=== PATIENT | male | born 1945 | race Caucasian/White ===

== ENCOUNTER → 2016-08-09 | Day surgery (SDC) | payer OTHER ==
[2016-07-30 08:44] VITALS: BMI 35.0
[~2016-08-09] VITALS: Ht 180.3 cm; Wt 113.6 kg
[~2016-08-09] MED LIST: ASPI81TA28 PO; BND25 PO; CALC-20 PO; CHOL20007 PO; CLOP1TAB15 PO; CYCL5TAB PO; FAMO40TA6 PO; FLUT0.15 NAE; GLUC10007 PO; HYDR-5688 PO; LIDOCAINE HCL 2% 2 ML VIAL (20MG/ML) ONE; LISI-794 PO; LPT/40 PO; METF500T PO; METO-217 PO; MIDAZOLAM HCL 1 MG/ML 2ML VIAL ONE; MULTTAB58 PO; NTRGSL/4 UT; ONDANSETRON INJ 2 MG/ML 2 ML VIAL ONE; PLV75 PO; PRLSR20 PO; PROPOFOL IV EMULSION 10 MG/ML 20 ML VIAL IV ONE; RANO500T PO; SODIUM CHLORIDE 0.9% 500ML 500 ML IV ONE; TADA5TAB11 PO; TRAM-10 PO; VALA1TAB2 PO; VALA500T60 PO
[2016-08-09 11:30] VITALS: Ht 180.3 cm; Wt 113.6 kg
[2016-08-09 11:40] VITALS: TEMP 36.8
--- NOTE | 2016-08-09 12:05 | Endo History and Physical ---
History & Physical Date of Service: Aug 09, 2016. Chief Complaint: CHANGE IN BOWEL HABITS Referring Physician: DR. LUCI REYNOLDS History of Present Illness 70 yo CM who presents for Colonoscopy secondary to change in bowel habits. Past Medical History Diabetes, Angioplasty/Stent, Arthritis, Reflux, High Cholesterol, Heart Disease , Hypertension, [place] Past Surgical History Hx Cardiac Surgery: Yes (MULTIPLE HEART CATHS AND STENTS X8-9) Hx Internal Defibrillator: No Hx Pacemaker: No Hx Abdominal Surgery: Yes (LACY, HERNIA REPAIR) Hx of Implantable Prosthesis: No Hx Post-Op Nausea and Vomiting: Yes (PATCH HAS WORKED IN THE PAST) Hx Cancer Surgery: No Hx Thoracic Surgery: No Hx Orthopedic: Yes (LT KNEE SCOPE) Hx Urinary Tract Surgery: Yes (TURP X2, VASECTOMY) Family History None Social History Smoking Status: Former Smoker Hx Substance Use: No Hx Alcohol Use: Yes (OCCASIONAL) Allergies Coded Allergies: Morphine (Verified Adverse Reaction, Severe, GI SYMPTOMS-violent throwing up, can take hydrocodone, 07/30/16) Current Medications Reported Home Medications Medications Dose Route/Sig Max Daily Dose Days Date Category Dose Instructions [place] 5MG/325MG (Acetaminophen/Hydrocodone Bitart) Tab 1 Tablet PO Q12 PRN 07/30/16 Reported PRN PAIN Glucosamine (Glucosamine Sulfate) 1,000 Mg Tab 1,000 Mg PO QAM 07/30/16 Reported Pepcid (Famotidine) 40 Mg Tab 40 Mg PO HS 07/30/16 Reported Ultram (Tramadol HCl) 50 Mg Tab 1-2 Tab PO PRN PRN 07/30/16 Reported Valtrex (Valacyclovir Hcl) 1 Gm Tab 0.5 Tab PO TID PRN 07/30/16 Reported Benadryl (Diphenhydramine Hcl) 25 Mg Cap 50 Mg PO HS 07/30/16 Reported Zestril (Lisinopril) 40 Mg Tab 40 Mg PO QAM 07/30/16 Reported Aspirin Ec (Aspirin) 81 Mg Tab 81 Mg PO QAM 10/05/15 Reported Vitamin D3 (Cholecalciferol) 2,000 Unit Tab 1 Tab PO QPM 08/24/15 Reported Prilosec (Omeprazole) 20 Mg Capcr 20 Mg PO QAM 05/15/15 Reported Nitrostat (Nitroglycerin) 0.4 Mg Tab 0.4 Mg UT PRN 04/21/15 Reported Flexeril (Cyclobenzaprine Hcl) 5 Mg Tab 5 Mg PO HS PRN 03/01/15 Reported Calcium 600 + D (Calcium Carbonate-Vitamin D) 1 Tab Tab 1 Tab PO QPM 03/01/15 Reported Flonase Allergy Relief (Fluticasone Propionate (Nasal)) 50 Mcg/Act Spr 2 Sprays ISABEL DAILY PRN 03/01/15 Reported Cialis (Tadalafil) 5 Mg Tab 5 Mg PO QPM 03/01/15 Reported Toprol Xl (Metoprolol Succinate) 50 Mg Tabcr 50 Mg PO QAM 05/04/12 Reported Glucophage (Metformin Hcl) 500 Mg Tab 500 Mg PO QAM 05/04/12 Reported Multivitamin (Multiple Vitamin) 1 Tab Tab 1 Tab PO QAM 05/04/12 Reported Lipitor (Atorvastatin) 40 Mg Tab 40 Mg PO HS 05/04/12 Reported Vital Signs Weight (Kilograms): 113.64 Height (Feet): 5 Height (Inches): 11 Date Time Temp Pulse Resp B/P Pulse Ox O2 Delivery O2 Flow Rate FiO2 08/09/16 11:40 36.8 63 16 144/82 96 Room Air Physical Exam General Appearance: WD/WN, no apparent distress Respiratory/Chest: Auscultation: breath sounds normal Cardiovascular: Heart Auscultation: RRR Abdomen: Bowel Sounds: normal Inspection & Palpation: soft, non-distended, no tenderness, guarding & rebound Assessment and Plan Assessment: 70 yo CM who presents for Colonoscopy secondary to change in bowel habits. Plan: Proceed with colonoscopy.
--- NOTE | 2016-08-09 12:26 | GI REPORT ---
Procedure Date: 08/09/2016 11:50 AM Procedure: Colonoscopy Indications: Change in bowel habits Medicines: Monitored Anesthesia Care Complications: No immediate complications. Estimated Blood Loss: Estimated blood loss: none. Procedure: Pre-Anesthesia Assessment: - Prior to the procedure, a History and Physical was performed, and patient medications and allergies were reviewed. The patient's tolerance of previous anesthesia was also reviewed. The risks and benefits of the procedure and the sedation options and risks were discussed with the patient. All questions were answered, and informed consent was obtained. Prior Anticoagulants: The patient has taken aspirin, last dose was 1 day prior to procedure. ASA Grade Assessment: III - A patient with severe systemic disease. After reviewing the risks and benefits, the patient was deemed in satisfactory condition to undergo the procedure. After I obtained informed consent, the scope was passed under direct vision. Throughout the procedure, the patient's blood pressure, pulse, and oxygen saturations were monitored continuously. The scope was introduced through the anus and advanced to the terminal ileum. The colonoscopy was performed without difficulty. The patient tolerated the procedure well. The quality of the bowel preparation was good. The terminal ileum, ileocecal valve, appendiceal orifice, and rectum were photographed. Findings: Two sessile polyps were found in the sigmoid colon. The polyps were 3 to 4 mm in size. These polyps were removed with a cold biopsy forceps. Resection and retrieval were complete. Multiple small-mouthed diverticula were found in the sigmoid colon. Non-bleeding internal hemorrhoids were found during retroflexion. The hemorrhoids were small. Impression: - Two 3 to 4 mm polyps in the sigmoid colon, removed with a cold biopsy forceps. Resected and retrieved. - Diverticulosis in the sigmoid colon. - Non-bleeding internal hemorrhoids. Recommendation: - Resume previous diet. - Continue present medications. - Repeat colonoscopy for surveillance based on pathology results. - Return to primary care physician as previously scheduled. Van Glass, DO 08/09/2016 12:25:34 PM This report has been signed electronically. Note Initiated On: 08/09/2016 11:50 AM I attest to the content of the Intraoperative Record and orders documented therein, exceptions below
--- NOTE | 2016-08-09 12:28 | Discharge Instructions ---
Endoscopy Patient Instructions Date / Procedure(s) Performed Aug 09, 2016. Colonoscopy Allergy Information Coded Allergies: Morphine (Verified Adverse Reaction, Severe, GI SYMPTOMS-violent throwing up, can take hydrocodone, 07/30/16) Discharge Date / Findings Aug 09, 2016. Colon polyps Diverticulosis Internal hemorrhoids Medication Instructions Stopped Medication(s): STOP ALL MEDICATIONS EXCEPT LISINOPRIL, METOPROLOL, PEPCID. OK to resume all medications today as prescribed. Reported Home Medications Medications Dose Route/Sig Max Daily Dose Days Date Category Dose Instructions [place] 5MG/325MG (Acetaminophen/Hydrocodone Bitart) Tab 1 Tablet PO Q12 PRN 07/30/16 Reported PRN PAIN Glucosamine (Glucosamine Sulfate) 1,000 Mg Tab 1,000 Mg PO QAM 07/30/16 Reported Pepcid (Famotidine) 40 Mg Tab 40 Mg PO HS 07/30/16 Reported Ultram (Tramadol HCl) 50 Mg Tab 1-2 Tab PO PRN PRN 07/30/16 Reported Valtrex (Valacyclovir Hcl) 1 Gm Tab 0.5 Tab PO TID PRN 07/30/16 Reported Benadryl (Diphenhydramine Hcl) 25 Mg Cap 50 Mg PO HS 07/30/16 Reported Zestril (Lisinopril) 40 Mg Tab 40 Mg PO QAM 07/30/16 Reported Aspirin Ec (Aspirin) 81 Mg Tab 81 Mg PO QAM 10/05/15 Reported Vitamin D3 (Cholecalciferol) 2,000 Unit Tab 1 Tab PO QPM 08/24/15 Reported Prilosec (Omeprazole) 20 Mg Capcr 20 Mg PO QAM 05/15/15 Reported Nitrostat (Nitroglycerin) 0.4 Mg Tab 0.4 Mg UT PRN 04/21/15 Reported Flexeril (Cyclobenzaprine Hcl) 5 Mg Tab 5 Mg PO HS PRN 03/01/15 Reported Calcium 600 + D (Calcium Carbonate-Vitamin D) 1 Tab Tab 1 Tab PO QPM 03/01/15 Reported Flonase Allergy Relief (Fluticasone Propionate (Nasal)) 50 Mcg/Act Spr 2 Sprays ISABEL DAILY PRN 03/01/15 Reported Cialis (Tadalafil) 5 Mg Tab 5 Mg PO QPM 03/01/15 Reported Toprol Xl (Metoprolol Succinate) 50 Mg Tabcr 50 Mg PO QAM 05/04/12 Reported Glucophage (Metformin Hcl) 500 Mg Tab 500 Mg PO QAM 05/04/12 Reported Multivitamin (Multiple Vitamin) 1 Tab Tab 1 Tab PO QAM 05/04/12 Reported Lipitor (Atorvastatin) 40 Mg Tab 40 Mg PO HS 05/04/12 Reported Provider Instructions Activity Restrictions - No exercising or heavy lifting for 24 hours. - Do not drink alcohol the day of the procedure. - Do not drive a car or operate machinery until the day after the procedure. - Do not make any important decisions or sign important papers in 24 hours after the procedure. Following Day: - Return to full activity which may include returning to work/school. Diet Start your diet with liquids and light foods (jello, soup, juice, toast). Then eat your usual diet if not nauseated. Treatment For Common After Affects For mild abdominal pain, bloating, or excessive gas: - Rest - Eat lightly - Lie on right side Follow-Up Information Follow-up with DR. LUCI REYNOLDS as scheduled Anesthesia Information What You Should Know You have had a procedure that required some medicine to reduce anxiety and discomfort. This treatment is called moderate sedation. After receiving the treatment, you may be sleepy, but you will be able to breathe on your own. The effects of the treatment may last for several hours. Follow these instructions along with Activity/Diet recommendations noted above: * Do NOT do anything where dizziness or clumsiness would be dangerous. * Rest quietly at home today, then you can be up and about tomorrow. * Have a responsible person stay with you the rest of today. * You may have had an I.V. today. If so, you may take the dressing off later today. Recommendations Call your doctor if: * Trouble breathing * Continuous vomiting for more than 24 hours * Temperature above 101 degrees * Severe abdominal pain or bloating * Pain not relieved by pain medicine ordered * There is increased drainage or redness from any incision * A large amount of rectal bleeding greater than 2-3 tablespoons. (If you had a polyp/s removed or have hemorrhoids, a small amount of blood - from the rectum is to be expected.) * You have any unanswered questions or concerns. IN THE EVENT OF A SERIOUS EMERGENCY, GO TO THE NEAREST EMERGENCY ROOM Your discharge instructions were prepared by provider Van G. Case. Patient Instructions Signature Page Fran Dyertz Patient (or Guardian) Signature/Date: I have read and understand the instructions given to me by my caregivers. Caregiver/RN/Doctor Signature/Date: The above-named patient and/or guardian has received patient instructions on this date. + Original Patient Signature Page (only) stays with chart. Please make copy for patient.
--- NOTE | 2016-08-09 12:55 | Anesthesiology Progress Note ---
Anesthesia Post Op Note Date & Time Aug 09, 2016 at 12:55 Vital Signs Pain Intensity: 0 Vital Signs Past 12 Hours Date Time Temp Pulse Resp B/P Pulse Ox O2 Delivery O2 Flow Rate FiO2 08/09/16 12:43 58 16 103/60 95 Room Air 08/09/16 12:27 64 16 100/59 94 Room Air 08/09/16 11:40 36.8 63 16 144/82 96 Room Air Notes Mental Status: alert / awake / arousable, participated in evaluation Pt Amnestic to Procedure: Yes Nausea / Vomiting: adequately controlled Pain: adequately controlled Airway Patency, RR, SpO2: stable & adequate BP & HR: stable & adequate Hydration State: stable & adequate Anesthetic Complications: no major complications apparent
[2016-08-09 12:58] VITALS: BP 109/66; PULSE 58; O2SAT 94
== END | disposition home or self-care (01) ==
LOC: C.GI 11:11
PROVIDERS: ATTEND Internal Medicine
DX: R19.4 Change in bowel habit (principal); D12.5 Benign neoplasm of sigmoid colon; K57.30 Diverticulosis of large intestine without perforation or abscess without bleeding; K64.8 Other hemorrhoids; E11.9 Type 2 diabetes mellitus without complications; K21.9 Gastro-esophageal reflux disease without esophagitis; I10 Essential (primary) hypertension; E78.00 Pure hypercholesterolemia, unspecified; I25.2 Old myocardial infarction; Z98.61 Coronary angioplasty status; Z87.891 Personal history of nicotine dependence; Z90.49 Acquired absence of other specified parts of digestive tract; Z79.82 Long term (current) use of aspirin

== ENCOUNTER → 2016-08-16 | Outpatient (CLI) | payer OTHER ==
[~2016-08-16] MED LIST changes: -LIDOCAINE HCL 2% 2 ML VIAL (20MG/ML) ONE; -MIDAZOLAM HCL 1 MG/ML 2ML VIAL ONE; -ONDANSETRON INJ 2 MG/ML 2 ML VIAL ONE; -PROPOFOL IV EMULSION 10 MG/ML 20 ML VIAL IV ONE; -SODIUM CHLORIDE 0.9% 500ML 500 ML IV ONE
--- NOTE | 2016-08-16 15:19 | DIAGNOSTIC IMAGING REPORT ---
RIGHT ELBOW 3 VIEWS CLINICAL HISTORY: Right elbow pain. No reported history of trauma. FINDINGS: 3 views of the right elbow are obtained. No prior studies are available for comparison at the time of dictation. The skeletal structures appear well mineralized. No fracture is seen. The joint spaces are preserved. Enthesophytes arise from the humeral epicondyles, and there is also a large enthesophyte at the triceps insertion. Minimal spurring is noted along the medial joint space. No joint effusion is identified. Dorsal soft tissue swelling is observed. IMPRESSION: 1. Dorsal soft tissue swelling with no radiographic evidence of acute fracture. 2. Mild degenerative change/spurring as above. Electronically signed by: Alexander Bell M.D. 08/16/2016 3:18 PM Dictated Date/Time: 08/16/2016 3:16 PM
== END | disposition home or self-care (01) ==
LOC: C.RDSM 08:00
PROVIDERS: ATTEND Physical Medicine & Rehabilitation Sports Medicine
DX: M25.521 Pain in right elbow (principal); M79.89 Other specified soft tissue disorders

== ENCOUNTER → 2016-09-17 | Outpatient (CLI) | payer OTHER | END | disposition home or self-care (01) | LOC: C.LABMFLN 08:45 | PROVIDERS: ATTEND Urology | DX: Z00.00 Encounter for general adult medical examination without abnormal findings (principal); F52.8 Other sexual dysfunction not due to a substance or known physiological condition; N40.1 Benign prostatic hyperplasia with lower urinary tract symptoms ==

== ENCOUNTER → 2016-10-24 | Outpatient (CLI) | payer OTHER ==
[~2016-10-24] MED LIST changes: -BND25 PO; +DIPH25CA5 PO
[2016-10-24 13:54] LABS: ESTIMATED AVERAGE GLUCOSE 160 mg/dl; HA1C FLAG Normal (Normal)
[2016-10-24 15:07] LABS: CHOLESTEROL/HDL RATIO 2.8
[2016-10-24 16:54] LABS: RATIO 17.9 mcg/mg (0-30.0)
== END | disposition home or self-care (01) ==
LOC: C.LABMFLN 08:29
PROVIDERS: ATTEND Internal Medicine
DX: I25.10 Atherosclerotic heart disease of native coronary artery without angina pectoris (principal); E11.9 Type 2 diabetes mellitus without complications

== ENCOUNTER → 2017-02-13 | Outpatient (CLI) | payer OTHER ==
[~2017-02-13] MED LIST changes: +BND25 PO; -DIPH25CA5 PO; +REGADENOSON 0.4 MG/5 ML SYR ONE
[2017-02-13 09:40] LABS: BASO % 0.4 %; BASO ABS # 0.03 K/uL (0-0.2); COMPLETE YES; HEMATOCRIT 44.5 % (42-52); IG% 0.1 %; LYMPH ABS # 2.87 K/uL (1.2-3.4); MEAN CELL VOLUME 85.4 fL (80-100); MEAN CORPUSCULAR HEMOGLOBIN 28.8 pg (25-34); MEAN CORPUSCULAR HGB CONC 33.7 g/dl (32-36); MEAN PLATELET VOLUME 9.7 fL (7.4-10.4); MONO % 11.2 %; NEUT % 46.3 %; PLATELET COUNT 233 K/uL (130-400); RED BLOOD COUNT 5.21 M/uL (4.7-6.1); WHITE BLOOD COUNT 7.35 K/uL (4.8-10.8)
[2017-02-13 10:12] LABS: BLOOD UREA NITROGEN 27 mg/dl (7-18); BUN/CREATININE RATIO 22.3 (10-20); CALCIUM 9.5 mg/dl (8.5-10.1); CARBON DIOXIDE 28 mmol/L (21-32); CHLORIDE 102 mmol/L (98-107); CHOLESTEROL 111 mg/dl (0-200); GLUCOSE 128 mg/dl (70-99); POTASSIUM 4.9 mmol/L (3.5-5.1); SODIUM 134 mmol/L (136-145)
[2017-02-13 10:16] LABS: ESTIMATED AVERAGE GLUCOSE 148 mg/dl; HA1C FLAG Normal (Normal)
[2017-02-13 10:21] LABS: HDL CHOLESTEROL 55 mg/dl; LDL CHOLESTEROL CALCULATED 40 mg/dl; TRIGLYCERIDES 80 mg/dl (0-150); VERY LOW DENSITY LIPOPROT CALC 16 mg/dl
--- NOTE | 2017-02-13 19:43 | Myocardial Perfusion Study ---
Myocardial Perfusion Study Rpt Myocardial Perfusion Study Rpt Date of Service 02/13/17 Myocardial Perfusion Study Rpt Procedure: 1. Myocardial perfusion study performed in multiple views/images 2. Lexiscan pharmacologic stress ECG Indications: 1. Dyspnea on exertion 2. CAD Consent: Informed written consent was obtained prior to the procedure. Ordering physician: Dr. Brown Procedural details: For the stress portion of the study, Lexiscan 0.4 mg was intravenously administered followed by a saline flush. This was followed by 33.2 mCi of technetium 99m Cardiolite, injected at 11:10 a.m. on 02/13/2017. 30 minutes following the injection, imaging of the heart was performed in multiple projections. For the rest portion of the study, 10.8 mCi technetium 99m Cardiolite was injected intravenously at 9:35 a.m. on 02/13/2017. 1 hour following the injection, imaging of the heart was performed in the same projections. Lexiscan stress ECG: Resting ECG demonstrated: Sinus bradycardia with first-degree AV block. 54 bpm. Maximum heart rate: 74 bpm Resting blood pressure: 107/64 mmHg Maximum blood pressure: 117/70 mmHg Maximal, age-predicted heart rate: 49 % Significant ST changes: None Arrhythmia: None Symptoms: Shortness of breath Findings: Rotating raw imaging demonstrated no significant lung uptake. There is no significant motion artifact. Heart size appeared mildly enlarged. Myocardial perfusion demonstrated moderate to large sized area with severely reduced uptake involving the base to apical inferior wall, base to apical inferolateral wall, and base to mid lateral wall. There is a fixed component involving the base to mid inferior, base to mid inferolateral, and base to mid lateral wall, with mild reversibility. The mid to distal inferior and mid to distal inferolateral wall segments appear reversible. Ejection fraction: 38% Wall motion: Akinesis of the basal inferior, basal inferolateral, and basal lateral wall segments. Hypokinesis of the mid to apical inferior, mid to apical inferolateral, and mid lateral wall segments. Other wall segments appear to have normal wall motion. No significant transient ischemic dilation. Impression: 1. Abnormal myocardial perfusion study suggesting ischemia involving inferior , inferolateral, and lateral wall segments. 2. Infarct involving the base to mid inferior, base to mid inferolateral, and base to mid lateral wall segments. 3. Lexiscan induced dyspnea. 4. Moderately reduced LV systolic function with calculated EF 38%. 5. Akinesis of the basal inferior, basal inferolateral, and basal lateral wall segments. Hypokinesis of the mid to apical inferior, mid to apical inferolateral, and mid lateral wall segments. Other wall segments appear to have normal wall motion. 6. Nondiagnostic Lexiscan ECG.
== END | disposition home or self-care (01) ==
LOC: C.NUCL 09:04
PROVIDERS: ATTEND Internal Medicine Cardiovascular Disease
DX: I25.10 Atherosclerotic heart disease of native coronary artery without angina pectoris (principal); I25.5 Ischemic cardiomyopathy; R06.09 Other forms of dyspnea; E11.9 Type 2 diabetes mellitus without complications; E78.5 Hyperlipidemia, unspecified

== ENCOUNTER 2017-02-20 06:07 | Observation (INO) | payer OTHER ==
[~2017-02-20] VITALS: Ht 180.3 cm; Wt 112.6 kg
[~2017-02-20 06:07] MED LIST changes: -CLOP1TAB15 PO; -PLV75 PO; -RANO500T PO; -REGADENOSON 0.4 MG/5 ML SYR ONE; -VALA500T60 PO
[2017-02-20 06:22] VITALS: BMI 34.0
[2017-02-20 06:23] VITALS: BP 148/74; PULSE 55; TEMP 36.7; O2SAT 96
[2017-02-20] MEDS ORDERED: FENTANYL CITRATE INJ 50 MCG/1 ML 2 ML VIAL ONE (06:37)
[2017-02-20] MEDS ORDERED: MIDAZOLAM HCL 1 MG/ML 2ML VIAL ONE ×3 (06:37→08:24)
[2017-02-20] MEDS ORDERED: HEPARIN SOD (PORCINE) 1000 UNIT/ML 10 ML VIAL ONE (06:37)
[2017-02-20] MEDS ORDERED: NiCARDipine HCL INJ 2.5 MG/ML 10 ML AMP ONE (06:37)
[2017-02-20] MEDS ORDERED: NITROGLYCERIN/D5W 100MCG/ML 20ML SYR ONE (06:38)
[2017-02-20] MEDS ORDERED: RANO500T PO (06:39)
--- NOTE | 2017-02-20 06:44 | History & Physical Bridge Note ---
H&P Re-Evaluation Bridge Note: I have examined the patient, reviewed the History & Physical and in the interval since the performance of the History & Physical I have noted the following changes of clinical significance: He reports no significant improvement on ranexa 500 mg po bid. Otherwise, no changes noted.
--- NOTE | 2017-02-20 06:44 | Procedure Note ---
Pre-Mod Sedation Assessment General Date of Moderate Sedation: Feb 20, 2017. Vital Signs: Vital Signs Past 12 Hours Date Time Temp Pulse Resp B/P (MAP) Pulse Ox O2 Delivery O2 Flow Rate FiO2 02/20/17 06:23 36.7 55 16 148/74 96 Room Air Review Cardiovascular: regular rate, rhythm Abdomen: soft Lungs: lungs clear Pre-Sedation Airway Assessment Oral Cavity: WNL Short Thick Neck: No Hx of Sleep Apnea: No Smoking Status: Never Smoker Procedure Planning Contraindications-for Mod Sed: None Yes Notes The planned sedation has been discussed with the patient and consent obtained. I have identified the patient, determined the appropriateness of sedation and have assessed the patient immediately prior to the procedure. All medicine(s) and interventions are by my order.
--- NOTE | 2017-02-20 07:47 | Cardiac Catheterization ---
Procedure Note Procedure Date Feb 20, 2017. Pre-Procedure Diagnosis Positive Stress Test AUC Score 9 Post-Procedure Diagnosis Severe CAD Procedure(s) Performed Coronary Angiography, Left Heart Cath Machine Fitter Dr. Brown Rubber Factory Worker(s) Todd Estimated Blood Loss < 20 ml Medication(s) Fentanyl, Heparin, Nicardipine, Versed, Lidocaine 1% Summary of Findings Coronary angiography: 1. Left main coronary artery: The LMCA is short without significant CAD noted angiographically. 2. Left anterior descending: The LAD is a large caliber vessel that extends to the apex. Mid LAD 80%, just distal to medium to large caliber diagonal 1 and septal graduate student instructor. First septal graduate student instructor ostial 98%. Remainder of LAD, D1 and small D2 without significant CAD. 3. Circumflex: The circumflex is a large caliber vessel. Proximal circumflex 98%, just proximal to proximal circumflex stent. Proximal circumflex stent with 30% in stent restenoses. Medium caliber OM1 and OM2, without significant CAD. 4. Right coronary artery: The RCA is dominant. Medium caliber RCA with luminal irregularities distally. Very small PL branch. No significant CAD within the very small PL or PDA. Left heart catheterization: 1. No significant aortic stenosis. 2. Mildly elevated LVEDP; 16mmHg. 3. Ventriculography was not performed. Impression: 1. Severe CAD involving proximal circumflex, mid LAD, and first septal graduate student instructor. 2. Mild in stent restenosis of proximal circumflex stent. 3. Mildly elevated LVEDP. 4. No aortic stenosis. Plan: 1. Interventional Cardiology, Dr. Vieira, was asked to review images. He plans for PCI of proximal circumflex. Circumflex territory was the abnormal territory noted on nuclear perfusion study. Hemodynamics Rest Ao: 140/51 Final Ao: 112/55 LV: 140/6/16 Recommendations PCI without planned CABG (remains on seed analysis laboratory assistant table for attempted PCI) Specimens None Radiation Exposure (mGy) 1612 mGy. Fluoro time 5.5 min Contrast (mls) 50 ml Procedural Complication(s) None Disposition Supervisor Pipe Finishing Holding/Recovery ACC Data Cardiac Status Clinical evaluation leading to the procedure CAD Presntation: Positive Stress Test Anginal Classification: No symptoms Heart Failure: Yes, NYHA Class: CCS III Cardiogenic Shock w/in 24Hrs: No Cardiac Arrest w/in 24Hrs: No Imaging studies past 6 months: No Stress studies past 6 months: Yes Standard Exercise Stress Test: No Stress Echocardiogram: No Stress Testing w/SPECT MPI: Yes - Positive, Risk/Extent of Ischemia (High) Cardiac CTA: No Coronary Anatomy Dominant: Right Left Main (% Stenosis): Normal LAD (% Stenosis): Mid (80%) D1 (% Stenosis): Normal D2 (% Stenosis): Normal D3 (% Stenosis): Normal Circumflex (% Stenosis): Proximal (98%) OM1 (% Stenosis): Normal OM2 (% Stenosis): Normal RCA (% Stenosis): Distal (10%) R PDA (% Stenosis): Normal R PL1 (% Stenosis): Normal Left Ventricular Angiography EF (%): n/a Diagnostic Physician's Name: Mic Brown MD Status: Elective Closure Device Percutaneous Entry Location: Radial Closure Device: Radial Band Recommendations: PCI without planned CABG
--- NOTE | 2017-02-20 08:14 | Procedure Note ---
Post-Mod Sedation Assessment General Date of Moderate Sedation Feb 20, 2017. Vital Signs: Vital Signs Past 12 Hours Date Time Temp Pulse Resp B/P (MAP) Pulse Ox O2 Delivery O2 Flow Rate FiO2 02/20/17 06:23 36.7 55 16 148/74 96 Room Air Review - Discharge Criteria Vital Signs Stable: Yes Alert/Oriented/Conversant: Yes Returned to Baseline Mental St: N/A (still sedated for PCI) Nausea Absent/Minimal: Yes Pain/Discomfort/Absent/Minimal: Yes Normal/Baseline Respirations: Yes Active Bleeding?: No
[2017-02-20] MEDS ORDERED: TICAGRELOR 90 MG TAB PO ONE (08:57)
[2017-02-20] MEDS ORDERED: NITROGLYCERIN 0.4 MG SL PER TAB CHARGE SL PRN (09:15)
[2017-02-20] MEDS ORDERED: SODIUM CHLORIDE 0.9% 1000ML 1,000 ML IV SCH (09:15)
[2017-02-20] MEDS ORDERED: ACETAMINOPHEN 325 MG TAB PO PRN (09:15)
[2017-02-20] MEDS ORDERED: ONDANSETRON INJ 2 MG/ML 2 ML VIAL IV PRN (09:15)
[2017-02-20] MEDS ORDERED: FLUTICASONE PROPIONATE NA SPR 16 GM BTL NAE PRN (09:15)
[2017-02-20 09:18] VITALS: BP 130/69; PULSE 50; TEMP 36.3; O2SAT 98; Ht 180.3 cm; Wt 112.6 kg
[2017-02-20 09:23] VITALS: BP 136/74; PULSE 50; PULSE 52
[2017-02-20] MEDS ORDERED: DEXTROSE 50% 50 ML SYR IV PRN (09:30)
[2017-02-20] MEDS ORDERED: GLUCOSE 40% GEL 15 GM TUBE PO PRN (09:30)
[2017-02-20] MEDS ORDERED: GLUCOSE 10 TABS/TUBE PO PRN (09:30)
[2017-02-20] MEDS ORDERED: GLUCAGON FOR INJ 1 MG VIAL SQ PRN (09:30)
--- NOTE | 2017-02-20 09:39 | Cardiac Catheterization ---
Procedure Note Procedure Date Feb 20, 2017. Pre-Procedure Diagnosis Angina, Positive Stress Test AUC Score 7 Post-Procedure Diagnosis Severe CAD, Successful PCI Procedure(s) Performed Drug Eluting Stent Spindle Sander Dariel Binding Printer(s) Love Estimated Blood Loss 20 Medication(s) Fentanyl, Heparin, Nitroglycerin, Versed Summary of Findings Indication: Positive stress test/Angina Access: 6Fr Slender Right Radial Catheters: JL3.5 guide Findings: For full details of patients coronary angiography please see Cath Report dictated by Dr. Brown. Briefly patient found to have 95% ostial circumflex, 80% mid LAD. Decision made to proceed with PCI to circumflex. -- PCI -- Antithrombotic therapy: Heparin, Ticagrelor Procedure: LM cannulated with JL3.5 guide BMW wire passed across lesion into distal vessel Ostial circumflex lesion predilated with 2.5 compliant balloon Dilated lesion stented with 3.0 x 15 Franki SHAY. Stent placed at circumflex ostium and overlapped distally with prior stents Difficulty passing NC balloon through stent. Eventually able to pass with wiggle wire. Stent post-dilated with 3.25 noncompliant balloon IC vasodilators administered for spasm Post procedure PEPE 3 flow, stent well expanded with minimal residual stenosis and no apparent cardiac complications. Arterial Closure: TR Band Summary: 1. Successful PCI of ostial circumflex with one drug-eluting stent (3.0 x 15 Franki, post-dilated to 3.25) Recommendations: To PCU for continued monitoring Loaded with Ticagrelor 180mg in laborer yard Continue dual-antiplatelet therapy for 1 year Continue statin, antihypertensives and ASCVD risk factor modification Plan for staged PCI of mid LAD as an outpatient. Hemodynamics Rest Ao: 140/51/86 Final Ao: 129/62/88 LV: -- Recommendations PCI without planned CABG Specimens None Radiation Exposure (mGy) 5993 Contrast (mls) 260 Drains None Anesthesia Moderate Procedural Complication(s) None Disposition PCU ACC Data Cardiac Status Clinical evaluation leading to the procedure CAD Presntation: Stable angina, Positive Stress Test Anginal Classification: CCS III Heart Failure: No, NYHA Class: CCS I Cardiogenic Shock w/in 24Hrs: No Cardiac Arrest w/in 24Hrs: No Imaging studies past 6 months: Yes Stress studies past 6 months: Yes Stress Echocardiogram: Yes - Positive, Risk/Extent of Ischemia (High) Diagnostic Physician's Name: Mic Brown MD Status: Elective Closure Device Percutaneous Entry Location: Radial Closure Device: Radial Band Recommendations: PCI without planned CABG PCI Indication: + Stress Test Lesion Segment Name: Ostial circumflex Culprit Artery: Yes Stenosis Prior to Rx (%): 95 Chronic Total Occlusion: No IVUS: No FFR: No Pre-Procedure PEPE Flow: 3 Previously Treated Lesion: No Lesion Complexity: High/C Lesion Length (mm): 12 Thrombus Present: No Bifurcation Lesion: Yes Guidewire Across Lesion: Yes Guidewire: Stenosis Post-Procedure (%): 5 Post-Procedure PEPE Flow: 3 Device(s) Deployed: Yes Intraprocedure Events Significant Dissection: No Perforation: No
[2017-02-20] MEDS ORDERED: IV FLUIDS COMPLETED PRN (09:45)
[2017-02-20] MEDS: INSULIN ASPART 100 UNITS/ML 3 ML PEN SC SCH ×3 (11:00→21:43)
[2017-02-20] MEDS ORDERED: NURSING DECISION MEDICATION ORDER SCH (11:15)
[2017-02-20 15:32] VITALS: BP 128/78; PULSE 52; TEMP 36.6; O2SAT 95
[2017-02-20 19:31] VITALS: BP 143/77; PULSE 58; TEMP 36.8; O2SAT 95
[2017-02-20] MEDS ORDERED: ATORVASTATIN 40 MG TAB PO SCH (21:00)
[2017-02-20] MEDS ORDERED: FAMOTIDINE 20 MG TAB PO SCH (21:00)
[2017-02-20] MEDS ORDERED: CHOLECALCIFEROL 1000 INTER.UNIT TAB PO SCH (21:00)
[2017-02-20] MEDS ORDERED: CALCIUM 600MG + VIT D 400 IU TAB PO SCH (21:00)
[2017-02-20] MEDS: RANOLAZINE 500 MG ER TAB PO SCH (21:45)
[2017-02-20] MEDS: TICAGRELOR 90 MG TAB PO SCH (21:46)
[2017-02-20 23:17] VITALS: BP 134/83; PULSE 64; TEMP 36.8; O2SAT 97
[2017-02-21 03:18] VITALS: BP 136/84; PULSE 57; TEMP 36.6; O2SAT 96
[2017-02-21 05:22] LABS: BASO % 0.6 %; BASO ABS # 0.05 K/uL (0-0.2); COMPLETE YES; EOS % 3.2 %; HEMATOCRIT 42.8 % (42-52); IG% 0.1 %; LYMPH % 29.4 %; LYMPH ABS # 2.49 K/uL (1.2-3.4); MEAN CELL VOLUME 85.6 fL (80-100); MEAN CORPUSCULAR HEMOGLOBIN 29.2 pg (25-34); MEAN CORPUSCULAR HGB CONC 34.1 g/dl (32-36); MEAN PLATELET VOLUME 9.7 fL (7.4-10.4); MONO % 10.6 %; NEUT % 56.1 %; PLATELET COUNT 213 K/uL (130-400); WHITE BLOOD COUNT 8.48 K/uL (4.8-10.8)
[2017-02-21 05:53] LABS: BUN/CREATININE RATIO 13.4 (10-20); CREATININE 1.2 mg/dl (0.60-1.40); POTASSIUM 4.5 mmol/L (3.5-5.1)
[2017-02-21] MEDS: INSULIN ASPART 100 UNITS/ML 3 ML PEN SC SCH ×2 (07:00→11:00)
[2017-02-21 07:26] VITALS: BP 132/86; PULSE 61; TEMP 36.6; O2SAT 97
[2017-02-21] MEDS: LISINOPRIL 40 MG TAB PO SCH ×2 (08:19→09:03)
[2017-02-21] MEDS: ASPIRIN 81 MG ECTAB PO SCH ×2 (08:20→09:02)
[2017-02-21] MEDS: PANTOprazole SOD 40 MG TAB PO SCH ×2 (08:20→09:03)
[2017-02-21] MEDS: MULTIVITAMIN TAB PO SCH ×2 (08:20→09:03)
[2017-02-21] MEDS: ATORVASTATIN 40 MG TAB PO SCH ×2 (08:21→09:03)
[2017-02-21] MEDS: RANOLAZINE 500 MG ER TAB PO SCH ×2 (08:21→09:03)
[2017-02-21] MEDS: METOPROLOL SUCC 50MG EXT REL TAB PO SCH ×2 (08:21→09:03)
[2017-02-21] MEDS: TICAGRELOR 90 MG TAB PO SCH ×2 (08:21→09:04)
[2017-02-21] MEDS ORDERED: GLUCOSAMINE SULFATE 500 MG CAP PO SCH (09:00)
[2017-02-21 11:53] VITALS: BP 132/79; PULSE 56; TEMP 36.6; O2SAT 97
[2017-02-21] MEDS ORDERED: PLV75 PO (13:23)
--- NOTE | 2017-02-21 13:30 | Discharge Instructions ---
Discharge Instructions Procedure Procedure Date: Feb 21, 2017. Reason for Visit: CAD. Discharge Discharge Date: Feb 21, 2017. Discharge Diagnosis: Coronary artery disease Last Recorded Wt (Kilograms): 112.600 Anesthesia Post Anesthesia Instructions: If you have had General Anesthesia or IV Sedation: * Do not drive today. * Resume driving when surgeon permits. * Do not make important decisions or sign legal documents today. * Call surgeon for: 1. Temperature elevations greater than 101 degrees F. 2. Uncontrollable pain. 3. Excessive bleeding. 4. Persistent nausea and vomiting. 5. Medication intolerance (nausea, vomiting or rash). * For nausea and vomiting use only clear liquids such as: tea, soda, bouillon until nausea subsides, then gradually increase diet as tolerated. * If you have any concerns or questions, call your surgeon's office. If physician is unavailable and it is an emergency, call 911 or go to the nearest emergency room. Instructions Activity Recommendations: limitations as noted below Recommended Home Diet: resume previous diet Allergies: Coded Allergies: Shellfish-derived Products (Verified Allergy, Intermediate, Hives, 02/21/17 ) Morphine (Verified Adverse Reaction, Severe, GI SYMPTOMS-violent throwing up, can take hydrocodone, 07/30/16) Follow Up Additional Instructions: ACTIVITY RECOMMENDATIONS: It is common to feel weak and fatigue for a few days. * Do not drive or operate any motorized equipment for the next 2 days. * Limit stair usage (2 or 3 trips a day only) for the next 2 days. * Do not lift anything heavier than 10 pounds for the next three days. * Do not engage in vigorous exercise or any sports for the next five days. * You may shower the day after your procedure, but do not immerse the area for three days. Cleanse the site gently with soap and water. AVOID STRENUOUS EXERCISE UNTIL PLANNED SECOND PROCEDURE SPECIAL CARE INSTRUCTIONS: * You may replace the pressure dressing or band-aid the morning after the procedure. * After your procedure, it is normal to have a small bruise or small lump at the site. Examine your site daily for any change in the bruise or lump, redness, swelling, drainage or numbness. Notify your doctor if any change. BLEEDING: * If there is a small amount of bleeding at the site, lie down and apply firm pressure with a clean cloth for ten minutes. When the bleeding stops, lie quietly keeping the procedure limb straight for six hours. Notify your doctor as soon as possible. * If the bleeding does not stop after ten minutes or if there is a large amount of bleeding or spurting, call 911 immediately. Continue to lie down and hold firm pressure until help arrives. SKIN IRRITATION: * You may experience some redness and/or swelling in the area where radiation was administered. If any skin irritation occurs, please contact your family physician. FOLLOW UP VISIT: Keep any scheduled doctor appointments. Follow-up with: Follow-up with primary care in next 1-2 weeks. Plan for repeat cardiac catheterization with intervention in 1-2 weeks. Tentatively plan for 03/06/2017 Tisha Rodriguez Recommendations: Call your doctor if: * Temperature above 101 degrees * Pain not relieved by pain medicine ordered * There is increased drainage or redness from any incision * You have any unanswered questions or concerns. Your Doctors Instructions noted above were prepared by provider Maged Vieira. Patient Signature Section: Patient Instructions Signature Page Fran Valdez Patient (or Guardian) Signature/Date: I have read and understand the instructions given to me by my caregivers. Caregiver/RN/Doctor Signature/Date: The above-named patient and/or guardian has received patient instructions on this date. + Original Patient Signature Page (only) stays with chart. Please make copy for patient.
[2017-02-21 13:37] VITALS: BP 132/79; PULSE 56; TEMP 36.6; O2SAT 97
[2017-02-21] MEDS ORDERED: CLOPIDOGREL BISULFATE 300 MG TAB PO STA (13:40)
--- NOTE | 2017-02-21 15:08 | DISCHARGE SUMMARY ---
PRINCIPAL DIAGNOSES: 1. Multivessel coronary artery disease. 2. Ischemic cardiomyopathy. 3. Hypertension. 4. Hyperlipidemia. PROCEDURES: 1. Diagnostic coronary angiography. 2. PCI of ostial circumflex. HISTORY OF PRESENT ILLNESS: Mr. Valdez is a very pleasant 71-year-old man with a history of multivessel coronary artery disease, hypertension, dyslipidemia, ischemic cardiomyopathy and type 2 diabetes who is followed by Dr. Quick as an outpatient for his cardiovascular care. He was seen recently by him and noted increasing exertional dyspnea. As a result, underwent an outpatient myocardial perfusion study on which he was noted to have inferior, inferolateral and lateral wall ischemia. As a result, coronary angiography was recommended. HOSPITAL COURSE: The patient underwent cardiac catheterization via right radial artery. Study showed a mid LAD 80% stenosis just after a medium caliber first diagonal, circumflex was a large vessel and there was a 95% plus stenosis just proximal to his prior stent in its circumflex. RCA was dominant with luminal irregularities. Decision was made to proceed with PCI and the patient had a 3.0 x 15 mm Bogard drug-eluting stent placed to his ostium circumflex. This was post dilated with a 3.25 noncompliant balloon. The procedure was uncomplicated and he was admitted to telemetry for observation. He had no significant event on telemetry. His post-procedure labs the following day were within normal limits. He had no recurrent chest pain or dyspnea with walking around the floor. He was thought safe for discharge and was discharged to home. He will continue on Plavix for at least the next year, likely lifelong in the setting of overlapping stents. We will plan to bring the patient back in the next 1-2 weeks for a staged PCI of his mid LAD. DISCHARGE MEDICATIONS: 1. Clopidogrel 75 mg daily. 2. Aspirin 81 daily. 3. Atorvastatin 40 mg daily. 4. Calcium carbonate and vitamin D. 5. Cholecalciferol 2000 units q.p.m. 6. Benadryl 25 at bedtime. 7. Famotidine 40 mg at bedtime. 8. Fluticasone nasal spray 50 mcg p.r.n. 9. Glucosamine 1000 mg q.a.m. 10. Lisinopril 40 mg daily. 11. Metformin 500 mg b.i.d. (to be resumed 48 hours post cardiac catheterization). 12. Metoprolol succinate 50 mg q.a.m. 13. Multivitamin 1 tab daily. 14. Omeprazole 20 mg q.a.m. 15. Ranolazine 500 mg b.i.d. 16. Tadalafil 5 mg q.p.m. The patient to hold medication until next procedure. FOLLOWUP: The patient will follow up with Dr. French in the next 1-2 weeks and will follow up for PCI after that (tentatively scheduled for 03/06/2017).
== END 2017-02-21 15:34 | disposition home or self-care (01) ==
LOC: C.CATH 06:07 → ENRESERV 08:08 → C.2T 09:27
PROVIDERS: ADMIT Internal Medicine Interventional Cardiology; ATTEND Internal Medicine Interventional Cardiology
DX: I25.10 Atherosclerotic heart disease of native coronary artery without angina pectoris (principal); R06.09 Other forms of dyspnea; I25.5 Ischemic cardiomyopathy; E78.5 Hyperlipidemia, unspecified; I10 Essential (primary) hypertension; K21.9 Gastro-esophageal reflux disease without esophagitis; M19.90 Unspecified osteoarthritis, unspecified site; N40.1 Benign prostatic hyperplasia with lower urinary tract symptoms; N13.8 Other obstructive and reflux uropathy; E11.9 Type 2 diabetes mellitus without complications

== ENCOUNTER 2017-03-06 07:45 | Observation (INO) | payer OTHER ==
[2017-03-06] VITALS (13 sets, daily range): BP systolic 116–167; BP diastolic 70–88; PULSE 49–63; TEMP 36.4–36.6; O2SAT 95–100; Ht 180.3 cm; Wt 111.9 kg
[~2017-03-06] VITALS: Ht 180.3 cm; Wt 111.9 kg
[~2017-03-06 07:45] MED LIST changes: -CYCL5TAB PO; -HYDR-5688 PO; -NTRGSL/4 UT; +PLV75 PO; +RANO500T PO; -TRAM-10 PO; -VALA1TAB2 PO
[2017-03-06] MEDS ORDERED: NTRGSL/4 UT (08:02)
[2017-03-06] MEDS ORDERED: CLOP1TAB15 PO (08:02)
[2017-03-06] MEDS ORDERED: CYCL5TAB PO (08:02)
[2017-03-06] MEDS ORDERED: VALA500T60 PO (08:02)
[2017-03-06] MEDS ORDERED: HEPARIN SOD (PORCINE) 1000 UNIT/ML 10 ML VIAL ONE ×2 (08:08→09:43)
[2017-03-06] MEDS ORDERED: NITROGLYCERIN/D5W 100MCG/ML 20ML SYR ONE (08:08)
[2017-03-06] MEDS ORDERED: MIDAZOLAM HCL 1 MG/ML 2ML VIAL ONE ×3 (08:08→09:49)
[2017-03-06] MEDS ORDERED: NiCARDipine HCL INJ 2.5 MG/ML 10 ML AMP ONE (08:08)
[2017-03-06] MEDS ORDERED: FENTANYL CITRATE INJ 50 MCG/1 ML 2 ML VIAL ONE ×2 (08:08→09:07)
--- NOTE | 2017-03-06 08:47 | History & Physical Bridge Note ---
H&P Re-Evaluation Bridge Note: I have examined the patient, reviewed the History & Physical and in the interval since the performance of the History & Physical I have noted the following changes of clinical significance: No changes noted
--- NOTE | 2017-03-06 08:48 | Procedure Note ---
Pre-Mod Sedation Assessment General Date of Moderate Sedation: Mar 06, 2017. Vital Signs: Vital Signs Past 12 Hours Date Time Temp Pulse Resp B/P (MAP) Pulse Ox O2 Delivery O2 Flow Rate FiO2 03/06/17 08:01 36.5 63 18 167/70 95 Room Air Review Cardiovascular: regular rate, rhythm, no edema Abdomen: normal bowel sounds, non tender Lungs: chest non-tender, lungs clear Airway Class: II Pre-Sedation Airway Assessment Oral Cavity: WNL Able to Visualize Vocal Cords: No Short Thick Neck: No Hx of Sleep Apnea: No Smoking Status: Never Smoker Mallampati Classification: Class III ASA Classification: Class III Procedure Planning Contraindications-for Mod Sed: None Yes Notes The planned sedation has been discussed with the patient and consent obtained. I have identified the patient, determined the appropriateness of sedation and have assessed the patient immediately prior to the procedure. All medicine(s) and interventions are by my order.
[2017-03-06] MEDS ORDERED: CLOPIDOGREL BISULFATE 300 MG TAB PO ONE (09:59)
--- NOTE | 2017-03-06 10:17 | Procedure Note ---
Post-Mod Sedation Assessment General Date of Moderate Sedation Mar 06, 2017. Vital Signs: Vital Signs Past 12 Hours Date Time Temp Pulse Resp B/P (MAP) Pulse Ox O2 Delivery O2 Flow Rate FiO2 03/06/17 08:01 36.5 63 18 167/70 95 Room Air Review - Discharge Criteria Vital Signs Stable: Yes Alert/Oriented/Conversant: Yes Returned to Baseline Mental St: Yes Nausea Absent/Minimal: Yes Pain/Discomfort/Absent/Minimal: Yes Normal/Baseline Respirations: Yes Active Bleeding?: No Pt Received D/C Instructions: N/A Prescriptions Given: None Specific Proced. D/C Criteria Distal Pulses Present (Cardiac: Yes Groin site assessed-Card Cath: N/A Voided Prior To Discharge: N/A Discharged Patients Adult Escort/Transportation: Yes
--- NOTE | 2017-03-06 10:43 | Cardiac Catheterization ---
Procedure Note Procedure Date Mar 06, 2017. 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 LAD - 80% stenosis just after take-off of 2nd diagonal LVEDP - 7 -- PCI -- Antithrombotic therapy: Heparin, Clopidogrel Procedure: LM cannulated with EBU 3.5 guide BMW wire passed across lesion into distal LAD Prowater wire passed into 1st diagonal Mid LAD lesion predilated with 2.5 compliant balloon Dilated lesion stented with 2.75 x 22 [place] Resolute SHAY Post stent placement significant stenosis at ostium of 1st diagonal 1st diagonal re-wired with Cobol Engineer 50 wire Ostium of 1st diagonal dilated with 2.0 balloon Stent post-dilated with 3.0 noncompliant balloon Ostium of 1st diagonal dilated with 2.0 balloon IC vasodilators administered for spasm Post procedure PEPE 3 flow, stent well expanded with minimal residual stenosis and no apparent cardiac complications. Arterial Closure: TR Band Summary: 1. Successful PCI of mid LAD with 2.75 x 22 Franki Resolute SHAY (post-dilated with 3.0 NC balloon). Recommendations: To PCU for continued monitoring Reloaded with Clopidogrel 300mg in the laboratory geneticist Continue dual-antiplatelet therapy with ASA/Clopidogrel 1 year Continue statin, ASCVD risk factor modification Follow-up with Dr. Brown. Hemodynamics Rest Ao: 95/53/70 Final Ao: 83/55 LV: 101/7 Recommendations PCI without planned CABG Specimens None Radiation Exposure (mGy) 4913 Contrast (mls) 120 Fluids (cc crystalloids) 138 Drains None Anesthesia Moderate Procedural Complication(s) None Disposition PCU ACC Data Cardiac Status Clinical evaluation leading to the procedure CAD Presntation: Positive Stress Test Closure Device Percutaneous Entry Location: Radial Closure Device: Radial Band Recommendations: PCI without planned CABG Lesion Segment Name: mid LAD Culprit Artery: Yes Stenosis Prior to Rx (%): 80 Chronic Total Occlusion: No IVUS: No FFR: No Pre-Procedure PEPE Flow: 3 Previously Treated Lesion: No Lesion Complexity: Non-High/Non-C Lesion Length (mm): 15 Thrombus Present: No Bifurcation Lesion: Yes Guidewire Across Lesion: Yes Guidewire: Stenosis Post-Procedure (%): 0 Post-Procedure PEPE Flow: 3 Device(s) Deployed: Yes Intraprocedure Events Significant Dissection: No Perforation: No
[2017-03-06] MEDS ORDERED: FLUTICASONE PROPIONATE NA SPR 16 GM BTL NAE PRN (10:45)
[2017-03-06] MEDS ORDERED: CYCLOBENZAPRINE HCL 10 MG TAB PO PRN (10:45)
[2017-03-06] MEDS ORDERED: ONDANSETRON INJ 2 MG/ML 2 ML VIAL IV PRN (10:45)
[2017-03-06] MEDS ORDERED: NITROGLYCERIN 0.4 MG SL PER TAB CHARGE SL PRN (10:45)
[2017-03-06] MEDS ORDERED: ACETAMINOPHEN 325 MG TAB PO PRN (10:45)
[2017-03-06] MEDS: SODIUM CHLORIDE 0.9% 1000ML 1,000 ML IV SCH ×2 (13:02→20:51)
[2017-03-06] MEDS ORDERED: IV FLUIDS COMPLETED PRN (13:45)
[2017-03-06] MEDS ORDERED: FAMOTIDINE 20 MG TAB PO SCH (21:00)
[2017-03-06] MEDS ORDERED: ATORVASTATIN 40 MG TAB PO SCH (21:00)
[2017-03-07] VITALS: BP 114/57; PULSE 60; TEMP 36.5; O2SAT 96
[2017-03-07 04:00] VITALS: BP 111/68; PULSE 54; TEMP 36.3; O2SAT 95
[2017-03-07] MEDS: SODIUM CHLORIDE 0.9% 1000ML 1,000 ML IV SCH (04:17)
[2017-03-07 06:56] LABS: BASO % 0.5 %; BASO ABS # 0.04 K/uL (0-0.2); COMPLETE YES; EOS % 3.7 %; HEMATOCRIT 41.6 % (42-52); IG% 0.3 %; LYMPH % 30.2 %; LYMPH ABS # 2.21 K/uL (1.2-3.4); MEAN CELL VOLUME 85.2 fL (80-100); MEAN CORPUSCULAR HEMOGLOBIN 29.3 pg (25-34); MEAN CORPUSCULAR HGB CONC 34.4 g/dl (32-36); MEAN PLATELET VOLUME 9.6 fL (7.4-10.4); MONO % 12.1 %; NEUT % 53.2 %; PLATELET COUNT 204 K/uL (130-400); RED BLOOD COUNT 4.88 M/uL (4.7-6.1); WHITE BLOOD COUNT 7.33 K/uL (4.8-10.8)
[2017-03-07 07:22] LABS: BUN/CREATININE RATIO 14.3 (10-20); CALCIUM 8.8 mg/dl (8.5-10.1); CREATININE 1.1 mg/dl (0.60-1.40); POTASSIUM 4.6 mmol/L (3.5-5.1)
[2017-03-07 08:00] VITALS: BP 139/79; PULSE 57; TEMP 36.6; O2SAT 97
[2017-03-07] MEDS ORDERED: LISINOPRIL 40 MG TAB PO SCH (09:00)
[2017-03-07] MEDS ORDERED: PANTOprazole SOD 40 MG TAB PO SCH (09:00)
[2017-03-07] MEDS ORDERED: METOPROLOL SUCC 50MG EXT REL TAB PO SCH (09:00)
[2017-03-07] MEDS ORDERED: MULTIVITAMIN TAB PO SCH (09:00)
[2017-03-07] MEDS ORDERED: ASPIRIN 81 MG ECTAB PO SCH (09:00)
[2017-03-07] MEDS ORDERED: CLOPIDOGREL BISULFATE 75 MG TAB PO SCH (09:00)
--- NOTE | 2017-03-07 10:00 | Discharge Instructions ---
Discharge Instructions Procedure Procedure Date: Mar 07, 2017. Reason for Visit: Cad *Dr Vieira Doing*. Discharge Discharge Date: Mar 07, 2017. Discharge Diagnosis: Coronary artery disease post stenting Last Recorded Wt (Kilograms): 111.900 Anesthesia Post Anesthesia Instructions: If you have had General Anesthesia or IV Sedation: * Do not drive today. * Resume driving when surgeon permits. * Do not make important decisions or sign legal documents today. * Call surgeon for: 1. Temperature elevations greater than 101 degrees F. 2. Uncontrollable pain. 3. Excessive bleeding. 4. Persistent nausea and vomiting. 5. Medication intolerance (nausea, vomiting or rash). * For nausea and vomiting use only clear liquids such as: tea, soda, bouillon until nausea subsides, then gradually increase diet as tolerated. * If you have any concerns or questions, call your surgeon's office. If physician is unavailable and it is an emergency, call 911 or go to the nearest emergency room. Instructions Activity Recommendations: limitations as noted below Recommended Home Diet: resume previous diet Allergies: Coded Allergies: Shellfish-derived Products (Verified Allergy, Intermediate, Hives, 02/21/17 ) Morphine (Verified Adverse Reaction, Severe, GI SYMPTOMS-violent throwing up, can take hydrocodone, 07/30/16) Follow Up Additional Instructions: ACTIVITY RECOMMENDATIONS: It is common to feel weak and fatigue for a few days. * Do not drive or operate any motorized equipment for the next three days. * Limit stair usage (2 or 3 trips a day only) for the next three days. * Do not lift anything heavier than 10 pounds for the next three days. * Do not engage in vigorous exercise or any sports for the next five days. * You may shower the day after your procedure, but do not immerse the area for three days. Cleanse the site gently with soap and water. SPECIAL CARE INSTRUCTIONS: * You may replace the pressure dressing or band-aid the morning after the procedure. * After your procedure, it is normal to have a small bruise or small lump at the site. Examine your site daily for any change in the bruise or lump, redness, swelling, drainage or numbness. Notify your doctor if any change. BLEEDING: * If there is a small amount of bleeding at the site, lie down and apply firm pressure with a clean cloth for ten minutes. When the bleeding stops, lie quietly keeping the procedure limb straight for six hours. Notify your doctor as soon as possible. * If the bleeding does not stop after ten minutes or if there is a large amount of bleeding or spurting, call 911 immediately. Continue to lie down and hold firm pressure until help arrives. SKIN IRRITATION: * You may experience some redness and/or swelling in the area where radiation was administered. If any skin irritation occurs, please contact your family physician. FOLLOW UP VISIT: Keep any scheduled doctor appointments. Follow-up with: Dr. Brown in 2-3 weeks [facility] Recommendations: Call your doctor if: * Temperature above 101 degrees * Pain not relieved by pain medicine ordered * There is increased drainage or redness from any incision * You have any unanswered questions or concerns. Your Doctors Instructions noted above were prepared by provider Maged Vieira. Patient Signature Section: Patient Instructions Signature Page Fran Valdez Patient (or Guardian) Signature/Date: I have read and understand the instructions given to me by my caregivers. Caregiver/RN/Doctor Signature/Date: The above-named patient and/or guardian has received patient instructions on this date. + Original Patient Signature Page (only) stays with chart. Please make copy for patient.
[2017-03-07 10:33] VITALS: BP 139/79; PULSE 57; TEMP 36.6; O2SAT 97
--- NOTE | 2017-03-09 21:34 | DISCHARGE SUMMARY ---
PROCEDURES: 1. Successful PCI of mid LAD with a 2.75 x 22 mm Franki Resolute drug-eluting stent. HISTORY OF PRESENT ILLNESS: Mr. Valdez is a 71-year-old male with a known history of coronary artery disease, hypertension, dyslipidemia, and ischemic cardiomyopathy as well as type 2 diabetes. He is followed by Dr. Quick as an outpatient for his cardiovascular care. Recently, he endorsed increase anginal symptoms, and underwent a stress test which was grossly positive for ischemia. He underwent diagnostic angiography on 02/20/2017. At that time, he was found to have severe coronary disease involving his proximal circumflex as well as his mid LAD. He underwent drug-eluting stent placement to his circumflex with placement of a 3.0 x 15 Franki post-dilated to 3.25 at the ostium of the circumflex. Plan was for a staged PCI of LAD which was scheduled for the day of admission. HOSPITAL COURSE: The patient had no recurrent chest pain in between most recent procedure and the day of presentation. He underwent PCI via his right radial artery with placement of a 2.75 x 22 Franki Resolute drug-eluting stent to his LAD which was post-dilated to 3.0. His first diagonal was pinched in the process of the procedure and underwent an angioplasty to the ostium. Post-procedure he had an acceptable angiographic result and was chest pain free. He was admitted to telemetry for observation overnight. He had no events on telemetry. He had no recurrent chest pain overnight. On the day of discharge, he was feeling well and thought safe for discharge. He will continue on aspirin and clopidogrel for 1 year. He will follow with Dr. Quick in the next 2-3 weeks. DISCHARGE MEDICATIONS: Include: 1. Aspirin 81. 2. Atorvastatin 40 mg. 3. Calcium Vitamin D 1 tab. 4. Cholecalciferol 2000 units q.p.m. 5. Plavix 75 mg. 6. Flexeril 5 mg at bedtime p.r.n. 7. Benadryl 25 mg at bedtime. 8. Famotidine 40 mg at bedtime. 9. Fluticasone 2 sprays p.r.n. 10. Glucosamine 1000 q.a.m. 11. Lisinopril 40 tab p.o. daily. 12. Metoprolol XL 50 mg q.a.m. 13. Multivitamin 1 tab p.o. daily. 14. Nitroglycerin 0.4, sublingual nitroglycerin p.r.n. 15. Omeprazole 20 mg q.a.m. 16. Tadalafil 5 mg q.p.m. 17. Valtrex 500 mg t.i.d. MTDD
== END 2017-03-07 11:24 | disposition home or self-care (01) ==
LOC: C.CATH 07:45 → ENRESERV 10:58 → C.2T 11:15
PROVIDERS: ADMIT Internal Medicine Interventional Cardiology; ATTEND Internal Medicine Interventional Cardiology
DX: I25.10 Atherosclerotic heart disease of native coronary artery without angina pectoris (principal); I25.2 Old myocardial infarction; R06.09 Other forms of dyspnea; I25.5 Ischemic cardiomyopathy; E78.5 Hyperlipidemia, unspecified; I10 Essential (primary) hypertension; Z79.82 Long term (current) use of aspirin; K21.9 Gastro-esophageal reflux disease without esophagitis; M19.90 Unspecified osteoarthritis, unspecified site; E11.9 Type 2 diabetes mellitus without complications; Z90.49 Acquired absence of other specified parts of digestive tract; Z80.0 Family history of malignant neoplasm of digestive organs; Z80.7 Family history of other malignant neoplasms of lymphoid, hematopoietic and related tissues; Z83.3 Family history of diabetes mellitus; Z82.61 Family history of arthritis; Z84.1 Family history of disorders of kidney and ureter; Z83.6 Family history of other diseases of the respiratory system; N40.0 Benign prostatic hyperplasia without lower urinary tract symptoms; Z79.84 Long term (current) use of oral hypoglycemic drugs
CPT/HCPCS: 92920; 93458; C9600

== ENCOUNTER → 2017-07-03 | Outpatient (CLI) | payer OTHER ==
[~2017-07-03] MED LIST changes: -BND25 PO; +CLOP1TAB15 PO; +CYCL5TAB PO; +DIPH25CA5 PO; -METF500T PO; +NTRGSL/4 UT; -RANO500T PO; +VALA500T60 PO
[2017-07-03 13:33] LABS: HEMOGLOBIN A1C 6.8 % (4.5-5.6)
[2017-07-03 13:49] LABS: ALT/SGPT 60 U/L (12-78); AST/SGOT 34 U/L (15-37); BLOOD UREA NITROGEN 18 mg/dl (7-18); CALCIUM 9.3 mg/dl (8.5-10.1); CARBON DIOXIDE 29 mmol/L (21-32); CREATININE 1.13 mg/dl (0.60-1.40); GLUCOSE 164 mg/dl (70-99); POTASSIUM 4.7 mmol/L (3.5-5.1); SODIUM 136 mmol/L (136-145)
[2017-07-03 13:52] LABS: CHOLESTEROL 122 mg/dl (0-200); LDL CHOLESTEROL CALCULATED 57 mg/dl
== END | disposition home or self-care (01) ==
LOC: C.LABMFLN 08:27
PROVIDERS: ATTEND Internal Medicine
DX: E11.9 Type 2 diabetes mellitus without complications (principal); I25.10 Atherosclerotic heart disease of native coronary artery without angina pectoris

== ENCOUNTER → 2017-08-15 | Outpatient (CLI) | payer OTHER ==
--- NOTE | 2017-08-15 10:05 | DIAGNOSTIC IMAGING REPORT ---
CHEST 2 VIEWS ROUTINE HISTORY: 71 years-old Male J92.0 Pleural plaque with presence of [id number] COMPARISON: Chest radiographs 10/05/2015 TECHNIQUE: PA and lateral views of the chest FINDINGS: Cardiac silhouette is again upper limits of normal in size. Atherosclerosis of the aorta. No pneumothorax, pleural effusion or focal airspace consolidation. Bilateral calcified pleural plaques redemonstrated. Bones appear grossly intact. Mild dextroscoliosis of the midthoracic spine. Surgical clips are seen within the upper abdomen. IMPRESSION: 1. No acute process. 2. Bilateral calcified pleural plaques redemonstrated. The above report was generated using voice recognition software. It may contain grammatical, syntax or spelling errors. Electronically signed by: Dipak Sin M.D. 08/15/2017 10:04 AM Dictated Date/Time: 08/15/2017 10:03 AM
== END | disposition home or self-care (01) ==
LOC: C.RAD1850 09:49
PROVIDERS: ATTEND Internal Medicine Pulmonary Disease
DX: J92.0 Pleural plaque with presence of asbestos (principal)

== ENCOUNTER → 2017-09-30 | Outpatient (CLI) | payer OTHER ==
[2017-09-30 16:43] LABS: BASO % 0.8 %; BASO ABS # 0.07 K/uL (0-0.2); EOS % 3.4 %; EOS ABS # 0.31 K/uL (0-0.5); HEMATOCRIT 43.9 % (42-52); HEMOGLOBIN 15.5 g/dL (14.0-18.0); IG# 0.03 K/uL (0.00-0.02); LYMPH % 33.9 %; LYMPH ABS # 3.08 K/uL (1.2-3.4); MEAN CELL VOLUME 82.1 fL (80-100); MEAN CORPUSCULAR HGB CONC 35.3 g/dl (32-36); MEAN PLATELET VOLUME 9.6 fL (7.4-10.4); MONO ABS # 1.09 K/uL (0.11-0.59); NEUT % 49.6 %; PLATELET COUNT 233 K/uL (130-400); RED CELL DISTRIBUTION WIDTH CV 15.1 % (11.5-14.5); RED CELL DISTRIBUTION WIDTH SD 45.3 fL (36.4-46.3); WHITE BLOOD COUNT 9.08 K/uL (4.8-10.8)
[2017-09-30 17:03] LABS: ALBUMIN 4.3 gm/dl (3.4-5.0); ALT/SGPT 126 U/L (12-78); AST/SGOT 83 U/L (15-37); BLOOD UREA NITROGEN 18 mg/dl (7-18); CALCIUM 9.6 mg/dl (8.5-10.1); CARBON DIOXIDE 23 mmol/L (21-32); CREATININE 1.09 mg/dl (0.60-1.40); GLUCOSE 143 mg/dl (70-99); POTASSIUM 4.3 mmol/L (3.5-5.1); SODIUM 130 mmol/L (136-145)
[2017-09-30 17:06] LABS: ALKALINE PHOSPHATASE 92 U/L (45-117); TOTAL PROTEIN 8.2 gm/dl (6.4-8.2)
== END | disposition home or self-care (01) ==
LOC: C.LAB1850 16:09
PROVIDERS: ATTEND Internal Medicine
DX: J01.90 Acute sinusitis, unspecified (principal)

== ENCOUNTER → 2017-11-05 | Outpatient (CLI) | payer OTHER ==
[2017-11-05 13:14] LABS: HEMOGLOBIN A1C 7.8 % (4.5-5.6)
[2017-11-05 13:16] LABS: ALT/SGPT 88 U/L (12-78); AST/SGOT 60 U/L (15-37); BLOOD UREA NITROGEN 16 mg/dl (7-18); CALCIUM 8.8 mg/dl (8.5-10.1); CARBON DIOXIDE 25 mmol/L (21-32); CHOLESTEROL 108 mg/dl (0-200); CREATININE 1.12 mg/dl (0.60-1.40); GLUCOSE 160 mg/dl (70-99); POTASSIUM 4.5 mmol/L (3.5-5.1); SODIUM 134 mmol/L (136-145)
[2017-11-05 13:19] LABS: LDL CHOLESTEROL CALCULATED 39 mg/dl
== END | disposition home or self-care (01) ==
LOC: C.LABMFLN 07:50
PROVIDERS: ATTEND Internal Medicine
DX: E78.5 Hyperlipidemia, unspecified (principal); E11.9 Type 2 diabetes mellitus without complications

== ENCOUNTER → 2017-11-17 | Outpatient (CLI) | payer OTHER ==
--- NOTE | 2017-11-17 09:17 | DIAGNOSTIC IMAGING REPORT ---
ABDOMINAL ULTRASOUND COMPLETE HISTORY: R74.8 Elevated liver enzymes. COMPARISON: Abdominal ultrasound 10/05/2015. FINDINGS: Pancreas: The pancreatic head and tail are obscured by overlying bowel gas. The remaining portions of the pancreas are within normal limits. Liver: The liver is echogenic consistent with fatty change. The liver is normal in size measuring 18 cm in length Gallbladder: The gallbladder is surgically absent. CBD: 5 mm. Kidneys: No hydronephrosis. Spleen: Normal in size. Aorta: Normal in caliber. IVC: Patent. IMPRESSION: 1. Hepatic steatosis. 2. Cholecystectomy. Electronically signed by: Blair Rajan M.D. 11/17/2017 9:16 AM Dictated Date/Time: 11/17/2017 9:15 AM
== END | disposition home or self-care (01) ==
LOC: C.ULTR 08:30
PROVIDERS: ATTEND Internal Medicine
DX: K76.0 Fatty (change of) liver, not elsewhere classified (principal); Z90.49 Acquired absence of other specified parts of digestive tract

== ENCOUNTER 2018-11-30 12:57 | Inpatient (IN) ==
[2018-11-30 13:25] LABS: Basophils # (auto) 0.05 K/uL (0-0.2); Basophils % (auto) 0.5 %; Eosinophils % (auto) 0.9 %; Hemoglobin 16.2 g/dL (14.0-18.0); Immature Granulocytes # (auto) 0.02 K/uL (0.00-0.02); Immature Granulocytes % (auto) 0.2 %; Lymphocytes # (auto) 2.28 K/uL (1.2-3.4); Lymphocytes % (auto) 21.2 %; Mean Corpuscular Volume 82.4 fL (80-100); Mean Platelet Volume 9.5 fL (7.4-10.4); Monocytes # (auto) 0.85 K/uL (0.11-0.59); Monocytes % (auto) 7.9 %; Neutrophils # (auto) 7.44 K/uL (1.4-6.5); Neutrophils % (auto) 69.3 %; Platelet Count 243 K/uL (130-400); RDW Coefficient of Variation 14.5 % (11.5-14.5); RDW Standard Deviation 43.5 fL (36.4-46.3); Red Blood Count 5.46 M/uL (4.7-6.1); White Blood Count 10.74 K/uL (4.8-10.8)
--- NOTE | 2018-11-30 13:36 | XRay Report ---
XR chest 1V portable CLINICAL HISTORY: Chest pain. COMPARISON STUDY: Chest radiograph September 14, 2018. FINDINGS: Multiple calcified pleural plaques are noted. There is no pneumothorax or pleural effusion. There is no consolidation or evidence for pulmonary edema. Cardiac size is normal. Mediastinal conto urs are normal. Appearance of the chest is unchanged. IMPRESSION: No acute cardiopulmonary findings. No change in appearance of the chest. Electronically signed by: Ronan Haile M.D. 11/30/2018 1:35 PM
[2018-11-30 13:43] LABS: Alanine Aminotransferase 105 U/L (12-78); Albumin Level 4.4 gm/dl (3.4-5.0); Aspartate Aminotransferase 68 U/L (15-37); BUN Creatinine Ratio 16.4 (10-20); Blood Urea Nitrogen 22 mg/dl (7-18); Calcium 10.2 mg/dl (8.5-10.1); Carbon Dioxide 20 mmol/L (21-32); Chloride 103 mmol/L (98-107); Creatinine Clr Calc Pharmacy 65.2 ml/min; Est GFR (African American) 62.5; Est GFR (Non-African American) 53.9; Glucose 157 mg/dl (70-99); Potassium 4.4 mmol/L (3.5-5.1); Sodium 136 mmol/L (136-145)
[2018-11-30] MEDS ORDERED: ONDANSETRON INJ 2 MG/ML 2 ML VIAL IV STA (13:44)
[2018-11-30 13:51] LABS: Albumin Globulin Ratio 1.1 (0.9-2); Alkaline Phosphatase 77 U/L (45-117); Total Protein 8.4 gm/dl (6.4-8.2); Troponin I < 0.015 ng/ml (0-0.045)
--- NOTE | 2018-11-30 15:01 | Emergency Department Note ---
Entered by Mone Solano acting as a scribe for Yosvany Harper DO History of Present Illness General Chief complaint: Cardiac Assessment Stated complaint: NAUSEA, PAIN IN RT ARM, SHORTNESS OF BREATH Time Seen by Provider: 11/30/18 13:16 Source: patient History of Present Illness Provider complaint: shortness of breath Onset (ago): hour(s) (this morning) Location: chest Pain Consistency: + intermittent Maximum Pain Intensity: 2 Quality: + other (shortness of breath ) Associated symptoms: + nausea/vomiting (nausea), + weakness and + other (pain in left arm) The patient is a 72 year old male who presents to the Emergency Department with complaints of shortness of breath this morning. He also reports having nausea and pain in his left arm. He reports a history of 3 heart attacks and 11 stents placed. The patient states that he last had stents placed 2 years ago. He states that he has had these symptoms in the past. The patient reports that he went on the elliptical this morning and states that after 2 and a half minutes he felt short of breath and nauseous. The patient states that after 5 minutes his symptoms worsened. He states that later on in the morning he pulled out weeds and mowed the lawn on a tractor. He states that he also felt weak later on today. He also reports that he occasionally gets "twinges" around his heart. The patient states that he called Dr. Brown's office and was referred here. Home Medications Home Medications Medication Instructions Recorded Confirmed Type atorvastatin 40 mg tablet 40 mg PO HS #90 tab 11/12/18 11/30/18 History cholecalciferol (vitamin D3) 2,000 2,000 unit PO DAILY tab 11/12/18 11/30/18 History unit tablet clopidogrel 75 mg tablet 75 mg PO DAILY #90 tab 11/12/18 11/30/18 History diphenhydramine 50 mg capsule 50 mg PO HS PRN cap 11/12/18 11/30/18 History famotidine 40 mg tablet 40 mg PO HS #90 tab 11/12/18 11/30/18 History lisinopril 40 mg tablet 40 mg PO DAILY #90 tab 11/12/18 11/30/18 History metformin 500 mg tablet 500 mg PO BID #180 tab 11/12/18 11/30/18 History aspirin [Aspirin Low Dose] 81 mg PO DAILY 11/30/18 11/30/18 History calcium carbonate-vitamin D3 1 tab PO DAILY 11/30/18 11/30/18 History [Calcium 600 + D(3)] fluticasone propionate 2 spray INTRANASAL DAILY PRN 11/30/18 11/30/18 History glucosamine sulfate [Glucosamine] 500 mg PO BID 11/30/18 11/30/18 History metoprolol succinate [Toprol XL] 50 mg PO DAILY 11/30/18 11/30/18 History multivitamin 1 tab PO DAILY 11/30/18 11/30/18 History nitroglycerin [Nitrostat] 0.4 mg SUBLINGUAL UD PRN 11/30/18 11/30/18 History omeprazole 20 mg PO DAILY 11/30/18 11/30/18 History tadalafil [Cialis] 20 mg PO UD PRN 11/30/18 11/30/18 History valacyclovir [Valtrex] 1,000 mg PO TID 11/30/18 11/30/18 History Allergies Allergy/AdvReac Type Severity Reaction Status Date / Time shellfish derived Allergy Intermediate Hives Verified 11/30/18 13:48 morphine AdvReac Severe GI Verified 11/30/18 13:48 SYMPTOMS-violent throwing up, can take hydrocodone Past Med/Surg History Medical History Ventral hernia (Acute) Prostatitis (Acute) 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) Pancreatic divisum (Acute) Osteopenia (Acute) Multiple adenomatous polyps (Acute) Low back pain (Acute) Ischemic cardiomyopathy (Acute) Internal hemorrhoids (Acute) Inhibited sexual excitement (Acute) Inguinal hernia (Acute) Hypertension (Acute) Hyperplastic colon polyp (Acute) Hyperlipidemia (Acute) Erectile dysfunction (Acute) Elevated liver enzymes (Acute) Diverticulosis (Acute) Diabetes mellitus (Acute 02/26/13) Bladder neck contracture (Acute) Back pain (Acute) Arthritis (Acute) Actinic keratosis (Acute) Acid reflux (Acute) Myocardial infarct (Resolved) Acute cholecystitis Acute pancreatitis (Acute) Acute prostatitis (Resolved 02/26/13) BPH (benign prostatic hypertrophy) with urinary obstruction CAD (coronary artery disease) Epigastric pain Facial contusion (Resolved) Facial laceration (Resolved) Orbital floor fracture (Resolved) Orbital floor fracture (Resolved) Pancreatitis (Acute) Social History Preferred Language: Malay Feels Safe at Home: Yes Smoking Status: Former smoker Review of Systems See HPI for pertinent positives & negatives. and A total of 10 systems reviewed and were otherwise negative Physical Exam Vital Signs Vital Signs - 24 hr 11/30/18 13:12 11/30/18 13:39 11/30/18 13:41 Temperature 36.6 C Temperature Source Oral Sepsis Recent Fever Within 48 Hours No Sepsis New/Unexplained Change in Mental Status No Sepsis Action Taken by Nursing No Action Required Pulse Rate 73 Pulse Rate [Left Finger] Respiratory Rate 16 Respiratory Effort / Characteristics Non-Labored Respiratory Depth Normal Blood Pressure 131/87 Blood Pressure [Left Arm] Blood Pressure Mean 101 Blood Pressure Mean [Left Arm] Pulse Oximetry 95 95 95 Oxygen Delivery Method Room Air Room Air Room Air 11/30/18 14:05 Temperature Temperature Source Sepsis Recent Fever Within 48 Hours Sepsis New/Unexplained Change in Mental Status Sepsis Action Taken by Nursing Pulse Rate Pulse Rate [Left Finger] 66 Respiratory Rate 18 Respiratory Effort / Characteristics Respiratory Depth Blood Pressure Blood Pressure [Left Arm] 120/77 Blood Pressure Mean Blood Pressure Mean [Left Arm] 91 Pulse Oximetry 95 Oxygen Delivery Method Room Air CONSTITUTIONAL/VITAL SIGNS: Reviewed / noted above. GENERAL: Non-toxic in appearance. INTEGUMENTARY: Warm, dry, and [place]. HEAD: Normocephalic. EYES: without scleral icterus or trauma. ENT/OROPHARYNX: clear and moist. LYMPHADENOPATHY/NECK: Is supple without lymphadenopathy or meningismus. RESPIRATORY: Lungs clear and equal. CARDIOVASCULAR: Regular rate and rhythm. GI/ABDOMEN: Soft and nontender. No organomegaly or pulsatile mass. No rebound or guarding. Normal bowel sounds. EXTREMITIES: Warm and well perfused. BACK: No CVA tenderness. NEUROLOGICAL: Intact without focal deficits. PSYCHIATRIC: normal affect. MUSCULOSKELETAL: Normally developed with good muscle tone. Course 1321: The patient was evaluated in room A12B. A history and physical were performed. 1501: I discussed the patient's case with Dr. Loco Rodriguez who will evaluate the patient for further management. 1504: I updated the patient who verbalized agreement and understanding of the treatment plan. Consultations Consultation #1: Dr. Loco Rodriguez Time: 15:01 Administered Medications Discontinued Medications Ondansetron HCl (Zofran) 4 mg IV NOW STA Stop: 11/30/18 13:45 Last Admin: 11/30/18 14:03 Dose: 4 mg Documented by: [id number] Medical Decision Making Differential Diagnosis the differential was considered includes acute myocardial infarction, acute coronary syndrome, myocarditis, pericarditis, pericardial effusions /tamponad, esophageal perforation, thoracic aortic dissection, pulmonary embolism, pneumonia, pneumothorax, pancreatitis, shingles, acute cholecystitis, perforated abdominal viscus. Medical Records Attestation: I reviewed the patient's medical records. Home Medications Current Medication List: was personally reviewed by me Laboratory Data Attestation: I reviewed the patient's lab results. Result diagrams: 11/30/18 13:16 11/30/18 13:16 Lab Results 11/30/18 11/30/18 Range/Units 13:16 13:16 WBC 10.74 (4.8-10.8) K/uL RBC 5.46 (4.7-6.1) M/uL Hgb 16.2 (14.0-18.0) g/dL Hct 45.0 (42-52) % MCV 82.4 (80-100) fL MCH 29.7 (25-34) pg MCHC 36.0 (32-36) g/dL RDW Std Deviation 43.5 (36.4-46.3) fL RDW Coeff of Gino 14.5 (11.5-14.5) % Plt Count 243 (130-400) K/uL MPV 9.5 (7.4-10.4) fL Immature Gran % (Auto) 0.2 % Neut % (Auto) 69.3 % Lymph % (Auto) 21.2 % [place] % (Auto) 7.9 % Eos % (Auto) 0.9 % Baso % (Auto) 0.5 % Immature Gran # (Auto) 0.02 (0.00-0.02) K/uL Neut # (Auto) 7.44 H (1.4-6.5) K/uL Lymph # (Auto) 2.28 (1.2-3.4) K/uL [place] # (Auto) 0.85 H (0.11-0.59) K/uL Eos # (Auto) 0.10 (0-0.5) K/uL Baso # (Auto) 0.05 (0-0.2) K/uL Sodium 136 (136-145) mmol/L Potassium 4.4 (3.5-5.1) mmol/L Chloride 103 (98-107) mmol/L Carbon Dioxide 20 L (21-32) mmol/L Anion Gap 13.0 H (3-11) BUN 22 H (7-18) mg/dl Creatinine 1.32 (0.6-1.4) mg/dl Est Cr Clr Drug Dosing 65.2 ml/min Est GFR ( Amer) 62.5 Est GFR (Non-Af Amer) 53.9 BUN/Creatinine Ratio 16.4 (10-20) Glucose 157 H (70-99) mg/dl Calcium 10.2 H (8.5-10.1) mg/dl Total Bilirubin 2.0 H (0.2-1) mg/dl AST 68 H (15-37) U/L ALT 105 H (12-78) U/L Alkaline Phosphatase 77 (45-117) U/L Troponin I < 0.015 (0-0.045) ng/ml Total Protein 8.4 H (6.4-8.2) gm/dl Albumin 4.4 (3.4-5.0) gm/dl Globulin 4.0 (2.5-4.0) gm/dl Albumin/Globulin Ratio 1.1 (0.9-2) Lipase 145 (73-393) U/L Imaging Data Radiologist's Impression: Radiology results as stated below per my review and the radiologist's interpretation: XR chest 1V portable CLINICAL HISTORY: Chest pain. COMPARISON STUDY: Chest radiograph September 14, 2018. FINDINGS: Multiple calcified pleural plaques are noted. There is no pneumothorax or pleural effusion. There is no consolidation or evidence for pulmonary edema. Cardiac size is normal. Mediastinal contours are normal. Appearance of the chest is unchanged. IMPRESSION: No acute cardiopulmonary findings. No change in appearance of the chest. Electronically signed by: Ronan Haile M.D. 11/30/2018 1:35 PM ECG Data Attestation: I personally reviewed and interpreted this ECG as follows: Indication: SOB/dyspnea Rate (beats per minute): 79 Rhythm: normal sinus Findings: no PAC, no PVC, no ST elevation and no ectopy Blood Pressure Blood Pressure Findings: Normal blood pressure MDM Narrative This is a 72-year-old male who presents to the ED with a chief complaint of chest pain and left arm pain with exertion. The patient reports that he was doing activities today on an elliptical bicycle for a couple of minutes and developed dyspnea and nausea. He also developed some left-sided arm pain. He also states that when he rested his symptoms improved. Again when he gets some activity in the yard with mowing the grass and pulling weeds his symptoms return. The patient states that his symptoms improve with rest. He came to the ED for evaluation as he states that the symptoms are reminiscent of the symptoms he had prior to having stents placed. The patient's twelve-lead EKG here shows a normal sinus rhythm at a rate of [address] depressions in the leads I and aVL. Troponin was negative, complete metabolic panel was unremarkable. CBC is unremarkable. Lipase was negative and a chest x-ray was negative for acute disease. The patient was told the results. I spoke with the hospitalist about the patient. The patient be seen for observation for possible unstable angina Impression & Plan Unstable angina Discharge Plan Visit Data Chief Complaint: Cardiac Assessment Stated Complaint: NAUSEA, PAIN IN RT ARM, SHORTNESS OF BREATH ED Provider: Yosvany Harper Discharge Problem: Unstable angina Patient Disposition: Being Evaluated by Hospitalist Forms Stand Alone Forms: My [facility] [place] Prescriptions Prescriptions: No Action cholecalciferol (vitamin D3) 2,000 unit tablet 2,000 unit PO DAILY RF: 0 clopidogrel 75 mg tablet 75 mg PO DAILY Qty: 90 RF: 0 diphenhydramine HCl 50 mg capsule 50 mg PO HS PRN (Reason: Insomnia) RF: 0 metformin 500 mg tablet 500 mg PO BID Qty: 180 RF: 0 atorvastatin 40 mg tablet 40 mg PO HS Qty: 90 RF: 0 famotidine 40 mg tablet 40 mg PO HS Qty: 90 RF: 0 lisinopril 40 mg tablet 40 mg PO DAILY Qty: 90 RF: 0 fluticasone propionate 50 mcg/actuation spray,suspension 2 spray intranasal DAILY PRN (Reason: allergic rhinitis) RF: 0 metoprolol succinate [Toprol XL] 50 mg tablet extended release 24 hr 50 mg PO DAILY RF: 0 tadalafil [Cialis] 20 mg tablet 20 mg PO UD PRN (Reason: Sexual Activity) RF: 0 multivitamin Tablet 1 tab PO DAILY RF: 0 valacyclovir [Valtrex] 1 gram Tablet 1,000 mg PO TID RF: 0 aspirin [Aspirin Low Dose] 81 mg Tablet,Delayed Release (Dr/Ec) 81 mg PO DAILY RF: 0 nitroglycerin [Nitrostat] 0.4 mg Tablet, Sublingual 0.4 mg sublingual UD PRN (Reason: Chest Pain) RF: 0 omeprazole 20 mg capsule,delayed release(DR/EC) 20 mg PO DAILY RF: 0 calcium carbonate-vitamin D3 [Calcium 600 + D(3)] 600 mg(1,500mg) -400 unit Tablet 1 tab PO DAILY RF: 0 glucosamine sulfate [Glucosamine] 500 mg Tablet 500 mg PO BID RF: 0 Referrals Referrals: ProAngel MD [Primary Care Provider] - The scribe's documentation has been prepared under my direction and personally reviewed by me in its entirety. I confirm that the note above accurately reflects all work, treatment, procedures, and medical decision making performed by me.
--- NOTE | 2018-11-30 15:47 | History & Physical Report ---
Date of Service November 30, 2018 Assessment & Plan (1) Crescendo angina: Observation with telemetry. Serial troponin enzymes. Apply topical nitrates. Continue aspirin, metoprolol, statin therapy, Plavix. Consult cardiology Present on Admission?: Yes (2) Ischemic cardiomyopathy: History of PTCA with multiple stents. Continue medical management. Apply topical nitrates. Cardiology consultation Present on Admission?: Yes (3) Hypertension: Treated with lisinopril and metoprolol (4) Diabetes mellitus: Metformin will be placed on hold. ADA diet. Sliding scale insulin coverage as needed (5) DVT prophylaxis: Lovenox subcu History of Present Illness Chief Complaint: Exertional shortness of breath, nausea, chest discomfort Primary Care Provider: Angel French MD 72-year-old male with a long-standing history of ischemic heart disease having undergone multiple PTCA and stents, the most recent approximately 2 years ago. He has not developed exertional shortness of breath nausea and vague chest discomfort very similar to his previous symptoms before stents were placed. He is asymptomatic at rest. Initial troponin is negative. EKG reveals nonspecific ST and T wave changes with intraventricular conduction delay, normal sinus rhythm, left atrial enlargement, old inferior wall WA. Initial troponin normal. Topical nitrates will be applied and he will be placed on observation status with telemetry and cardiology consultation has been requested. Metformin will be placed on hold in the event that cardiac catheterization is necessary. All other medications including aspirin, atorvastatin, Plavix, metoprolol will be continued. Allergies Allergy/AdvReac Type Severity Reaction Status Date / Time shellfish derived Allergy Intermediate Hives Verified 11/30/18 13:48 morphine AdvReac Severe GI Verified 11/30/18 13:48 SYMPTOMS-violent throwing up, can take hydrocodone Home Medications Home Medications Medication Instructions Recorded Confirmed Type atorvastatin 40 mg tablet 40 mg PO HS #90 tab 11/12/18 11/30/18 History cholecalciferol (vitamin D3) 2,000 2,000 unit PO DAILY tab 11/12/18 11/30/18 History unit tablet clopidogrel 75 mg tablet 75 mg PO DAILY #90 tab 11/12/18 11/30/18 History diphenhydramine 50 mg capsule 50 mg PO HS PRN cap 11/12/18 11/30/18 History famotidine 40 mg tablet 40 mg PO HS #90 tab 11/12/18 11/30/18 History lisinopril 40 mg tablet 40 mg PO DAILY #90 tab 11/12/18 11/30/18 History metformin 500 mg tablet 500 mg PO BID #180 tab 11/12/18 11/30/18 History aspirin [Aspirin Low Dose] 81 mg PO DAILY 11/30/18 11/30/18 History calcium carbonate-vitamin D3 1 tab PO DAILY 11/30/18 11/30/18 History [Calcium 600 + D(3)] fluticasone propionate 2 spray INTRANASAL DAILY PRN 11/30/18 11/30/18 History glucosamine sulfate [Glucosamine] 500 mg PO BID 11/30/18 11/30/18 History metoprolol succinate [Toprol XL] 50 mg PO DAILY 11/30/18 11/30/18 History multivitamin 1 tab PO DAILY 11/30/18 11/30/18 History nitroglycerin [Nitrostat] 0.4 mg SUBLINGUAL UD PRN 11/30/18 11/30/18 History omeprazole 20 mg PO DAILY 11/30/18 11/30/18 History tadalafil [Cialis] 20 mg PO UD PRN 11/30/18 11/30/18 History valacyclovir [Valtrex] 1,000 mg PO TID 11/30/18 11/30/18 History Past Med/Surg History Medical History Ventral hernia (Acute) Prostatitis (Acute) 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) Pancreatic divisum (Acute) Osteopenia (Acute) Multiple adenomatous polyps (Acute) Low back pain (Acute) Ischemic cardiomyopathy (Acute) Internal hemorrhoids (Acute) Inhibited sexual excitement (Acute) Inguinal hernia (Acute) Hypertension (Acute) Hyperplastic colon polyp (Acute) Hyperlipidemia (Acute) Erectile dysfunction (Acute) Elevated liver enzymes (Acute) Diverticulosis (Acute) Diabetes mellitus (Acute 02/26/13) Bladder neck contracture (Acute) Back pain (Acute) Arthritis (Acute) Actinic keratosis (Acute) Acid reflux (Acute) Myocardial infarct (Resolved) Acute cholecystitis Acute pancreatitis (Acute) Acute prostatitis (Resolved 02/26/13) BPH (benign prostatic hypertrophy) with urinary obstruction CAD (coronary artery disease) Epigastric pain Facial contusion (Resolved) Facial laceration (Resolved) Orbital floor fracture (Resolved) Orbital floor fracture (Resolved) Pancreatitis (Acute) Social History Preferred Language: Uzbek Feels Safe at Home: Yes Smoking Status: Former smoker Review of Systems Review of Systems: Constitutional-no fever or chills ENT-no blurred vision, no double vision, no epistaxis, no sore throat Respiratory-no cough, no wheezing. Dyspnea on exertion Cardiac-no palpitations,no syncope. Vague chest discomfort with exertion resolves with rest GI-no vomiting, diarrhea, melena, hematochezia. Nausea with exertion -no urinary retention, no urinary incontinence, no dysuria, no hematuria Musculoskeletal-no joint pain, no muscle tenderness Skin-no bruising, no rashes, no pruritus Neuro-no isolated weakness, no paresthesia, no weakness Psych-no depression, no anxiety Physical Exam Physical Exam: General-alert and oriented x3, no fevers, no chills HEENT-head atraumatic and normocephalic, TMs intact bilaterally, pupils equal and reactive to light, extraocular muscles intact Neck-no lymphadenopathy or thyromegaly, trachea midline Chest-clear to auscultation percussion. No rales wheezing or rhonchi Cardiac-regular rate and rhythm, normal S1 and S2, no murmurs Abdomen-normal bowel sounds, nontender, no hepatosplenomegaly Extremities-no cyanosis, clubbing, or edema Neuro-cranial nerves II through XII intact, motor and sensory function within normal limits, strength symmetrical 5/5, no focal deficits Psych-normal affect, normal mood Results & Data Vital Signs (Past 12 Hours) Vital Signs Temp Pulse Pulse Resp BP BP Pulse Ox 11/30/18 15:30 62 20 143/88 H 95 11/30/18 14:05 66 18 120/77 95 11/30/18 13:41 95 11/30/18 13:39 95 11/30/18 13:12 36.6 C 73 16 131/87 95 Laboratory Results 11/30/18 13:16 11/30/18 13:16
[2018-11-30] MEDS ORDERED: ALUMINUM/MAGNESIUM SUSP 30 ML UDC PO PRN (18:13)
[2018-11-30] MEDS ORDERED: ONDANSETRON INJ 2 MG/ML 2 ML VIAL IV PRN (18:13)
[2018-11-30] MEDS ORDERED: NITROGLYCERIN SL 0.4 MG/TAB TAB SL PRN ×2 (18:13)
[2018-11-30] MEDS ORDERED: ACETAMINOPHEN 325 MG TAB PO PRN (18:13)
[2018-11-30] MEDS ORDERED: FLUTICASONE PROPIONATE NA SPR 16 GM BTL NAE PRN (18:13)
[2018-11-30 20:28] LABS: INR 1.1 (0.9-1.1); Prothrombin Time 11.2 Seconds (9.0-12.0)
[2018-11-30] MEDS: INSULIN ASPART 100 UNITS/ML 3 ML PEN SC SCH ×2 (20:49→20:50)
[2018-11-30] MEDS: ATORVASTATIN 40 MG TAB PO SCH (20:56)
[2018-11-30] MEDS: NITROGLYCERIN 2% OINTMENT 30GM TUBE EXT SCH ×2 (20:56→22:54)
[2018-11-30] MEDS: FAMOTIDINE 20 MG TAB PO SCH (20:57)
[2018-11-30] MEDS: VALACYCLOVIR HCL 500 MG TABLET PO SCH ×2 (20:57→21:02)
[2018-11-30] MEDS: ENOXAPARIN INJ 40 MG/0.4 ML SYR SQ SCH (22:54)
[2018-12-01] MEDS: NITROGLYCERIN 2% OINTMENT 30GM TUBE EXT SCH ×2 (06:49→12:31)
[2018-12-01] MEDS: VALACYCLOVIR HCL 500 MG TABLET PO SCH ×3 (07:34→20:18)
[2018-12-01] MEDS: CALCIUM 600MG + VIT D 400 IU TAB PO SCH (07:55)
[2018-12-01] MEDS: LISINOPRIL 40 MG TAB PO SCH (07:55)
[2018-12-01] MEDS: CLOPIDOGREL BISULFATE 75 MG TAB PO SCH (07:55)
[2018-12-01] MEDS: ASPIRIN 81 MG ECTAB PO SCH (07:56)
[2018-12-01] MEDS: PANTOprazole 40 MG TAB PO SCH (07:56)
[2018-12-01] MEDS: CHOLECALCIFEROL 1,000 UNITS TAB PO SCH (07:56)
[2018-12-01] MEDS: MULTIVITAMIN TAB PO SCH (07:56)
[2018-12-01] MEDS: INSULIN ASPART 100 UNITS/ML 3 ML PEN SC SCH ×4 (07:56→20:34)
[2018-12-01] MEDS: METOPROLOL SUCC 50MG EXT REL TAB PO SCH (07:56)
--- NOTE | 2018-12-01 11:18 | Ultrasound Report ---
ULTRASOUND RIGHT UPPER QUADRANT ABDOMEN CLINICAL HISTORY: Elevated hepatic transaminases. COMPARISON STUDY: Abdominal CT dated 05/15/2015. Abdominal ultrasound dated 11/17/2017. TECHNIQUE: Real-time, grayscale, and color flow sonography of the right upper quadrant of the abdomen was performed. Images are reviewed in the transverse and longitudinal planes. FINDINGS: Liver: The liver is top normal in size and demonstrates heterogeneously increased echotexture consist ent with severe hepatic steatosis. Note that this degrades acoustic penetration of the liver. There i s no intrahepatic biliary ductal dilatation. The main portal vein is patent. Gallbladder: The gallbladder is surgically absent. The common bile duct measures up to 0.5 cm in diam eter. Pancreas: Visualized portions of the pancreatic head and body are normal in appearance. Right kidney: Survey images of the right kidney demonstrate normal size and echotexture. There is no hydronephrosis. Ascites: None. IMPRESSION: 1. Severe hepatic steatosis. 2. Status post cholecystectomy. Electronically signed by: Alexander Bell M.D. 12/01/2018 11:17 AM
--- NOTE | 2018-12-01 12:39 | Cardiology Consultation ---
Date of Consultation December 01, 2018 Assessment & Plan (1) Accelerating angina: 2. History of multivessel coronary disease post multiple prior stents 3. Mild ischemic heart myopathy 4. Hypertension 5. Dyslipidemia Representing symptoms reminiscent of prior angina that was previously improved with PCI and stenting. Troponin/EKG unremarkable. Still with patient's history and typical symptoms suspicion for ACS remains elevated and would recommend proceeding with cardiac catheterization for further risk stratification. Discussed risk, benefits, alternatives of procedure with patient and willing to proceed. Plan to perform via right radial artery. History of Present Illness Attending Physician: Teagan Tracey MD History of Present Illness Mr. Valdez is a very pleasant 72-year-old gentleman with history significant for CAD status post PCI, myocardial infarction, hypertension, dyslipidemia, ischemic cardiomyopathy, and type 2 diabetes. Previously had stents placed to his LAD and circumflex back in 2017. Returned to ED yesterday after recurrent shortness of breath, nausea, numbness in his arms occurring when he attempted to use the elliptical and then later while doing yard work. Symptoms reminiscent of prior anginal symptoms. Symptoms relieved with rest. Exercise yesterday was an increase from his baseline. In ED chest pain-free. Troponin negative x3. EKG without significant changes. Allergies Allergy/AdvReac Type Severity Reaction Status Date / Time shellfish derived Allergy Intermediate Hives Verified 11/30/18 13:48 morphine AdvReac Severe GI Verified 11/30/18 13:48 SYMPTOMS-violent throwing up, can take hydrocodone Home Medications Home Medications Medication Instructions Recorded Confirmed Type atorvastatin 40 mg tablet 40 mg PO HS #90 tab 11/12/18 11/30/18 History cholecalciferol (vitamin D3) 2,000 2,000 unit PO DAILY tab 11/12/18 11/30/18 History unit tablet clopidogrel 75 mg tablet 75 mg PO DAILY #90 tab 11/12/18 11/30/18 History diphenhydramine 50 mg capsule 50 mg PO HS PRN cap 11/12/18 11/30/18 History famotidine 40 mg tablet 40 mg PO HS #90 tab 11/12/18 11/30/18 History lisinopril 40 mg tablet 40 mg PO DAILY #90 tab 11/12/18 11/30/18 History metformin 500 mg tablet 500 mg PO BID #180 tab 11/12/18 11/30/18 History aspirin [Aspirin Low Dose] 81 mg PO DAILY 11/30/18 11/30/18 History calcium carbonate-vitamin D3 1 tab PO DAILY 11/30/18 11/30/18 History [Calcium 600 + D(3)] fluticasone propionate 2 spray INTRANASAL DAILY PRN 11/30/18 11/30/18 History glucosamine sulfate [Glucosamine] 500 mg PO BID 11/30/18 11/30/18 History metoprolol succinate [Toprol XL] 50 mg PO DAILY 11/30/18 11/30/18 History multivitamin 1 tab PO DAILY 11/30/18 11/30/18 History nitroglycerin [Nitrostat] 0.4 mg SUBLINGUAL UD PRN 11/30/18 11/30/18 History omeprazole 20 mg PO DAILY 11/30/18 11/30/18 History tadalafil [Cialis] 20 mg PO UD PRN 11/30/18 11/30/18 History valacyclovir [Valtrex] 1,000 mg PO TID 11/30/18 11/30/18 History Patient History Medical History DVT prophylaxis Crescendo angina (Acute) Ventral hernia (Acute) Prostatitis (Acute) 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) Pancreatic divisum (Acute) Osteopenia (Acute) Multiple adenomatous polyps (Acute) Low back pain (Acute) Ischemic cardiomyopathy (Acute) Internal hemorrhoids (Chronic) Inhibited sexual excitement (Acute) Inguinal hernia (Acute) Hypertension (Chronic) Hyperplastic colon polyp (Acute) Hyperlipidemia (Acute) Erectile dysfunction (Acute) Elevated liver enzymes (Acute) Diverticulosis (Acute) Diabetes mellitus (Chronic 02/26/13) Bladder neck contracture (Acute) Back pain (Acute) Arthritis (Acute) Actinic keratosis (Acute) Acid reflux (Acute) Myocardial infarct (Resolved) Acute cholecystitis Acute pancreatitis (Acute) Acute prostatitis (Resolved 02/26/13) BPH (benign prostatic hypertrophy) with urinary obstruction CAD (coronary artery disease) Epigastric pain Facial contusion (Resolved) Facial laceration (Resolved) Orbital floor fracture (Resolved) Orbital floor fracture (Resolved) Pancreatitis (Acute) Social History Preferred Language: Finnish Communication Ability: Effective Tone Cabinet Assembler Required: No Beliefs That Will Affect Care: None Current Living Situation: Spouse Other Information That Helps Us Care for You: No Feels Safe at Home: Yes Safety Concerns: Feels Safe At This Time Smoking Status: Former smoker Smoking End Date: 1995 Hx Alcohol Use: Yes Alcohol type: wine Hx Substance Use: No Review of Systems Review of Systems: All systems reviewed & are unremarkable except as noted in HPI & below Physical Exam Physical Exam: General: Comfortable, no acute distress HEENT: Sclerae anicteric, mucous membranes moist Lungs: Clear to auscultation bilaterally, no rhonchi or wheezes Cardiac: Regular rate and rhythm, no murmurs. No JVD. Abdomen: Soft, nontender, nondistended, positive bowel sounds. Extremities: Warm, well perfused, no edema. 2+ radial pulses Skin: No rashes or lesions. Neuro: Nonfocal Psych: Alert orient x3, normal affect and mood Results & Data Vital Signs (Past 12 Hours) Vital Signs Temp Pulse Pulse Resp BP Pulse Ox 12/01/18 11:26 36.7 C 60 16 118/71 93 12/01/18 08:00 63 12/01/18 07:05 36.7 C 62 16 127/80 93 12/01/18 03:40 36.6 C 55 L 18 111/64 95
[2018-12-01] MEDS ORDERED: ADENOSINE IV SOLN 3 MG/ML 20 ML VIAL IV ONE (13:01)
[2018-12-01] MEDS ORDERED: MIDAZOLAM HCL 1 MG/ML 2ML VIAL ONE ×3 (13:04→13:47)
[2018-12-01 13:29] LABS: Basophils # (auto) 0.06 K/uL (0-0.2); Basophils % (auto) 0.8 %; Eosinophils # (auto) 0.28 K/uL (0-0.5); Eosinophils % (auto) 3.6 %; Hematocrit (blood only) 40.9 % (42-52); Hemoglobin 14.2 g/dL (14.0-18.0); Immature Granulocytes # (auto) 0.01 K/uL (0.00-0.02); Immature Granulocytes % (auto) 0.1 %; Lymphocytes # (auto) 2.23 K/uL (1.2-3.4); Lymphocytes % (auto) 28.7 %; Mean Corpuscular Hgb Conc 34.7 g/dL (32-36); Mean Corpuscular Volume 83.5 fL (80-100); Mean Platelet Volume 10.4 fL (7.4-10.4); Monocytes # (auto) 1.19 K/uL (0.11-0.59); Monocytes % (auto) 15.3 %; Neutrophils % (auto) 51.5 %; Platelet Count 228 K/uL (130-400); RDW Coefficient of Variation 14.6 % (11.5-14.5); RDW Standard Deviation 44.3 fL (36.4-46.3); White Blood Count 7.77 K/uL (4.8-10.8)
[2018-12-01] MEDS ORDERED: fentaNYL citrate 100 MCG/2 ML VIAL ONE ×2 (13:37→13:50)
[2018-12-01 13:47] LABS: Albumin Level 4.1 gm/dl (3.4-5.0); Bilirubin,Total 1.7 mg/dl (0.2-1); Calcium 9.3 mg/dl (8.5-10.1); Est GFR (African American) 73.8; Est GFR (Non-African American) 63.7; Potassium 4.1 mmol/L (3.5-5.1)
[2018-12-01 13:48] LABS: Albumin Globulin Ratio 1.3 (0.9-2); Globulin 3.1 gm/dl (2.5-4.0); Total Protein 7.2 gm/dl (6.4-8.2)
[2018-12-01] MEDS ORDERED: CLOPIDOGREL BISULFATE 300 MG TAB ONE (14:15)
--- NOTE | 2018-12-01 14:26 | Post Anesthesia Assessment ---
Date of Service December 01, 2018 Post Sedation Assessment Vital Signs Temp Pulse Pulse Resp BP BP BP 12/01/18 11:26 36.7 C 60 16 118/71 12/01/18 08:00 63 12/01/18 07:05 36.7 C 62 16 127/80 12/01/18 03:40 36.6 C 55 L 18 111/64 11/30/18 23:18 36.6 C 56 L 18 115/67 11/30/18 18:14 36.7 C 62 18 156/78 H 156/78 H 11/30/18 17:53 68 20 112/83 11/30/18 17:00 67 20 117/74 11/30/18 16:30 60 22 126/78 11/30/18 15:30 62 20 143/88 H Pulse Ox 12/01/18 11:26 93 12/01/18 08:00 12/01/18 07:05 93 12/01/18 03:40 95 11/30/18 23:18 93 11/30/18 18:14 97 11/30/18 17:53 94 11/30/18 17:00 93 11/30/18 16:30 93 11/30/18 15:30 95 Recovery Score Activity: Moves 4 extremities Respiration: Deep Breath/Cough Circulation: +/-20% PreAnes Value Consciousness: Fully Awake Oxygen Saturation: O2 needed for >90% Discharge Sedation Level of Care: Fast Track Phase II Post Sedation Plan On clinical assessment, the patient appears to have tolerated the sedation without complications. Patient is recovering as anticipated. Patient will continue to be monitored by nursing and may be discharged when sedation discharge criteria are met per below protocol. Upon Completions of procedure and additional 15 minutes continue every 5 minute vital signs and the P.A.R. score; then discharge to a Phase I or Fast Track to Phase II per the following guidelines: * Discharge Patient to appropriate Phase II area if PAR is 8 or greater or return to pre- procedure baseline. The post - procedure orders will be as directed. * If PAR score is less than 8 or not return to pre-procedure baseline then patient will follow Phase I monitoring till PAR is reached for Phase II. The Phase I may be done in procedure room or may call to secure a Phase I area. * If naloxone or flumazenil are used for reversal, hold in Phase I for continued monitoring from when last reversal dose was given for a minimum of 60 minutes or longer pending the nurse and/or physician discretion of patient condition before discharge to Phase II. Please call the Sedation Physician to re-evaluate and complete post-note for discharge to Phase II area. Do NOT discharge from procedure sedation or Phase 1 until post- sedation evaluation note is complete by procedure /sedation MD Sedation Discharge Instructions to be given to the patient at discharge to home.
[2018-12-01] MEDS ORDERED: ONDANSETRON INJ 2 MG/ML 2 ML VIAL IV PRN (14:37)
--- NOTE | 2018-12-01 14:37 | Cardiac Catheterization ---
Cardiac Cath Procedure Full Procedure Date December 01, 2018 Pre-Procedure Diagnosis Pre-Procedure Diagnosis: Acute Coronary Syndrome AUC Score AUC Score: 7 Post-Procedure Diagnosis Post-Procedure Diagnosis: Severe CAD, Successful PCI and Normal Intracardiac Pressures Procedure(s) Performed Procedure(s) Performed: Coronary Angiography, Left Heart Cath, LV Angiography, PTCA, IVUS and Fractional Flow [place] Integration Technician Rj Vieira MD Heavy Equipment Field Mechanic(s) 1 Estimated Blood Loss Estimated Blood Loss: 20 Medication(s) Medication(s): Clopidogrel, Fentanyl, Heparin, Lidocaine 1%, Nicardipine, Nitroglycerin and Versed Summary of Findings Indication: Accelerating angina, history of multivessel disease with multiple prior stents Access: 6 Fr right radial artery Catheters: [place], JL 3.5, pigtail. EBU 3.75 guide Findings: LM -Short, essentially separate ostium LAD -moderate caliber, mid segment stent widely patent, 4050% mid segment stenosis at bifurcation of second diagonal, distal vessel without significant disease as wraps around apex. First diagonal with 40-50% ostial stenosis as it exits prior stent (unchanged from prior cath). Circumflex -large caliber vessel, patent stents extending from ostium to mid segment, proximal stent appears mildly narrowed with haziness, OM 1 2 and 3 without significant disease RCA -dominant, moderate caliber vessel, mid segment luminal irregularities, distal luminal irregularities, mild 30 to 40% proximal to mid PDA disease LVEDP -4 -- PCI -- Antithrombotic therapy: Heparin, clopidogrel Procedure: Left main cannulated with EBU 3.75 guide FFR wire placed into distal LAD FFR 0.55 Pro-water wire wire passed across lesion into distal vessel Hazy proximal in-stent lesion dilated with 3.0, 3.5 and 3.0 Cutting Balloon IVUS revealed heavily calcified vessel with underexpanded stent proximally despite aggressive post dilation IC vasodilators administered for spasm Post procedure PEPE 3 flow, no apparent cardiac complications. Arterial Closure: TR band Summary: 1. Severe single vessel coronary artery disease -Severe in-stent restenosis/stent underexpansion of proximal circumflex 2. Normal intracardiac filling pressure 3. Successful angioplasty of proximal circumflex with cutting and multiple NC balloons to high atmospheres (residual 40 to 50% narrowing). 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 No acute high risk disease. For residual circumflex stenosis recommend maximizing antianginal therapy. 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 Cardiac Status Clinical evaluation leading to the procedure CAD Presenation: Unstable angina Anginal Classification: CCS III Heart Failure: No Cardiogenic Shock within 24 Hours: No Cardiac Arrest within 24 Hours: No Imaging Studies Past 6 Months: No Stress Studies Past 6 Months: No Diagnostic Physicians Name: Rj Vieira MD Status: Elective Closure Device Percutaneous Entry Location: Radial Closure Device: Radial Band Recommendations: PCI without planned CABG PCI Indication: Unstable Angina Lesion Segment Name: Proximal circumflex Culprit Artery: Yes Stenosis Prior to Rx (%): 60-70 Chronic Total Occlusion: No IVUS: Yes FFR: Yes Ratio: less than or equal to 0.75% Pre-Procedure PEPE Flow: 3 Previously Treated Lesion: Timeframe: 1-2 years Treated with Stent: Yes In-Stent Restenosis: Yes In-Stent Thrombosis: No Stent Type: SHAY Yes Lesion Complexity: High/C Lesion Length (mm): 20 Thrombus Present: No Bifurcation Lesion: Yes Guidewire Across Lesion: Stenosis Post-Procedure (%): 0 Post-Procedure PEPE Flow: 3 Devices(s) Deployed: Yes Yes Intraprocedure Events Significant Disection: No Perforation: No
[2018-12-01] MEDS ORDERED: SODIUM CHLORIDE 0.9% 1000ML 1,000 ML IV SCH (14:45)
--- NOTE | 2018-12-01 17:56 | Hospitalist Progress Note ---
Date of Service December 01, 2018 Assessment & Plan (1) Joyce angina: Presented with unstable angina. CXR negative. ECG without acute ischemia Troponin was serially normal x 3 but second troponin was mildly detectable Now chest pain free s/p angioplasty with ballooning of prox Cx during cardiac cath on 12/01. 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 -Cardiology recommends maximizing antianginal therapy for remaining Cx lesion--> defer to Cardio for this - Consult cardiology appreciated (2) Ischemic cardiomyopathy: Continue medical management with Toprol, lisinopril (3) Hypertension: BPs controlled -continue lisinopril and metoprolol (4) Diabetes mellitus: Metformin will be placed on hold due to cardiac cath -continue ADA diet. Sliding scale insulin coverage as needed (5) Hyperlipidemia: continue statin (6) Elevated liver enzymes: Elevated TBili, AST, ALT on admission, worsened from recent labs a few weeks ago, and now worsening Liver US here whos severely fatty liver He is s/p cholecystectomy Has no abd pain at all -recommended weight loss, low carb diet -follow LFTs here and as an outpt (7) CAD (coronary artery disease): Severe with multiple stents placed in the past -with plan as above (8) DVT prophylaxis: Lovenox subcu Dispo-remain on PCU overnight and if improved/stable, can be discharged to home tomorrow Subjective Feeling great after his cardiac cath with balloon angioplasty today. Denies any chest pain and feels like he can take a deeper breath. Is antonette po, no nausea, no headache. I discussed his care with Dr. Vieira at the bedside today. Denies any abdominal pain. Tele with NSR, 1st deg AV block, rates 50-60s Review of Systems Review of Systems: All systems reviewed & are unremarkable except as noted in HPI & below Physical Exam Constitutional: WD/WN, vitals as above Eyes: PERRL, conjunctivae normal, anicteric sclerae ENMT: external ear and nose normal, oropharynx normal Neck: trachea midline, no thyromegaly Respiratory: normal respiratory effort, lungs clear to auscultation Cardiovascular: RRR, no murmur, no edema Gastrointestinal (Abdomen): normal bowel sounds, soft, nontender, no he patosplenomegaly Musculoskeletal: Extremities: + extremities abnormal to inspection (right wrist with TR band in place, small amount dried blood on wrist), no cyanosis and no clubbing Skin: no rashes, warm and dry Neurologic: moves all extremities and awake; no focal motor deficits Psychiatric: A+Ox3, euthymic affect Results & Data Vital Signs (Past 12 Hours) Vital Signs Temp Pulse Pulse Resp BP BP Pulse Ox 12/01/18 16:22 36.6 C 58 L 18 122/78 94 12/01/18 15:52 36.6 C 56 L 19 124/83 97 12/01/18 15:22 36.6 C 58 L 18 123/79 97 12/01/18 15:00 55 L 18 148/91 H 94 12/01/18 14:45 53 L 18 146/91 H 90 12/01/18 14:30 37.1 C 52 L 18 121/77 92 12/01/18 11:26 36.7 C 60 16 118/71 93 12/01/18 08:00 63 12/01/18 07:05 36.7 C 62 16 127/80 93 Laboratory Results 12/01/18 12/01/18 12/01/18 Range/Units 20:31 17:02 13:20 WBC (4.8-10.8) K/uL RBC (4.7-6.1) M/uL Hgb (14.0-18.0) g/dL Hct (42-52) % MCV (80-100) fL MCH (25-34) pg MCHC (32-36) g/dL RDW Std Deviation (36.4-46.3) fL RDW Coeff of Gino (11.5-14.5) % Plt Count (130-400) K/uL MPV (7.4-10.4) fL Immature Gran % (Auto) % Neut % (Auto) % Lymph % (Auto) % [place] % (Auto) % Eos % (Auto) % Baso % (Auto) % Immature Gran # (Auto) (0.00-0.02) K/uL Neut # (Auto) (1.4-6.5) K/uL Lymph # (Auto) (1.2-3.4) K/uL [place] # (Auto) (0.11-0.59) K/uL Eos # (Auto) (0-0.5) K/uL Baso # (Auto) (0-0.2) K/uL Activ Coag Time Kaolin 213 H (94-140) SECONDS Sodium (136-145) mmol/L Potassium (3.5-5.1) mmol/L Chloride (98-107) mmol/L Carbon Dioxide (21-32) mmol/L Anion Gap (3-11) BUN (7-18) mg/dl Creatinine (0.6-1.4) mg/dl Est Cr Clr Drug Dosing ml/min Est GFR ( Amer) Est GFR (Non-Af Amer) BUN/Creatinine Ratio (10-20) Glucose (70-99) mg/dl POC Glucose 150 H 210 H (70-99) Calcium (8.5-10.1) mg/dl Total Bilirubin (0.2-1) mg/dl AST (15-37) U/L ALT (12-78) U/L Alkaline Phosphatase (45-117) U/L Troponin I (0-0.045) ng/ml Total Protein (6.4-8.2) gm/dl Albumin (3.4-5.0) gm/dl Globulin (2.5-4.0) gm/dl Albumin/Globulin Ratio (0.9-2) 12/01/18 12/01/18 12/01/18 Range/Units 11:17 07:09 04:13 WBC (4.8-10.8) K/uL RBC (4.7-6.1) M/uL Hgb (14.0-18.0) g/dL Hct (42-52) % MCV (80-100) fL MCH (25-34) pg MCHC (32-36) g/dL RDW Std Deviation (36.4-46.3) fL RDW Coeff of Gino (11.5-14.5) % Plt Count (130-400) K/uL MPV (7.4-10.4) fL Immature Gran % (Auto) % Neut % (Auto) % Lymph % (Auto) % [place] % (Auto) % Eos % (Auto) % Baso % (Auto) % Immature Gran # (Auto) (0.00-0.02) K/uL Neut # (Auto) (1.4-6.5) K/uL Lymph # (Auto) (1.2-3.4) K/uL [place] # (Auto) (0.11-0.59) K/uL Eos # (Auto) (0-0.5) K/uL Baso # (Auto) (0-0.2) K/uL Activ Coag Time Kaolin (94-140) SECONDS Sodium 135 L (136-145) mmol/L Potassium 4.1 (3.5-5.1) mmol/L Chloride 102 (98-107) mmol/L Carbon Dioxide 26 (21-32) mmol/L Anion Gap 7.0 (3-11) BUN 23 H (7-18) mg/dl Creatinine 1.15 (0.6-1.4) mg/dl Est Cr Clr Drug Dosing 75.0 ml/min Est GFR ( Amer) 73.8 Est GFR (Non-Af Amer) 63.7 BUN/Creatinine Ratio 20.0 (10-20) Glucose 155 H (70-99) mg/dl POC Glucose 151 H 163 H (70-99) Calcium 9.3 (8.5-10.1) mg/dl Total Bilirubin 1.7 H (0.2-1) mg/dl AST 59 H (15-37) U/L ALT 90 H (12-78) U/L Alkaline Phosphatase 64 (45-117) U/L Troponin I (0-0.045) ng/ml Total Protein 7.2 (6.4-8.2) gm/dl Albumin 4.1 (3.4-5.0) gm/dl Globulin 3.1 (2.5-4.0) gm/dl Albumin/Globulin Ratio 1.3 (0.9-2) 12/01/18 12/01/18 Range/Units 04:13 04:09 WBC 7.77 (4.8-10.8) K/uL RBC 4.90 (4.7-6.1) M/uL Hgb 14.2 (14.0-18.0) g/dL Hct 40.9 L (42-52) % MCV 83.5 (80-100) fL MCH 29.0 (25-34) pg MCHC 34.7 (32-36) g/dL RDW Std Deviation 44.3 (36.4-46.3) fL RDW Coeff of Gino 14.6 H (11.5-14.5) % Plt Count 228 (130-400) K/uL MPV 10.4 (7.4-10.4) fL Immature Gran % (Auto) 0.1 % Neut % (Auto) 51.5 % Lymph % (Auto) 28.7 % [place] % (Auto) 15.3 % Eos % (Auto) 3.6 % Baso % (Auto) 0.8 % Immature Gran # (Auto) 0.01 (0.00-0.02) K/uL Neut # (Auto) 4.00 (1.4-6.5) K/uL Lymph # (Auto) 2.23 (1.2-3.4) K/uL [place] # (Auto) 1.19 H (0.11-0.59) K/uL Eos # (Auto) 0.28 (0-0.5) K/uL Baso # (Auto) 0.06 (0-0.2) K/uL Activ Coag Time Kaolin (94-140) SECONDS Sodium (136-145) mmol/L Potassium (3.5-5.1) mmol/L Chloride (98-107) mmol/L Carbon Dioxide (21-32) mmol/L Anion Gap (3-11) BUN (7-18) mg/dl Creatinine (0.6-1.4) mg/dl Est Cr Clr Drug Dosing ml/min Est GFR ( Amer) Est GFR (Non-Af Amer) BUN/Creatinine Ratio (10-20) Glucose (70-99) mg/dl POC Glucose (70-99) Calcium (8.5-10.1) mg/dl Total Bilirubin (0.2-1) mg/dl AST (15-37) U/L ALT (12-78) U/L Alkaline Phosphatase (45-117) U/L Troponin I 0.016 (0-0.045) ng/ml Total Protein (6.4-8.2) gm/dl Albumin (3.4-5.0) gm/dl Globulin (2.5-4.0) gm/dl Albumin/Globulin Ratio (0.9-2) Diagnostic Findings ULTRASOUND RIGHT UPPER QUADRANT ABDOMEN CLINICAL HISTORY: Elevated hepatic transaminases. COMPARISON STUDY: Abdominal CT dated 05/15/2015. Abdominal ultrasound dated 11/17/2017. TECHNIQUE: Real-time, grayscale, and color flow sonography of the right upper quadrant of the abdomen was performed. Images are reviewed in the transverse and longitudinal planes. FINDINGS: Liver: The liver is top normal in size and demonstrates heterogeneously incre ased echotexture consistent with severe hepatic steatosis. Note that this degrades acoustic penetration of the liver. There is no intrahepatic biliary ductal dilatation. The main portal vein is patent. Gallbladder: The gallbladder is surgically absent. The common bile duct measures up to 0.5 cm in diameter. Pancreas: Visualized portions of the pancreatic head and body are normal in appearance. Right kidney: Survey images of the right kidney demonstrate normal size and echotexture. There is no hydronephrosis. Ascites: None. IMPRESSION: 1. Severe hepatic steatosis. 2. Status post cholecystectomy.
[2018-12-01] MEDS: ENOXAPARIN INJ 40 MG/0.4 ML SYR SQ SCH (20:17)
[2018-12-01] MEDS: FAMOTIDINE 20 MG TAB PO SCH (20:19)
[2018-12-01] MEDS: ATORVASTATIN 40 MG TAB PO SCH (20:19)
[2018-12-02 07:25] LABS: Basophils # (auto) 0.04 K/uL (0-0.2); Basophils % (auto) 0.5 %; Eosinophils # (auto) 0.22 K/uL (0-0.5); Eosinophils % (auto) 2.8 %; Hematocrit (blood only) 40.1 % (42-52); Immature Granulocytes # (auto) 0.01 K/uL (0.00-0.02); Immature Granulocytes % (auto) 0.1 %; Lymphocytes # (auto) 2.21 K/uL (1.2-3.4); Lymphocytes % (auto) 28.6 %; Mean Corpuscular Hgb Conc 34.9 g/dL (32-36); Mean Corpuscular Volume 83.2 fL (80-100); Monocytes # (auto) 1.12 K/uL (0.11-0.59); Monocytes % (auto) 14.5 %; Neutrophils # (auto) 4.13 K/uL (1.4-6.5); Neutrophils % (auto) 53.5 %; Platelet Count 193 K/uL (130-400); RDW Coefficient of Variation 14.5 % (11.5-14.5); Red Blood Count 4.82 M/uL (4.7-6.1); White Blood Count 7.73 K/uL (4.8-10.8)
[2018-12-02] MEDS: CALCIUM 600MG + VIT D 400 IU TAB PO SCH (07:34)
[2018-12-02] MEDS: CHOLECALCIFEROL 1,000 UNITS TAB PO SCH (07:34)
[2018-12-02] MEDS: METOPROLOL SUCC 50MG EXT REL TAB PO SCH ×2 (07:35→07:40)
[2018-12-02] MEDS: CLOPIDOGREL BISULFATE 75 MG TAB PO SCH (07:35)
[2018-12-02] MEDS: MULTIVITAMIN TAB PO SCH (07:35)
[2018-12-02] MEDS: PANTOprazole 40 MG TAB PO SCH (07:35)
[2018-12-02] MEDS: VALACYCLOVIR HCL 500 MG TABLET PO SCH (07:36)
[2018-12-02] MEDS: LISINOPRIL 40 MG TAB PO SCH (07:36)
[2018-12-02] MEDS: ASPIRIN 81 MG ECTAB PO SCH (07:36)
[2018-12-02 07:54] LABS: Albumin Level 3.7 gm/dl (3.4-5.0); BUN Creatinine Ratio 17.3 (10-20); Bilirubin Direct 0.3 mg/dl (0-0.2); Creatinine Clr Calc Pharmacy 80.6 ml/min; Est GFR (African American) 80.5; Est GFR (Non-African American) 69.5; Potassium 4.2 mmol/L (3.5-5.1)
[2018-12-02 07:57] LABS: Bilirubin,Total 1.6 mg/dl (0.2-1); Total Protein 6.9 gm/dl (6.4-8.2)
[2018-12-02] MEDS: INSULIN ASPART 100 UNITS/ML 3 ML PEN SC SCH ×2 (08:33→11:41)
[2018-12-02] MEDS ORDERED: ISOSORBIDE MONO EXTENDED REL 30 MG TABCR PO SCH (09:45)
--- NOTE | 2018-12-02 11:09 | Cardiology Progress Note ---
Date of Service December 02, 2018 Assessment & Plan (1) Accelerating angina: Symptoms have improved following circumflex angioplasty. He is left with residual in stent stenosis due to calcium burden. Dr. Vieira has recommended continued medical therapy. Recommend isosorbide mononitrate 30 mg once daily in addition to home dose of beta-chapis. He has been well beta blocked. 911 for angina that does not resolve within 5 minutes of nitroglycerin. Recommended ambulation in the hallway prior to discharge. Care instructions following cardiac catheterization or entered into his discharge form. (2) CAD (coronary artery disease): Continue aspirin 81 mg daily indefinitely. Continue Plavix 75 mg daily for at least 6 months, but plan long-term treatment as well. Continue beta- chapis, high-intensity statin therapy, and initiate nitrate therapy as above. Continue KIM-inhibitor. Consider Cardiac rehab. (3) Hypertension: Blood pressure reasonably controlled. Continue current regimen as above. 4. Disposition: From a cardiac perspective, if he is asymptomatic with ambulation in the hallway, he can be discharged home with follow-up in the cardiology office in 1-2 weeks in the [facility]. Cardiology office will be contacted to help arrange this appointment. Patient care and follow-up discussed with Dr. Tracey of the primary hospitalist service. Subjective Mr. Valdez was seen this morning at approximately 8:15 a.m. He underwent balloon angioplasty of circumflex stent yesterday. He tolerated the procedure well. He feels much better. He has not ambulated in the hallway however. He denies chest pain, shortness of breath, syncope, near-syncope, palpitations, edema, or bleeding. Review of systems: As above. Physical Exam Physical Exam: Gen.: No acute distress. Alert and oriented. HEENT: Anicteric sclera. Neck: No JVD. Cardiac: Regular. Normal S1-S2. 1/6 systolic murmur. No rubs, or gallops. Pulmonary: Clear to auscultation bilaterally without wheezes, rales, or rhonchi. Abdomen: Soft, nontender, nondistended, with normoactive bowel sounds. No bruits noted. Extremities: No edema or cyanosis. Right radial cath site is clean, dry, and intact without erythema or discharge. 2+ right radial pulse. Psychiatric: Affect appears appropriate. Results & Data Vital Signs (Past 12 Hours) Vital Signs Temp Pulse Pulse Resp BP BP Pulse Ox 12/02/18 07:39 36.5 C 56 L 14 128/68 96 12/02/18 03:35 37.0 C 59 L 16 117/72 95 12/01/18 23:48 60 12/01/18 23:40 36.7 C 65 16 130/80 94 Laboratory Results Laboratory Results - last 24 hr 12/01/18 12/01/18 12/01/18 04:13 04:13 11:17 WBC 7.77 RBC 4.90 Hgb 14.2 Hct 40.9 L MCV 83.5 MCH 29.0 MCHC 34.7 RDW Std Deviation 44.3 RDW Coeff of Gino 14.6 H Plt Count 228 MPV 10.4 Immature Gran % (Auto) 0.1 Neut % (Auto) 51.5 Lymph % (Auto) 28.7 [place] % (Auto) 15.3 Eos % (Auto) 3.6 Baso % (Auto) 0.8 Immature Gran # (Auto) 0.01 Neut # (Auto) 4.00 Lymph # (Auto) 2.23 [place] # (Auto) 1.19 H Eos # (Auto) 0.28 Baso # (Auto) 0.06 Activ Coag Time Kaolin Sodium 135 L Potassium 4.1 Chloride 102 Carbon Dioxide 26 Anion Gap 7.0 BUN 23 H Creatinine 1.15 Est Cr Clr Drug Dosing 75.0 Est GFR ( Amer) 73.8 Est GFR (Non-Af Amer) 63.7 BUN/Creatinine Ratio 20.0 Glucose 155 H POC Glucose 151 H Calcium 9.3 Total Bilirubin 1.7 H Direct Bilirubin AST 59 H ALT 90 H Alkaline Phosphatase 64 Total Protein 7.2 Albumin 4.1 Globulin 3.1 Albumin/Globulin Ratio 1.3 12/01/18 12/01/18 12/01/18 13:20 17:02 20:31 WBC RBC Hgb Hct MCV MCH MCHC RDW Std Deviation RDW Coeff of Gino Plt Count MPV Immature Gran % (Auto) Neut % (Auto) Lymph % (Auto) [place] % (Auto) Eos % (Auto) Baso % (Auto) Immature Gran # (Auto) Neut # (Auto) Lymph # (Auto) [place] # (Auto) Eos # (Auto) Baso # (Auto) Activ Coag Time Kaolin 213 H Sodium Potassium Chloride Carbon Dioxide Anion Gap BUN Creatinine Est Cr Clr Drug Dosing Est GFR ( Amer) Est GFR (Non-Af Amer) BUN/Creatinine Ratio Glucose POC Glucose 210 H 150 H Calcium Total Bilirubin Direct Bilirubin AST ALT Alkaline Phosphatase Total Protein Albumin Globulin Albumin/Globulin Ratio 12/02/18 12/02/18 12/02/18 07:13 07:13 07:44 WBC 7.73 RBC 4.82 Hgb 14.0 Hct 40.1 L MCV 83.2 MCH 29.0 MCHC 34.9 RDW Std Deviation 44.0 RDW Coeff of Gino 14.5 Plt Count 193 MPV 10.0 Immature Gran % (Auto) 0.1 Neut % (Auto) 53.5 Lymph % (Auto) 28.6 [place] % (Auto) 14.5 Eos % (Auto) 2.8 Baso % (Auto) 0.5 Immature Gran # (Auto) 0.01 Neut # (Auto) 4.13 Lymph # (Auto) 2.21 [place] # (Auto) 1.12 H Eos # (Auto) 0.22 Baso # (Auto) 0.04 Activ Coag Time Kaolin Sodium 136 Potassium 4.2 Chloride 102 Carbon Dioxide 27 Anion Gap 7.0 BUN 19 H Creatinine 1.07 Est Cr Clr Drug Dosing 80.6 Est GFR ( Amer) 80.5 Est GFR (Non-Af Amer) 69.5 BUN/Creatinine Ratio 17.3 Glucose 142 H POC Glucose 138 H Calcium 9.0 Total Bilirubin 1.6 H Direct Bilirubin 0.3 H AST 49 H ALT 80 H Alkaline Phosphatase 66 Total Protein 6.9 Albumin 3.7 Globulin Albumin/Globulin Ratio Diagnostic Findings Telemetry personally reviewed: Sinus rhythm. ECG personally reviewed: ECG 12/02/2018: Sinus bradycardia with first-degree AV block at 55 bpm. Inferior infarct. Cardiac catheterization 12/02/18: LM -Short, essentially separate ostium LAD -moderate caliber, mid segment stent widely patent, 4050% mid segment stenosis at bifurcation of second diagonal, distal vessel without significant disease as wraps around apex. First diagonal with 40-50% ostial stenosis as it exits prior stent (unchanged from prior cath). Circumflex -large caliber vessel, patent stents extending from ostium to mid segment, proximal stent appears mildly narrowed with haziness, OM 1 2 and 3 without significant disease RCA -dominant, moderate caliber vessel, mid segment luminal irregularities, distal luminal irregularities, mild 30 to 40% proximal to mid PDA disease LVEDP -4 -- PCI -- Antithrombotic therapy: Heparin, clopidogrel Procedure: Left main cannulated with EBU 3.75 guide FFR wire placed into distal LAD FFR 0.55 Pro-water wire wire passed across lesion into distal vessel Hazy proximal in-stent lesion dilated with 3.0, 3.5 and 3.0 Cutting Balloon IVUS revealed heavily calcified vessel with underexpanded stent proximally despite aggressive post dilation IC vasodilators administered for spasm Post procedure PEPE 3 flow, no apparent cardiac complications. Arterial Closure: TR band Summary: 1. Severe single vessel coronary artery disease -Severe in-stent restenosis/stent underexpansion of proximal circumflex 2. Normal intracardiac filling pressure 3. Successful angioplasty of proximal circumflex with cutting and multiple NC balloons to high atmospheres (residual 40 to 50% narrowing). Medications Administered Current Inpatient Medications Acetaminophen (Tylenol) 650 mg PO Q4H PRN PRN Reason: Pain or Fever Stop: 12/30/18 18:12 Al Hydrox/Mg Hydrox/Simethicone (Maalox) 15 ml PO Q4H PRN PRN Reason: Dyspepsia Stop: 12/30/18 18:12 Aspirin (Ecotrin Ectab) 81 mg PO DAILY [facility] Stop: 12/31/18 08:59 Last Admin: 12/02/18 07:36 Dose: 81 mg Documented by: Atorvastatin Calcium (Lipitor) 40 mg PO HS [facility] Stop: 12/30/18 20:59 Last Admin: 12/01/18 20:19 Dose: 40 mg Documented by: Clopidogrel Bisulfate (Plavix) 75 mg PO DAILY [facility] Stop: 12/31/18 08:59 Last Admin: 12/02/18 07:35 Dose: 75 mg Documented by: Diphenhydramine HCl (Benadryl Capsule) 50 mg PO HS PRN PRN Reason: Insomnia Last Admin: 12/01/18 20:21 Dose: 50 mg Documented by: Enoxaparin Sodium (Lovenox) 40 mg SQ Q24H [facility] Stop: 12/30/18 20:59 Last Admin: 12/01/18 20:17 Dose: Not Given Documented by: Famotidine (Pepcid) 40 mg PO HS [facility] Stop: 12/30/18 20:59 Last Admin: 12/01/18 20:19 Dose: 40 mg Documented by: Fluticasone Propionate (Flonase) 2 sprays ISABEL DAILY PRN PRN Reason: allergic rhinitis Stop: 12/30/18 18:12 Insulin Aspart (Novolog Flexpen) 0 units SC ACHS [facility] Stop: 12/30/18 18:12 Last Admin: 12/02/18 08:33 Dose: Not Given Documented by: Isosorbide Mononitrate (Imdur Extended Rel) 30 mg PO QAM [facility] Stop: 01/01/19 09:44 Last Admin: 12/02/18 10:29 Dose: 30 mg Documented by: Lisinopril (Zestril) 40 mg PO DAILY [facility] Stop: 12/31/18 08:59 Last Admin: 12/02/18 07:36 Dose: 40 mg Documented by: Metoprolol Succinate (Toprol Xl) 50 mg PO DAILY [facility] Stop: 12/31/18 08:59 Last Admin: 12/02/18 07:40 Dose: Not Given Documented by: Multivitamins (Multivitamin Tab) 1 tab PO DAILY [facility] Stop: 12/31/18 08:59 Last Admin: 12/02/18 07:35 Dose: 1 tab Documented by: Multivitamins/Minerals (Caltrate Plus) 1 tab PO DAILY [facility] Stop: 12/31/18 08:59 Last Admin: 12/02/18 07:34 Dose: 1 tab Documented by: Nitroglycerin (Nitrostat) 0.4 mg SL UD PRN PRN Reason: Chest Pain Stop: 12/30/18 18:12 Ondansetron HCl (Zofran) 4 mg IV Q6H PRN PRN Reason: Nausea And Vomiting Stop: 12/31/18 14:36 Pantoprazole Sodium (Protonix) 40 mg PO DAILY [facility] Stop: 12/31/18 08:59 Last Admin: 12/02/18 07:35 Dose: 40 mg Documented by: Valacyclovir HCl (Valtrex) 1,000 mg PO TID [facility]; Protocol Stop: 12/30/18 20:59 Last Admin: 12/02/18 07:36 Dose: Not Given Documented by: Vitamin D (Vitamin D3) 2,000 units PO DAILY [facility] Stop: 12/31/18 08:59 Last Admin: 12/02/18 07:34 Dose: 2,000 units Documented by:
--- NOTE | 2018-12-02 11:26 | Discharge Summary ---
Date of Service December 02, 2018 Admission HPI Per Admitting Provider 72-year-old male with a long-standing history of ischemic heart disease having undergone multiple PTCA and stents, the most recent approximately 2 years ago. He has not developed exertional shortness of breath nausea and vague chest discomfort very similar to his previous symptoms before stents were placed. He is asymptomatic at rest. Initial troponin is negative. EKG reveals nonspecific ST and T wave changes with intraventricular conduction delay, normal sinus rhythm, left atrial enlargement, old inferior wall ME. Initial troponin normal. Topical nitrates will be applied and he will be placed on observation status with telemetry and cardiology consultation has been requested. Metformin will be placed on hold in the event that cardiac catheterization is necessary. All other medications including aspirin, atorvastatin, Plavix, metoprolol will be continued. Principal Diagnosis Severe CAD, Unstable angina Discharge Exam Constitutional WD/WN, vitals as above Eyes PERRL, conjunctivae normal, anicteric sclerae ENMT external ear and nose normal, oropharynx normal Neck trachea midline, no thyromegaly Respiratory normal respiratory effort, lungs clear to auscultation Cardiovascular RRR, no murmur, no edema Gastrointestinal (Abdomen) normal bowel sounds, soft, nontender, no hepatosplenomegaly Musculoskeletal Extremities: + extremities abnormal to inspection (right wrist with dressing in place c/d/i), no cyanosis and no clubbing Skin no rashes, warm and dry Neurologic moves all extremities and awake; no focal motor deficits Psychiatric A+Ox3, euthymic affect Discharge Data Allergies Allergy/AdvReac Type Severity Reaction Status Date / Time shellfish derived Allergy Intermediate Hives Verified 11/30/18 13:48 morphine AdvReac Severe GI Verified 11/30/18 13:48 SYMPTOMS-violent throwing up, can take hydrocodone Consultations 11/30/18 18:13 Consult Cardiology Routine Procedures Performed Operation Date: 12/01/18 12:30 Actual Procedures s Cineradiography w/Routine Exam - Maged Vieira MD p Cath, Left with Cors and Vent - Maged Vieira MD s POBA SGL Vessel - Maged Vieira MD s IVUS Coronary Single Vessel - Maged Vieira MD Ordered Studies 12/01/18 09:55 US liver Urgent 12/01/18 12:04 CL Cath Imgs for PACS use only Routine 12/01/18 14:40 CL IVUS Coronary Single Vessel Routine CXR Hospital Course (1) Crescendo angina: Presented with unstable angina. CXR negative. ECG without acute ischemia Troponin was serially normal x 3 but second troponin was mildly detectable Now chest pain free s/p angioplasty with ballooning of prox Cx during cardiac cath on 12/01. Reloaded with Plavix in label paster -continue DAPT with Plavix and ASA for at least 6 months -continue metoprolol, statin therapy, Plavix. -Cardiology recommends maximizing antianginal therapy for remaining Cx lesion--> added on isosorbide mononitrate 30mg daily - Consult cardiology appreciated -f/u with Cardio in 1-2 weeks after discharge (2) Ischemic cardiomyopathy: Continue medical management with Toprol, lisinopril (3) Hypertension: BPs controlled -continue lisinopril and metoprolol , added isosorbide (4) Diabetes mellitus: Metformin will be placed on hold due to cardiac cath-can restart on evening of 12/03 due to dye load -continue ADA diet. Sliding scale insulin coverage as needed was provided but pt delcined (5) Hyperlipidemia: continue statin despite mildly elevated LFTs-benefit outweighs risk currently (6) Elevated liver enzymes: Elevated TBili, AST, ALT on admission, worsened from recent labs a few weeks ago, and now improved Liver US here with severely fatty liver He is s/p cholecystectomy Has no abd pain at all -recommended weight loss, low carb diet -follow LFTs as an outpt and f/u with PCP (7) CAD (coronary artery disease): Severe with multiple stents placed in the past -with plan as above (8) DVT prophylaxis: Lovenox subcu was provided Dispo-Discussed care with Cardiology today-stable for dc to home Total Time Total Time Spent Total Time Spent (In Minutes): >30 min Total Time Includes: Examination of the Patient, Discharge Planning, Medication Reconciliation and Communication With Other Providers (Cardiology Dr. Brown) Discharge Plan Discharge Items Patient Disposition: Home - Self-Care Reason For Visit: CRESCENDO ANGINA Discharge Diagnosis: Unstable angina Severe CAD Condition: Good Discharge Goals: Decrease discomfort, Diagnostic testing, Improve disease control, Learn about illness and Therapeutic intervention Activity: As commented below Driving/Machine Use: Resume 3 days after discharge Non-emergency contact: Primary Care Provider and Stave Saw Operator Call non-emergency contact if: you have any medication questions, your symptoms worsen and your pain is not controlled Follow-up/Referrals: ProAngel MD [Primary Care Provider] - Diet: Carb Consistent or DM2 and Heart Healthy Addtl Provider Instructions: You were admitted with chest pain and had a repeat cardiac catheterization with balloon angioplasty to open up one of your coronary arteries again. You were started on a new medication called Isosorbide to help with any further angina you may have. Please follow up with Cardiology within 1-2 weeks. Please also follow up with your PCP as scheduled-youshould have repeat liver function tests drawn on your blood work prior to that appointment. ACTIVITY RECOMMENDATIONS: Excess manipulation of the wrist should be avoided for the next 24-48 hours. * No lifting over 2 pounds (approximately a 1/2 gallon of milk) with the utilized arm for 24 hours. * No strenuous activity such as bowling or tennis for 3 days. * Keep the site of the procedure covered with a bandage for 24 hours. *You may shower the day after the procedure. Do not take a tub bath or submerge the puncture site in water for the next 3 days. *Do not operate any motorized equipment for 3 days. SPECIAL CARE INSTRUCTIONS: The site may be slightly bruised and sore following your procedure. Should any of the following occur, contact the Dr. who performed your procedure. 1. Redness/inflammation, swelling, chills, or fever, or colored drainage at procedure site within 3-7 days after your procedure. 2. Coldness, discoloration, ongoing numbness, severe pain, or swelling. Expect mild tingling of hand and tenderness at the puncture site for up to three days. If this persists beyond three days, or other symptoms develop, notify the Dr. who performed your procedure. BLEEDING: If the procedure site on your wrist begins to bleed, do not panic 1. Place 1 or 2 fingers firmly just slightly above the insertion site to stop the bleeding. You may be able to feel your pulse as you hold pressure. 2. Lift your finger after 5 minutes to see if the bleeding has stopped. 3. Once the bleeding has stopped, gently wipe the wrist area clean with a bandage. * If the bleeding from your wrist does not stop after 10 minutes, or if there is a large amount of bleeding or spurting, call 911 (do not drive yourself to the hospital). SKIN IRRITATION: * You may experience some redness and/or swelling in the area where radiation was administered. If any skin irritation occurs, please contact your family physician. FOLLOW UP VISIT: Keep any scheduled doctor appointments. Prescriptions: New isosorbide mononitrate 30 mg Tablet Extended Release 24 Hr 30 mg PO QAM Qty: 30 RF: 0 Continued cholecalciferol (vitamin D3) 2,000 unit tablet 2,000 unit PO DAILY RF: 0 clopidogrel 75 mg tablet 75 mg PO DAILY Qty: 90 RF: 0 diphenhydramine HCl 50 mg capsule 50 mg PO HS PRN (Reason: Insomnia) RF: 0 atorvastatin 40 mg tablet 40 mg PO HS Qty: 90 RF: 0 famotidine 40 mg tablet 40 mg PO HS Qty: 90 RF: 0 lisinopril 40 mg tablet 40 mg PO DAILY Qty: 90 RF: 0 fluticasone propionate 50 mcg/actuation spray,suspension 2 spray intranasal DAILY PRN (Reason: allergic rhinitis) RF: 0 metoprolol succinate [Toprol XL] 50 mg tablet extended release 24 hr 50 mg PO DAILY RF: 0 multivitamin Tablet 1 tab PO DAILY RF: 0 valacyclovir [Valtrex] 1 gram Tablet 1,000 mg PO TID RF: 0 aspirin [Aspirin Low Dose] 81 mg Tablet,Delayed Release (Dr/Ec) 81 mg PO DAILY RF: 0 nitroglycerin [Nitrostat] 0.4 mg Tablet, Sublingual 0.4 mg sublingual UD PRN (Reason: Chest Pain) RF: 0 omeprazole 20 mg capsule,delayed release(DR/EC) 20 mg PO DAILY RF: 0 calcium carbonate-vitamin D3 [Calcium 600 + D(3)] 600 mg(1,500mg) -400 unit T ablet 1 tab PO DAILY RF: 0 glucosamine sulfate [Glucosamine] 500 mg Tablet 500 mg PO BID RF: 0 metformin 500 mg tablet 500 mg PO BID Qty: 180 RF: 0 Discontinued tadalafil [Cialis] 20 mg tablet 20 mg PO UD PRN (Reason: Sexual Activity) RF: 0 Stand-Alone Forms: [facility] Discharge Orders: Discharge Order (Routine); Ordered 12/02/18 Ordered By: Teagan Tracey Admission Data Admit Date/Time: 12/01/18 22:49 Attending Provider: Teagan Tracey Admit Provider: Orville Gamble Primary Care Provider: Angel French Other Providers: Mic Brown Service: Telemetry Other Pending Studies at Discharge: No
== END 2018-12-02 12:21 | disposition home or self-care (01) | DRG 247 ==
LOC: ED 12:57 → SUATTDRO 15:50 → INTOOBSV 15:50 → 2S 15:50

== ENCOUNTER 2018-12-06 14:51 | Observation (INO) ==
[2018-12-06] MEDS ORDERED: ASPIRIN CHEW 324 MG PO STA (15:09)
--- NOTE | 2018-12-06 15:32 | XRay Report ---
XR chest 1V portable HISTORY: 72 years-old Male Chest Pain acute atypical chest pain COMPARISON: Chest radiograph 11/30/2018 TECHNIQUE: Portable AP view the chest FINDINGS: Bilateral calcified pleural plaques redemonstrated. Cardiomediastinal and hilar silhouettes are stabl e. Calcification of the thoracic aortic arch. There is no pneumothorax, pleural effusion, focal airsp alvin consolidation or overt pulmonary edema. Degenerative changes of the shoulders and spine. IMPRESSION: Chronic findings as above without acute process. The above report was generated using voice recognition software. It may contain grammatical, syntax o r spelling errors. Electronically signed by: Dipak Sin M.D. 12/06/2018 3:31 PM
[2018-12-06 15:40] LABS: Basophils # (auto) 0.05 K/uL (0-0.2); Basophils % (auto) 0.5 %; Eosinophils # (auto) 0.19 K/uL (0-0.5); Eosinophils % (auto) 1.9 %; Hematocrit (blood only) 41.8 % (42-52); Hemoglobin 14.9 g/dL (14.0-18.0); Immature Granulocytes # (auto) 0.02 K/uL (0.00-0.02); Immature Granulocytes % (auto) 0.2 %; Lymphocytes # (auto) 2.24 K/uL (1.2-3.4); Lymphocytes % (auto) 22.5 %; Mean Corpuscular Hgb Conc 35.6 g/dL (32-36); Mean Corpuscular Volume 81.8 fL (80-100); Mean Platelet Volume 9.7 fL (7.4-10.4); Monocytes # (auto) 0.92 K/uL (0.11-0.59); Monocytes % (auto) 9.2 %; Neutrophils # (auto) 6.54 K/uL (1.4-6.5); Neutrophils % (auto) 65.7 %; Platelet Count 274 K/uL (130-400); RDW Coefficient of Variation 14.3 % (11.5-14.5); RDW Standard Deviation 42.7 fL (36.4-46.3); Red Blood Count 5.11 M/uL (4.7-6.1); White Blood Count 9.96 K/uL (4.8-10.8)
[2018-12-06 15:56] LABS: INR 1.1 (0.9-1.1); Partial Thromboplastin Ratio 0.9; Partial Thromboplastin Time 24.4 Seconds (21.0-31.0); Prothrombin Time 11.2 Seconds (9.0-12.0)
[2018-12-06 15:58] LABS: BUN Creatinine Ratio 17.7 (10-20); Creatinine Clr Calc Pharmacy 62.2 ml/min; Est GFR (African American) 59.7; Est GFR (Non-African American) 51.5; Potassium 4.8 mmol/L (3.5-5.1)
[2018-12-06 16:03] LABS: Troponin I 0.032 ng/ml (0-0.045)
[2018-12-06] MEDS ORDERED: OPTIRAY 320 125ml IV PRN (16:25)
--- NOTE | 2018-12-06 16:44 | CT Scan Report ---
CT angio chest PE protocol CT DOSE: 843.04 mGy.cm HISTORY: 72 years-old Male with Chest Pain, eval for PE. Acute atypical chest pain with shortness o f breath TECHNIQUE: Multiple CTA images of the chest were obtained after the intravenous administration of 82 ml Optiray 320. Coronal and sagittal MIPS were obtained from the axial data set and were submitted f or review. All measurements were obtained according to NASCET criteria. A dose lowering technique wa s utilized adhering to the principles of ALARA. COMPARISON: Chest radiograph of same day FINDINGS: CTA: Heart is normal in size without pericardial effusion. Extensive coronary arterial calcifications are noted. The left heart structures are not well opacified secondary to contrast bolus timing. No aortic aneurysm or dissection. Patency of the imaged great vessels. Pulmonary arterial tree is opacified to the level of the subsegmental branches and demonstrates no focal filling defects to suggest pulmonar y thromboembolic disease. CT CHEST: No focal thyroid nodule or adenopathy. No pneumothorax or pleural effusion. Scattered bilateral pleur al calcifications redemonstrated. No overt pulmonary edema. No focal airspace consolidation to sugges t pneumonia. No suspicious pulmonary nodules or masses. Central airways appear patent. No acute process of the imaged upper abdomen. Prior cholecystectomy. Hepatic steatosis. Soft tissues are unremarkable. Degenerative changes of the shoulders and spine. IMPRESSION: 1. No acute aortic pathology or evidence of pulmonary thromboembolic disease. 2. 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 3. No adenopathy, pleural effusion or focal airspace consolidation to suggest pneumonia. 4. Extensive coronary arterial calcifications. 5. Hepatic steatosis. The above report was generated using voice recognition software. It may contain grammatical, syntax o r spelling errors. Electronically signed by: Dipak Sin M.D. 12/06/2018 4:42 PM
[2018-12-06] MEDS ORDERED: SODIUM CHLORIDE 0.9% 1000ML 1,000 ML IV SCH ×2 (17:15→20:56)
--- NOTE | 2018-12-06 17:46 | History & Physical Report ---
Date of Service December 06, 2018 Assessment & Plan (1) Chest pain, unspecified: Exertional. 2 episodes - 1 at home, and then again in ER. Latter episode responded quickly to nitropaste. Significant dyspnea and dyspnea on exertion with any activity at home today. Symptoms similar to past episodes of angina. Despite above his troponins remain negative, EKGs are unchanged, and CT chest w/o PE. [id number], in light of recent proximal circumflex angioplasty by Dr Vieira this week and his extensive CAD history, his symptoms are quite concerning for angina. This could possibly represent unstable angina as well. Care plan d/w Dr Brown. Place on telemetry. Serial troponins. Nitropaste 1/2 inch q6h. Heparin drip - low dose w/ bolus. Asa, plavix, statin, BB. Hold KIM as he was hypotensive transiently in ER and has mild acute kidney injury. Hold imdur since he will be on nitropaste. Formal consult w/ cardiology. NPO after MN. May need repeat heart cath depending on clinical course. I cannot find a recent echocardiogram. Will order one for am. Present on Admission?: Yes (2) Dehydration with hyponatremia: Mild BRIAN and low Na of 133. Patient states he had been thirsty all weekend. He was also mildly hypotensive at presentation. NSS 500cc bolus given. Then give maintenance of 75cc/hr for 1 more liter then saline lock. BMP am. Present on Admission?: Yes (3) CAD (coronary artery disease): Extensive. 11 stents in total over the years. LAD and Left Cx stents in 2017. Then Left Cx angioplasty this past week by Dr Vieira. No stent deployment during that cath. see "chest pain" above. Present on Admission?: Yes (4) Diabetes mellitus: Hold metformin. SSI novolog - correction 30, carb ratio 1:10. BSGs ac/hs. T2DM diet. a1c 7.3% 06/2018. Present on Admission?: Yes (5) BPH (benign prostatic hypertrophy) with urinary obstruction: chronic, no issues at this time Present on Admission?: Yes (6) Acid reflux: PPI symptoms today not suspicious for GERD Present on Admission?: Yes (7) Elevated liver enzymes: Seen during prior admission. RUQ u/s obtained previously - severe fatty liver. repeat LFTs am for stability. (8) Hyperlipidemia: statin agent. last lipids 06/2018. will order for am. also obtain TSH. Present on Admission?: Yes (9) Hypertension: initially hypotensive at presentation. suspect transient hypotension 2nd to double-dose of imdur today at home along with mild volume contraction as evidenced by mild BRIAN and Low Na. hypotension resolved w/ one 500cc bolus of fluids. cont home meds except KIM for now. (10) Ischemic cardiomyopathy: records indicate such. cannot find any echo, however. will check echo in am to re-eval EF. cont BB. KIM on hold due to BP issues but ultimately this will be resumed. 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: asbestos exposure in follows with Dr Mcgowan no issues (12) DVT prophylaxis: heparin drip extensively updated at bedside admit to observation status History of Present Illness Chief Complaint: shortness of breath, chest tightness Primary Care Provider: Angel French MD 72yo male with CAD, s/p recent left heart cath with angioplasty to the proximal left circumflex earlier this week by Dr Vieira and discharged on 12/03/18, who presents with dyspnea on exertion starting this am. He was in his basement getting some food to cook and noted significant dyspnea on exertion when he climbed the flight of stairs to the ground floor. This was associated with chest tightness over the left breast. He proceeded to sit down and his breathing normalized. Subsequently he cooked breakfast and felt ok. No dizziness or lightheadedness. Following breakfast he spread a bag of fertilizer in his yard. With doing this activity he had dyspnea on exertion. Resting took the GO away. He never had nausea, jaw pain, neck pain, left arm pain. He did feel sweaty doing the yardwork but it was warm. He did not take any nitro SL. He had his BP checked by his and it was 130s over 90s. He watched TV and felt ok. But then he tried to take a shower and was short of breath again. His contacted the [facility] office and he was advised to go to the ER. He was also advised to take an extra imdur (thus, had total of 60mg today). He and his drove from [place] to [facility] ER. He is no longer having sob/GO but is having chest tightness. He also describes it as a pressure. He did NOT have any sob, GO, or chest pain , Friday, or Friday after he was released from [facility] on 12/03/18. Symptoms are very similar to past episodes of angina. Allergies Allergy/AdvReac Type Severity Reaction Status Date / Time shellfish derived Allergy Intermediate Hives Verified 12/06/18 15:06 morphine AdvReac Severe GI Verified 12/06/18 15:06 SYMPTOMS-violent throwing up, can take hydrocodone Home Medications Home Medications Medication Instructions Recorded Confirmed Type cholecalciferol (vitamin D3) 2,000 2,000 unit PO QAM tab 11/12/18 12/06/18 History unit tablet diphenhydramine 50 mg capsule 50 mg PO HS cap 11/12/18 12/06/18 History aspirin [Aspirin Low Dose] 81 mg PO QAM 11/30/18 12/06/18 History calcium carbonate-vitamin D3 1 tab PO PM 11/30/18 12/06/18 History [Calcium 600 + D(3)] fluticasone propionate 2 spray INTRANASAL QAM 11/30/18 12/06/18 History glucosamine sulfate [Glucosamine] 500 mg PO BID 11/30/18 12/06/18 History multivitamin 1 tab PO QAM 11/30/18 12/06/18 History isosorbide mononitrate 30 mg PO QAM #30 tab 12/02/18 12/06/18 Rx atorvastatin 40 mg tablet 40 mg PO HS #90 tab 12/03/18 12/06/18 Rx clopidogrel 75 mg tablet 75 mg PO DAILY #90 tab 12/03/18 12/06/18 Rx famotidine 40 mg tablet 40 mg PO HS #90 tab 12/03/18 12/06/18 Rx metformin 500 mg tablet 500 mg PO BID #180 tab 12/03/18 12/06/18 Rx nitroglycerin 0.4 mg sublingual 0.4 mg SUBLINGUAL UD PRN #25 tab 12/03/18 12/06/18 Rx tablet lisinopril 40 mg PO QAM 12/06/18 12/06/18 History metoprolol succinate [Toprol XL] 50 mg PO QAM 12/06/18 12/06/18 History omeprazole 20 mg PO QAM 12/06/18 12/06/18 History Past Med/Surg History Family History Father , age 78 Liver disease Coronary heart disease Myocardial infarction Diabetes Mother , age 62 Colorectal cancer Social History Preferred Language: Danish Communication Ability: Effective Veneer Stock Layer Required: No Beliefs That Will Affect Care: None marital status: marital status details: twice Current Living Situation: Spouse Current Living Situation Comment: lives in [place] other: [employer] 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; 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; 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; 2 step-kids Feels Safe at Home: Yes Safety Concerns: Feels Safe At This Time Smoking Status: Former smoker Age Started Using Tobacco: 18 packs per day: 2 Smoking End Date: 1995 Hx Alcohol Use: Yes Alcohol type: wine Alcohol Intake Frequency Comment: 1 glass/day Hx Substance Use: No Review of Systems Constitutional: no fever, no chills, no anorexia, no weight loss and no weight gain Eyes: no worsening vision Ear, Nose, Mouth, Throat: no dysphagia Respiratory: no cough, no hemoptysis, no pain on inspiration and no wheezing Cardiovascular: + chest pain, + chest pain at rest, + chest pain with activity and + dyspnea on exertion; no radiating jaw, neck or arm pain, no dyspnea at rest, no orthopnea, no paroxysmal nocturnal dyspnea, no palpitations and no edema Gastrointestinal: no abdominal pain, no nausea, no vomiting, no constipation and no diarrhea/loose stools Genitourinary: no dysuria Musculoskeletal: + joint pain (left pain - chronic) Integumentary: no rash Neurologic: + numbness (chronic - feet) Psychiatric: no depression and no anxiety Endocrine: no hyperglycemia Hematologic / Lymphatic: no easy bleeding Physical Exam Constitutional: well developed, well nourished and + obese; no acute distress, + not appropriately hydrated and no altered mental status Eyes: PERRL (lens implants b/l ) ENMT: external ear and nose normal, oropharynx normal Ears: no external ear abnormality and no TM abnormality Neck: trachea midline, no thyromegaly Respiratory: normal respiratory effort, lungs clear to auscultation Cardiovascular: Rate/Rhythm: regular rhythm and + bradycardic Heart Sounds: normal S1 and normal S2; no murmur Vessels: posterior tibial pulses present and dorsalis pedis pulses present; no JVD Chest (Breasts): Additional Comments: no reproducible chest wall tenderness to palpation Gastrointestinal (Abdomen): normal bowel sounds, soft, nontender, no hepato splenomegaly Musculoskeletal: no cyanosis or clubbing, extremities motor strength 5/5 Skin: no rashes, warm and dry + ecchymosis (right wrist, volar aspect - no hematoma) Neurologic: no focal motor deficits Speech / Cognition: normal speech Motor/Sensory: no tremor Psychiatric: A+Ox3, euthymic affect Lymphatic: no cervical lymphadenopathy Results & Data Vital Signs (Past 12 Hours) Vital Signs Temp Pulse Resp BP Pulse Ox 12/06/18 16:38 55 L 20 91/48 L 94 12/06/18 16:00 59 L 20 93 12/06/18 14:54 36.5 C 67 20 99/60 L 96 Laboratory Results Laboratory Results - last 24 hr 12/06/18 12/06/18 12/06/18 15:21 15:21 15:21 WBC 9.96 RBC 5.11 Hgb 14.9 Hct 41.8 L MCV 81.8 MCH 29.2 MCHC 35.6 RDW Std Deviation 42.7 RDW Coeff of Gino 14.3 Plt Count 274 MPV 9.7 Immature Gran % (Auto) 0.2 Neut % (Auto) 65.7 Lymph % (Auto) 22.5 Mcmullen % (Auto) 9.2 Eos % (Auto) 1.9 Baso % (Auto) 0.5 Immature Gran # (Auto) 0.02 Neut # (Auto) 6.54 H Lymph # (Auto) 2.24 Mcmullen # (Auto) 0.92 H Eos # (Auto) 0.19 Baso # (Auto) 0.05 PT 11.2 INR 1.1 APTT 24.4 PTT Ratio 0.9 Sodium 133 L Potassium 4.8 Chloride 100 Carbon Dioxide 22 Anion Gap 11.0 BUN 24 H Creatinine 1.37 Est Cr Clr Drug Dosing 62.2 Est GFR ( Amer) 59.7 Est GFR (Non-Af Amer) 51.5 BUN/Creatinine Ratio 17.7 Glucose 121 H POC Glucose Calcium 10.0 Troponin I 0.032 Lipase 194 12/06/18 12/06/18 20:39 21:31 WBC RBC Hgb Hct MCV MCH MCHC RDW Std Deviation RDW Coeff of Gino Plt Count MPV Immature Gran % (Auto) Neut % (Auto) Lymph % (Auto) Mcmullen % (Auto) Eos % (Auto) Baso % (Auto) Immature Gran # (Auto) Neut # (Auto) Lymph # (Auto) Mcmullen # (Auto) Eos # (Auto) Baso # (Auto) PT INR APTT PTT Ratio Sodium Potassium Chloride Carbon Dioxide Anion Gap BUN Creatinine Est Cr Clr Drug Dosing Est GFR ( Amer) Est GFR (Non-Af Amer) BUN/Creatinine Ratio Glucose POC Glucose 157 H Calcium Troponin I 0.036 Lipase Diagnostic Findings CTA chest - IMPRESSION: 1. No acute aortic pathology or evidence of pulmonary thromboembolic disease. 2. 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 3. No adenopathy, pleural effusion or focal airspace consolidation to suggest pneumonia. 4. Extensive coronary arterial calcifications. 5. Hepatic steatosis. EKG - my reading - on 2 EKGs obtained in ER- sinus bradycardia, no acute ST changes. Non specific ST changes III, AVF along with inferior Q waves - unchanged from prior EKGs. Code Status & VTE Plan Code Status full code VTE Prophylaxis Plan VTE Prophylaxis will be ordered: Yes (1) Chest pain, unspecified Chest pain type: unspecified Qualified Code(s): R07.9 - Chest pain, unspecified (2) CAD (coronary artery disease) Coronary Disease-Associated Artery/Lesion type: [place] artery [place] vs. transplanted heart: [place] heart Associated angina: with other forms of angina Qualified Code(s): I25.118 - Atherosclerotic heart disease of [place] coronary artery with other forms of angina pectoris (3) Diabetes mellitus Diabetes mellitus type: type 2 Diabetes mellitus fpc insulin use: without intermodal customer service use Diabetes mellitus complication status: without complication Qualified Code(s): E11.9 - Type 2 diabetes mellitus without complications (4) Acid reflux Esophagitis presence: without esophagitis Qualified Code(s): K21.9 - Gastro- esophageal reflux disease without esophagitis (5) Hyperlipidemia Hyperlipidemia type: mixed hyperlipidemia Qualified Code(s): E78.2 - Mixed hyperlipidemia (6) Hypertension Hypertension type: essential hypertension Qualified Code(s): I10 - Essential (primary) hypertension
[2018-12-06] MEDS ORDERED: NITROGLYCERIN 2% OINTMENT 30GM TUBE EXT ONE (18:11)
[2018-12-06] MEDS ORDERED: NITROGLYCERIN 2% OINTMENT 30GM TUBE ONE (18:14)
[2018-12-06] MEDS ORDERED: Heparin IV Low Dose WITH Bolus IV STA (19:04)
[2018-12-06] MEDS ORDERED: HEPARIN SOD 5,000 UNIT/0.5 ML VIAL ONE (19:57)
[2018-12-06] MEDS ORDERED: HEPARIN 25000 UNIT/500 ML D5W IV ONE (19:57)
--- NOTE | 2018-12-06 20:25 | Emergency Department Note ---
Entered by Kristy Michaels acting as a scribe for Yang Hernandes History of Present Illness General Chief complaint: Chest Pain Stated complaint: CHEST PAIN Time Seen by Provider: 12/06/18 15:03 Source: patient History of Present Illness Onset (ago): hour(s) (earlier to today) Location: chest (left-sided chest pain) Pain Consistency: + intermittent Maximum Pain Intensity: 3 Relieved By: + rest Associated symptoms: + shortness of breath Treatments prior to arrival: aspirin The patient is a 72 year old M who presents to the Emergency Room with complaints of intermittent left-sided chest pain that started earlier today. The patient states that he was watering his plants and putting down fertilizer outside when his chest pain started. He notes that prior to this, he was experiencing shortness of breath when he was walking up the stairs. He adds that his chest pain is relieved by rest. He notes that he called Dr. Brown today who told him to come into the ED. He denies taking nitroglycerine today. He adds that he took his aspirin this morning. He denies any other symptoms. Home Medications Home Medications Medication Instructions Recorded Confirmed Type cholecalciferol (vitamin D3) 2,000 2,000 unit PO QAM tab 11/12/18 12/06/18 History unit tablet diphenhydramine 50 mg capsule 50 mg PO HS cap 11/12/18 12/06/18 History aspirin [Aspirin Low Dose] 81 mg PO QAM 11/30/18 12/06/18 History calcium carbonate-vitamin D3 1 tab PO PM 11/30/18 12/06/18 History [Calcium 600 + D(3)] fluticasone propionate 2 spray INTRANASAL QAM 11/30/18 12/06/18 History glucosamine sulfate [Glucosamine] 500 mg PO BID 11/30/18 12/06/18 History multivitamin 1 tab PO QAM 11/30/18 12/06/18 History isosorbide mononitrate 30 mg PO QAM #30 tab 12/02/18 12/06/18 Rx atorvastatin 40 mg tablet 40 mg PO HS #90 tab 12/03/18 12/06/18 Rx clopidogrel 75 mg tablet 75 mg PO DAILY #90 tab 12/03/18 12/06/18 Rx famotidine 40 mg tablet 40 mg PO HS #90 tab 12/03/18 12/06/18 Rx metformin 500 mg tablet 500 mg PO BID #180 tab 12/03/18 12/06/18 Rx nitroglycerin 0.4 mg sublingual 0.4 mg SUBLINGUAL UD PRN #25 tab 12/03/18 12/06/18 Rx tablet lisinopril 40 mg PO QAM 12/06/18 12/06/18 History metoprolol succinate [Toprol XL] 50 mg PO QAM 12/06/18 12/06/18 History omeprazole 20 mg PO QAM 12/06/18 12/06/18 History Allergies Allergy/AdvReac Type Severity Reaction Status Date / Time shellfish derived Allergy Intermediate Hives Verified 12/06/18 15:06 morphine AdvReac Severe GI Verified 12/06/18 15:06 SYMPTOMS-violent throwing up, can take hydrocodone Past Med/Surg History Medical History Ventral hernia (Acute) 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) Pancreatic divisum (Acute) Osteopenia (Acute) Multiple adenomatous polyps (Acute) Low back pain (Acute) Ischemic cardiomyopathy (Acute) Inhibited sexual excitement (Acute) Inguinal hernia (Acute) Hypertension (Chronic) Hyperplastic colon polyp (Acute) Hyperlipidemia (Acute) Erectile dysfunction (Acute) Elevated liver enzymes (Acute) Diverticulosis (Acute) Diabetes mellitus (Chronic 02/26/13) Bladder neck contracture (Acute) Arthritis (Acute) Actinic keratosis (Acute) Acid reflux (Acute) BPH (benign prostatic hypertrophy) with urinary obstruction CAD (coronary artery disease) Unstable angina Internal hemorrhoids Myocardial infarct Orbital floor fracture Pancreatitis Prostatitis Surgical History History of cataract surgery S/P TURP x 2 S/P cardiac cath multiple - s/p 11 stents, most of them placed in [place]; 2 out of [address] Vieira in 2017 S/P laparoscopic cholecystectomy Family History Father , age 78 Liver disease Coronary heart disease Myocardial infarction Diabetes Mother , age 62 Colorectal cancer Social History Preferred Language: Armenian Communication Ability: Effective Beliefs That Will Affect Care: None marital status: marital status details: twice Current Living Situation: Spouse Current Living Situation Comment: lives in [place] other: [employer]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 and A total of 10 systems reviewed and were otherwise negative Physical Exam Vital Signs Vital Signs - 24 hr 12/06/18 14:54 12/06/18 15:09 12/06/18 16:00 Temperature 36.5 C Temperature Source Oral Sepsis Recent Fever Within 48 Hours No Sepsis New/Unexplained Change in Mental Status No Sepsis Action Taken by Nursing No Action Required Pulse Rate 67 59 L Pulse Rate from SpO2 Sensor Respiratory Rate 20 20 Blood Pressure 99/60 L Blood Pressure Mean 73 Pulse Oximetry 96 93 Oxygen Delivery Method Room Air Room Air Room Air 12/06/18 16:38 12/06/18 17:01 12/06/18 17:31 Temperature Temperature Source Sepsis Recent Fever Within 48 Hours Sepsis New/Unexplained Change in Mental Status Sepsis Action Taken by Nursing Pulse Rate 55 L 53 L 52 L Pulse Rate from SpO2 Sensor Respiratory Rate 20 20 18 Blood Pressure 91/48 L 95/56 L 90/54 L Blood Pressure Mean 62 69 66 Pulse Oximetry 94 94 95 Oxygen Delivery Method Room Air Room Air Room Air 12/06/18 18:00 12/06/18 18:54 12/06/18 19:00 Temperature Temperature Source Sepsis Recent Fever Within 48 Hours Sepsis New/Unexplained Change in Mental Status Sepsis Action Taken by Nursing Pulse Rate 49 L 52 L Pulse Rate from SpO2 Sensor 55 L Respiratory Rate 19 19 Blood Pressure 112/66 Blood Pressure Mean 81 Pulse Oximetry 96 94 94 Oxygen Delivery Method Room Air Room Air 12/06/18 19:01 12/06/18 19:30 12/06/18 19:31 Temperature Temperature Source Sepsis Recent Fever Within 48 Hours Sepsis New/Unexplained Change in Mental Status Sepsis Action Taken by Nursing Pulse Rate 53 L 55 L 58 L Pulse Rate from SpO2 Sensor 54 L Respiratory Rate 13 19 19 Blood Pressure 142/74 H 90/55 L Blood Pressure Mean 96 66 Pulse Oximetry 93 Oxygen Delivery Method 12/06/18 20:00 12/06/18 20:01 Temperature Temperature Source Sepsis Recent Fever Within 48 Hours Sepsis New/Unexplained Change in Mental Status Sepsis Action Taken by Nursing Pulse Rate 54 L 56 L Pulse Rate from SpO2 Sensor Respiratory Rate 16 21 Blood Pressure 95/54 L 89/46 L Blood Pressure Mean 67 60 Pulse Oximetry Oxygen Delivery Method GENERAL: He is oriented to person, place, and time. He appears well-developed and well-nourished. He does not appear distressed. HENT: Exam performed. - Head: Normocephalic and atraumatic. - Right Ear: External ear normal. No mastoid tenderness. - Left Ear: External ear normal. No mastoid tenderness. - Mouth/Throat: The oropharynx is clear and moist. No trismus in the jaw. No dental abscesses or uvula swelling. No oropharyngeal exudate or tonsillar abscesses. EYES: Conjunctivae and EOM are normal. Pupils are equal, round, and reactive to light. Right eye exhibits no discharge. Left eye exhibits no discharge. No scleral icterus. NECK: Normal range of motion. Neck supple. No JVD present. No spinous process tenderness present. No carotid bruit present. No rigidity. No tracheal deviation and normal range of motion present. No Brudzinski's sign and no Kernig's sign noted. CV: Normal rate, regular rhythm, normal heart sounds and intact distal pulses. There is no peripheral edema. Palpable radial pulses bue. PULM/CHEST: Effort normal and breath sounds normal. No respiratory distress. No stridor. He has no wheezes. He has no rales. - Chest Wall: He exhibits no tenderness. ABD: The abdomen is soft. Bowel sounds are normal. He has no distension. No mass is present. There is no tenderness. There is no rebound, no guarding, no Ewiss's sign and no tenderness at McBurney's point. Rovsig negative. MUSC/SKEL: Normal range of motion. There is no peripheral edema, tenderness or deformity. LYMPH: No cervical adenopathy. NEURO: He is alert and oriented to person, place, and time. He has normal strength. No cranial nerve deficit or sensory deficit. Coordination and gait normal. GCS eye subscore is 4. GCS verbal subscore is 5. GCS motor subscore is 6. Cerebellar tests wnl. SKIN: Skin is warm and dry. He is not diaphoretic. PSYCH: He has a normal mood and affect. Behavior is normal. Judgment and thought content normal. Course 1605: The patient was evaluated in room C3. A complete history and physical exam was performed.EMR reviewed showed that the patient was seen in the hospital on November 30 and was admitted for unstable angina. A cardiac cath was done by Dr. Vieira. An angioplasty of the proximal circumflex revealed severe single vessel coronary artery disease and severe in-stent restenosis. 1659: The patients labs and imaging are within normal limits. I reviewed the patient's case with Dr. Edgar Brown, [employer] [place], [place]. Dr. Edgar Brown spoke with the patient over the phone. Dr. Edgar Brown states that he told the patient to come to the ED because he was concerned with the pat ients symptoms of chest pain and difficulty breathing. Dr. Edgar Brown states that if the patient continues to have chest pain, then the patient should be admitted to the hospital. Upon re-evaluation, the patient states that his chest pain is returning. He rates the chest pain as low. The patients blood pressure is low. I will hold morphine and nitroglycerin at this time due to the patient's low blood pressure. Fluid resuscitation was performed on the patient. The patient will be admitted to Dr. Seth. 1734: I reviewed the patient's case with Dr. Seth, [place], [place]. He will evaluate the patient for further management. Consultations Consultation #1: [id number]: I reviewed the patient's case with Dr. Seth, [place], [place]. He will evaluate the patient for further management. Time: 17:34 Administered Medications Sodium Chloride (Nss 1000ml) 1,000 mls @ 125 mls/hr IV .Q8H ALMA Stop: 01/05/19 17:14 Last Admin: 12/06/18 17:34 Dose: 125 mls/hr Documented by: [id number] Ioversol (Optiray 320 125ml) 82 ml IV ONCE PRN PRN Reason: Interaction Checking Stop: 12/10/18 16:24 Last Admin: 12/06/18 16:26 Dose: 82 ml Documented by: [id number] Discontinued Medications Aspirin (Aspirin) 324 mg PO NOW STA Stop: 12/06/18 15:10 Last Admin: 12/06/18 15:40 Dose: 324 mg Documented by: [id number] Heparin Sodium (Porcine) (Heparin Sodium (Porcine)) Confirm Administered Dose 5,000 units .ROUTE .STK-MED ONE Stop: 12/06/18 19:58 Last Admin: 12/06/18 20:01 Dose: 4,000 units Documented by: [id number] Cosigned by: [id number] Heparin Sodium/Dextrose () 1 ea IV NOW STA; Protocol Stop: 12/06/18 19:05 Last Admin: 12/06/18 20:01 Dose: Not Given Documented by: [id number] Heparin Sodium/Dextrose (Heparin Sodium/Dextrose) Confirm Administered Dose 25,000 units IV .STK-MED ONE Stop: 12/06/18 19:58 Last Admin: 12/06/18 20:02 Dose: 25,000 units Documented by: [id number] Cosigned by: [id number] Nitroglycerin (Nitro-Bid 2%) 0.5 inch EXT NOW ONE Stop: 12/06/18 18:12 Last Admin: 12/06/18 18:17 Dose: Not Given Documented by: [id number] Nitroglycerin (Nitro-Bid 2%) Confirm Administered Dose 18 inch .ROUTE .STK-MED ONE Stop: 12/06/18 18:15 Last Admin: 12/06/18 18:16 Dose: 0.5 inch Documented by: [id number] Medical Decision Making Medical Records Attestation: I reviewed the patient's medical records. Home Medications Current Medication List: was personally reviewed by me Laboratory Data Attestation: I reviewed the patient's lab results. Result diagrams: 12/06/18 15:21 12/06/18 15:21 Lab Results 12/06/18 12/06/18 12/06/18 Range/Units 15:21 15:21 15:21 WBC 9.96 (4.8-10.8) K/uL RBC 5.11 (4.7-6.1) M/uL Hgb 14.9 (14.0-18.0) g/dL Hct 41.8 L (42-52) % MCV 81.8 (80-100) fL MCH 29.2 (25-34) pg MCHC 35.6 (32-36) g/dL RDW Std Deviation 42.7 (36.4-46.3) fL RDW Coeff of Gino 14.3 (11.5-14.5) % Plt Count 274 (130-400) K/uL MPV 9.7 (7.4-10.4) fL Immature Gran % (Auto) 0.2 % Neut % (Auto) 65.7 % Lymph % (Auto) 22.5 % [place] % (Auto) 9.2 % Eos % (Auto) 1.9 % Baso % (Auto) 0.5 % Immature Gran # (Auto) 0.02 (0.00-0.02) K/uL Neut # (Auto) 6.54 H (1.4-6.5) K/uL Lymph # (Auto) 2.24 (1.2-3.4) K/uL [place] # (Auto) 0.92 H (0.11-0.59) K/uL Eos # (Auto) 0.19 (0-0.5) K/uL Baso # (Auto) 0.05 (0-0.2) K/uL PT 11.2 (9.0-12.0) Seconds INR 1.1 (0.9-1.1) APTT 24.4 (21.0-31.0) Seconds PTT Ratio 0.9 Sodium 133 L (136-145) mmol/L Potassium 4.8 (3.5-5.1) mmol/L Chloride 100 (98-107) mmol/L Carbon Dioxide 22 (21-32) mmol/L Anion Gap 11.0 (3-11) BUN 24 H (7-18) mg/dl Creatinine 1.37 (0.6-1.4) mg/dl Est Cr Clr Drug Dosing 62.2 ml/min Est GFR ( Amer) 59.7 Est GFR (Non-Af Amer) 51.5 BUN/Creatinine Ratio 17.7 (10-20) Glucose 121 H (70-99) mg/dl Calcium 10.0 (8.5-10.1) mg/dl Troponin I 0.032 (0-0.045) ng/ml Lipase 194 (73-393) U/L Imaging Data Radiologist's Impression: Radiology results as stated below per my review and the radiologist's interpretation: CT angio chest PE protocol CT DOSE: 843.04 mGy.cm HISTORY: 72 years-old Male with Chest Pain, eval for PE. Acute atypical chest pain with shortness of breath TECHNIQUE: Multiple CTA images of the chest were obtained after the intravenous administration of 82 ml Optiray 320. Coronal and sagittal MIPS were obtained from the axial data set and were submitted for review. All measurements were obtained according to NASCET criteria. A dose lowering technique was utilized adhering to the principles of ALARA. COMPARISON: Chest radiograph of same day FINDINGS: CTA: Heart is normal in size without pericardial effusion. Extensive coronary arterial calcifications are noted. The left heart structures are not well opacified secondary to contrast bolus timing. No aortic aneurysm or dissection. Patency of the imaged great vessels. Pulmonary arterial tree is opacified to the level of the subsegmental branches and demonstrates no focal filling defects to suggest pulmonary thromboembolic disease. CT CHEST: No focal thyroid nodule or adenopathy. No pneumothorax or pleural effusion. Scattered bilateral pleural calcifications redemonstrated. No overt pulmonary edema. No focal airspace consolidation to suggest pneumonia. No suspicious pulmonary nodules or masses. Central airways appear patent. No acute process of the imaged upper abdomen. Prior cholecystectomy. Hepatic steatosis. Soft tissues are unremarkable. Degenerative changes of the shoulders and spine. IMPRESSION: 1. No acute aortic pathology or evidence of pulmonary thromboembolic disease. 2. 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 3. No adenopathy, pleural effusion or focal airspace consolidation to suggest pneumonia. 4. Extensive coronary arterial calcifications. 5. Hepatic steatosis. The above report was generated using voice recognition software. It may contain grammatical, syntax or spelling errors. Electronically signed by: Dipak Sin M.D. 12/06/2018 4:42 PM XR chest 1V portable HISTORY: 72 years-old Male Chest Pain acute atypical chest pain COMPARISON: Chest radiograph 11/30/2018 TECHNIQUE: Portable AP view the chest FINDINGS: Bilateral calcified pleural plaques redemonstrated. Cardiomediastinal and hilar silhouettes are stable. Calcification of the thoracic aortic arch. There is no pneumothorax, pleural effusion, focal airspace consolidation or overt pulmonary edema. Degenerative changes of the shoulders and spine. IMPRESSION: Chronic findings as above without acute process. The above report was generated using voice recognition software. It may contain grammatical, syntax or spelling errors. Electronically signed by: Dipak Sin M.D. 12/06/2018 3:31 PM ECG Data Attestation: I personally reviewed and interpreted this ECG as follows: Indication: chest pain Rate (beats per minute): 61 Rhythm: sinus rhythm Findings: + other (IN 206, QRS 122, QTc 428) and + 1st degree AV block; no ST depression and no ST elevation Blood Pressure Blood Pressure Findings: Normal blood pressure Blood Pressure Disposition: did not require urgent referral MDM Narrative 1605: The patient was evaluated in room C3. A complete history and physical exam was performed.EMR reviewed showed that the patient was seen in the hospital on November 30 and was admitted for unstable angina. A cardiac cath was done by Dr. Vieira. An angioplasty of the proximal circumflex revealed severe single vessel coronary artery disease and severe in-stent restenosis. 1659: The patients labs and imaging are within normal limits. I reviewed the patient's case with Dr. Edgar Brown, [employer] [place], [place]. Dr. Edgar Brown spoke with the patient over the phone. Dr. Edgar Brown states that he told the patient to come to the ED because he was concerned with the patients symptoms of chest pain and difficulty breathing. Dr. Edgar Brown states that if the patient continues to have chest pain, then the patient should be admitted to the hospital. Upon re-evaluation, the patient states that his chest pain is returning. He rates the chest pain as low. The patients blood pressure is low. I will hold morphine and nitroglycerin at this time due to the patient's low blood pressure. Fluid resuscitation was performed on the patient. The patient will be admitted to Dr. Seth. Impression & Plan Chest pain, unspecified Discharge Plan Visit Data Chief Complaint: Chest Pain Stated Complaint: CHEST PAIN ED Provider: Yang Hernandes Discharge Problem: Chest pain, unspecified Patient Disposition: Admitted As Inpatient Forms Stand Alone Forms: Call Back Authorization, [facility] Prescriptions Prescriptions: No Action metformin 500 mg tablet 500 mg PO BID Qty: 180 RF: 1 atorvastatin 40 mg tablet 40 mg PO HS Qty: 90 RF: 1 clopidogrel 75 mg tablet 75 mg PO DAILY Qty: 90 RF: 1 famotidine 40 mg tablet 40 mg PO HS Qty: 90 RF: 1 nitroglycerin [Nitrostat] 0.4 mg tablet, sublingual 0.4 mg sublingual UD PRN (Reason: Chest Pain) Qty: 25 RF: 5 cholecalciferol (vitamin D3) 2,000 unit tablet 2,000 unit PO QAM RF: 0 diphenhydramine HCl 50 mg capsule 50 mg PO HS RF: 0 fluticasone propionate 50 mcg/actuation spray,suspension 2 spray intranasal QAM RF: 0 multivitamin Tablet 1 tab PO QAM RF: 0 aspirin [Aspirin Low Dose] 81 mg Tablet,Delayed Release (Dr/Ec) 81 mg PO QAM RF: 0 calcium carbonate-vitamin D3 [Calcium 600 + D(3)] 600 mg(1,500mg) -400 unit Tablet 1 tab PO PM RF: 0 glucosamine sulfate [Glucosamine] 500 mg Tablet 500 mg PO BID RF: 0 isosorbide mononitrate 30 mg Tablet Extended Release 24 Hr 30 mg PO QAM Qty: 30 RF: 0 metoprolol succinate [Toprol XL] 50 mg tablet extended release 24 hr 50 mg PO QAM RF: 0 omeprazole 20 mg capsule,delayed release(DR/EC) 20 mg PO QAM RF: 0 lisinopril 40 mg tablet 40 mg PO QAM RF: 0 Referrals Referrals: Angel French MD [Primary Care Provider] - Discharge Problem: Chest pain, unspecified Qualifiers: Chest pain type: unspecified Qualified Code(s): R07.9 - Chest pain, unspecified The scribe's documentation has been prepared under my direction and personally reviewed by me in its entirety. I confirm that the note above accurately reflects all work, treatment, procedures, and medical decision making performed by me.
[2018-12-06] MEDS ORDERED: ACETAMINOPHEN 325 MG TAB PO PRN (20:56)
[2018-12-06] MEDS ORDERED: NITROGLYCERIN SL 0.4 MG/TAB TAB SL PRN (20:56)
[2018-12-06] MEDS ORDERED: ONDANSETRON INJ 2 MG/ML 2 ML VIAL IV PRN (20:56)
[2018-12-06] MEDS ORDERED: ALUMINUM/MAGNESIUM SUSP 30 ML UDC PO PRN (20:56)
[2018-12-06] MEDS ORDERED: CALCIUM 600MG + VIT D 400 IU TAB PO SCH (21:00)
[2018-12-06] MEDS ORDERED: FAMOTIDINE 20 MG TAB PO SCH (21:00)
[2018-12-06] MEDS ORDERED: ATORVASTATIN 40 MG TAB PO SCH (21:00)
[2018-12-06] MEDS ORDERED: Heparin IV Standard *NO* Bolus IV ONE (22:10)
[2018-12-06] MEDS: INSULIN ASPART 100 UNITS/ML 3 ML PEN SC SCH (22:26)
[2018-12-06] MEDS ORDERED: Heparin Adult LOW DOSE Wt-Based Dextrose 5% 25,000 units/500 mL IV SCH (22:30)
[2018-12-06] MEDS ORDERED: Heparin IV Low Dose *NO* Bolus IV ONE (22:33)
[2018-12-07] MEDS: NITROGLYCERIN 2% OINTMENT 30GM TUBE EXT SCH ×3 (01:19→07:47)
[2018-12-07 02:43] LABS: Partial Thromboplastin Ratio 1.5
[2018-12-07] MEDS ORDERED: HEPARIN IV BOLUS 4,000 UNITS in SYRINGE 0 ML IV ONE (03:00)
[2018-12-07 03:49] LABS: Albumin Level 3.6 gm/dl (3.4-5.0); BUN Creatinine Ratio 17.7 (10-20); Est GFR (Non-African American) 58.7; Potassium 3.9 mmol/L (3.5-5.1)
[2018-12-07 04:07] LABS: Albumin Globulin Ratio 1.1 (0.9-2); Bilirubin,Total 1.2 mg/dl (0.2-1); Globulin 3.2 gm/dl (2.5-4.0); Total Protein 6.8 gm/dl (6.4-8.2)
[2018-12-07] MEDS: INSULIN ASPART 100 UNITS/ML 3 ML PEN SC SCH ×2 (07:05→12:01)
[2018-12-07] MEDS ORDERED: FLUTICASONE PROPIONATE NA SPR 16 GM BTL SCH (09:00)
[2018-12-07] MEDS ORDERED: ASPIRIN 81 MG ECTAB PO SCH (09:00)
[2018-12-07] MEDS ORDERED: CLOPIDOGREL BISULFATE 75 MG TAB PO SCH (09:00)
[2018-12-07] MEDS ORDERED: CHOLECALCIFEROL 1,000 UNITS TAB PO SCH (09:00)
[2018-12-07] MEDS ORDERED: MULTIVITAMIN TAB PO SCH (09:00)
[2018-12-07 09:53] LABS: Partial Thromboplastin Ratio 2.3
[2018-12-07 09:59] LABS: Partial Thromboplastin Time 62.3 Seconds (21.0-31.0)
[2018-12-07] MEDS ORDERED: NITROGLYCERIN 0.2 MG/HR PATCH TD SCH (10:30)
[2018-12-07] MEDS ORDERED: AMLODIPINE BESYLATE 5 MG TAB PO SCH (10:30)
--- NOTE | 2018-12-07 10:35 | Cardiology Consultation ---
Date of Consultation December 07, 2018 Assessment & Plan (1) Chest pain, unspecified: Given his history, symptoms were concerning for ischemic heart disease but he has had at least 2 episodes lasting at least 2 hours in duration and with this, no objective abnormalities to suggest ischemic heart disease as the cause of his pain. He also notes that the chest discomfort is different than prior angina. We discussed the fact that his most significant lesion was recently improved via angioplasty and that this was less than 1 week ago. We discussed the fact that symptoms may be due to other etiology. He still mention the fact that perhaps bypass surgery would improve his symptoms and given the fact that he on multiple occasions has mention to providers that bigger centers sometimes have more to offer, a second opinion was recommended. He was agreeable had a second opinion was requested from [facility] [place] [facility]. Heparin drip can be discontinued. Will continue to adjust antianginals to see if there is any benefit for quality of life improvement. Nitroglycerin patch 0.2 mcg ordered. Amlodipine 2.5 mg once daily initiated. Continue current dose of beta-chapis as he is well beta blocked. (2) CAD (coronary artery disease): He has had several PCI and recent angioplasty to previously placed circumflex stent. Continue dual anti-platelet therapy as previously outlined. Continue beta-chapis as tolerated. Continue KIM-inhibitor. Continue nitrate therapy. There is no indication for urgent cardiac catheterization. He has no objective abnormalities to suggest ongoing ischemic heart disease. (3) Hypertension: Blood pressure has mostly been normal but overnight he did have some transient hypotension. Overnight hypotension occurred with nitroglycerin paste which is being replaced with nitroglycerin patch and low-dose amlodipine. Monitor blood pressure carefully. (4) Ischemic cardiomyopathy: Stable findings on echo. LV systolic function is mildly reduced. He appears euvolemic on exam. (5) Dyspnea on exertion: He appears euvolemic on exam. His has inquired about an inhaler, which was relayed to Dr. Nichols, primary hospitalist. Etiology uncertain. He appeared to have adequate chronotropic response with exercise, so bradycardia not likely causing his exertional dyspnea. Disposition: Second opinion at [facility] with punchboard inserter. If symptoms worsen, would recommend transfer to that facility from this facility, but otherwise can follow-up as an outpatient. 70 minutes spent, with greater than 50% of that time spent counseling patient and coordinating care. Thank you for allowing me to participate in the care of your patient. Please call for any other questions or concerns. Sincerely, Edgar Brown M.D. History of Present Illness Reason for Consultation: CAD with chest pain, possible angina. Requesting Physician: Dr. Prado Attending Physician: Erwin Nichols MD History of Present Illness Mr. Valdez is a very pleasant 72-year-old gentleman with a history significant for multivessel CAD and multiple PCI (proximal circumflex 2.75 x 24 mm taxus; mid RCA PCI; mid RCA 2.75 x 20 mm Taxus; ostial circumflex 3 x 12 mm taxus and cutting balloon; diagonal vessel cutting balloon angioplasty; ostial circumflex 3 x 15 mm hayden; mid LAD 2.75 x 22 mm hayden; angioplasty of circumflex in stent restenosis), mildly reduced LV systolic function with evidence of prior ND, hypertension, dyslipidemia, type 2 diabetes, and asbestosis. He presented to [facility] with chest discomfort and dyspnea with exertion. On 12/01/2018, he underwent cardiac catheterization by Dr. Vieira for significant dyspnea with exertion and chest discomfort. He was found to have InStent restenoses of the circumflex stent. This area was heavily calcified as noted on intravascular ultrasound and the stent was under expanded proximally despite aggressive post dilation with multiple balloons, including noncompliant balloons in cutting balloon at high atmospheres. The stenosis was able to be improved to a residual 40-50% narrowing. It was recommended by interventional Cardiology that he undergo optimization of his medical therapy, due to the calcium burden. He was discharged on his usual therapy with the addition of isosorbide mononitrate 30 mg daily. He was well beta blocked and bradycardic and therefore nitrate therapy was initiated. He did well for 2 days but yesterday, after going down and then up the basement stairs he developed dyspnea with exertion, and a Rotating pressure on the left side of his chest that made the shape of a crescent. This was different than prior angina. He sat down and within 10-15 minutes, his symptoms resolved. He 8 breakfast, did some outside garden work. He had return of dyspnea with exertion and discomfort. Blood pressure was checked multiple times and systolic blood pressure was not significantly elevated, but rather well controlled. He then called the on-call service and I spoke with him on the phone. He was advised to call 911. Instead, he chose for his to drive him to the emergency department. In the emergency department his pain eventually resolved after nitroglycerin paste. It then later returned. The longest episode lasted approximately 2 hours. Overnight, nitroglycerin paste was removed secondary to hypotension. He intermittently had this discomfort throughout the night while laying in bed. This morning at approximately 6:00 a.m., the pain returned. Nitropaste was placed with improvement of his pain but the pain remained while I was seeing him, at approximately 8:45 a.m.. This pain continues to be different than prior angina. He denies shortness of breath at rest, orthopnea, syncope, near-syncope, palpitations, edema, melena, hematochezia, hematuria, abdominal pain, nausea, vomiting. Now that he is having rest pain, he has not identified any specific trigger for the chest discomfort other than exertion. Once again however symptoms are now occurring at rest. He stated on more than 1 occasion to multiple people that he is willing to undergo bypass surgery of his circumflex artery. He also told a story of his first who was severely ill in a [facility] hospital with sepsis, stating that the physicians there had offered all that they could but he requested a transfer to [facility]. Within 4 days she had significantly improved. He stated that perhaps a tertiary care center would have more treatment options for his cardiac condition than what is available here. He is quite concerned that his symptoms are from his ischemic heart disease. Review of systems: As above. Review of systems otherwise negative/unremarkable. Family history: Father had myocardial infarction in his 50s. Younger sister with CAD as well. His daughter had hole in her heart and underwent closure; also has arrhythmia issues. Social history: Quit smoking in 1995 after approximately 30-50 pack years. Occasional alcohol. No drugs. to his 2nd . His 1st . Three biological daughters. Grandchildren. Initially, he was alone in his hospital room but his later joined him when I returned to his room for further discussion. Allergies Allergy/AdvReac Type Severity Reaction Status Date / Time shellfish derived Allergy Intermediate Hives Verified 12/06/18 15:06 morphine AdvReac Severe GI Verified 12/06/18 15:06 SYMPTOMS-violent throwing up, can take hydrocodone Home Medications Home Medications Medication Instructions Recorded Confirmed Type cholecalciferol (vitamin D3) 2,000 2,000 unit PO QAM tab 11/12/18 12/06/18 History unit tablet diphenhydramine 50 mg capsule 50 mg PO HS cap 11/12/18 12/06/18 History aspirin [Aspirin Low Dose] 81 mg PO QAM 11/30/18 12/06/18 History calcium carbonate-vitamin D3 1 tab PO PM 11/30/18 12/06/18 History [Calcium 600 + D(3)] fluticasone propionate 2 spray INTRANASAL QAM 11/30/18 12/06/18 History glucosamine sulfate [Glucosamine] 500 mg PO BID 11/30/18 12/06/18 History multivitamin 1 tab PO QAM 11/30/18 12/06/18 History isosorbide mononitrate 30 mg PO QAM #30 tab 12/02/18 12/06/18 Rx atorvastatin 40 mg tablet 40 mg PO HS #90 tab 12/03/18 12/06/18 Rx clopidogrel 75 mg tablet 75 mg PO DAILY #90 tab 12/03/18 12/06/18 Rx famotidine 40 mg tablet 40 mg PO HS #90 tab 12/03/18 12/06/18 Rx metformin 500 mg tablet 500 mg PO BID #180 tab 12/03/18 12/06/18 Rx nitroglycerin 0.4 mg sublingual 0.4 mg SUBLINGUAL UD PRN #25 tab 12/03/18 12/06/18 Rx tablet lisinopril 40 mg PO QAM 12/06/18 12/06/18 History metoprolol succinate [Toprol XL] 50 mg PO QAM 12/06/18 12/06/18 History omeprazole 20 mg PO QAM 12/06/18 12/06/18 History amlodipine [Norvasc] 2.5 mg PO QAM #30 tab 12/07/18 Rx nitroglycerin 1 patch TRANSDERMAL QAM #30 ea 12/07/18 Rx Patient History Medical History Ventral hernia (Acute) 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) Pancreatic divisum (Acute) Osteopenia (Acute) Multiple adenomatous polyps (Acute) Low back pain (Acute) Ischemic cardiomyopathy (Acute) Inhibited sexual excitement (Acute) Inguinal hernia (Acute) Hypertension (Chronic) Hyperplastic colon polyp (Acute) Hyperlipidemia (Chronic) Erectile dysfunction (Acute) Elevated liver enzymes (Acute) Diverticulosis (Acute) Diabetes mellitus (Chronic 02/26/13) Bladder neck contracture (Acute) Arthritis (Acute) Actinic keratosis (Acute) Acid reflux (Chronic) BPH (benign prostatic hypertrophy) with urinary obstruction (Chronic) CAD (coronary artery disease) (Chronic) Internal hemorrhoids Myocardial infarct Orbital floor fracture Pancreatitis Prostatitis Unstable angina Family History Father , age 78 Liver disease Coronary heart disease Myocardial infarction Diabetes Mother , age 62 Colorectal cancer Social History Preferred Language: Y[place] Communication Ability: Effective Laboratory Aide Required: No Beliefs That Will Affect Care: None marital status: marital status details: twice Current Living Situation: Spouse Current Living Situation Comment: lives in [place] other: [employer] x 30 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 Alert and oriented. HEENT: Anicteric sclera. Neck: No JVD. No bruits. Normal carotid upstrokes bilaterally. Cardiac: PMI was nonpalpable . No ventricular heave. Regular in the 50s. Normal S1-S2. 1/6 systolic murmur. No rubs, or gallops. Pulmonary: Clear to auscultation bilaterally without wheezes, rales, or rhonchi. Abdomen: Soft, nontender, nondistended, with normoactive bowel sounds. No bruits noted. Extremities: 2+ radial pulses bilaterally. 2+ posterior tibialis pulses bilaterally. No edema or cyanosis. Psychiatric: Affect appears appropriate. Results & Data Vital Signs (Past 12 Hours) Vital Signs Temp Pulse Pulse Resp BP Pulse Ox 12/07/18 09:02 132/79 12/07/18 08:00 54 L 12/07/18 07:11 36.4 C L 51 L 18 147/64 H 98 12/07/18 04:57 36.6 C 56 L 17 109/67 97 12/06/18 23:23 36.7 C 51 L 17 105/60 95 Laboratory Results Laboratory Results - last 24 hr 12/06/18 12/06/18 12/06/18 15:21 15:21 15:21 WBC 9.96 RBC 5.11 Hgb 14.9 Hct 41.8 L MCV 81.8 MCH 29.2 MCHC 35.6 RDW Std Deviation 42.7 RDW Coeff of Gino 14.3 Plt Count 274 MPV 9.7 Immature Gran % (Auto) 0.2 Neut % (Auto) 65.7 Lymph % (Auto) 22.5 [place] % (Auto) 9.2 Eos % (Auto) 1.9 Baso % (Auto) 0.5 Immature Gran # (Auto) 0.02 Neut # (Auto) 6.54 H Lymph # (Auto) 2.24 [place] # (Auto) 0.92 H Eos # (Auto) 0.19 Baso # (Auto) 0.05 PT 11.2 INR 1.1 APTT 24.4 PTT Ratio 0.9 Sodium 133 L Potassium 4.8 Chloride 100 Carbon Dioxide 22 Anion Gap 11.0 BUN 24 H Creatinine 1.37 Est Cr Clr Drug Dosing 62.2 Est GFR ( Amer) 59.7 Est GFR (Non-Af Amer) 51.5 BUN/Creatinine Ratio 17.7 Glucose 121 H POC Glucose Calcium 10.0 Total Bilirubin AST ALT Alkaline Phosphatase Troponin I 0.032 Total Protein Albumin Globulin Albumin/Globulin Ratio Triglycerides Cholesterol LDL Cholesterol, Calc VLDL Cholesterol, Calc HDL Cholesterol Cholesterol/HDL Ratio Lipase 194 TSH 12/06/18 12/06/18 12/07/18 20:39 21:31 02:19 WBC RBC Hgb Hct MCV MCH MCHC RDW Std Deviation RDW Coeff of Gino Plt Count MPV Immature Gran % (Auto) Neut % (Auto) Lymph % (Auto) [place] % (Auto) Eos % (Auto) Baso % (Auto) Immature Gran # (Auto) Neut # (Auto) Lymph # (Auto) [place] # (Auto) Eos # (Auto) Baso # (Auto) PT INR APTT 41.0 H PTT Ratio 1.5 Sodium Potassium Chloride Carbon Dioxide Anion Gap BUN Creatinine Est Cr Clr Drug Dosing Est GFR ( Amer) Est GFR (Non-Af Amer) BUN/Creatinine Ratio Glucose POC Glucose 157 H Calcium Total Bilirubin AST ALT Alkaline Phosphatase Troponin I 0.036 Total Protein Albumin Globulin Albumin/Globulin Ratio Triglycerides Cholesterol LDL Cholesterol, Calc VLDL Cholesterol, Calc HDL Cholesterol Cholesterol/HDL Ratio Lipase TSH 12/07/18 12/07/18 12/07/18 03:17 03:17 05:46 WBC RBC Hgb Hct MCV MCH MCHC RDW Std Deviation RDW Coeff of Gino Plt Count MPV Immature Gran % (Auto) Neut % (Auto) Lymph % (Auto) [place] % (Auto) Eos % (Auto) Baso % (Auto) Immature Gran # (Auto) Neut # (Auto) Lymph # (Auto) [place] # (Auto) Eos # (Auto) Baso # (Auto) PT INR APTT PTT Ratio Sodium 136 Potassium 3.9 D Chloride 103 Carbon Dioxide 25 Anion Gap 8.0 BUN 22 H Creatinine 1.23 Est Cr Clr Drug Dosing 70.0 Est GFR ( Amer) 68.0 Est GFR (Non-Af Amer) 58.7 BUN/Creatinine Ratio 17.7 Glucose 126 H POC Glucose 120 H Calcium 9.0 Total Bilirubin 1.2 H AST 32 ALT 61 Alkaline Phosphatase 59 Troponin I 0.027 Total Protein 6.8 Albumin 3.6 Globulin 3.2 Albumin/Globulin Ratio 1.1 Triglycerides 87 Cholesterol 80 LDL Cholesterol, Calc 26 VLDL Cholesterol, Calc 17 HDL Cholesterol 37 Cholesterol/HDL Ratio 2 Lipase TSH 3.040 12/07/18 12/07/18 09:14 11:17 WBC RBC Hgb Hct MCV MCH MCHC RDW Std Deviation RDW Coeff of Gino Plt Count MPV Immature Gran % (Auto) Neut % (Auto) Lymph % (Auto) [place] % (Auto) Eos % (Auto) Baso % (Auto) Immature Gran # (Auto) Neut # (Auto) Lymph # (Auto) [place] # (Auto) Eos # (Auto) Baso # (Auto) PT INR APTT 62.3 H* PTT Ratio 2.3 Sodium Potassium Chloride Carbon Dioxide Anion Gap BUN Creatinine Est Cr Clr Drug Dosing Est GFR ( Amer) Est GFR (Non-Af Amer) BUN/Creatinine Ratio Glucose POC Glucose 151 H Calcium Total Bilirubin AST ALT Alkaline Phosphatase Troponin I Total Protein Albumin Globulin Albumin/Globulin Ratio Triglycerides Cholesterol LDL Cholesterol, Calc VLDL Cholesterol, Calc HDL Cholesterol Cholesterol/HDL Ratio Lipase TSH Diagnostic Findings Telemetry personally reviewed: Sinus rhythm. Telemetry monitored while patient was ambulated in the hallways and heart rate went from 50s to mid 80s with exertion. Echo 12/07/2018: Normal LV size with mildly reduced systolic function. EF 45- 50%. Akinesis of the basal inferior wall and base to mid inferolateral wall segments. Moderate LVH. Mild left atrial dilation. Mild MR. Sclerotic aortic valve. ECGs personally reviewed: ECG 12/07/2018 at 6:25 a.m.: Sinus bradycardia with first-degree AV block. 48 bpm. Inferior infarct. ECG 12/06/2018 at 1500: Sinus rhythm 61 bpm. Inferior infarct. CTA chest 12/06/2018: No acute aortic pathology. No evidence of PE. Bilateral pleural calcifications re-demonstrated, suggestive of asbestos related pleural disease. Extensive coronary artery calcifications. Medications Administered Current Inpatient Medications Acetaminophen (Tylenol) 650 mg PO Q4H PRN PRN Reason: Pain or Fever Stop: 01/05/19 20:55 Al Hydrox/Mg Hydrox/Simethicone (Maalox) 15 ml PO Q4H PRN PRN Reason: Dyspepsia Stop: 01/05/19 20:55 Albuterol (Ventolin Hfa) 2 puffs INH Q4H PRN PRN Reason: Shortness Of Breath Or Wheezing Stop: 01/06/19 10:59 Amlodipine Besylate (Norvasc) 2.5 mg PO [facility] Stop: 01/06/19 10:29 Last Admin: 12/07/18 11:57 Dose: 2.5 mg Documented by: Aspirin (Ecotrin Ectab) 81 mg PO [place] Stop: 01/06/19 08:59 Last Admin: 12/07/18 11:59 Dose: 81 mg Documented by: Atorvastatin Calcium (Lipitor) 40 mg PO [facility] Stop: 01/05/19 20:59 Last Admin: 12/06/18 22:25 Dose: 40 mg Documented by: Clopidogrel Bisulfate (Plavix) 75 mg PO DAILY [facility] Stop: 01/06/19 08:59 Last Admin: 12/07/18 11:58 Dose: 75 mg Documented by: Diphenhydramine HCl (Benadryl Capsule) 50 mg PO [facility] Stop: 01/05/19 21:14 Last Admin: 12/06/18 22:25 Dose: 50 mg Documented by: Famotidine (Pepcid) 40 mg PO [facility] Stop: 01/05/19 20:59 Last Admin: 12/06/18 22:24 Dose: 40 mg Documented by: Fluticasone Propionate (Flonase) 2 sprays NA [facility] Stop: 01/06/19 08:59 Last Admin: 12/07/18 11:57 Dose: 2 sprays Documented by: Insulin Aspart (Novolog Flexpen) 0 units SC Q6 [facility] Stop: 01/05/19 21:14 Last Admin: 12/07/18 12:01 Dose: 3 units Documented by: Metoprolol Succinate (Toprol Xl) 50 mg PO [facility] Stop: 01/06/19 08:59 Last Admin: 12/07/18 12:07 Dose: Not Given Documented by: Miscellaneous (Remove Nitro-Dur Patch) 1 ea N/A DAILY@2100 [facility] Stop: 01/06/19 20:59 Multivitamins (Multivitamin Tab) 1 tab PO [facility] Stop: 01/06/19 08:59 Last Admin: 12/07/18 11:59 Dose: 1 tab Documented by: Multivitamins/Minerals (Caltrate Plus) 1 tab PO PM [facility] Stop: 01/05/19 20:59 Last Admin: 12/06/18 22:25 Dose: 1 tab Documented by: Nitroglycerin (Nitrostat) 0.4 mg SL UD PRN PRN Reason: Chest Pain Stop: 01/05/19 20:55 Nitroglycerin (Rafael-Dur 0.2mg/Hr) 1 patch TD [facility] Stop: 01/06/19 10:29 Last Admin: 12/07/18 11:57 Dose: 1 patch Documented by: Ondansetron HCl (Zofran) 4 mg IV Q6H PRN PRN Reason: Nausea Stop: 01/05/19 20:55 Vitamin D (Vitamin D3) 2,000 units PO [facility] Stop: 01/06/19 08:59 Last Admin: 12/07/18 11:58 Dose: 2,000 units Documented by: (1) Chest pain, unspecified Chest pain type: unspecified Qualified Code(s): R07.9 - Chest pain, unspecified (2) CAD (coronary artery disease) Coronary Disease-Associated Artery/Lesion type: [place] artery [place] vs. transplanted heart: [place] heart Associated angina: with other forms of angina Qualified Code(s): I25.118 - Atherosclerotic heart disease of [place] coronary artery with other forms of angina pectoris (3) Hypertension Hypertension type: essential hypertension Qualified Code(s): I10 - Essential (primary) hypertension
[2018-12-07] MEDS ORDERED: ALBUTEROL HFA 8 GM INHALER INH PRN (10:53)
[2018-12-07] MEDS: METOPROLOL SUCC 50MG EXT REL TAB PO SCH ×2 (11:58→12:07)
--- NOTE | 2018-12-07 17:44 | Discharge Summary ---
Date of Service December 07, 2018 Admission HPI Per Admitting Provider 72yo male with CAD, s/p recent left heart cath with angioplasty to the proximal left circumflex earlier this week by Dr Vieira and discharged on 12/03/18, who presents with dyspnea on exertion starting this am. He was in his basement getting some food to cook and noted significant dyspnea on exertion when he climbed the flight of stairs to the ground floor. This was associated with chest tightness over the left breast. He proceeded to sit down and his breathing normalized. Subsequently he cooked breakfast and felt ok. No dizziness or lightheadedness. Following breakfast he spread a bag of fertilizer in his yard. With doing this activity he had dyspnea on exertion. Resting took the GO away. He never had nausea, jaw pain, neck pain, left arm pain. He did feel sweaty doing the yardwork but it was warm. He did not take any nitro SL. He had his BP checked by his and it was 130s over 90s. He watched TV and felt ok. But then he tried to take a shower and was short of breath again. His contacted the [facility] Cardiology office and he was advised to go to the ER. He was also advised to take an extra imdur (thus, had total of 60mg today). He and his drove from [place] to [facility] ER. He is no longer having sob/GO but is having chest tightness. He also describes it as a pressure. He did NOT have any sob, GO, or chest pain , Friday, or Friday after he was released from [facility] on 12/03/18. Symptoms are very similar to past episodes of angina. Principal Diagnosis Chest pain NOS Discharge Exam Constitutional well developed, well nourished and + obese; no acute distress, + not appropriately hydrated and no altered mental status Eyes PERRL (lens implants b/l ) ENHI external ear and nose normal, oropharynx normal Ears: no external ear abnormality and no TM abnormality Neck trachea midline, no thyromegaly Respiratory normal respiratory effort, lungs clear to auscultation Cardiovascular Rate/Rhythm: regular rhythm and + bradycardic Heart Sounds: normal S1 and normal S2; no murmur Vessels: posterior tibial pulses present and dorsalis pedis pulses present; no JVD Gastrointestinal (Abdomen) normal bowel sounds, soft, nontender, no hepatosplenomegaly Musculoskeletal no cyanosis or clubbing, extremities motor strength 5/5 Skin no rashes, warm and dry + ecchymosis (right wrist, volar aspect - no hematoma) Neurologic no focal motor deficits Speech / Cognition: normal speech Motor/Sensory: no tremor Psychiatric A+Ox3, euthymic affect Lymphatic no cervical lymphadenopathy Discharge Data Allergies Allergy/AdvReac Type Severity Reaction Status Date / Time shellfish derived Allergy Intermediate Hives Verified 12/06/18 15:06 morphine AdvReac Severe GI Verified 12/06/18 15:06 SYMPTOMS-violent throwing up, can take hydrocodone Consultations 12/06/18 18:53 ED Decision to Admit Stat 12/06/18 20:56 Consult Cardiology Routine Ordered Studies 12/06/18 15:09 CT angio chest PE protocol Stat Hospital Course (1) Chest pain, unspecified: Some exertional and some at rest. - Troponins remained negative, EKGs are unchanged, and CT chest w/o PE. Echo was stable from priors. - Seen by cardiology. No need for repeat cath. Will follow up with [facility] cardiology. - Adjusted medication to include amlodipine and nitropatch to try alleviate symptoms. (2) Dehydration with hyponatremia: Mild BRIAN and low Na of 133. Patient stated he had been thirsty all weekend. - Cr normalized by 12/07 to 1.2. (3) CAD (coronary artery disease): Extensive. 11 stents in total over the years. LAD and Left Cx stents in 2017. Then Left Cx angioplasty this past week by Dr Vieira. No stent deployment during that cath because the lesion was actually exterior to an existing stent. - See "chest pain" above. (4) Diabetes mellitus: Hold metformin. SSI novolog - correction 30, carb ratio 1:10. BSGs ac/hs. T2DM diet. a1c 7.3% 06/2018. (5) BPH (benign prostatic hypertrophy) with urinary obstruction: chronic, no issues at this time (6) Acid reflux: PPI symptoms today not suspicious for GERD (7) Elevated liver enzymes: Seen during prior admission. RUQ u/s obtained previously - severe fatty liver. repeat LFTs am for stability as outpatient. (8) Hyperlipidemia: Statin agent. (9) Hypertension: initially hypotensive at presentation. Suspect transient hypotension 2nd to double-dose of imdur today at home along with mild volume contraction as evidenced by mild BRIAN and Low Na. - Hypotension resolved w/ one 500cc bolus of fluids. cont home meds except KIM for now. (10) Ischemic cardiomyopathy: records indicate such. cannot find any echo, however. will check echo in am to re-eval EF. cont BB. KIM on hold due to BP issues but ultimately this will be resumed. 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: asbestos exposure in follows with Dr Mcgowan no issues (12) DVT prophylaxis: heparin drip extensively updated at bedside admit to observation status Total Time Total Time Spent Total Time Spent (In Minutes): 35 Total Time Includes: Examination of the Patient, Discharge Planning and Communication With Other Providers Discharge Plan Discharge Items Patient Disposition: Home - Self-Care Reason For Visit: CAD, UNSTABLE ANGINA Discharge Diagnosis: Chest pressure; possible angina Discharge Goals: Decrease discomfort Activity: Resume your previous activity Exercise/Sports: Gradually increase as tolerated Non-emergency contact: Primary Care Provider and Services Rep Call non-emergency contact if: you have any medication questions, your symptoms worsen and your pain is not controlled Follow-up/Referrals: Angel French MD [Primary Care Provider] - 12/09/18 10:30 am (Dr. French does not have any upcoming appointments available. A follow up appointment was was made on FridayDecember 09 at 10:30am with ELLE Robbins in the same building. If you have any questions or need to reschedule, please call the office at [phone].) Zoey Napier PA-C [Physician Frame Aligner] - 12/08/18 9:00 am (You have a cardiology follow up appointment with ELOINA Varghese, tomorrow NovemberDecember 08 at 9:00 am in the [facility] office ([address] [place])) Diet: Heart Healthy [facility] Provider Instructions: Mr. Valdez, You were admitted with symptoms of chest pressure and shortness of breath while working in the garden and also while at rest. We did testing of your heart and did not see any evidence of damage to your heart. Your troponin ("cardiac enzyme") was normal (negative) indicating no heart damage. Your ultrasound of your heart (echo) showed a similar squeeze to prior echos. We are not sure what is causing the chest pressure, but are adjusting your medications to try to help reduce the sensation. You also have a follow up at [facility] next Friday to speak with a quality assurance practice manager there. Please take off your nitro patch every evening before bed, otherwise it will lose effectiveness. Please contact Dr. Quick's office with changes in your chest pressure and any other symptoms. If you are having chest pain/pressure for over an hour and do not hear from them, please come to the hospital. Prescriptions: New amlodipine [Norvasc] 5 mg Tablet 2.5 mg PO QAM Qty: 30 RF: 0 nitroglycerin 0.2 mg/hr Patch 24 Hour 1 patch transdermal QAM Qty: 30 RF: 0 Continued metformin 500 mg tablet 500 mg PO BID Qty: 180 RF: 1 atorvastatin 40 mg tablet 40 mg PO HS Qty: 90 RF: 1 clopidogrel 75 mg tablet 75 mg PO DAILY Qty: 90 RF: 1 famotidine 40 mg tablet 40 mg PO HS Qty: 90 RF: 1 nitroglycerin [Nitrostat] 0.4 mg tablet, sublingual 0.4 mg sublingual UD PRN (Reason: Chest Pain) Qty: 25 RF: 5 cholecalciferol (vitamin D3) 2,000 unit tablet 2,000 unit PO QAM RF: 0 diphenhydramine HCl 50 mg capsule 50 mg PO HS RF: 0 fluticasone propionate 50 mcg/actuation spray,suspension 2 spray intranasal QAM RF: 0 multivitamin Tablet 1 tab PO QAM RF: 0 aspirin [Aspirin Low Dose] 81 mg Tablet,Delayed Release (Dr/Ec) 81 mg PO QAM RF: 0 calcium carbonate-vitamin D3 [Calcium 600 + D(3)] 600 mg(1,500mg) -400 unit Tablet 1 tab PO PM RF: 0 glucosamine sulfate [Glucosamine] 500 mg Tablet 500 mg PO BID RF: 0 metoprolol succinate [Toprol XL] 50 mg tablet extended release 24 hr 50 mg PO QAM RF: 0 omeprazole 20 mg capsule,delayed release(DR/EC) 20 mg PO QAM RF: 0 lisinopril 40 mg tablet 40 mg PO QAM RF: 0 Discontinued isosorbide mononitrate 30 mg Tablet Extended Release 24 Hr 30 mg PO QAM Qty: 30 RF: 0 Stand-Alone Forms: Call Back Authorization, My [facility] Discharge Orders: Discharge Order (Routine); Ordered 12/07/18 Ordered By: Erwin Nichols Admission Data Admit Date/Time: 12/06/18 19:04 Attending Provider: Erwin Nichols Admit Provider: Harry Seth Primary Care Provider: Angel French Other Providers: Mic Brown ; Erwin Nichols Service: Telemetry Other Interventions: Discharge Summary Assessment (RN) Last Done: 12/07/18 15:13 DC Date/Time DO NOT enter until pt leaves facility: 12/07/18 15:42
== END 2018-12-07 15:42 | disposition home or self-care (01) ==
LOC: 2S 14:51 → ED 14:51 → SUATTDRO 19:04 → 2S 20:22

== ENCOUNTER 2023-02-20 13:38 | Observation (INO) ==
[2023-02-20] MEDS ORDERED: ADENOSINE IV SOLN 3 MG/ML 2 ML VIAL IV ONE (14:07)
[2023-02-20] MEDS ORDERED: ADENOSINE IV SOLN 3 MG/ML 2 ML VIAL IV STA (14:13)
--- NOTE | 2023-02-20 14:17 | Emergency Department Note ---
Impression & Plan SVT (supraventricular tachycardia), Non-ST elevation KS (NSTEMI), Chest pain, BRIAN (acute kidney injury) ED Provider Note HISTORY OF PRESENT ILLNESS: Patient is a 77-year-old male presenting with chest pain and shortness of breath. Patient reports that he woke up this morning and checked his bank account and noticed that he had some inappropriate activity on it as if someone had hacked his account. He states that he then developed chest pain and shortness of breath and felt like his heart was racing. He reports this was at about 930 this morning. He states that he has had continued palpitations and tachycardia and feeling unwell since. He denies any DVT or PE history. He is on Plavix daily. Denies any recent changes in medication. ROS: as above PHYSICAL EXAM: Constitutional: Patient appears in no acute distress. HENT: Head: Normocephalic and atraumatic. Eyes: EOMI, PERRL Mouth/Throat: Mucous membranes moist. Neck: Trachea midline. Neck supple. Cardiovascular: Tachycardic with regular rhythm. No murmurs, rubs or gallops. Intact distal pulses. Pulmonary/Chest: No respiratory distress. Breath sounds clear and equal bilaterally. No wheezes or rales. Abdominal: Abdomen soft, no tenderness, rebound or guarding. Musculoskeletal: No edema, tenderness or deformity noted. Skin: Warm and dry. No rash, erythema, pallor or cyanosis Psychiatric: Appropriate mood and affect for situation. Neurological: Alert and keenly responsive. CN II-XII grossly intact, moving all extremities equally and fully. MDM: - Vitals signs showed tachycardia - History obtained via patient. Patient presents with chest pain and shortness of breath. Patient reports that he had a stressful morning and felt like his heart was racing and he had chest pain and shortness of breath. He states that has been ongoing for the last few hours. He states he feels like his heart is racing. Denies any DVT or PE history. He is on Plavix daily. Denies any recent changes in medication. - Chronic conditions affecting care: HTN; HLD; CAD (s/p PCI) - Differential diagnoses include, but are not limited to: Acute coronary syndrome; pulmonary embolism; dissection; tension pneumothorax; esophageal rupture; pneumonia; electrolyte abnormality; dysrhythmia - Order placed for continuous cardiac monitoring. At this time, monitor showed rate of 135 bpm with regular rhythm, per my interpretation. - External medical records reviewed. - EKG reviewed by myself showed supraventricular tachycardia. Rate 150 bpm. QTc 480. -Patient was brought back to a resuscitation room and hooked up to the monitor. His heart rate remained in the 120s to 130s range. His rhythm does appear to be SVT. He was given 6 mg of adenosine and successfully converted to normal sinus rhythm. Repeat EKG showed normal sinus rhythm with a rate of 90 bpm. QTc 440. No acute ischemic changes. - Laboratory workup interpreted by myself showed leukocytosis (WBC 13.36); negative dimer; hyponatremia (Na 133); BRIAN (Cr 1.53); elevated troponin (25.9); hypomagnesemia (Mg 1.5); hypercalcemia (Ca 10.7) - Patient given 2g IV magnesium in ER. Given 1L NS. - CXR negative for pneumonia, per my interpretation. - NSTEMI may be multifactorial in nature - SVT for multiple hours and BRIAN. EKG negative for acute ischemic changes. - CTA of chest considered, but with negative dimer, it was not obtained. - Patient complained of nausea in ER. Given 4 mg IV zofran - Discussion was had with perinatal social worker about patient's case and need for admission - Hospitalist, Dr. Malcolm, consulted for admission - [facility] I provided 36 minutes of critical care time to this patient's care outside of billable procedures. ASSESSMENT AND PLAN: Diagnosis: SVT; NSTEMI; BRIAN; hypomagnesemia; hypercalcemia Plan: admit Past Med/Surg History Medical History Acid reflux Anemia, mild BPH (benign prostatic hypertrophy) with urinary obstruction CAD (coronary artery disease) Chronic back pain Cough COVID Diabetes mellitus (02/26/13) Diverticulosis H/O angiography Hyperlipidemia Hypertension Ischemic cardiomyopathy Low back pain Multiple adenomatous polyps Myocardial infarct Orbital floor fracture Osteoarthritis Osteopenia Pleural plaque with presence of asbestos Post-op bleeding Unstable angina Ventral hernia Surgical History History of cataract surgery History of colonoscopy History of hernia repair S/P cardiac cath S/P coronary artery stent placement S/P eye surgery S/P laparoscopic cholecystectomy S/P left knee arthroscopy S/P TURP S/P vasectomy Family History Father , age 78 Liver disease Coronary heart disease Myocardial infarction Diabetes Heart disease Stroke Mother , age 62 Colorectal cancer Liver cancer Daughter Diabetes FH: mitral valve repair Kidney disease Arthritis Sister Arthritis COPD (chronic obstructive pulmonary disease) Diabetes Depression Fibromyalgia Dyslipidemia Grandfather (Maternal) Heart disease Denies family history of Ovarian cancer Prostate cancer Breast cancer Social History Smoking Status: Former smoker Tobacco Type: Cigarettes Age Started Using Tobacco: 19; packs per day: 2; Second Hand Exposure: No; Do You Dip or Chew Tobacco: No; Hx Alcohol Use: Yes Alcohol type: wine Alcohol Intake Frequency: 2-4 x/Month Alcohol Intake Frequency Comment: 1 glass/day Hx Substance Use: No Preferred Language: Swedish Communication Ability: Effective Visual Impairment: No Limitations Hearing Ability: Use of Hearing Aid Ichthyologist Required: No Beliefs That Will Affect Care: None marital status: marital status details: twice Current Living Situation: Spouse current 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 status: 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; 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; 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; 2 step-kids Feels Safe at Home: Yes Childhood Exposure to Second-Hand Smoke: Yes Diet: regular Dental Care, Regularly: Yes Physical Activity Frequency: Daily Physical Activity Frequency Comment: Walking and House work Seatbelt Use: always Sunscreen Use: No Assistive Devices: Glasses and Hearing Aid - Bilateral Allergies Allergies Allergy/AdvReac Type Severity Reaction Status Date / Time shellfish derived Allergy Intermediate Hives Verified 10/29/22 11:24 morphine AdvReac Severe GI Verified 10/29/22 11:24 SYMPTOMS-violent throwing up, can take hydrocodone Home Meds Home Medications Medication Instructions Recorded Confirmed cholecalciferol (vitamin D3) 50 2,000 unit PO QAM 11/12/18 10/29/22 mcg (2,000 unit) tablet aspirin 81 mg tablet,delayed 81 mg PO QAM 11/30/18 10/29/22 release (Rc Low Dose Aspirin) multivitamin 1 tab PO QAM 11/30/18 10/29/22 glucosamine sulfate 1,000 mg 1,000 mg PO BID 12/17/18 10/29/22 capsule calcium carbonate 600 mg-vitamin 1 tab PO QPM 03/24/19 10/29/22 D3 10 mcg (400 unit) tablet (Calcium 600 + D(3)) diphenhydramine HCl 25 mg capsule 25 mg PO QPM PRN 01/29/22 10/29/22 (Benadryl) Previous Rx's Medication Instructions Recorded blood sugar diagnostic (Accu-Chek #30 ea 09/20/20 Sonya Plus test strips) nitroglycerin 0.4 mg sublingual 0.4 mg sublingual UD PRN Chest 01/30/22 tablet (Nitrostat) Pain #25 tabs fluticasone propionate 50 2 spray intranasal DAILY PRN nasal 04/25/22 mcg/actuation nasal congestion #48 grams spray,suspension amlodipine 5 mg tablet 5 mg PO QAM #90 tabs 09/24/22 atorvastatin 40 mg tablet 40 mg PO HS #90 tabs 09/24/22 metoprolol succinate 50 mg 50 mg PO QAM #90 tabs 09/24/22 tablet,extended release 24 hr (Toprol XL) famotidine 40 mg tablet 40 mg PO HS #90 tabs 10/11/22 lisinopril 40 mg tablet 40 mg PO QAM #90 tabs 12/16/22 metformin 500 mg tablet 500 mg PO BID #180 tabs 12/16/22 omeprazole 20 mg capsule,delayed 40 mg PO DAILY #180 caps 01/07/23 release tirzepatide 5 mg/0.5 mL 5 mg (0.5 mL) subcut .COMPLEX #2 mL 01/31/23 subcutaneous pen injector (Rolanunsamariaro) tirzepatide 5 mg/0.5 mL 5 mg (0.5 mL) subcut .ONCE WEEKLY 01/31/23 subcutaneous pen injector #6 mL (Mounjaro) clopidogrel 75 mg tablet 75 mg PO DAILY #90 tabs 02/18/23 Results & Data (ED) Vital Signs Vital Signs - 24 hr 02/20/23 13:41 02/20/23 14:01 02/20/23 14:00 Temperature 36.8 C Temperature Source Temporal Artery Scan Pulse Rate 113 H 134 H 135 H Pulse Rate from SpO2 Sensor 135 H Respiratory Rate 18 24 Respiratory Effort / Characteristics Non-Labored Respiratory Depth Normal Blood Pressure 106/78 Blood Pressure Mean 87 Pulse Oximetry 98 98 Oxygen Delivery Method Room Air Sepsis Recent Fever Within 48 Hours No Sepsis New/Unexplained Change in Mental Status No Sepsis Action Taken by Nursing No Action Required 02/20/23 14:15 02/20/23 14:30 02/20/23 14:45 Temperature Temperature Source Pulse Rate 94 H 84 78 Pulse Rate from SpO2 Sensor 92 H 85 77 Respiratory Rate 22 24 22 Respiratory Effort / Characteristics Respiratory Depth Blood Pressure Blood Pressure Mean Pulse Oximetry 99 100 99 Oxygen Delivery Method Sepsis Recent Fever Within 48 Hours Sepsis New/Unexplained Change in Mental Status Sepsis Action Taken by Nursing Laboratory Data 02/20/23 13:52 02/20/23 13:52 Lab Results 02/20/23 02/20/23 02/20/23 Range/Units 13:52 13:52 13:52 WBC 13.36 H (4.8-10.8) K/ul RBC 5.58 (4.70-6.10) M/uL Hgb 15.6 (14.0-18.0) g/dl Hct 45.7 (42.0-52.0) % MCV 81.9 (80.0-100.0) fL MCH 28.0 (25.0-34.0) pg MCHC 34.1 (32.0-36.0) g/dL RDW Std Deviation 46.7 H (36.4-46.3) fL RDW Coeff of Gino 15.8 H (11.5-14.5) % Plt Count 316 (130-400) K/uL MPV 10.2 (9.4-12.4) fL Immature Gran % (Auto) 0.2 % Neut % (Auto) 49.9 % Lymph % (Auto) 36.0 % [place] % (Auto) 11.7 % Eos % (Auto) 0.9 % Baso % (Auto) 1.3 % Neut # (Auto) 6.67 H (1.40-6.50) K/uL Lymph # (Auto) 4.81 H (1.20-3.40) K/uL [place] # (Auto) 1.56 H (0.11-0.59) K/uL Eos # (Auto) 0.12 (0.00-0.50) K/uL Baso # (Auto) 0.17 (0.00-0.20) K/uL Immature Gran # (Auto) 0.03 (0.01-0.20) K/uL PT 11.4 (9.0-12.0) Seconds INR 1.0 (0.9-1.1) APTT 26.2 (21.0-31.0) Seconds PTT Ratio 0.9 D-Dimer 270 (0-500) ug/L FEU Sodium 133 L (136-145) mmol/L Potassium 4.5 (3.5-5.1) mmol/L Chloride 100 (98-107) mmol/L Carbon Dioxide 22 (21-32) mmol/L Anion Gap 11 (3-11) BUN 31 H (6-23) mg/dl Creatinine 1.53 H (0.6-1.4) mg/dl Est Cr Clr Drug Dosing 49.6 ml/min Est GFR ( Amer) 50.4 ml/min Est GFR (Non-Af Amer) 43.5 ml/min BUN/Creatinine Ratio 20.3 H (10-20) Glucose 136 H (70-99(Fasting)) mg/dl POC Glucose (70-99) mg/dl Calcium 10.7 H (8.6-10.3) mg/dl Magnesium 1.5 L (1.7-2.4) mg/dl Total Bilirubin 2.0 H (0.2-1.0) mg/dl AST 28 (13-39) U/L ALT 27 (7-52) U/L Alkaline Phosphatase 68 (34-104) U/L Troponin I High Sens 25.9 H (0-20) pg/ml Total Protein 7.9 (6.0-8.3) gm/dl Albumin 4.7 (3.4-5.0) gm/dl Globulin 3.2 (2.5-4.0) gm/dl Albumin/Globulin Ratio 1.5 (0.9-2) // Range/Units 14:25 WBC (4.8-10.8) K/ul RBC (4.70-6.10) M/uL Hgb (14.0-18.0) g/dl Hct (42.0-52.0) % MCV (80.0-100.0) fL MCH (25.0-34.0) pg MCHC (32.0-36.0) g/dL RDW Std Deviation (36.4-46.3) fL RDW Coeff of Gino (11.5-14.5) % Plt Count (130-400) K/uL MPV (9.4-12.4) fL Immature Gran % (Auto) % Neut % (Auto) % Lymph % (Auto) % [place] % (Auto) % Eos % (Auto) % Baso % (Auto) % Neut # (Auto) (1.40-6.50) K/uL Lymph # (Auto) (1.20-3.40) K/uL [place] # (Auto) (0.11-0.59) K/uL Eos # (Auto) (0.00-0.50) K/uL Baso # (Auto) (0.00-0.20) K/uL Immature Gran # (Auto) (0.01-0.20) K/uL PT (9.0-12.0) Seconds INR (0.9-1.1) APTT (21.0-31.0) Seconds PTT Ratio D-Dimer (0-500) ug/L FEU Sodium (136-145) mmol/L Potassium (3.5-5.1) mmol/L Chloride (98-107) mmol/L Carbon Dioxide (21-32) mmol/L Anion Gap (3-11) BUN (6-23) mg/dl Creatinine (0.6-1.4) mg/dl Est Cr Clr Drug Dosing ml/min Est GFR ( Amer) ml/min Est GFR (Non-Af Amer) ml/min BUN/Creatinine Ratio (10-20) Glucose (70-99(Fasting)) mg/dl POC Glucose 140 H (70-99) mg/dl Calcium (8.6-10.3) mg/dl Magnesium (1.7-2.4) mg/dl Total Bilirubin (0.2-1.0) mg/dl AST (13-39) U/L ALT (7-52) U/L Alkaline Phosphatase (34-104) U/L Troponin I High Sens (0-20) pg/ml Total Protein (6.0-8.3) gm/dl Albumin (3.4-5.0) gm/dl Globulin (2.5-4.0) gm/dl Albumin/Globulin Ratio (0.9-2) Administered Medications Sodium Chloride (Nss 1000ml) 1,000 mls @ 999 mls/hr IV .Q1H1M ONE Stop: 02/20/23 15:56 Last Infusion: 02/20/23 14:59 Dose: 0 mls/hr Documented By: Admin: 02/20/23 14:59 Dose: 999 mls/hr Documented By: ÁNGELA Discontinued Medications Adenosine (Adenosine Iv Soln 3 Mg/Ml 2 Ml Vial) Confirm Administered Dose 6 mg IV .STK-MED ONE Stop: 02/20/23 14:08 Last Admin: 02/20/23 14:15 Dose: Not Given Documented By: ÁNGELA Adenosine (Adenosine Iv Soln 3 Mg/Ml 2 Ml Vial) 6 mg IV NOW STA Stop: 02/20/23 14:14 Last Admin: 02/20/23 14:14 Dose: 6 mg Documented By: ÁNGELA Imaging Data Radiologist's Impression: Chest X-Ray 02/20/23 13:44 XR chest 1V portable CLINICAL HISTORY: Chest pain, nonspecific COMPARISON STUDY: Chest CT December 06, 2018. Chest radiograph March 31, 2022. FINDINGS: There is no pneumothorax or pleural effusion. Mild elevation of the right hemidiaphragm has slightly increased. No consolidation is identified. No evidence for pulmonary edema. Calcified pleural plaques are again noted. Cardiomediastinal silhouette is stable. IMPRESSION: No acute cardiopulmonary findings. No significant change in appearance of the chest. ACT 112: Negative or not required by law. Electronically signed by: Ronan Haile M.D. 02/20/2023 2:27 PM Discharge Plan Visit Data Chief Complaint: Shortness of Breath/Dyspnea Stated Complaint: CHEST PRESSURE, ANXIETY, SOB ED Provider: Jessica Wise Discharge Problem: SVT (supraventricular tachycardia), Non-ST elevation KS (NSTEMI), Chest pain, BRIAN (acute kidney injury) Forms Stand Alone Forms: [employer] Prescriptions Prescriptions: No Action fluticasone propionate 50 mcg/actuation spray,suspension 2 spray intranasal DAILY PRN (Reason: nasal congestion) Qty: 48 3RF Rx Instructions: uses prn nasal congestion amlodipine 5 mg tablet 5 mg PO QAM Qty: 90 3RF Rx Instructions: qam metoprolol succinate [Toprol XL] 50 mg tablet extended release 24 hr 50 mg PO QAM Qty: 90 3RF atorvastatin 40 mg tablet 40 mg PO HS Qty: 90 3RF famotidine 40 mg tablet 40 mg PO HS Qty: 90 3RF metformin 500 mg tablet 500 mg PO BID Qty: 180 3RF lisinopril 40 mg tablet 40 mg PO QAM Qty: 90 3RF omeprazole 20 mg capsule,delayed release(DR/EC) 40 mg PO DAILY Qty: 180 3RF Rx Instructions: takes QAM Mounjaro 5 mg/0.5 mL pen injector 5 mg subcut .ONCE WEEKLY Qty: 6 1RF Mounjaro 5 mg/0.5 mL pen injector 5 mg subcut .COMPLEX Qty: 2 0RF Rx Instructions: 5 mg subcutaneously weekly; clopidogrel 75 mg tablet 75 mg PO DAILY Qty: 90 3RF (DME) Accu-Chek Sonya Plus test strp Strip See Rx Instructions .ROUTE .MEDSUPPLY Qty: 30 1RF Rx Instructions: test once daily diphenhydramine HCl [Benadryl] 25 mg capsule 25 mg PO QPM PRN nitroglycerin [Nitrostat] 0.4 mg tablet, sublingual 0.4 mg sublingual UD PRN (Reason: Chest Pain) Qty: 25 5RF Patient Comments: states she didn't have any nitro to give patient today(12/06/18) cholecalciferol (vitamin D3) 2,000 unit tablet 2,000 unit PO QAM glucosamine sulfate 1,000 mg capsule 1,000 mg PO BID Patient Comments: vegan brand multivitamin Tablet 1 tab PO QAM aspirin [Rc Low Dose Aspirin] 81 mg Tablet,Delayed Release (Dr/Ec) 81 mg PO QAM calcium carbonate-vitamin D3 [Calcium 600 + D(3)] 600 mg(1,500mg) -400 unit tablet 1 tab PO QPM Referrals Referrals: Pro,Angel Fletcher MD [Primary Care Provider] -
[2023-02-20 14:24] LABS: Basophils # (auto) 0.17 K/uL (0.00-0.20); Basophils % (auto) 1.3 %; Eosinophils # (auto) 0.12 K/uL (0.00-0.50); Eosinophils % (auto) 0.9 %; Hematocrit (blood only) 45.7 % (42.0-52.0); Hemoglobin 15.6 g/dl (14.0-18.0); Immature Granulocytes # (auto) 0.03 K/uL (0.01-0.20); Immature Granulocytes % (auto) 0.2 %; Lymphocytes # (auto) 4.81 K/uL (1.20-3.40); Mean Corpuscular Hgb Conc 34.1 g/dL (32.0-36.0); Mean Corpuscular Volume 81.9 fL (80.0-100.0); Mean Platelet Volume 10.2 fL (9.4-12.4); Monocytes # (auto) 1.56 K/uL (0.11-0.59); Monocytes % (auto) 11.7 %; Neutrophils # (auto) 6.67 K/uL (1.40-6.50); Neutrophils % (auto) 49.9 %; Platelet Count 316 K/uL (130-400); RDW Coefficient of Variation 15.8 % (11.5-14.5); RDW Standard Deviation 46.7 fL (36.4-46.3); Red Blood Count 5.58 M/uL (4.70-6.10); White Blood Count 13.36 K/ul (4.8-10.8)
--- NOTE | 2023-02-20 14:28 | XRay Report ---
XR chest 1V portable CLINICAL HISTORY: Chest pain, nonspecific COMPARISON STUDY: Chest CT December 06, 2018. Chest radiograph March 31, 2022. FINDINGS: There is no pneumothorax or pleural effusion. Mild elevation of the right hemidiaphragm has slightly increased. No consolidation is identified. No evidence for pulmonary edema. Calcified pleur al plaques are again noted. Cardiomediastinal silhouette is stable. IMPRESSION: No acute cardiopulmonary findings. No significant change in appearance of the chest. ACT 112: Negative or not required by law. Electronically signed by: Rnoan Haile M.D. 02/20/2023 2:27 PM
[2023-02-20 14:44] LABS: Albumin Globulin Ratio 1.5 (0.9-2); Albumin Level 4.7 gm/dl (3.4-5.0); BUN Creatinine Ratio 20.3 (10-20); Calcium 10.7 mg/dl (8.6-10.3); Creatinine Clr Calc Pharmacy 49.6 ml/min; Est GFR (African American) 50.4 ml/min; Est GFR (Non-African American) 43.5 ml/min; Globulin 3.2 gm/dl (2.5-4.0); Magnesium 1.5 mg/dl (1.7-2.4); Potassium 4.5 mmol/L (3.5-5.1); Total Protein 7.9 gm/dl (6.0-8.3)
[2023-02-20 14:49] LABS: Troponin I High Sensitivity 25.9 pg/ml (0-20)
[2023-02-20 14:54] LABS: D Dimer 270 ug/L FEU (0-500); Partial Thromboplastin Ratio 0.9; Partial Thromboplastin Time 26.2 Seconds (21.0-31.0); Prothrombin Time 11.4 Seconds (9.0-12.0)
[2023-02-20] MEDS ORDERED: ONDANSETRON INJ 2 MG/ML 2 ML VIAL IV STA (14:55)
[2023-02-20] MEDS ORDERED: SODIUM CHLORIDE 0.9% 1000ML 1,000 ML IV ONE (14:56)
--- NOTE | 2023-02-20 15:31 | History & Physical Report ---
Date of Service February 20, 2023 Assessment & Plan (1) SVT (supraventricular tachycardia): Plan: Continue to trend troponin but doubtful ACS Monitor on PCU for recurrence Aim Mg > 2, K > 4 TTE Consult cardiology (2) BRIAN (acute kidney injury): Plan: Suspect due to mild dehydration and poor forward flow in SVT Suspect will reseolve by tomorrow. No need for further IV lfuids other than what he has recevied in the ER Temporarily hold losartan but can be restarted tomorrow depending on BP and Cr (3) Ischemic cardiomyopathy: Plan: Continue Metoprolol, losartan on hold as above (4) Hypertension: Plan: Continue metoprolol Given current low BP and BRIAN losartan and amlodipine placed on hold (5) Diabetes mellitus: Plan: HbA1C 6.8 in June, repeat with AM labs Hold metformin Start Novolog just for correction: --Goal BSG Range: Low 110 mg/dL, High 140 mg/dL --Correction Factor: 45 mg/dL/unit No carb ratio --BSGs ACHS if eating, q6h if npo (6) Acid reflux: Plan: Continue pantoprazole and famotidine (7) CAD (coronary artery disease): Plan: Multivessel CAD s/p myocardial infarction and multiple PCI and angioplasty Continue aspirin, clopidogrel, metoprolol succinate, atorvastatin Plan VTE Prophylaxis - Heparin 5000 units BID Diet - heart healthy, T2DM Disposition - observation status to PCU Admission and Anticipated Discharge Date Admission Date: February 202022 History of Present Illness Chief Complaint: Chest pain, shortness of breath Primary Care Provider: Angel French MD Fran Valdez is a 77 year old male with multivessel CAD s/p myocardial infarction and multiple PCI and angioplasty who presents to ER with chest pain. Chest pressure, severity 8/10, started at 10am with shortness of breath, tachypnea, diaphoresis, palpitation. Associated numbness in right arm. No orthopnea or PND. Drove here after sorting out his taxes and checking bank. Adenosine given in the ER which converted him to normal sinus rhythm. Nausea after adenosine given. Mild discomfort / annoying twinge in his chest after adenosine but mostly resolved. No current shortness of breath. Section fine prior to opened checking account today and noted someone was cashing checks in his name when his symptoms started. Allergies Allergy/AdvReac Type Severity Reaction Status Date / Time shellfish derived Allergy Intermediate Hives Verified 10/29/22 11:24 morphine AdvReac Severe GI Verified 10/29/22 11:24 SYMPTOMS-violent throwing up, can take hydrocodone Home Medications Medication Instructions Recorded Confirmed Type cholecalciferol (vitamin D3) 50 2,000 unit PO QAM 11/12/18 02/20/23 History mcg (2,000 unit) tablet aspirin 81 mg tablet,delayed 81 mg PO QAM 11/30/18 02/20/23 History release (Rc Low Dose Aspirin) multivitamin 1 tab PO QAM 11/30/18 02/20/23 History glucosamine sulfate 1,000 mg 1,000 mg PO BID 12/17/18 02/20/23 History capsule calcium carbonate 600 mg-vitamin 1 tab PO QPM 03/24/19 02/20/23 History D3 10 mcg (400 unit) tablet (Calcium 600 + D(3)) blood sugar diagnostic (Accu-Chek #30 ea 09/20/20 02/20/23 Rx Sonya Plus test strips) diphenhydramine HCl 25 mg capsule 25 mg PO QPM PRN Sleep 01/29/22 02/20/23 History (Benadryl) nitroglycerin 0.4 mg sublingual 0.4 mg sublingual UD PRN Chest 01/30/22 02/20/23 Rx tablet (Nitrostat) Pain #25 tabs fluticasone propionate 50 2 spray intranasal DAILY PRN nasal 04/25/22 02/20/23 Rx mcg/actuation nasal congestion #48 grams spray,suspension amlodipine 5 mg tablet 5 mg PO QAM #90 tabs 09/24/22 02/20/23 Rx atorvastatin 40 mg tablet 40 mg PO HS #90 tabs 09/24/22 02/20/23 Rx metoprolol succinate 50 mg 50 mg PO QAM #90 tabs 09/24/22 02/20/23 Rx tablet,extended release 24 hr (Toprol XL) famotidine 40 mg tablet 40 mg PO HS #90 tabs 10/11/22 02/20/23 Rx lisinopril 40 mg tablet 40 mg PO QAM #90 tabs 12/16/22 02/20/23 Rx metformin 500 mg tablet 500 mg PO BID #180 tabs 12/16/22 02/20/23 Rx omeprazole 20 mg capsule,delayed 40 mg PO DAILY #180 caps 01/07/23 02/20/23 Rx release tirzepatide 5 mg/0.5 mL 5 mg (0.5 mL) subcut .ONCE WEEKLY 01/31/23 02/20/23 Rx subcutaneous pen injector #6 mL (Mounjaro) clopidogrel 75 mg tablet 75 mg PO DAILY #90 tabs 02/18/23 02/20/23 Rx Past Med/Surg History Medical History Acid reflux Anemia, mild BPH (benign prostatic hypertrophy) with urinary obstruction CAD (coronary artery disease) Chronic back pain Cough COVID Diabetes mellitus (02/26/13) NIDDM Diverticulosis H/O angiography 11/[address] [facility] Hyperlipidemia Hypertension Ischemic cardiomyopathy Low back pain Multiple adenomatous polyps Myocardial infarct total x3 [place] --- most recent ~2004. Orbital floor fracture with repair Osteoarthritis Osteopenia Pleural plaque with presence of asbestos follows with Dr Francisco. Post-op bleeding x2 s/p colonoscopy with biopsy. hx of returning to Emergency Room and inpatient treatment with repairs x2 (clampings per pt) Unstable angina Ventral hernia current Surgical History History of cataract surgery bilateral History of colonoscopy History of hernia repair as a child S/P cardiac cath multiple - s/p 11 stents, most of them placed in [place]; 2 out of [address] Vieira in 2017 most recent 11/2018 [facility] (no stents, performed angiography) S/P coronary artery stent placement total 11 stents. S/P eye surgery repair of right orbital floor fracture S/P laparoscopic cholecystectomy S/P left knee arthroscopy S/P TURP x 2 S/P vasectomy Family History Father , age 78 Liver disease Coronary heart disease Myocardial infarction Diabetes Heart disease Stroke Mother , age 62 Colorectal cancer Liver cancer Daughter Diabetes FH: mitral valve repair Kidney disease Arthritis Sister Arthritis COPD (chronic obstructive pulmonary disease) Diabetes Depression Fibromyalgia Dyslipidemia Grandfather (Maternal) Heart disease Denies family history of Ovarian cancer Prostate cancer Breast cancer Social History Smoking Status: Former smoker Tobacco Type: Cigarettes Age Started Using Tobacco: 19; packs per day: 2; Second Hand Exposure: No; Do You Dip or Chew Tobacco: No; Tobacco Cessation Education Requested by Patient: No Hx Alcohol Use: Yes Alcohol type: wine Alcohol Intake Frequency: 2-4 x/Month Alcohol Intake Frequency Comment: 1 glass/day Hx Substance Use: No Preferred Language: Kyrgyz Communication Ability: Effective Visual Impairment: No Limitations Hearing Ability: Use of Hearing Aid Money Laundering Investigator Required: No Beliefs That Will Affect Care: None marital status: marital status details: twice Current Living Situation: Spouse current 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 status: retired Other Information That Helps Us Care for You: No 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: [employer]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; 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; 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; 2 step-kids Feels Safe at Home: Yes Safety Concerns: Feels Safe At This Time Childhood Exposure to Second-Hand Smoke: Yes Diet: regular Dental Care, Regularly: Yes Physical Activity Frequency: Daily Physical Activity Frequency Comment: Walking and House work Seatbelt Use: always Sunscreen Use: No Assistive Devices: Glasses and Hearing Aid - Bilateral Review of Systems Review of Systems: All systems reviewed & are unremarkable except as noted in HPI & below Physical Exam Constitutional: WD/WN, vitals as above Eyes: + anicteric sclerae; normal pupil size Respiratory: normal respiratory effort, lungs clear to auscultation Cardiovascular: RRR, no murmur, no edema Gastrointestinal (Abdomen): normal bowel sounds, soft, nontender, no hepatosplenomegaly Musculoskeletal: no cyanosis or clubbing, extremities motor strength 5/5 Skin: no rashes, warm and dry Neurologic: moves all extremities and awake; not confused Psychiatric: A+Ox3, euthymic affect Genitourinary: no CVA tenderness Results & Data Results & Data Vital Signs (Past 12 Hours) Vital Signs Temp Pulse Resp BP Pulse Ox O2 Del Method 02/20/23 14:45 78 22 99 02/20/23 14:30 84 24 100 02/20/23 14:15 94 H 22 99 02/20/23 14:00 135 H 02/20/23 14:01 134 H 24 98 02/20/23 13:41 36.8 C 113 H 18 106/78 98 Room Air Laboratory Results Abnormal lab results 08/24/23 08/24/23 08/24/23 Range/Units 13:52 13:52 14:25 WBC 13.36 H (4.8-10.8) K/ul RDW Std Deviation 46.7 H (36.4-46.3) fL RDW Coeff of Gino 15.8 H (11.5-14.5) % Neut # (Auto) 6.67 H (1.40-6.50) K/uL Lymph # (Auto) 4.81 H (1.20-3.40) K/uL [place] # (Auto) 1.56 H (0.11-0.59) K/uL Sodium 133 L (136-145) mmol/L BUN 31 H (6-23) mg/dl Creatinine 1.53 H (0.6-1.4) mg/dl BUN/Creatinine Ratio 20.3 H (10-20) Glucose 136 H (70-99(Fasting)) mg/dl POC Glucose 140 H (70-99) mg/dl Calcium 10.7 H (8.6-10.3) mg/dl Magnesium 1.5 L (1.7-2.4) mg/dl Total Bilirubin 2.0 H (0.2-1.0) mg/dl Troponin I High Sens 25.9 H (0-20) pg/ml Diagnostic Findings XR chest 1V portable CLINICAL HISTORY: Chest pain, nonspecific COMPARISON STUDY: Chest CT December 06, 2018. Chest radiograph March 31, 2022. FINDINGS: There is no pneumothorax or pleural effusion. Mild elevation of the right hemidiaphragm has slightly increased. No consolidation is identified. No evidence for pulmonary edema. Calcified pleural plaques are again noted. Cardiomediastinal silhouette is stable. IMPRESSION: No acute cardiopulmonary findings. No significant change in appearance of the chest. Medications Administered ER Medications Given: Adenosine 6mg IV Ondansetron 4mg IV NSS 1L bolus ECG Rate (beats per minute): 150 Rhythm: SVT Findings: + ST depression (Inferior) Comparison ECG Date: from (March 31, 2022) Change: the following changes noted Code Status & VTE Plan Code Status Full VTE Prophylaxis Plan VTE Prophylaxis will be ordered: Yes PG Care Time/CCT Total # of Minutes Spent Total Time Spent with Patient: Total time spent is greater than 50% in coordination of care (as documented) at patient's floor/unit and/or counseling patient: Coding Level of Care Code 42130 INT INP/OBS CARE Diagnoses SVT (supraventricular tachycardia) I47.1 BRIAN (acute kidney injury) N17.9 Ischemic cardiomyopathy I25.5 Hypertension I10 Hypertension type: essential hypertension Diabetes mellitus E11.9 Diabetes mellitus complication status: without complication Diabetes mellitus termite exterminator helper insulin use: without termite exterminator helper use Diabetes mellitus type: type 2 Acid reflux K21.9 Esophagitis presence: without esophagitis CAD (coronary artery disease) I25.118 Associated angina: with other forms of angina Coronary Disease-Associated Artery/Lesion type: [place] artery [place] vs. transplanted heart: [place] heart (4) Hypertension Hypertension type: essential hypertension Qualified Code(s): I10 - Essential (primary) hypertension (5) Diabetes mellitus Diabetes mellitus complication status: without complication Diabetes mellitus shelter insulin use: without shelter use Diabetes mellitus type: type 2 Qualified Code(s): E11.9 - Type 2 diabetes mellitus without complications (6) Acid reflux Esophagitis presence: without esophagitis Qualified Code(s): K21.9 - Gastro- esophageal reflux disease without esophagitis (7) CAD (coronary artery disease) Associated angina: with other forms of angina Coronary Disease-Associated Artery/Lesion type: [place] artery [place] vs. transplanted heart: [place] heart Qualified Code(s): I25.118 - Atherosclerotic heart disease of [place] coronary artery with other forms of angina pectoris
[2023-02-20] MEDS: MAGNESIUM SULFATE / D5W 1 GM/100 ML BAG IV SCH ×2 (15:39→16:55)
[2023-02-20] MEDS ORDERED: DEXTROSE 50% 50 ML SYRINGE IV PRN (16:45)
[2023-02-20] MEDS ORDERED: GLUCOSE 10 TAB/TUBE PO PRN (16:45)
[2023-02-20] MEDS ORDERED: GLUCAGON FOR INJ 1 MG VIAL SQ PRN (16:45)
[2023-02-20] MEDS ORDERED: CARBOHYDRATES FOR HYPOGLYCEMIA PO PRN (16:45)
[2023-02-20] MEDS ORDERED: GLUCOSE 40% GEL 15 GM TUBE PO PRN (16:45)
--- NOTE | 2023-02-20 17:06 | Electrocardiogram Report ---
Test Reason : Blood Pressure : / mmHG Vent. Rate : 150 BPM Atrial Rate : 000 BPM P-R Int : 000 ms QRS Dur : 112 ms QT Int : 304 ms P-R-T Axes : 000 -08 133 degrees QTc Int : 480 ms Supraventricular tachycardia Left ventricular hypertrophy with QRS widening and repolarization abnormality Abnormal ECG When compared with ECG of 31-MAR-2022 12:32, MD interval has decreased Vent. rate has increased BY 83 BPM Supraventricular tachycardia now present Confirmed by Nolan Mathias ([id number]) on 02/20/2023 5:06:19 PM Referred By: REFERRED SELF Confirmed By:Nolan Mathias
[2023-02-20] MEDS: INSULIN ASPART PER UNIT CHARGE SC SCH ×2 (17:29→20:07)
[2023-02-20] MEDS: HEPARIN SOD 5,000 UNIT/0.5 ML VIAL SQ SCH (20:08)
--- NOTE | 2023-02-20 20:17 | Cardiology Consultation ---
Date of Consultation February 20, 2023 Assessment & Plan (1) SVT (supraventricular tachycardia): (2) Chest pain: (3) Hypomagnesemia: (4) S/P coronary artery stent placement: (5) Ischemic cardiomyopathy: Plan 77-year-old man with complicated cardiac history (see Dr. Brown's office note from 08/27/2022 for details of revascularizations) who had been doing well physically until abrupt onset of palpitations and associated anginal type symptoms. Etiology of his hypomagnesemia is uncertain, as he is not on any diuretics. However, this is a correctable precipitating factor which would be easier to address than increasing his beta-chapis (given current and prior bradycardia) or initiating an antiarrhythmic. Recommend starting oral magnesium supplement (such as Slow-Mag 64 mg daily or twice daily) upon discharge. 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 In the near term, would continue his current usual dose of metoprolol succinate 50 mg daily and initiate magnesium supplement. No immediate need for antiarrhythmic agent since he has a correctable precipitating factor (hypomagnesemia). Since this does not appear to be atrial flutter, he would not need to be anticoagulated long-term. His anginal symptoms are likely due to marked tachycardia occurring in the context of his known underlying coronary artery disease. He has not had any recent baseline symptoms to suggest ongoing myocardial ischemia, and in the absence of recurrent tachycardia he is likely to remain free of angina or dyspnea on exertion. Minor troponin elevation is to be expected and is consistent with demand ischemia rather than acute thrombotic event. Continue his usual cardiac medication regimen. Dr. Mcgee will be rounding tomorrow, will ask him to comment on the patient' s SVT and potential future management. Follow-up by Dr. Brown. History of Present Illness Reason for Consultation: SVT Requesting Physician: Harry Malcolm MD Attending Physician: Harry Malcolm MD History of Present Illness 77-year-old man with CAD (remote inferior infarct with at least 7 stents placed between 2003 and 2020, intracoronary lithotripsy 2020), mild ischemic cardiomyopathy (EF 45-50% with basal inferior akinesis and inferolateral akinesis on 2019 echo), DM, HTN, and dyslipidemia who was admitted today (02/20/2023) with acute onset chest pressure/dyspnea/diaphoresis/paresthesias, ER evaluation showed paroxysmal supraventricular tachycardia at 150 bpm. ECG shows apparent retrograde P waves in V1, suggesting AV megan reentrant tachycardia rather than atrial flutter. Patient was given adenosine with successful conversion back to sinus rhythm at normal rates and complete resolution of his symptoms. Initial troponin is only minimally elevated (25.9). He has no prior history of dysrhythmias. At recent baseline, he notes that he has been physically active and has had no chest pain, dyspnea, palpitations, or other cardiac complaints. At the time of my evaluation this evening, the patient had no somatic complaints. Allergies Allergy/AdvReac Type Severity Reaction Status Date / Time shellfish derived Allergy Intermediate Hives Verified 10/29/22 11:24 morphine AdvReac Severe GI Verified 10/29/22 11:24 SYMPTOMS-violent throwing up, can take hydrocodone Home Medications Medication Instructions Recorded Confirmed Type cholecalciferol (vitamin D3) 50 2,000 unit PO QAM 11/12/18 02/20/23 History mcg (2,000 unit) tablet aspirin 81 mg tablet,delayed 81 mg PO QAM 11/30/18 02/20/23 History release (Rc Low Dose Aspirin) multivitamin 1 tab PO QAM 11/30/18 02/20/23 History glucosamine sulfate 1,000 mg 1,000 mg PO BID 12/17/18 02/20/23 History capsule calcium carbonate 600 mg-vitamin 1 tab PO QPM 03/24/19 02/20/23 History D3 10 mcg (400 unit) tablet (Calcium 600 + D(3)) blood sugar diagnostic (Accu-Chek #30 ea 09/20/20 02/20/23 Rx Sonya Plus test strips) diphenhydramine HCl 25 mg capsule 25 mg PO QPM PRN Sleep 01/29/22 02/20/23 History (Benadryl) nitroglycerin 0.4 mg sublingual 0.4 mg sublingual UD PRN Chest 01/30/22 02/20/23 Rx tablet (Nitrostat) Pain #25 tabs fluticasone propionate 50 2 spray intranasal DAILY PRN nasal 04/25/22 02/20/23 Rx mcg/actuation nasal congestion #48 grams spray,suspension amlodipine 5 mg tablet 5 mg PO QAM #90 tabs 09/24/22 02/20/23 Rx atorvastatin 40 mg tablet 40 mg PO HS #90 tabs 09/24/22 02/20/23 Rx metoprolol succinate 50 mg 50 mg PO QAM #90 tabs 09/24/22 02/20/23 Rx tablet,extended release 24 hr (Toprol XL) famotidine 40 mg tablet 40 mg PO HS #90 tabs 10/11/22 02/20/23 Rx lisinopril 40 mg tablet 40 mg PO QAM #90 tabs 12/16/22 02/20/23 Rx metformin 500 mg tablet 500 mg PO BID #180 tabs 12/16/22 02/20/23 Rx omeprazole 20 mg capsule,delayed 40 mg PO DAILY #180 caps 01/07/23 02/20/23 Rx release tirzepatide 5 mg/0.5 mL 5 mg (0.5 mL) subcut .ONCE WEEKLY 01/31/23 02/20/23 Rx subcutaneous pen injector #6 mL (Mounjaro) clopidogrel 75 mg tablet 75 mg PO DAILY #90 tabs 02/18/23 02/20/23 Rx Patient History Medical History Acid reflux Anemia, mild BPH (benign prostatic hypertrophy) with urinary obstruction CAD (coronary artery disease) Chronic back pain Cough COVID Diabetes mellitus (02/26/13) NIDDM Diverticulosis H/O angiography 11/2018 Dr Vieira [facility] Hyperlipidemia Hypertension Ischemic cardiomyopathy Low back pain Multiple adenomatous polyps Myocardial infarct total x3 [place] --- most recent ~2004. Orbital floor fracture with repair Osteoarthritis Osteopenia Pleural plaque with presence of asbestos follows with Dr Francisco. Post-op bleeding x2 s/p colonoscopy with biopsy. hx of returning to Emergency Room and inpatient treatment with repairs x2 (clampings per pt) Unstable angina Ventral hernia current Surgical History History of cataract surgery bilateral History of colonoscopy History of hernia repair as a child S/P cardiac cath multiple - s/p 11 stents, most of them placed in [place]; 2 out of [address] Vieira in 2017 most recent 11/2018 [facility] (no stents, performed angiography) S/P coronary artery stent placement total 11 stents. S/P eye surgery repair of right orbital floor fracture S/P laparoscopic cholecystectomy S/P left knee arthroscopy S/P TURP x 2 S/P vasectomy Family History Father , age 78 Liver disease Coronary heart disease Myocardial infarction Diabetes Heart disease Stroke Mother , age 62 Colorectal cancer Liver cancer Daughter Diabetes FH: mitral valve repair Kidney disease Arthritis Sister Arthritis COPD (chronic obstructive pulmonary disease) Diabetes Depression Fibromyalgia Dyslipidemia Grandfather (Maternal) Heart disease Denies family history of Ovarian cancer Prostate cancer Breast cancer Social History Smoking Status: Former smoker Tobacco Type: Cigarettes Age Started Using Tobacco: 19; packs per day: 2; Second Hand Exposure: No; Do You Dip or Chew Tobacco: No; Tobacco Cessation Education Requested by Patient: No Hx Alcohol Use: Yes Alcohol type: wine Alcohol Intake Frequency: 2-4 x/Month Alcohol Intake Frequency Comment: 1 glass/day Hx Substance Use: No Preferred Language: Brazilian Communication Ability: Effective Visual Impairment: No Limitations Hearing Ability: Use of Hearing Aid Patient Scheduling Coordinator Required: No Beliefs That Will Affect Care: None marital status: marital status details: twice Current Living Situation: Spouse current 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 status: retired Other Information That Helps Us Care for You: No other: [employer]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 Normotensive (102/61 mmHg). Pulse 54 bpm and regular. Skin: no ecchymoses or generalized lesions. HEENT: unremarkable. Neck: JVP at the clavicle at 90 degrees, no carotid bruits. Lungs: clear. Cardiac: regular rhythm, normal S1-2, no murmur. Abdomen: benign. Extremities: no edema, pulses intact. Neurologic: normal affect and conversation, nonfocal. Results & Data Laboratory Results Sodium 133, potassium 4.5, magnesium 1.5. BUN 31, creatinine 1.53. Troponin as noted in HPI. Diagnostic Findings ECG as noted in HPI. Chest x-ray was unremarkable. Echocardiogram 2019 showed EF 45 to 50% with basal inferior akinesis, base to mid inferolateral akinesis, moderate LVH, mild MR, aortic sclerosis. PG Care Time/CCT Total # of Minutes Spent Total Time Spent with Patient: Total time spent is greater than 50% in coordination of care (as documented) at patient's floor/unit and/or counseling patient: Coding Level of Care Code 00413 IN/OBS CONSULT LVL 4,60M Diagnoses SVT (supraventricular tachycardia) I47.1 Chest pain R07.9 Hypomagnesemia E83.42 S/P coronary artery stent placement Z95.5 Ischemic cardiomyopathy I25.5
[2023-02-20] MEDS ORDERED: ATORVASTATIN 40 MG TAB PO SCH (21:00)
[2023-02-20] MEDS ORDERED: FAMOTIDINE 40 MG TABLET PO SCH (21:00)
[2023-02-21] MEDS: INSULIN ASPART PER UNIT CHARGE SC SCH ×2 (07:49→11:31)
[2023-02-21] MEDS ORDERED: MAGNESIUM SULFATE / D5W 1 GM/100 ML BAG IV ONE (07:51)
--- NOTE | 2023-02-21 07:55 | Hospitalist Progress Note ---
Date of Service February 21, 2023 Assessment & Plan (1) SVT (supraventricular tachycardia): Plan: s/p 6mg IV adenosine in ER/1L NSS Continue to trend troponin but doubtful ACS Monitor on PCU for recurrence Aim Mg > 2, K > 4 Mag 1.5 on admit, 2gm IV magnesium ordered TTE Consult cardiology --> rec to continue current dose metoprolol, place on mag-oxide oral at discharge. Dr Chanel to see patient today 02/21 --> no further recurrence of symptoms. TSH wnl. Sinus rhythm/sinus teresa on monitor Of note, patient reports 2 - 12oz cups starbucks coffee daily -- rec cutting back/utilizing decaf to prevent worsening/recurrence of symptoms as well ? heavy dose causing lower mag/less absorption ECHO pending official read Additional IV mag ordered this morning to keep closer to 2 BUN/Cr resolved improved. No further IVF and can push PO intake Monitor for possible dc later today (2) BRIAN (acute kidney injury): Plan: Suspect due to mild dehydration and poor forward flow in SVT, could have had some ATN from hypotension Given 1L IVF in ER, improvement --> To push oral fluids, holding off further IVF Holding losartan for today -- likely able to resume tomorrow if not having any symptoms (3) Ischemic cardiomyopathy: Plan: Continue Metoprolol, losartan on hold as above (4) Hypertension: Plan: Continue metoprolol Given current low BP and BRIAN losartan and amlodipine placed on hold (5) Diabetes mellitus: Plan: HbA1C 6.8 in June, repeat with AM labs Hold metformin Start Novolog just for correction: --Goal BSG Range: Low 110 mg/dL, High 140 mg/dL --Correction Factor: 45 mg/dL/unit No carb ratio BSGs acceptable (6) Acid reflux: Plan: Chronic/stable Continue pantoprazole and famotidine (7) CAD (coronary artery disease): Plan: Multivessel CAD s/p myocardial infarction and multiple PCI and angioplasty Continue aspirin, clopidogrel, metoprolol succinate, atorvastatin Plan VTE Prophylaxis - Heparin 5000 units BID continued inpatient stay, ECHO pending/eval by Dr Chanel. If stable/no further issues, hopefully will be able to get him discharged later today. Admission and Anticipated Discharge Date Admission Date: February 20, 2023 Supervising Physician Co-Signing Physician Notes The patient was not seen by me. The chart was reviewed. Case discussed with ELOINA Peralta. Agree with assessment and plan Subjective Eval this morning. Has remained sinus/sinus teresa on monitor. No further recurrence of symptoms. Mag improved on repeat labs. Tolerating oral intake. TSH wnl. Not yet seen by cardiology but last evening consultation rec continued mag replacement at discharge. Discussed caffeine intake -- reports 2 twelve ounces cups daily, Starbucks brand. Discussed cutting back/decaf/etc to prevent further cause. No smoking at present, quit after his first OH. No fever/chills, chest pain, shortness of breath. He notes his is invalid and brother in law had to stay with her overnight, so he is hopeful for discharge today if cleared by cardiology/further recs. questions/concerns addressed at this time. Physical Exam Physical Exam: General: WD/WN male sitting up in bed, NAD HEENT: head normocephalic, atraumatic, mmm, trachea midline Resp: CTA, no w/c/r, on room air CV: sinus rhythm, teresa to low 50s, no significant m/r/g, no significant pitting edema/calf tenderness GI: +BS, soft/NT : no castaneda MSK/Neuro/Psych: AOx3, cooperative with exam no focal deficits, no slurred speech, answering questions appropriately Results & Data Results & Data Vital Signs (Past 12 Hours) Vital Signs Temp Pulse Pulse Resp BP BP Pulse Ox 02/21/23 07:36 56 L 02/21/23 04:06 36.6 C 50 L 17 105/60 96 02/20/23 23:52 36.4 C L 57 L 15 112/63 96 02/20/23 23:27 56 L 02/20/23 20:04 36.6 C 54 L 18 102/61 94 O2 Del Method 02/21/23 07:36 02/21/23 04:06 Room Air 02/20/23 23:52 Room Air 02/20/23 23:27 02/20/23 20:04 Room Air Laboratory Results 02/21/23 02/21/23 02/21/23 Range/Units 08:03 08:03 08:03 WBC (4.8-10.8) K/ul RBC (4.70-6.10) M/uL Hgb (14.0-18.0) g/dl Hct (42.0-52.0) % MCV (80.0-100.0) fL MCH (25.0-34.0) pg MCHC (32.0-36.0) g/dL RDW Std Deviation (36.4-46.3) fL RDW Coeff of Gino (11.5-14.5) % Plt Count (130-400) K/uL MPV (9.4-12.4) fL Immature Gran % (Auto) % Neut % (Auto) % Lymph % (Auto) % [place] % (Auto) % Eos % (Auto) % Baso % (Auto) % Neut # (Auto) (1.40-6.50) K/uL Lymph # (Auto) (1.20-3.40) K/uL [place] # (Auto) (0.11-0.59) K/uL Eos # (Auto) (0.00-0.50) K/uL Baso # (Auto) (0.00-0.20) K/uL Immature Gran # (Auto) (0.01-0.20) K/uL PT (9.0-12.0) Seconds INR (0.9-1.1) APTT (21.0-31.0) Seconds PTT Ratio D-Dimer (0-500) ug/L FEU Sodium (136-145) mmol/L Potassium (3.5-5.1) mmol/L Chloride (98-107) mmol/L Carbon Dioxide (21-32) mmol/L Anion Gap (3-11) BUN (6-23) mg/dl Creatinine (0.6-1.4) mg/dl Est Cr Clr Drug Dosing ml/min Est GFR ( Amer) ml/min Est GFR (Non-Af Amer) ml/min BUN/Creatinine Ratio (10-20) Glucose (70-99(Fasting)) mg/dl POC Glucose (70-99) mg/dl Estimat Average Glucose mg/dl Hemoglobin A1c (4.5-5.6) % Calcium (8.6-10.3) mg/dl Magnesium 1.9 (1.7-2.4) mg/dl Total Bilirubin (0.2-1.0) mg/dl AST (13-39) U/L ALT (7-52) U/L Alkaline Phosphatase (34-104) U/L Troponin I High Sens (0-20) pg/ml Total Protein (6.0-8.3) gm/dl Albumin (3.4-5.0) gm/dl Globulin (2.5-4.0) gm/dl Albumin/Globulin Ratio (0.9-2) 25-OH Vitamin D Total 55.6 (30-100) ng/ml TSH 2.171 (0.300-4.500) uIu/ml 02/21/23 02/21/23 02/21/23 Range/Units 08:03 08:03 08:03 WBC 5.49 (4.8-10.8) K/ul RBC 4.92 (4.70-6.10) M/uL Hgb 13.7 L (14.0-18.0) g/dl Hct 41.0 L (42.0-52.0) % MCV 83.3 (80.0-100.0) fL MCH 27.8 (25.0-34.0) pg MCHC 33.4 (32.0-36.0) g/dL RDW Std Deviation 48.6 H (36.4-46.3) fL RDW Coeff of Gino 16.0 H (11.5-14.5) % Plt Count 250 (130-400) K/uL MPV 10.6 (9.4-12.4) fL Immature Gran % (Auto) 0.2 % Neut % (Auto) 44.8 % Lymph % (Auto) 37.2 % [place] % (Auto) 13.5 % Eos % (Auto) 2.7 % Baso % (Auto) 1.6 % Neut # (Auto) 2.46 (1.40-6.50) K/uL Lymph # (Auto) 2.04 (1.20-3.40) K/uL [place] # (Auto) 0.74 H (0.11-0.59) K/uL Eos # (Auto) 0.15 (0.00-0.50) K/uL Baso # (Auto) 0.09 (0.00-0.20) K/uL Immature Gran # (Auto) 0.01 (0.01-0.20) K/uL PT (9.0-12.0) Seconds INR (0.9-1.1) APTT (21.0-31.0) Seconds PTT Ratio D-Dimer (0-500) ug/L FEU Sodium 134 L (136-145) mmol/L Potassium 4.2 (3.5-5.1) mmol/L Chloride 102 (98-107) mmol/L Carbon Dioxide 26 (21-32) mmol/L Anion Gap 6 (3-11) BUN 25 H (6-23) mg/dl Creatinine 1.07 D (0.6-1.4) mg/dl Est Cr Clr Drug Dosing 71.0 ml/min Est GFR ( Amer) 77.7 ml/min Est GFR (Non-Af Amer) 67.1 ml/min BUN/Creatinine Ratio 23.4 H (10-20) Glucose 108 H (70-99(Fasting)) mg/dl POC Glucose (70-99) mg/dl Estimat Average Glucose 148 mg/dl Hemoglobin A1c 6.8 H (4.5-5.6) % Calcium 9.6 (8.6-10.3) mg/dl Magnesium (1.7-2.4) mg/dl Total Bilirubin 1.7 H (0.2-1.0) mg/dl AST 24 (13-39) U/L ALT 21 (7-52) U/L Alkaline Phosphatase 55 (34-104) U/L Troponin I High Sens (0-20) pg/ml Total Protein 7.0 (6.0-8.3) gm/dl Albumin 4.2 (3.4-5.0) gm/dl Globulin 2.8 (2.5-4.0) gm/dl Albumin/Globulin Ratio 1.5 (0.9-2) 25-OH Vitamin D Total (30-100) ng/ml TSH (0.300-4.500) uIu/ml 02/21/23 02/20/23 02/20/23 Range/Units 07:44 20:07 16:49 WBC (4.8-10.8) K/ul RBC (4.70-6.10) M/uL Hgb (14.0-18.0) g/dl Hct (42.0-52.0) % MCV (80.0-100.0) fL MCH (25.0-34.0) pg MCHC (32.0-36.0) g/dL RDW Std Deviation (36.4-46.3) fL RDW Coeff of Gino (11.5-14.5) % Plt Count (130-400) K/uL MPV (9.4-12.4) fL Immature Gran % (Auto) % Neut % (Auto) % Lymph % (Auto) % [place] % (Auto) % Eos % (Auto) % Baso % (Auto) % Neut # (Auto) (1.40-6.50) K/uL Lymph # (Auto) (1.20-3.40) K/uL [place] # (Auto) (0.11-0.59) K/uL Eos # (Auto) (0.00-0.50) K/uL Baso # (Auto) (0.00-0.20) K/uL Immature Gran # (Auto) (0.01-0.20) K/uL PT (9.0-12.0) Seconds INR (0.9-1.1) APTT (21.0-31.0) Seconds PTT Ratio D-Dimer (0-500) ug/L FEU Sodium (136-145) mmol/L Potassium (3.5-5.1) mmol/L Chloride (98-107) mmol/L Carbon Dioxide (21-32) mmol/L Anion Gap (3-11) BUN (6-23) mg/dl Creatinine (0.6-1.4) mg/dl Est Cr Clr Drug Dosing ml/min Est GFR ( Amer) ml/min Est GFR (Non-Af Amer) ml/min BUN/Creatinine Ratio (10-20) Glucose (70-99(Fasting)) mg/dl POC Glucose 113 H 104 H 100 H (70-99) mg/dl Estimat Average Glucose mg/dl Hemoglobin A1c (4.5-5.6) % Calcium (8.6-10.3) mg/dl Magnesium (1.7-2.4) mg/dl Total Bilirubin (0.2-1.0) mg/dl AST (13-39) U/L ALT (7-52) U/L Alkaline Phosphatase (34-104) U/L Troponin I High Sens (0-20) pg/ml Total Protein (6.0-8.3) gm/dl Albumin (3.4-5.0) gm/dl Globulin (2.5-4.0) gm/dl Albumin/Globulin Ratio (0.9-2) 25-OH Vitamin D Total (30-100) ng/ml TSH (0.300-4.500) uIu/ml 02/20/23 02/20/23 02/20/23 Range/Units 14:25 13:52 13:52 WBC (4.8-10.8) K/ul RBC (4.70-6.10) M/uL Hgb (14.0-18.0) g/dl Hct (42.0-52.0) % MCV (80.0-100.0) fL MCH (25.0-34.0) pg MCHC (32.0-36.0) g/dL RDW Std Deviation (36.4-46.3) fL RDW Coeff of Gino (11.5-14.5) % Plt Count (130-400) K/uL MPV (9.4-12.4) fL Immature Gran % (Auto) % Neut % (Auto) % Lymph % (Auto) % [place] % (Auto) % Eos % (Auto) % Baso % (Auto) % Neut # (Auto) (1.40-6.50) K/uL Lymph # (Auto) (1.20-3.40) K/uL [place] # (Auto) (0.11-0.59) K/uL Eos # (Auto) (0.00-0.50) K/uL Baso # (Auto) (0.00-0.20) K/uL Immature Gran # (Auto) (0.01-0.20) K/uL PT 11.4 (9.0-12.0) Seconds INR 1.0 (0.9-1.1) APTT 26.2 (21.0-31.0) Seconds PTT Ratio 0.9 D-Dimer 270 (0-500) ug/L FEU Sodium 133 L (136-145) mmol/L Potassium 4.5 (3.5-5.1) mmol/L Chloride 100 (98-107) mmol/L Carbon Dioxide 22 (21-32) mmol/L Anion Gap 11 (3-11) BUN 31 H (6-23) mg/dl Creatinine 1.53 H (0.6-1.4) mg/dl Est Cr Clr Drug Dosing 49.6 ml/min Est GFR ( Amer) 50.4 ml/min Est GFR (Non-Af Amer) 43.5 ml/min BUN/Creatinine Ratio 20.3 H (10-20) Glucose 136 H (70-99(Fasting)) mg/dl POC Glucose 140 H (70-99) mg/dl Estimat Average Glucose mg/dl Hemoglobin A1c (4.5-5.6) % Calcium 10.7 H (8.6-10.3) mg/dl Magnesium 1.5 L (1.7-2.4) mg/dl Total Bilirubin 2.0 H (0.2-1.0) mg/dl AST 28 (13-39) U/L ALT 27 (7-52) U/L Alkaline Phosphatase 68 (34-104) U/L Troponin I High Sens 25.9 H (0-20) pg/ml Total Protein 7.9 (6.0-8.3) gm/dl Albumin 4.7 (3.4-5.0) gm/dl Globulin 3.2 (2.5-4.0) gm/dl Albumin/Globulin Ratio 1.5 (0.9-2) 25-OH Vitamin D Total (30-100) ng/ml TSH (0.300-4.500) uIu/ml 02/20/23 Range/Units 13:52 WBC 13.36 H (4.8-10.8) K/ul RBC 5.58 (4.70-6.10) M/uL Hgb 15.6 (14.0-18.0) g/dl Hct 45.7 (42.0-52.0) % MCV 81.9 (80.0-100.0) fL MCH 28.0 (25.0-34.0) pg MCHC 34.1 (32.0-36.0) g/dL RDW Std Deviation 46.7 H (36.4-46.3) fL RDW Coeff of Gino 15.8 H (11.5-14.5) % Plt Count 316 (130-400) K/uL MPV 10.2 (9.4-12.4) fL Immature Gran % (Auto) 0.2 % Neut % (Auto) 49.9 % Lymph % (Auto) 36.0 % [place] % (Auto) 11.7 % Eos % (Auto) 0.9 % Baso % (Auto) 1.3 % Neut # (Auto) 6.67 H (1.40-6.50) K/uL Lymph # (Auto) 4.81 H (1.20-3.40) K/uL [place] # (Auto) 1.56 H (0.11-0.59) K/uL Eos # (Auto) 0.12 (0.00-0.50) K/uL Baso # (Auto) 0.17 (0.00-0.20) K/uL Immature Gran # (Auto) 0.03 (0.01-0.20) K/uL PT (9.0-12.0) Seconds INR (0.9-1.1) APTT (21.0-31.0) Seconds PTT Ratio D-Dimer (0-500) ug/L FEU Sodium (136-145) mmol/L Potassium (3.5-5.1) mmol/L Chloride (98-107) mmol/L Carbon Dioxide (21-32) mmol/L Anion Gap (3-11) BUN (6-23) mg/dl Creatinine (0.6-1.4) mg/dl Est Cr Clr Drug Dosing ml/min Est GFR ( Amer) ml/min Est GFR (Non-Af Amer) ml/min BUN/Creatinine Ratio (10-20) Glucose (70-99(Fasting)) mg/dl POC Glucose (70-99) mg/dl Estimat Average Glucose mg/dl Hemoglobin A1c (4.5-5.6) % Calcium (8.6-10.3) mg/dl Magnesium (1.7-2.4) mg/dl Total Bilirubin (0.2-1.0) mg/dl AST (13-39) U/L ALT (7-52) U/L Alkaline Phosphatase (34-104) U/L Troponin I High Sens (0-20) pg/ml Total Protein (6.0-8.3) gm/dl Albumin (3.4-5.0) gm/dl Globulin (2.5-4.0) gm/dl Albumin/Globulin Ratio (0.9-2) 25-OH Vitamin D Total (30-100) ng/ml TSH (0.300-4.500) uIu/ml Diagnostic Findings Chest X-Ray 02/20/23 13:44 XR chest 1V portable CLINICAL HISTORY: Chest pain, nonspecific COMPARISON STUDY: Chest CT December 06, 2018. Chest radiograph March 31, 2022. FINDINGS: There is no pneumothorax or pleural effusion. Mild elevation of the right hemidiaphragm has slightly increased. No consolidation is identified. No evidence for pulmonary edema. Calcified pleural plaques are again noted. Cardiomediastinal silhouette is stable. IMPRESSION: No acute cardiopulmonary findings. No significant change in appearance of the chest. ACT 112: Negative or not required by law. Electronically signed by: Ronan Haile M.D. 02/20/2023 2:27 PM PG Care Time/CCT Total # of Minutes Spent Total Time Spent with Patient: Total time spent is greater than 50% in coordination of care (as documented) at patient's floor/unit and/or counseling patient: Coding Level of Care Code None Diagnoses SVT (supraventricular tachycardia) I47.1 BRIAN (acute kidney injury) N17.9 Ischemic cardiomyopathy I25.5 Hypertension I10 Hypertension type: essential hypertension Diabetes mellitus E11.9 Diabetes mellitus complication status: without complication Diabetes mellitus nursing home insulin use: without nursing home use Diabetes mellitus type: type 2 Acid reflux K21.9 Esophagitis presence: without esophagitis CAD (coronary artery disease) I25.118 Associated angina: with other forms of angina Coronary Disease-Associated Artery/Lesion type: [place] artery [place] vs. 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 transplanted heart: [place] heart Qualified Code(s): I25.118 - Atherosclerotic heart disease of [place] coronary artery with other forms of angina pectoris
[2023-02-21] MEDS: MAGNESIUM SULFATE / D5W 1 GM/100 ML BAG IV SCH ×2 (08:08→10:15)
[2023-02-21] MEDS: HEPARIN SOD 5,000 UNIT/0.5 ML VIAL SQ SCH (08:10)
[2023-02-21 08:33] LABS: Basophils # (auto) 0.09 K/uL (0.00-0.20); Basophils % (auto) 1.6 %; Eosinophils # (auto) 0.15 K/uL (0.00-0.50); Eosinophils % (auto) 2.7 %; Hemoglobin 13.7 g/dl (14.0-18.0); Immature Granulocytes # (auto) 0.01 K/uL (0.01-0.20); Immature Granulocytes % (auto) 0.2 %; Lymphocytes # (auto) 2.04 K/uL (1.20-3.40); Lymphocytes % (auto) 37.2 %; Mean Corpuscular Hemoglobin 27.8 pg (25.0-34.0); Mean Corpuscular Hgb Conc 33.4 g/dL (32.0-36.0); Mean Corpuscular Volume 83.3 fL (80.0-100.0); Mean Platelet Volume 10.6 fL (9.4-12.4); Monocytes # (auto) 0.74 K/uL (0.11-0.59); Monocytes % (auto) 13.5 %; Neutrophils # (auto) 2.46 K/uL (1.40-6.50); Neutrophils % (auto) 44.8 %; Platelet Count 250 K/uL (130-400); RDW Standard Deviation 48.6 fL (36.4-46.3); Red Blood Count 4.92 M/uL (4.70-6.10); White Blood Count 5.49 K/ul (4.8-10.8)
[2023-02-21 08:51] LABS: Albumin Globulin Ratio 1.5 (0.9-2); Albumin Level 4.2 gm/dl (3.4-5.0); BUN Creatinine Ratio 23.4 (10-20); Bilirubin,Total 1.7 mg/dl (0.2-1.0); Calcium 9.6 mg/dl (8.6-10.3); Est GFR (African American) 77.7 ml/min; Est GFR (Non-African American) 67.1 ml/min; Globulin 2.8 gm/dl (2.5-4.0); Potassium 4.2 mmol/L (3.5-5.1)
[2023-02-21] MEDS ORDERED: METOPROLOL SUCC 50MG EXT REL TAB PO SCH (09:00)
[2023-02-21] MEDS ORDERED: CLOPIDOGREL BISULFATE 75 MG TAB PO SCH (09:00)
[2023-02-21] MEDS ORDERED: ASPIRIN 81 MG ECTAB PO SCH (09:00)
[2023-02-21] MEDS ORDERED: PANTOprazole 40 MG TAB PO SCH (09:00)
[2023-02-21 09:11] LABS: Estimated Average Glucose 148 mg/dl; Hemoglobin A1C 6.8 % (4.5-5.6)
--- NOTE | 2023-02-21 14:15 | Cardiology Progress Note ---
Date of Service February 21, 2023 Assessment & Plan (1) SVT (supraventricular tachycardia): (2) CAD (coronary artery disease): Plan 1. SVT: His SVT is concerning in view of his coronary artery disease, he felt it as chest pressure rather than an elevated heart rate and he did have mildly abnormal cardiac enzymes. I suspect it is typical AV megan reentry although other possibilities exist. I think it would be reasonable to consider ablation, he would prefer to talk to his workday consultant at [facility] rather than arranging it here. I think that is acceptable, and he has an appointment there on March 07. He knows if he has further difficulty to contact us. 2. Coronary disease: With his known coronary disease and his abnormal electrocardiogram suggesting ischemia during the SVT as well as his abnormal cardiac enzymes I think it would be best to minimize the risk of a prolonged episode of SVT in the future. Admission and Anticipated Discharge Date Admission Date: February 20, 2023 Subjective He is feeling well today, no further symptoms. I reviewed his presenting symptoms and although he was not clearly aware of his heart beating rapidly he did have significant symptoms and feels that he would have known if he had these symptoms before. Physical Exam Physical Exam: Constitutional: Alert, cooperative and in no distress. Pulmonary: Clear to auscultation bilaterally. Cardiac: Regular rhythm with no murmur, gallop or rub. Abdomen: Soft, nontender with normal bowel sounds. Extremities: No edema. Skin: No rash, ecchymoses or petechiae. Results & Data Vital Signs (Past 12 Hours) Vital Signs Temp Pulse Pulse Resp BP Pulse Ox O2 Del Method 02/21/23 11:02 36.5 C 53 L 16 99/64 L 94 Room Air 02/21/23 07:42 36.5 C 52 L 16 112/70 96 Room Air 02/21/23 07:36 56 L 02/21/23 04:06 36.6 C 50 L 17 105/60 96 Room Air Laboratory Results Cardiac Enzymes 02/20/23 02/21/23 Range/Units 13:52 08:03 AST 28 24 (13-39) U/L Troponin I High Sens 25.9 H (0-20) pg/ml Coagulation 02/20/23 Range/Units 13:52 PT 11.4 (9.0-12.0) Seconds APTT 26.2 (21.0-31.0) Seconds CBC 02/20/23 02/21/23 Range/Units 13:52 08:03 WBC 13.36 H 5.49 (4.8-10.8) K/ul RBC 5.58 4.92 (4.70-6.10) M/uL Hgb 15.6 13.7 L (14.0-18.0) g/dl Hct 45.7 41.0 L (42.0-52.0) % Plt Count 316 250 (130-400) K/uL Neut # (Auto) 6.67 H 2.46 (1.40-6.50) K/uL Lymph # (Auto) 4.81 H 2.04 (1.20-3.40) K/uL [place] # (Auto) 1.56 H 0.74 H (0.11-0.59) K/uL Eos # (Auto) 0.12 0.15 (0.00-0.50) K/uL Baso # (Auto) 0.17 0.09 (0.00-0.20) K/uL Comprehensive Metabolic Panel 02/20/23 02/21/23 Range/Units 13:52 08:03 Sodium 133 L 134 L (136-145) mmol/L Potassium 4.5 4.2 (3.5-5.1) mmol/L Chloride 100 102 (98-107) mmol/L Carbon Dioxide 22 26 (21-32) mmol/L BUN 31 H 25 H (6-23) mg/dl Creatinine 1.53 H 1.07 D (0.6-1.4) mg/dl Glucose 136 H 108 H (70-99(Fasting)) mg/dl Calcium 10.7 H 9.6 (8.6-10.3) mg/dl AST 28 24 (13-39) U/L ALT 27 21 (7-52) U/L Alkaline Phosphatase 68 55 (34-104) U/L Total Protein 7.9 7.0 (6.0-8.3) gm/dl Albumin 4.7 4.2 (3.4-5.0) gm/dl Intake and Output 02/20/23 02/21/23 02/21/23 22:59 06:59 14:59 Intake Total 200 / 1200 100 / 100 Balance 200 / 1200 100 / 100 Intake: IV 200 / 1200 100 / 100 Magnesium Sulfate / D5w 1 gm In 200 / 200 100 / 100 100 ml @ 50 mls/hr IV Q2H [facility] Rx#:[id number] Other: # Unmeasured Voids 1 1 Weight 100.5 kg 100.7 kg Weight Measurement Method Built in [facility] Built in [facility] Diagnostic Findings Telemetry: No further SVT PG Care Time/CCT Total # of Minutes Spent Total Time Spent with Patient: Total time spent is greater than 50% in coordination of care (as documented) at patient's floor/unit and/or counseling patient: Coding Level of Care Code 00510 SUB INP/OBS CARE 2/35MIN Diagnoses SVT (supraventricular tachycardia) I47.1 CAD (coronary artery disease) I25.118 Coronary Disease-Associated Artery/Lesion type: [place] artery [place] vs. transplanted heart: [place] heart Associated angina: with other forms of angina (2) CAD (coronary artery disease) Coronary Disease-Associated Artery/Lesion type: [place] artery [place] vs. transplanted heart: [place] heart Associated angina: with other forms of angina Qualified Code(s): I25.118 - Atherosclerotic heart disease of [place] coronary a rtery with other forms of angina pectoris
--- NOTE | 2023-02-21 14:19 | Discharge Summary ---
Date of Service February 21, 2023 Admission HPI Per Admitting Provider Fran Valdez is a 77 year old male with multivessel CAD s/p myocardial infarction and multiple PCI and angioplasty who presents to ER with chest pain. Chest pressure, severity 8/10, started at 10am with shortness of breath, tachypnea, diaphoresis, palpitation. Associated numbness in right arm. No orthopnea or PND. Drove here after sorting out his taxes and checking bank. Adenosine given in the ER which converted him to normal sinus rhythm. Nausea after adenosine given. Mild discomfort / annoying twinge in his chest after adenosine but mostly resolved. No current shortness of breath. [employer] fine prior to opened checking account today and noted someone was cashing checks in his name when his symptoms started. Admission Exam Per Admitting Provider Constitutional: WD/WN, vitals as above Eyes: + anicteric sclerae; normal pupil size Respiratory: normal respiratory effort, lungs clear to auscultation Cardiovascular: RRR, no murmur, no edema Gastrointestinal (Abdomen): normal bowel sounds, soft, nontender, no hepatosplenomegaly Musculoskeletal: no cyanosis or clubbing, extremities motor strength 5/5 Skin: no rashes, warm and dry Neurologic: moves all extremities and awake; not confused Psychiatric: A+Ox3, euthymic affect Genitourinary: no CVA tenderness Principal Diagnosis SVT, Hypomagnesemia Discharge Exam General: WD/WN male sitting up in bed, NAD HEENT: head normocephalic, atraumatic, mmm, trachea midline Resp: CTA, no w/c/r, on room air CV: sinus rhythm, teresa to low 50s, no significant m/r/g, no significant pitting edema/calf tenderness GI: +BS, soft/NT : no castaneda MSK/Neuro/Psych: AOx3, cooperative with exam no focal deficits, no slurred speech, answering questions appropriately Discharge Data Allergies Allergy/AdvReac Type Severity Reaction Status Date / Time shellfish derived Allergy Intermediate Hives Verified 10/29/22 11:24 morphine AdvReac Severe GI Verified 10/29/22 11:24 SYMPTOMS-violent throwing up, can take hydrocodone Consultations 02/20/23 15:28 ED Decision to Admit Stat 02/20/23 16:45 Consult Cardiology Routine Ordered Studies Chest X-Ray 02/20/23 13:44 XR chest 1V portable CLINICAL HISTORY: Chest pain, nonspecific COMPARISON STUDY: Chest CT December 06, 2018. Chest radiograph March 31, 2022. FINDINGS: There is no pneumothorax or pleural effusion. Mild elevation of the right hemidiaphragm has slightly increased. No consolidation is identified. No evidence for pulmonary edema. Calcified pleural plaques are again noted. Cardiomediastinal silhouette is stable. IMPRESSION: No acute cardiopulmonary findings. No significant change in appearance of the chest. ACT 112: Negative or not required by law. Electronically signed by: Ronan Haile M.D. 02/20/2023 2:27 PM ECHOCARDIOGRAM Compared to prior study, there is no significant change mildly reduced EF (45-50%), inferior wall motion abnormalities are less severe compared to prior study 12/07/28. No significant valvular disease. Diastolic dysfunction grade 1 considered normal for age Hospital Course (1) SVT (supraventricular tachycardia): Presented to ER with acute onset of chest pressure/shortness of breath/tachypnea, diaphhoresis and palpitations Found to be in SVT on EKG/telemetry with rates to 150s s/p 6mg IV adenosine, 1L NSS Troponin 25.9 and doubtful ACS, evaluated by cardiology ECHO without significant change compared to 2019. mildly reduced EF, inferior wall motion abnormalities are less severe compared to prior study 12/07/28. No significant valvular disease. Diastolic dysfunction grade 1 considered normal for age. Mag 1.5 -- IV replacement ordered, additional 1gm AM 02/21 Cardiology consulted -- recs for placement on mag-oxide BID at discharge. Patient without recurrence of symptoms on exam 02/21. TSH wnl. Of note, patient reports 2 - 12oz cups starbucks coffee daily -- rec cutting back/utilizing decaf to prevent worsening/recurrence of symptoms as well. could have larger dosing leading to lower mag/less absorption. Rx for mag-oxide BID at discharge sent Evaluated by Dr Chanel for consideration ablation/stability for discharge. 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 Instructed patient to continue to hold and check BP tomorrow. If no symptoms/keeping up with oral hydration and BP stable, can resume. (3) Ischemic cardiomyopathy: Continued Metoprolol, losartan held as above given Brian on admission and likely able to resume on Friday as instructed (4) Hypertension: Continued metoprolol, low BPs/BRIAN, losartan and amlodipine placed on hold. To check BP tomorrow, resume lisinopril if stable and can resume his amlodipine (5) Diabetes mellitus: HbA1C 6.8 Held metformin and utilized SSI while inpatient and BSGs acceptable (6) Acid reflux: Chronic/stable and remained on PPI/pepcid (7) CAD (coronary artery disease): Multivessel CAD s/p myocardial infarction and multiple PCI and angioplasty Continued aspirin, clopidogrel, metoprolol succinate, atorvastatin Cardiology consulted --> he is to f/u with his primary cardiology provider in [place] per request Plan VTE Prophylaxis - Heparin 5000 units BID while inpatient Total Time Total Time Spent Total Time Spent (In Minutes): 40 Discharge Plan Discharge Items Patient Disposition: Home - Self-Care Reason For Visit: SVT Discharge Diagnosis: Supraventricular Tachycardia Goals: You have been hospitalized for an acute medical problem. During your stay at [facility], we have made an effort to correct the problem that brought you to the hospital while keeping you as comfortable as possible. Medications were used to bring your condition under control and your discharge instructions will include directions for any medications you should take after leaving the hospital. Please make sure you see your Primary Care Provider as part of your follow up plan. Activity: As commented below Non-emergency contact: Primary Care Provider and Meat [employer] P[employer] Inspector Call non-emergency contact if: you have any medication questions Follow-up/Referrals: Angel French MD [Primary Care Provider] - 02/25/23 11:00 am (Follow up scheduled 02/25/23 @ 11am) Diet: Heart Healthy Addtl Attending Provider Instructions: You have been hospitalized for arrhythmia with elevated rates requiring medication for resolution. Cardiology was consulted and felt this could be related to your low magnesium level and recommended twice daily supplementation at discharge. As discussed, you should try and limit your caffeine intake as this can cause elevations as well. Your losartan was held, and your kidney function improved on repeat values. Please ensure staying hydrated at home and monitor your blood pressure in the morning. If stable, you can resume your losartan tomorrow. 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 Please return to the ER with any chest pain, palpitations, shortness of breath, lightheadedness, dizziness or for any other symptoms concerning for you. Take care! Pending Studies at Discharge: No Stand-Alone Forms: My [facility] [place], Smoking Cessation Medications and DC Order Prescriptions: New Slow-Mag 71.5 mg tablet,delayed release (DR/EC) 71.5 mg PO BID Qty: 60 0RF Continued fluticasone propionate 50 mcg/actuation spray,suspension 2 spray intranasal DAILY PRN (Reason: nasal congestion) Qty: 48 3RF Rx Instructions: uses prn nasal congestion amlodipine 5 mg tablet 5 mg PO QAM Qty: 90 3RF Rx Instructions: qam metoprolol succinate [Toprol XL] 50 mg tablet extended release 24 hr 50 mg PO QAM Qty: 90 3RF atorvastatin 40 mg tablet 40 mg PO HS Qty: 90 3RF famotidine 40 mg tablet 40 mg PO HS Qty: 90 3RF metformin 500 mg tablet 500 mg PO BID Qty: 180 3RF omeprazole 20 mg capsule,delayed release(DR/EC) 40 mg PO DAILY Qty: 180 3RF Rx Instructions: takes QAM Mounjaro 5 mg/0.5 mL pen injector 5 mg subcut .ONCE WEEKLY Qty: 6 1RF clopidogrel 75 mg tablet 75 mg PO DAILY Qty: 90 3RF (DME) Accu-Chek Sonya Plus test strp Strip See Rx Instructions .ROUTE .MEDSUPPLY Qty: 30 1RF Rx Instructions: test once daily diphenhydramine HCl [Benadryl] 25 mg capsule 25 mg PO QPM PRN (Reason: Sleep) nitroglycerin [Nitrostat] 0.4 mg tablet, sublingual 0.4 mg sublingual UD PRN (Reason: Chest Pain) Qty: 25 5RF Patient Comments: states she didn't have any nitro to give patient today(12/06/18) cholecalciferol (vitamin D3) 2,000 unit tablet 2,000 unit PO QAM glucosamine sulfate 1,000 mg capsule 1,000 mg PO BID Patient Comments: vegan brand multivitamin Tablet 1 tab PO QAM aspirin [Rc Low Dose Aspirin] 81 mg Tablet,Delayed Release (Dr/Ec) 81 mg PO QAM calcium carbonate-vitamin D3 [Calcium 600 + D(3)] 600 mg(1,500mg) -400 unit tablet 1 tab PO QPM Held lisinopril 40 mg tablet 40 mg PO QAM Qty: 90 3RF Hold Instructions: Resume on 02/22/23. if BP stable Discharge Orders: Discharge Order (Routine); Ordered 02/21/23 Ordered By: Gabrielle Hoffman Admission Data Admit Date/Time: 02/20/23 15:38 Attending Provider: Orville Gamble Admit Provider: Harry Malcolm Primary Care Provider: Angel French Other Providers: Harry Malcolm ; Nolan Mathias Other Interventions: Discharge Summary Assessment (RN) Last Done: 02/21/23 15:39 Supervising Physician Co-Signing Physician Notes The patient was not seen by me. The chart was reviewed. Case discussed with ELOINA Peralta. Agree with assessment and plan Coding Level of Care Code 02646 INP/OBS DISCH >30 MIN Diagnoses SVT (supraventricular tachycardia) I47.1 BRIAN (acute kidney injury) N17.9 Ischemic cardiomyopathy I25.5 Hypertension I10 Hypertension type: essential hypertension Diabetes mellitus E11.9 Diabetes mellitus complication status: without complication Diabetes mellitus residential insulin use: without residential use Diabetes mellitus type: type 2 Acid reflux K21.9 Esophagitis presence: without esophagitis CAD (coronary artery disease) I25.118 Associated angina: with other forms of angina Coronary Disease-Associated Artery/Lesion type: seminole artery [place] vs. transplanted heart: seminole heart
--- NOTE | 2023-02-21 15:06 | Electrocardiogram Report ---
Test Reason : Blood Pressure : / mmHG Vent. Rate : 090 BPM Atrial Rate : 090 BPM P-R Int : 192 ms QRS Dur : 096 ms QT Int : 360 ms P-R-T Axes : 028 006 093 degrees QTc Int : 440 ms Sinus rhythm Nonspecific ST and T wave abnormality Abnormal ECG When compared with ECG of 20-FEB-2023 13:49, Supraventricular tachycardia is no longer Present ST less depressed in Lateral leads Confirmed by Praneeth Chanel ([id number]) on 02/21/2023 3:05:50 PM Referred By: REFERRED SELF Confirmed By:Praneeth Chanel
--- NOTE | 2023-02-21 15:19 | XCELERA ---
[id number]
== END 2023-02-21 15:40 | disposition home or self-care (01) ==
LOC: 2S 13:38 → ED 13:38 → SUATTDRO 15:38 → 2S 16:31

== ENCOUNTER 2023-12-03 05:06 | Observation (INO) ==
--- NOTE | 2023-10-30 12:57 | PAT Medication Instructions ---
Medication Instructions Date of Service October 30, 2023 Home Medications Medication Instructions Recorded nitroglycerin 0.4 mg sublingual 0.4 mg sublingual UD PRN Chest 01/30/22 tablet (Nitrostat) Pain #25 tabs famotidine 40 mg tablet 40 mg PO HS #90 tabs 10/11/22 lisinopril 40 mg tablet 40 mg PO QAM #90 tabs 12/16/22 tirzepatide 7.5 mg/0.5 mL 7.5 mg (0.5 mL) subcut ONCE #6 mL 05/07/23 subcutaneous pen injector (Mounjaro) fluticasone propionate 50 2 spray intranasal UD PRN nasal 05/08/23 mcg/actuation nasal congestion #48 grams spray,suspension atorvastatin 40 mg tablet 40 mg PO HS #90 tabs 08/25/23 metoprolol succinate 50 mg 50 mg PO QAM #90 tabs 08/25/23 tablet,extended release 24 hr (Toprol XL) cholecalciferol (vitamin D3) 50 mcg (2,000 unit) tablet 2,000 unit PO QAM aspirin 81 mg tablet,delayed release (Rc Low Dose Aspirin) 81 mg PO QAM multivitamin 1 tab PO QAM glucosamine sulfate 1,000 mg capsule 1,000 mg PO BID calcium carbonate 600 mg-vitamin D3 10 mcg (400 unit) tablet (Calcium 600 + D(3)) 1 tab PO QAM diphenhydramine HCl 25 mg capsule (Benadryl) 50 mg PO QPM PRN Sleep nitroglycerin 0.4 mg sublingual tablet (Nitrostat) 0.4 mg sublingual UD PRN Chest Pain famotidine 40 mg tablet 40 mg PO HS lisinopril 40 mg tablet 40 mg PO QAM clopidogrel 75 mg tablet 75 mg PO QAM omeprazole 20 mg capsule,delayed release 40 mg PO QAM tirzepatide 7.5 mg/0.5 mL subcutaneous pen injector (Mounjaro) 7.5 mg (0.5 mL) subcut ONCE fluticasone propionate 50 mcg/actuation nasal spray,suspension 2 spray intranasal UD PRN nasal congestion atorvastatin 40 mg tablet 40 mg PO HS metoprolol succinate 50 mg tablet,extended release 24 hr (Toprol XL) 50 mg PO QAM magnesium oxide 400 mg (241.3 mg magnesium) tablet 400 mg PO UD prednisone 10 mg tablet 5 mg PO DAILY Continue as directed nitroglycerin 0.4 mg sublingual tablet (Nitrostat) 0.4 mg sublingual UD PRN Chest Pain (if needed) ASK your prescriber and surgeon aspirin 81 mg tablet,delayed release (Rc Low Dose Aspirin) 81 mg PO QAM clopidogrel 75 mg tablet 75 mg PO QAM (From anesthesia perspective, Clopidogrel needs to be stopped 7 days before surgery. Please check if okay with doctor that prescribes this to you) STOP 7 days prior to surgery tirzepatide 7.5 mg/0.5 mL subcutaneous pen injector (Mounjaro) 7.5 mg (0.5 mL) subcut ONCE STOP taking 2 weeks before surgery (or as soon as possible if surgery is within 2 weeks) glucosamine sulfate 1,000 mg capsule 1,000 mg PO BID DO NOT take the morning of surgery cholecalciferol (vitamin D3) 50 mcg (2,000 unit) tablet 2,000 unit PO QAM multivitamin 1 tab PO QAM calcium carbonate 600 mg-vitamin D3 10 mcg (400 unit) tablet (Calcium 600 + D(3)) 1 tab PO QAM lisinopril 40 mg tablet 40 mg PO QAM magnesium oxide 400 mg (241.3 mg magnesium) tablet 400 mg PO UD Take morning of surgery With a small sip of water, OTHERWISE NOTHING TO EAT OR DRINK AFTER MIDNIGHT: omeprazole 20 mg capsule,delayed release 40 mg PO QAM fluticasone propionate 50 mcg/actuation nasal spray,suspension 2 spray intranasal UD PRN nasal congestion (if needed) metoprolol succinate 50 mg tablet,extended release 24 hr (Toprol XL) 50 mg PO QAM prednisone 10 mg tablet 5 mg PO DAILY Take evening before surgery diphenhydramine HCl 25 mg capsule (Benadryl) 50 mg PO QPM PRN Sleep (if needed) famotidine 40 mg tablet 40 mg PO HS fluticasone propionate 50 mcg/actuation nasal spray,suspension 2 spray intranasal UD PRN nasal congestion (if needed) atorvastatin 40 mg tablet 40 mg PO HS Other Notes If you have any questions please call us at [phone] or [phone] or [phone] or [phone]
--- NOTE | 2023-11-10 12:30 | Anesthesiology Consultation ---
Date of Service November 10, 2023 Assessment & Plan (1) Dyspnea on exertion: - check BSG am DOS. - awaiting [place] cardiology 11/14/23 pre-operative evaluation including if plavix can be stopped for 7 days. - anesthesia concerns: patient has concerns with neuraxial anesthesia in setting of chronic back pain. Neuraxial vs general anesthesia discussed. He plans to have final discussion with assigned anesthesiologist, especially given his cardiac history. - tirzepatide instructions: Patient informed at PAT visit to stop 7 days prior to surgery- voiced understanding. Patient advised to check with prescriber to see if alternative diabetic management changes recommended while holding tirzepatide- if so, patient to call back to [facility] to update chart and discuss if any further preop medication instructions needed. - Outpatient joint assessment: Patient is currently scheduled for inpatient pathway. If re-evaluated and patient/surgeon requests outpatient pathway, patient is not recommended candidate for outpatient joint program from anesthesia standpoint. Chart Review Chart Review: Pending: Refer to Additional Notes / Consult section and Patient seen in Pre Admission Testing Teaching & Discussion Pre-Anesthesia Teaching/Discussion Notes: Instructed NPO after midnight before surgery, except medications with 15 cc of water. Medication instructions provided according to the PAT guidelines. History Surgery Operation Date: 12/03/23 08:50 Proposed Procedures p Left Total Hip Arthroplasty - Faisal García MD Height/Weight Height: 5 ft 10.5 in Weight: 90.4 kg Allergies Allergy/AdvReac Type Severity Reaction Status Date / Time glucosamine Allergy Intermediate suspected Verified 10/29/23 10:37 hives shellfish derived Allergy Intermediate Hives Verified 10/29/23 10:37 morphine AdvReac Mild Vomiting Verified 10/29/23 10:37 Medications Home Medications Medication Instructions Recorded Confirmed Last Taken cholecalciferol (vitamin D3) 50 2,000 unit PO QAM 11/12/18 10/29/23 04/20/23 mcg (2,000 unit) tablet aspirin 81 mg tablet,delayed 81 mg PO QAM 11/30/18 10/29/23 04/20/23 release (Rc Low Dose Aspirin) multivitamin 1 tab PO QAM 11/30/18 10/29/23 04/20/23 glucosamine sulfate 1,000 mg 1,000 mg PO BID 12/17/18 10/29/23 04/20/23 capsule calcium carbonate 600 mg-vitamin 1 tab PO QAM 03/24/19 10/29/23 04/20/23 D3 10 mcg (400 unit) tablet (Calcium 600 + D(3)) diphenhydramine HCl 25 mg capsule 50 mg PO QPM PRN Sleep 01/29/22 10/29/23 04/10/23 (Benadryl) nitroglycerin 0.4 mg sublingual 0.4 mg sublingual UD PRN Chest 01/30/22 10/29/23 Unknown tablet (Nitrostat) Pain #25 tabs famotidine 40 mg tablet 40 mg PO HS #90 tabs 10/11/22 10/29/23 04/20/23 lisinopril 40 mg tablet 40 mg PO QAM #90 tabs 12/16/22 10/29/23 04/21/23 clopidogrel 75 mg tablet 75 mg PO QAM 04/11/23 10/29/23 04/16/23 omeprazole 20 mg capsule,delayed 40 mg PO QAM 04/11/23 10/29/23 04/21/23 release tirzepatide 7.5 mg/0.5 mL 7.5 mg (0.5 mL) subcut ONCE #6 mL 05/07/23 10/29/23 Unknown subcutaneous pen injector (Paco) fluticasone propionate 50 2 spray intranasal UD PRN nasal 05/08/23 10/29/23 Unknown mcg/actuation nasal congestion #48 grams spray,suspension atorvastatin 40 mg tablet 40 mg PO HS #90 tabs 08/25/23 10/29/23 Unknown metoprolol succinate 50 mg 50 mg PO QAM #90 tabs 08/25/23 10/29/23 Unknown tablet,extended release 24 hr (Toprol XL) magnesium oxide 400 mg (241.3 mg 400 mg PO UD 09/23/23 10/29/23 Unknown magnesium) tablet blood sugar diagnostic (Accu-Chek 10/14/23 Unknown Sonya Plus test strips) prednisone 5 mg tablet 5 mg PO DAILY 10 days #10 tabs 11/03/23 Unknown Past Medical History Medical History (Updated 11/10/23 @ 14:25 by Jessica Augustine, CHARLEEN) Acid reflux controlled, stable per pt CAD (coronary artery disease) circumflex, RCA, LAD and also angioplasty of diagonal and circumflex stent (total of 12 stents per pt-most recent 2020) Chronic back pain Diabetes mellitus (02/26/13) NIDDM History of anemia History of anesthesia reaction 04/10/23 , ablation for svt - felt uncomfortable position related...blood pressure got low, couldn't have any more anesthesia. [facility]. History of BPH History of COVID-19 (~2018) resolved History of diverticulosis denies h/o diverticulitis History of fracture of orbit (2014) right, surgery to correct History of supraventricular tachycardia had RFA 2022 Hx of colonic polyps Hx of myocardial infarction x 3, most recent 2004, multiple cardiac caths with 12 stents per pt, tPA x 1, follows with Dr. Mclean [facility] and Dr. Livingston, [facility] Hyperlipidemia Hypertension controlled, stable per pt Ischemic cardiomyopathy Osteopenia Pleural plaque with presence of asbestos followed with Dr. Mcgowan in past Polymyalgia rheumatica Post-op bleeding x2 - s/p colonoscopy with biopsy. hx of returning to Emergency Room and inpatient treatment with repairs x2 (clampings per pt) Ventral hernia current Patient denies h/o stroke, seizures, heart failure, blood clots/DVTs or blood transfusions. Exercise / Class Metabolic Activity II 4-5 Yardwork/Stairs/Walk up hill (denies chest discomfort or shortness of breath with one flight of stairs) Past Family History Family History Father , age 78 Liver disease Coronary heart disease Myocardial infarction Diabetes Heart disease Stroke Mother , age 62 Colorectal cancer Liver cancer Daughter Diabetes FH: mitral valve repair Kidney disease Arthritis Sister Arthritis COPD (chronic obstructive pulmonary disease) Diabetes Depression Fibromyalgia Dyslipidemia Grandfather (Maternal) Heart disease Denies family history of Ovarian cancer Prostate cancer Breast cancer Past Surgical History Surgical History H/O angiography (~11/2018) Dr Vieira [facility] History of blepharoplasty bilateral. History of endoscopy History of hernia repair as a child History of radiofrequency ablation (RFA) procedure for cardiac arrhythmia (~03/2023) for SVT at [facility] Hx of bilateral cataract extraction Hx of colonoscopy with polypectomy Hx of heart surgery (~04/2021) cardiac lithotripsy - Dr. Livingston, [facility] S/P cardiac cath multiple - s/p 12 stents, most of them placed in [place]; 2 out of [address] Vieira in 2017 most recent 11/2018 [facility] (no stents, performed angiography), follows with Dr. Mclean at [facility] and Dr. Livingston at [facility] S/P coronary artery stent placement total 12 stents. S/P eye surgery repair of right orbital floor fracture S/P laparoscopic cholecystectomy S/P left knee arthroscopy S/P TURP x 2 S/P vasectomy Past Anesthesia History No Family Hx of Anesthesia Complications and Other (see above.) History of PONV No Hx of Motion Sickness and History of PONV (denies needing scop patch) Social History Smoking Status: Former smoker tobacco type: cigarettes Do You Dip or Chew Tobacco: No Smoking End Date: quit 1995 (2 PPD) Hx Alcohol Use: Yes Alcohol type: wine alcohol intake frequency: holidays/special occasions only Hx Substance Use: No substance use type: does not use Review of Systems Occasional snoring, denies witnessed apneas. Patient denies chest pain, shortness of breath, dyspnea on exertion, fever, chills, cough, wheezing, or palpitations. Physical Exam Vital Signs Vitals BP 129/80 P 57 TEMP 97.5 SP02 97% on RA RESP 18 Physical Patient resting comfortably in chair in no acute distress, alert and oriented, responding appropriately throughout visit Full cervical extension range of motion without pain TMD 3.5 finger breadths Mallampati Score 2 Dentition: several caps/crowns; denies chipped or loose teeth, implants or bridges Lungs: normal respiratory effort. Good air movement, clear throughout to auscultation, no adventitious breath sounds Cardiac: regular rate and rhythm, 2/6 systolic murmur, no gallops or rubs Carotid arteries: negative bruit bilat Lab Results Anesthesia Preop Results Results Anesthesia Widget: WBC 8.08 K/ul (4.8-10.8) 11/10/23 Hgb 14.7 g/dl (14.0-18.0) 11/10/23 Hct 43.9 % (42.0-52.0) 11/10/23 Plt 251 K/uL (130-400) 11/10/23 Na 137 mmol/L (136-145) 11/10/23 K 4.1 mmol/L (3.5-5.1) 11/10/23 Cl 101 mmol/L (98-107) 11/10/23 CO2 29 mmol/L (21-32) 11/10/23 BUN 20 mg/dl (6-23) 11/10/23 Creat 0.90 mg/dl (0.6-1.4) 11/10/23 Glucose Level 99 mg/dl (70-99(Fasting)) 11/10/23 PT 10.8 Seconds (9.0-12.0) 11/10/23 PTT 25 Seconds (21-31) 11/10/23 INR 1.0 (0.9-1.1) 11/10/23 HA1c 5.7 % (4.5-5.6) H 11/10/23 Urine Color Yellow 11/10/23 Urine Appearance Clear (Clear) 11/10/23 Urine pH 6.5 (4.5-7.5) 11/10/23 Urine Specific [place] 1.010 (1.000-1.030) 11/10/23 Urine Protein Negative (Negative) 11/10/23 Urine Glucose (UA) Negative (Negative) 11/10/23 Urine Ketones Negative (Negative) 11/10/23 Urine Blood Negative (Negative) 11/10/23 Urine Nitrite Negative (Negative) 11/10/23 Urine Bilirubin Negative (Negative) 11/10/23 Urine Urobilinogen Negative (Negative) 11/10/23 Urine Leukocyte Esterase Negative (Negative) 11/10/23 Blood Type A Positive 11/10/23 Antibody Screen NEGATIVE 11/10/23 Testing Electrocardiogram Date: 05/14/23 Sinus rhythm with 1st degree AV block, rate 61 bpm Minimal voltage criteria for LVH, may be normal variant Inferior infarct, age undetermined Chest X-Ray Date: 11/10/23 No acute cardiopulmonary findings. No change in appearance of the chest. Echocardiogram Date: 02/21/23 EF 45-50% Mild inferior wall hypokinesis Mild septal hypokinesis Atrial septal aneurysm noted with small hemodynamically insignificant shunt Color flow suggests possible PFO but bubble study not performed Inferior wall motion abnormalities are less severe today compared to prior study dated 12/07/18 Mild mitral regurgitation Grade I diastolic dysfunction Stress Test Date: 10/26/20 Ejection fraction: 46 % Wall motion: Hypokinesis involving the base to mid lateral and base to mid inferolateral wall segments. Otherwise, normal wall motion. No significant transient ischemic dilation. Impression: 1. Abnormal myocardial perfusion study suggesting lateral and inferolateral infarct with mild ischemia. 2. Mildly reduced left ventricular systolic function. EF 46%. 3. Hypokinesis of the base to mid lateral and base to mid inferolateral wall segments. 4. Lexiscan induced chest pressure. 5. Nondiagnostic Lexiscan ECG. Plan: 1. Previously documented circumflex CAD with multiple PCI for which medical therapy has been recommended. Continue to optimize medical therapy. Patient underwent below cardiac catheterization 05/10/21 Cardiac Catheterization Date: 05/10/21 Left main: mildly diseased LAD: proximal LAD mildly diseased. Mid LAD moderately diseased, has existing stent. 50% lesion. Distal LAD mildly diseased. 1st and 2nd diagonals are mildly diseased. Cx: proximal severely diseased. 90% lesion in ostial portion IVUS performed demonstrating 100% restenosis. Mid CX moderately diseased. 40% lesion mid Cx. Distal Cx diffusely diseased. 1st and 2nd marginals mildly diseased. RCA: mildly diseased throughout Impression Multivessel CAD with chronically underexpanded previously placed proximal LAD stent (50%; iFR > 0.9) and severe recurrent proximal LCx in-stent restenosis (90%; iFR 0.87) Success proximal LCx intracoronary balloon lithotripsy and IVUS guided PCI with a 3.0 x 15 mm Xience SHAY Uninterrupted DAPT for at least 6-12 months
--- NOTE | 2023-12-03 05:16 | History & Physical Bridge Note ---
Date of Service December 03, 2023 History & Physical Bridge Note I have examined the patient, reviewed the History & Physical and in the interval since the performance of the History & Physical I have noted the following changes of clinical significance:consent and site verified. no changes noted
[2023-12-03] MEDS: LR 15ML/HR IV SCH (05:53)
[2023-12-03] MEDS: TRANEXAMIC ACID / 0.7% NACL 1000MG/100ML BAG IV ONE (05:59)
[2023-12-03] MEDS: LR 60ML/HR IV SCH (06:06)
[2023-12-03] MEDS ORDERED: BUPIVACAINE 0.5 % 5 MG/1 ML PF 10ML VIAL ONE (06:24)
[2023-12-03] MEDS ORDERED: MIDAZOLAM HCL 1 MG/ML 2ML VIAL ONE (06:29)
[2023-12-03] MEDS ORDERED: fentaNYL citrate PF 100 MCG/2 ML VIAL ONE (06:29)
[2023-12-03] MEDS ORDERED: ePHEDrine sulfate 50 MG/ML AMP IV PRN (07:01)
[2023-12-03] MEDS ORDERED: ONDANSETRON INJ 2 MG/ML 2 ML VIAL IV PRN (07:01)
[2023-12-03] MEDS ORDERED: ATROPINE SULFATE 0.1 MG/ML 10ML SYR IV PRN (07:01)
[2023-12-03] MEDS ORDERED: fentaNYL citrate PF 100 MCG/2 ML VIAL IV PRN (07:01)
[2023-12-03] MEDS: ceFAZolin 2000MG 2,000 MG/15 ML SYR IV SCH ×2 (07:05→14:48)
[2023-12-03] MEDS ORDERED: PROPOFOL IV EMULSION 10 MG/ML 20 ML VIAL IV ONE (07:12)
[2023-12-03] MEDS: ORTHO JOINT ANESTHETIC ONE (07:20)
[2023-12-03] MEDS: ROPIVACAINE 0.5% HCL/PF 246 MG, Ketorolac (*for OR use only*) 30 MG, EPINEPHrine 30MG/3... INFIL SCH (08:11)
--- NOTE | 2023-12-03 08:23 | Post Operative Brief Note ---
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
--- NOTE | 2023-12-03 08:28 | Operative Report ---
Post Operative Report Pre & Post Diagnosis Operation Date: 12/03/23 07:00 Pre-Op Diagnosis: Left Hip Osteoarthritis Post-Op Diagnosis: Left Hip Osteoarthritis I identified the patient and participated in the time-out.: Yes Procedure Operation Date: 12/03/23 07:00 Actual Procedures p Left Total Hip Arthroplasty(Left) - Faisal García MD Surgeon Faisal García MD [employer] Professor [employer] no resident or fellow available Estimated Blood Loss 100 Findings Consistent with Post-Op Diagnosis Central and posterolateral disease of the acetabulum no major femoral head disease significant marginal osteophyte Fluids See anesthesia Specimens Bone Drains None Complications None Indications Uncontrolled pain left hip/history of back issues advised that this may not completely eliminate his issues Description of Procedure After the patient was appropriately identified and consent and antibiotics confirmed to be obtained /given the left lower extremity was prepped and draped use routine fashion. He was about half centimeter long on the left preop. Once he was prepped and draped use routine fashion in the left lateral decubitus position timeout was performed and appropriate side identified. Posterolateral posterior hip was then made. Sharp dissection carried through skin blunt dissection down to the fascia. This was then incised under direct vision care taken to protect the sciatic nerve and a deep retractor placed. The short external rotators were then released the capsule was then teed the hip was then dislocated. There was some chondromalacia of the femoral head but there was no exposed bone. The femoral neck and head were resected appropriately being about a centimeter of the femoral neck. When inspecting the acetabular 1 could see a very central and posterolateral swath of bare bone. This is a very unusual wear pattern. He accounts for his pain. Hopefully this eliminated all of his issues but he does have significant back trouble. Serial reaming was then carried up in a 56 cup was then impacted into position with excellent rim fit it was placed in appropriate anteversion and inclination. It was then secured with an additional 6.5 x 25 screw with excellent bite. It: Meter was then seated in the permanent dome cover placed. Femur was then flexed internally rotated proximal femur prepared with the box sealing machine operator canal finder lateralizing rasp and serial broaching up to a size 9. Trial reduction was then carried out. It was quite long with a +5 head the shortness is a 1.5 that gotten within preop length which was slightly long about 1/2 cm or so. The hip was stable in all planes. The hip was then dislocated the femoral canal prepared by irrigating with Betad ine Pulsavac and TXA. The permanent stem was then seated permanent head and stem seated hip was reduced. He was stable in all planes. Leg lengths were about what they were preop. There was minimal bleeding estimated blood loss was 100 cc during the procedure. Wound was then appropriate closed using #2 Vicryl for the capsule of the short external rotators and the deep fascia and deep fat and subcutaneous layer closed with 2-0 Vicryl standstill clips appropriate dressing applied patient transferred recovery in satisfactory systemic tolerated the procedure well. Summary of implants size 56 shell acetabular cup DePuy 26 x 25 screw dome cover 56/49 liner 9 standard femoral Actis stem with collar 49/28 bipolar 28 ceramic head +1.5. Patient's was contacted. Transferred recovery in satisfactory addition he tolerated the procedure well. I attest to the content of the Intraoperative Record and any orders documented therein. Any exceptions are noted below.
--- NOTE | 2023-12-03 08:29 | Post Operative Brief Note ---
Immediate Post Op Note v1 Date of Surgery December 03, 2023 Pre & Post Diagnosis Operation Date: 12/03/23 07:00 Pre-Op Diagnosis: Left Hip Osteoarthritis Post-Op Diagnosis: Left Hip Osteoarthritis I identified the patient and participated in the time-out.: Yes Procedure Operation Date: 12/03/23 07:00 Actual Procedures p Left Total Hip Arthroplasty(Left) - Faisal García MD Surgeon Faisal García MD Dining Services Manager [facility] no resident or fellow available Estimated Blood Loss 100 Findings Consistent with Post-Op Diagnosis See other note this was done before
--- NOTE | 2023-12-03 08:30 | Orthopedic Progress Note ---
Date of Service December 03, 2023 Subjective Underwent left total replacement. He is doing well with no major issues. Denies chest pain shortness of breath fever chills nausea vomiting or headache. Vital signs are stable neurovascular check limited by spinal. EBL was 100 cc or less crystalloid per anesthesia bone pathology pending. contacted. X-ray pending. Leg lengths just about equal to what they were preop which was a long on the left. Results & Data Vital Signs (Past 12 Hours) Vital Signs Temp Pulse Resp BP Pulse Ox O2 Del Method 12/03/23 05:46 36.6 C 56 L 20 150/75 H 98 Room Air
--- NOTE | 2023-12-03 08:31 | Operative Report ---
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 He had tried conservative care measures without improvement. He elected to proceed with surgical intervention after being educated about potential risks and outcomes. Preoperative imaging was obtained. Description of Procedure The patient was given a spinal anesthetic and then taken to the operating room where he was given sedation. He was prepped and draped in the usual sterile fashion. Please see Dr. García's operative report for specifics of the procedure. I was present for the entire case from initial patient positioning through final closure. Assistance was provided in tissue retraction, hemostasis, trial implant placement, final implant placement, and final wound closure. The patient was taken to the recovery room in satisfactory condition. I attest to the content of the Intraoperative Record and any orders documented therein. Any exceptions are noted below.
--- NOTE | 2023-12-03 08:31 | Discharge Summary ---
Date of Service December 04, 2023 Admission HPI Per Admitting Provider Left hip pain Principal Diagnosis Osteoarthritis left hip severe back issues Discharge Data Allergies Allergy/AdvReac Type Severity Reaction Status Date / Time glucosamine Allergy Intermediate suspected Verified 11/14/23 11:12 hives shellfish derived Allergy Intermediate Hives Verified 12/03/23 05:36 morphine AdvReac Mild Vomiting Verified 11/14/23 11:12 Consultations None Procedures Performed Operation Date: 12/03/23 07:00 Actual Procedures p Left Total Hip Arthroplasty(Left) - Faisal García MD Ordered Studies X-ray bone pathology Hospital Course (1) Status post left hip replacement: Total Time Total Time Spent Total Time Spent (In Minutes): 5 Discharge Plan Discharge Items Reason For Visit: Left Hip Osteoarthritis Discharge Diagnosis: Same Condition on Discharge: Good Activity: Per Instructions section Lifting: Wait until after follow-up appointment Bathing: Keep incision dry Sexual Activity: Wait until after follow-up appointment Exercise/Sports: Wait until after follow-up appointment Follow-up/Referrals: ProAngel MD [Primary Care Provider] - Ambulatory Orders: Hemoglobin A1C (Glycosylated) (Routine) Timeframe: 20231110 Location: Determined by Patient Ordered By: Jessica Raines Attending Provider Instructions: DIET: * Resume previous diet. MEDICATIONS: * Please take your prescriptions as instructed at your pre-op appointment and/or see medication discharge instructions listed above. * If concerns develop, call your physician's office at . SPECIAL CARE INSTRUCTIONS: * Ice/Elevate as instructed. * Keep dressing clean, dry, intact. * Your surgical extremity may be discolored due to prepping agents used on the skin. A bluish-green tint is a normal variant and should not cause alarm. Call your doctor at [phone] if: * Temperature above 101 degrees * Pain not relieved by pain medicine ordered * There is increased drainage or redness from any incision * You have any unanswered questions, problems or concerns. FOLLOW UP VISIT: * If not already scheduled, please call the office at to schedule a follow-up appointment. Pending Studies at Discharge: Yes Studies:: Bone pathology Stand-Alone Forms: My [facility] Medications and DC Order Prescriptions: No Action famotidine 40 mg tablet 40 mg PO HS Qty: 90 3RF fluticasone propionate 50 mcg/actuation spray,suspension 2 spray intranasal UD PRN (Reason: nasal congestion) Qty: 48 3RF Rx Instructions: uses prn nasal congestion metoprolol succinate [Toprol XL] 50 mg tablet extended release 24 hr 50 mg PO QAM Qty: 90 3RF Mounjaro 10 mg/0.5 mL pen injector 10 mg subcut .weekly Qty: 6 3RF omeprazole 20 mg capsule,delayed release(DR/EC) 40 mg PO QAM Qty: 180 0RF Rx Instructions: takes QAM diphenhydramine HCl [Benadryl] 25 mg capsule 50 mg PO QPM PRN (Reason: Sleep) nitroglycerin [Nitrostat] 0.4 mg tablet, sublingual 0.4 mg sublingual UD PRN (Reason: Chest Pain) Qty: 25 5RF Patient Comments: never used it cholecalciferol (vitamin D3) 2,000 unit tablet 2,000 unit PO QAM glucosamine sulfate 1,000 mg capsule 1,000 mg PO BID Patient Comments: ve[employer] brand magnesium oxide 400 mg (241.3 mg magnesium) tablet 400 mg PO UD prednisone 10 mg tablet See Rx Instructions .ROUTE .COMPLEX Rx Instructions: taper down dosage as directed for 10 weeks (DME) Accu-Chek Sonya Plus test strp Strip See Rx Instructions .ROUTE .MEDSUPPLY Rx Instructions: test once daily multivitamin Tablet 1 tab PO QAM aspirin [Rc Low Dose Aspirin] 81 mg Tablet,Delayed Release (Dr/Ec) 81 mg PO QAM calcium carbonate-vitamin D3 [Calcium 600 + D(3)] 600 mg(1,500mg) -400 unit tablet 1 tab PO QAM clopidogrel [Plavix] 75 mg tablet 75 mg PO QAM atorvastatin [Lipitor] 40 mg tablet 40 mg PO HS lisinopril [Zestril] 40 mg tablet 40 mg PO QAM Admission Data Admit Date/Time: 12/03/23 08:39 Attending Provider: Faisal García Admit Provider: Faisal García Primary Care Provider: Angel French Other Providers: [facility],Home Healthcare; [facility]
--- NOTE | 2023-12-03 09:02 | XRay Report ---
SINGLE VIEW PELVIS CLINICAL HISTORY: Postoperative examination. FINDINGS: An AP portable view of the hips and lower pelvis is compared to study dated 08/19/2023. A bi polar left hip arthroplasty is in near-anatomic alignment. A single cortical lag screw transfixes the acetabular cup. No acute fracture is identified. There are expected postoperative changes overlying the left hip including skin clips, subcutaneous gas, a surgical drain, and soft tissue swelling. Mild /moderate osteoarthritic change is seen in the right hip. IMPRESSION: Expected postoperative findings status post left hip arthroplasty. No acute fracture is s een. ACT 112: Negative or not required by law. Electronically signed by: Alexander Bell M.D. 12/03/2023 9:01 AM
[2023-12-03] MEDS ORDERED: VANCOMYCIN CONSULT ACTIVE PRN (10:41)
[2023-12-03] MEDS ORDERED: NON-FORMULARY MEDICATION (Multivitamin Tablet) PO SCH (10:41)
[2023-12-03] MEDS ORDERED: PHARMACY GLYCEMIC MGMT CONSULT PRN (10:41)
[2023-12-03] MEDS ORDERED: METOCLOPRAMIDE HCL INJ 5 MG/ML 2 ML VIAL IV PRN (10:41)
[2023-12-03] MEDS ORDERED: NALOXONE HCL 0.4 MG/1 ML VIAL/CARP IV PRN (10:41)
[2023-12-03] MEDS ORDERED: ALUMINUM/MAGNESIUM SUSP 30 ML UDC PO PRN (10:41)
[2023-12-03] MEDS ORDERED: NITROGLYCERIN SL 0.4 MG/TAB TAB SL PRN (10:41)
[2023-12-03] MEDS ORDERED: FLUTICASONE PROPIONATE NA SPR 16 GM BTL NAE PRN (10:41)
[2023-12-03] MEDS ORDERED: TAMSULOSIN HCL 0.4 MG CAP PO PRN (10:41)
[2023-12-03] MEDS ORDERED: diphenhydrAMINE 50 MG/ML VIAL IV PRN (10:41)
[2023-12-03] MEDS ORDERED: MAGNESIUM HYDROXIDE SUSP 30 ML UDC PO PRN (10:41)
[2023-12-03] MEDS ORDERED: bisacodyL 10 MG SUPP PR PRN (10:41)
[2023-12-03] MEDS: TRANEXAMIC ACID 1,000 MG x 1 **TOPICAL Use Intraop TOP SCH (10:42)
[2023-12-03] MEDS: SODIUM CHLORIDE 0.9% 1,000 ML IV SCH (11:03)
[2023-12-03] MEDS ORDERED: GLUCAGON FOR INJ 1 MG VIAL IM PRN (11:30)
[2023-12-03] MEDS ORDERED: GLUCOSE 40% GEL 15 GM TUBE PO PRN (11:30)
[2023-12-03] MEDS ORDERED: CARBOHYDRATES FOR HYPOGLYCEMIA PO PRN (11:30)
[2023-12-03] MEDS ORDERED: GLUCOSE 10 TAB/TUBE PO PRN (11:30)
[2023-12-03] MEDS ORDERED: DEXTROSE 50% 50 ML SYRINGE IV PRN (11:30)
[2023-12-03] MEDS: METOPROLOL SUCC 50MG EXT REL TAB PO SCH (11:49)
[2023-12-03] MEDS: DOCUSATE SODIUM 100 MG CAP PO SCH (11:50)
[2023-12-03] MEDS: KETOROLAC TROMETHAMINE 15 MG/ML VIAL IV SCH (11:50)
[2023-12-03] MEDS: lisinopril 40 MG TAB PO SCH (11:50)
[2023-12-03] MEDS: ASPIRIN 81 MG ECTAB PO SCH (11:51)
[2023-12-03] MEDS: MULTIVITAMIN TAB PO SCH (11:51)
[2023-12-03] MEDS: VANCOMYCIN HCL 1,250 MG in SODIUM CHLORIDE 0.9% 500 ML IV ONE (11:58)
[2023-12-03] MEDS: INSULIN ASPART PER UNIT CHARGE SC SCH (12:28)
--- NOTE | 2023-12-03 12:28 | Anesthesiology Progress Note ---
Date of Service December 03, 2023 Anesthesia Post Procedure Vital Signs Vital Signs: Temp Pulse Pulse Resp BP BP Pulse Ox 12/03/23 11:43 36.7 C 52 L 17 122/75 99 12/03/23 11:14 36.5 C 51 L 16 115/74 98 12/03/23 10:47 36.5 C 51 L 16 114/67 99 12/03/23 10:15 53 L 17 118/67 99 12/03/23 10:05 50 L 12 159/64 H 100 12/03/23 09:55 48 L 13 152/75 H 100 12/03/23 09:45 36.4 C L 47 L 12 124/74 100 12/03/23 09:35 47 L 12 148/67 H 97 12/03/23 09:25 48 L 15 153/65 H 99 12/03/23 09:15 48 L 12 145/67 H 98 12/03/23 09:05 49 L 14 141/72 H 97 12/03/23 08:55 47 L 15 138/59 L 99 12/03/23 08:45 48 L 11 L 113/75 97 12/03/23 08:35 47 L 13 129/66 100 12/03/23 08:27 36.1 C L 53 L 14 115/61 99 12/03/23 05:46 36.6 C 56 L 20 150/75 H 98 O2 Del Method O2 Flow Rate 12/03/23 11:43 Room Air 12/03/23 11:14 Room Air 12/03/23 10:47 Room Air 12/03/23 10:15 Room Air 12/03/23 10:05 Room Air 12/03/23 09:55 Room Air 12/03/23 09:45 Room Air 12/03/23 09:35 Room Air 12/03/23 09:25 Room Air 12/03/23 09:15 Room Air 12/03/23 09:05 Room Air 12/03/23 08:55 Room Air 12/03/23 08:45 Room Air 12/03/23 08:35 Oxymask 5 12/03/23 08:27 Oxymask 5 12/03/23 05:46 Room Air Transfer of Care Handoff Completed per policy Notes Mental Status: alert / awake / arousable Patient Amnestic to Procedure: Yes Nausea / Vomiting: adequately controlled Pain: adequately controlled Airway Patency, RR, SpO2: stable & adequate BP & HR: stable & adequate Hydration State: stable & adequate Neuraxial Anesthesia: was administered and sensory block is resolving Anesthetic Complications: no major complications apparent and Pt Satisfied with anesthetic care
[2023-12-03] MEDS: ACETAMINOPHEN 500 MG TAB PO SCH (13:00)
--- NOTE | 2023-12-03 14:41 | Pharmacy Report ---
Pharmacy Glycemic Short Note 2 - Date of Service December 03, 2023 - Glycemic Short BSG Results (Last 24 hours): 12/03/23 12/03/23 12/03/23 05:32 08:30 11:30 POC Glucose 108 H 112 H 124 H OUTPATIENT ANTIDIABETIC REGIMEN: * Tirzepatide weekly (last dose 11/23) * A1c 5.7% 11/10/23 ASSESSMENT: * Patient is a 77 yo admitted following left total hip arthroplasty, BSGs 108-112-124 mg/dL * A1c indicates good outpatient control, will hold on basal and begin conservative novolog * Scheduled to start dexamethasne 10 mg IV daily tomorrow- may require tightened parameters at that time PLAN FOR INPATIENT GLYCEMIC CONTROL: * Basal insulin * hold * Bolus insulin * NovoLog per scale ACHS or Q6hrs while NPO * Goal Range: Low 110 mg/dL - High 140 mg/dL * Correction Factor: 40 mg/dL/unit * Nutritional / Prandial insulin per carb ratio of 1 unit per 16 grams CHO consumed
[2023-12-03] MEDS: FERROUS GLUCONATE 324 MG TAB PO SCH (17:34)
[2023-12-03] MEDS: ASCORBIC ACID 500 MG TAB PO SCH (17:34)
[2023-12-03] MEDS: oxyCODONE HCL IR 5 MG TAB (IMMEDIATE RELEASE) PO PRN (18:03)
[2023-12-03] MEDS: SENNA 8.6 MG TAB PO SCH (19:57)
[2023-12-03] MEDS: FAMOTIDINE 40 MG TABLET PO SCH (19:57)
[2023-12-03] MEDS: ATORVASTATIN 40 MG TAB PO SCH (19:57)
[2023-12-03] MEDS: HYDROmorphone INJ 0.5 MG/0.5 ML SYR IV PRN (19:58)
[2023-12-03] MEDS: HYDROCORTISONE SOD 50 MG in SYRINGE 0 ML IV SCH (20:21)
[2023-12-03] MEDS: ONDANSETRON INJ 2 MG/ML 2 ML VIAL IV PRN (21:32)
--- NOTE | 2023-12-04 06:15 | Orthopedic Progress Note ---
Date of Service December 04, 2023 Assessment & Plan Admission and Anticipated Discharge Date Admission Date: December 03, 2023 Orthopedic Progress Note Postop day #1 status post left total replacement. Patient a little vagal after some pain medication need to be careful with that do not give it to him immediately before PT OT. Vital signs are stable he is afebrile. Neurovascular check femoral sciatic nerve is normal. Wound dressing clean dry and intact. Assessment doing well continue with PT OT discharge plans today. Begin DVT PE prophylaxis. Follow-up in 2 weeks for staple removal. Please make sure he gets discharged with his oral antibiotics.
[2023-12-04 06:18] LABS: Basophils # (auto) 0.01 K/uL (0.00-0.20); Basophils % (auto) 0.1 %; Eosinophils # (auto) 0.02 K/uL (0.00-0.50); Eosinophils % (auto) 0.2 %; Hematocrit (blood only) 39.6 % (42.0-52.0); Hemoglobin 13.2 g/dl (14.0-18.0); Immature Granulocytes # (auto) 0.05 K/uL (0.01-0.20); Immature Granulocytes % (auto) 0.4 %; Lymphocytes # (auto) 1.02 K/uL (1.20-3.40); Mean Corpuscular Hgb Conc 33.3 g/dL (32.0-36.0); Mean Platelet Volume 9.7 fL (9.4-12.4); Monocytes # (auto) 1.19 K/uL (0.11-0.59); Monocytes % (auto) 9.3 %; Neutrophils # (auto) 10.54 K/uL (1.40-6.50); Platelet Count 213 K/uL (130-400); RDW Coefficient of Variation 15.5 % (11.5-14.5); RDW Standard Deviation 51.1 fL (36.4-46.3); White Blood Count 12.83 K/ul (4.8-10.8)
[2023-12-04 06:22] LABS: BUN Creatinine Ratio 26.4 (10-20); Calcium 9.3 mg/dl (8.6-10.3); Creatinine Clr Calc Pharmacy 80.8 ml/min; Est GFR (African American) 97.2 ml/min; Est GFR (Non-African American) 83.8 ml/min; Potassium 4.9 mmol/L (3.5-5.1)
[2023-12-04] MEDS: dexAMETHasone 10 MG in SYRINGE 0 ML IV SCH (08:30)
[2023-12-04] MEDS: PANTOprazole 40 MG TAB PO SCH (08:31)
[2023-12-04] MEDS: APIXABAN 2.5 MG TAB PO SCH (08:31)
--- NOTE | 2023-12-04 08:38 | Orthopedic Progress Note ---
Date of Service December 04, 2023 Assessment & Plan (1) Status post left hip replacement: Plan: The patient was educated regarding today's findings. Conservative care measures were discussed. His postsurgical dressings were changed by me. He may leave this in place through the weekend. It may be changed on Friday by home health if needed for soiling. It can also be left in place until he sees me in the office in 2 weeks for staple removal. Continue with total hip precautions. He may be discharged to home after physical therapy and Occupational Therapy have assessed. Prescriptions for doxycycline 100 mg, Eliquis 2.5 mg, and Percocet 5/325 mg have been sent to his pharmacy. Written discharge instructions were provided. Call the office with any other concerns. Continue using the walker for ambulation. Admission and Anticipated Discharge Date Admission Date: December 03, 2023 Subjective This 77-year-old male is seen today in his room. He is 1 day status post left total hip arthroplasty. He states he did reasonably well overnight. The spinal anesthetic was very effective for a while. He states it wore off throughout the evening and he had significant pain last night. It was controlled reasonably well with Percocet. He has been able to sit in his bedside chair. He has not ambulated in the room yet. He denies any chest pain, shortness of breath, nausea, vomiting, or abdominal pain. No other complaints. He would like to go home today. He has not seen physical therapy or 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 therapy yet. Review of Systems Review of Systems: No change from yesterday. Physical Exam Physical Exam: General: Well-developed, well-nourished, elderly male, in no acute distress. Laying in bed. Alert and oriented. Conversive. Skin: Warm and dry with good turgor. No rashes. Postsurgical dressing is in place on the left hip. Upon removal, he has expected postoperative ecchymosis. No edema. No erythema. No active drainage. There is scant dried blood on his most inner dressings. Musculoskeletal: Left hip evaluation reveals the above-stated surgical changes. He has supple motion of the hip for flexion as well as logrolling. The hip and gluteus are tender to touch. He has intact motor function of his toes, ankle, knee, and hip on the left side. He is able to perform a straight leg raise. Neurologic: Gross sensation is intact across the left leg by soft touch. Peripheral pulses are 2+. Results & Data Vital Signs (Past 12 Hours) Vital Signs Temp Pulse Pulse Resp BP BP Pulse Ox 12/04/23 07:57 36.5 C 55 L 16 132/72 97 12/04/23 03:56 36.4 C L 59 L 18 126/71 100 12/04/23 02:00 36.5 C 12/03/23 23:13 34.7 C L 57 L 18 108/70 99 12/03/23 21:45 36.3 C L 12/03/23 21:38 52 L 17 101/58 L 97 O2 Del Method 12/04/23 07:57 Room Air 12/04/23 03:56 Room Air 12/04/23 02:00 12/03/23 23:13 Room Air 12/03/23 21:45 12/03/23 21:38 Room Air Laboratory Results CBC obtained this morning shows a white count of 12.83. H&H of 13.2 and 39.6. Platelets of 213,000. PRP obtained this morning is unremarkable. Electrolytes and renal function are normal. Glucose this morning was 147.
[2023-12-05] MEDS ORDERED: MAGNESIUM OXIDE 400 MG TAB PO SCH (09:00)
== END 2023-12-04 12:05 | disposition home health service (06) ==
LOC: ASU 05:06 → 3E 05:06

== ENCOUNTER 2025-01-11 21:37 | Inpatient (IN) ==
[2025-01-11 22:20] LABS: Hematocrit (blood only) 39.8 % (42.0-52.0); Hemoglobin 13.5 g/dl (14.0-18.0); Immature Granulocytes # (auto) 0.01 K/uL (0.01-0.20); Immature Granulocytes % (auto) 0.1 %; Mean Corpuscular Hemoglobin 29.9 pg (25.0-34.0); Mean Corpuscular Volume 88.2 fL (80.0-100.0); Platelet Count 262 K/uL (130-400); RDW Standard Deviation 47.1 fL (36.4-46.3); Red Blood Count 4.51 M/uL (4.70-6.10); White Blood Count 8.85 K/ul (4.8-10.8)
[2025-01-11 22:40] LABS: Alanine Aminotransferase 22.0 U/L (7-52); Albumin Globulin Ratio 1.4 (0.9-2); Alkaline Phosphatase 67.0 U/L (34-104); Anion Gap 7.0 (3-11); Bilirubin,Total 0.5 mg/dl (0.2-1.0); Blood Urea Nitrogen 24.0 mg/dl (6-23); Calcium 9.6 mg/dl (8.6-10.3); Carbon Dioxide 23.0 mmol/L (21-32); Chloride 107.0 mmol/L (98-107); Creatinine Clr Calc Pharmacy 60.4 ml/min; Globulin 3.0 gm/dl (2.5-4.0); Glucose 123.0 mg/dl (70-99(Fasting)); Magnesium 1.8 mg/dl (1.7-2.4); Potassium 4.1 mmol/L (3.5-5.1); Sodium 137.0 mmol/L (136-145); Total Protein 7.3 gm/dl (6.0-8.3)
--- NOTE | 2025-01-11 23:06 | Emergency Department Note ---
Impression & Plan Chest pain, Dyspnea on exertion, History of coronary artery disease ED Provider Note NAME: EVAN DAVIS AGE: 79 SEX: M : 1945 ARRIVES VIA: Walk-In INFORMANT: Patient ED PROVIDER(S): Severino De Souza MD CHIEF COMPLAINT: Chest pain, shortness of breath PLAN: Disposition: Admit MEDICAL DECISION MAKING: The patient is a pleasant 79-year-old gentleman with a past medical history of CAD and multiple PCI who presents to the emergency department via walk-in accompanied by his for evaluation of ongoing left-sided chest pain that began at 9 PM tonight which has calmed to a 2/10 but has persisted. Patient reports his symptoms are different than his prior heart issues and he feels that his symptoms are definitely related to his heart. Patient reports he has had increased shortness of breath with exertion over the past week though he admits he has been doing yard work in the current heat wave. He reports he was working in the yard this morning as well and would have "twinges of pain which would go away when he would rest. He feels he was hydrating appropriately for his activity and weather. On evaluation the patient no acute distress, afebrile with blood pressure 150/80s and otherwise stable vital signs. He appears euvolemic to dry. EKG without overt acute ischemia. CXR negative for acute cardiopulmonary process per my personal preliminary review/interpretation. WBC and platelets within normal limits. H/H 13.5/39.8, proximate to prior values. Chemistry without metabolic acidosis. LFTs unremarkable. High- sensitivity troponin 19.7, within normal limits. Given the patient's report/confidence that his symptoms are related to his heart he was given full dose aspirin and nitroglycerin. Patient and agree with plan for admission for further management. Case was discussed with Dr. Posey, [facility] hospitalist, who will evaluate the patient for admission.Further management per admitting team. Triage Nursing notes reviewed and agree them. Prior/external medical records reviewed Vital Signs: reviewed Differential diagnosis: Cardiac ischemia, aortic dissection, pulmonary embolism, pneumothorax, pneumonia, pericarditis, myocarditis, esophageal rupture, GERD, cholecystitis, pancreatitis, musculoskeletal, as well as other pathologies. ER treatment provided: See below. Diagnostics interpreted by me: ECG: Sinus rhythm with first-degree AV block, 69 bpm, no ectopy, no overt ST elevation or depression, QTc 428, QRS 120. Cardiac Monitoring: An order for continuous cardiac monitoring was placed and demonstrated Sinus rhythm with first-degree AV block, 69 bpm, no ectopy. Laboratory studies: See below Imaging studies: See below Consultation(s): Case was discussed with Dr. Posey, [facility] hospitalist, who will evaluate the patient for admission. HPI: Per MDM. ROS: See above HPI for pertinent positives & negatives. A total of 10 systems reviewed and were otherwise negative. VITALS:See Below PHYSICAL EXAMINATION: GENERAL: Awake, alert, in no distress HENT: Normocephalic, atraumatic. Oropharynx with dry mucous membranes and otherwise unremarkable. EYES: Normal conjunctiva. Sclera non-icteric. NECK: Supple. No nuchal rigidity. FROM. No JVD. RESPIRATORY: Clear to auscultation. CARDIAC: Regular rate, normal rhythm. Extremities warm and well perfused. Pulses equal. ABDOMEN: Soft, non-distended. No tenderness to palpation. No rebound or guarding. No masses. MUSCULOSKELETAL: Chest examination reveals no tenderness. The back is symmetrical on inspection without obvious abnormality. There is no CVA tenderness to palpation. No joint edema. LOWER EXTREMITIES: Calves are equal size bilaterally and non-tender. No edema. No discoloration. NEURO: Normal sensorium. No sensory or motor deficits noted. SKIN: No rash or jaundice noted. Severino De Souza MD Past Med/Surg History Problem List (Updated 01/12/25 @ 05:47 by Severino De Souza MD) History of coronary artery disease (Acute) Dyspnea on exertion (Acute) Chest pain (Acute) Dehydration, mild Status post left hip replacement Preoperative cardiovascular examination Polymyalgia rheumatica Benign localized prostatic hyperplasia with lower urinary tract symptoms (LUTS) Current use of proton pump inhibitor Hepatic steatosis Family history of colon cancer in mother [facility] health care Hyperglycemia Right knee pain History of colon polyps Encounter for pre-operative examination Dyspnea on exertion Pancreatic divisum (Acute) Ischemic cardiomyopathy (Acute) Inguinal hernia (Acute) Hyperplastic colon polyp (Acute) Hyperlipidemia Erectile dysfunction (Acute) Bladder neck contracture (Acute) Arthritis (Acute) Actinic keratosis (Acute) Medical History (Updated 01/12/25 @ 05:47 by Severino De Souza MD) Hyperlipidemia Prediabetes Hypertension followed by Dr. Brown CAD (coronary artery disease) circumflex, RCA, LAD and also angioplasty of diagonal and circumflex stent (total of 12 stents per pt-most recent 2020) Unstable angina Hx of colonic polyps History of diverticulosis denies h/o diverticulitis History of fracture of orbit (2014) right, surgery to correct Polymyalgia rheumatica Hx of myocardial infarction x 3, most recent 2004, multiple cardiac caths with 13 stents per pt, tPA x 1, follows with Dr. Mclean [facility] and Dr. Livingston, [facility] History of BPH History of anemia History of supraventricular tachycardia had RFA 2022 Chronic back pain Post-op bleeding x2 - s/p colonoscopy with biopsy. hx of returning to Emergency Room and inpatient treatment with repairs x2 (clampings per pt) Ventral hernia current Pleural plaque with presence of asbestos Osteopenia Acid reflux Surgical History History of postoperative nausea and vomiting History of anesthesia reaction 04/10/23 , ablation for svt - felt uncomfortable position related...blood pressure got low, couldn't have any more anesthesia. [facility]. History of total left hip replacement (11/2023) [place] Hx of colonoscopy with polypectomy Hx of heart surgery (~04/2021) cardiac lithotripsy - Dr. Livingston, [facility] Hx of bilateral cataract extraction History of endoscopy History of blepharoplasty bilateral. History of radiofrequency ablation (RFA) procedure for cardiac arrhythmia (~03/2023) for SVT at [facility] S/P left knee arthroscopy S/P eye surgery repair of right orbital floor fracture H/O angiography (~11/2018) Dr Vieira [facility] S/P vasectomy History of hernia repair as a child S/P coronary artery stent placement total 13 stents. S/P TURP x 2 S/P laparoscopic cholecystectomy S/P cardiac cath multiple - s/p 13 stents, most of them placed in [place]; 2 out of [address] Vieira in 2017 most recent 2020 at [place] (1 stent placed at [place], performed angiography), follows with Dr. Mclean at [facility] and Dr. Livingston at [facility] Family History (Updated 12/06/24 @ 12:52 by Adriana Washington RN) Father , age 78 Liver disease Diabetes Coronary heart disease Heart disease Myocardial infarction Stroke Mother , age 62 Liver cancer Colorectal cancer Daughter Diabetes Arthritis Kidney disease FH: mitral valve repair Sister Diabetes Dyslipidemia Arthritis Depression Fibromyalgia COPD (chronic obstructive pulmonary disease) Grandfather (Maternal) Heart disease Other No family history of adverse response to anesthesia Denies family history of Ovarian cancer Prostate cancer Breast cancer Social History Smoking Status: Former smoker Tobacco Type: Cigarettes Age Started Using Tobacco: 19; Age Quit Using Tobacco: 0; packs per day: 2; Second Hand Exposure: No; Do You Dip or Chew Tobacco: No; Hx Alcohol Use: Yes Alcohol type: wine Alcohol Intake Frequency: 2-4 x/Month Alcohol Intake Frequency Comment: 1 glass/day Hx Substance Use: No Preferred Language: Polish Communication Ability: Effective Visual Impairment: No Limitations Hearing Ability: Use of Hearing Aid Government Relations Analyst Required: No Beliefs That Will Affect Care: None marital status: marital status details: twice Current Living Situation: Spouse current 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 status: 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; 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; 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; 2 step-kids Feels Safe at Home: Yes Childhood Exposure to Second-Hand Smoke: Yes Diet: regular Dental Care, Regularly: Yes Physical Activity Frequency: Daily Physical Activity Frequency Comment: Walking and House work Seatbelt Use: always Sunscreen Use: No Assistive Devices: Glasses Allergies Allergies Allergy/AdvReac Type Severity Reaction Status Date / Time glucosamine Allergy Intermediate suspected Verified 12/14/24 06:19 hives shellfish derived Allergy Intermediate Hives Verified 12/14/24 06:19 morphine AdvReac Mild Vomiting Verified 12/14/24 06:19 Home Meds Home Medications Medication Instructions Recorded Confirmed cholecalciferol (vitamin D3) 50 2,000 unit PO QAM 11/12/18 01/11/25 mcg (2,000 unit) tablet aspirin 81 mg tablet,delayed 81 mg PO QAM 11/30/18 01/11/25 release (Rc Low Dose Aspirin) multivitamin 1 tab PO QAM 11/30/18 01/11/25 glucosamine sulfate 1,000 mg 1,000 mg PO BID 12/17/18 01/11/25 capsule calcium 600 mg (as 1 tab PO QAM 03/24/19 01/11/25 carbonate)-vitamin D3 10 mcg (400 unit) tablet (Calcium 600 + D(3)) diphenhydramine HCl 25 mg capsule 50 mg PO QPM PRN Sleep 01/29/22 01/11/25 (Benadryl) magnesium oxide 400 mg (241.3 mg 400 mg PO HS 09/23/23 01/11/25 magnesium) tablet blood sugar diagnostic (Accu-Chek 10/14/23 11/18/24 Sonya Plus test strips) tirzepatide 12.5 mg/0.5 mL 12.5 mg subcut WK 01/11/25 01/11/25 subcutaneous pen injector (Rolanunsamariaro) Previous Rx's Medication Instructions Recorded nitroglycerin 0.4 mg sublingual 0.4 mg sublingual UD PRN Chest 01/15/24 tablet (Nitrostat) Pain #25 tabs clopidogrel 75 mg tablet (Plavix) 75 mg PO QAM #90 tabs 05/10/24 fluticasone propionate 50 2 spray intranasal UD PRN nasal 06/08/24 mcg/actuation nasal congestion #48 grams spray,suspension atorvastatin 40 mg tablet (Lipitor) 40 mg PO HS #90 tabs 10/12/24 omeprazole 20 mg capsule,delayed 40 mg (2 x 20 mg) PO QAM #180 caps 10/28/24 release metoprolol succinate 50 mg 50 mg PO QAM #90 tabs 11/16/24 tablet,extended release 24 hr (Toprol XL) lisinopril 40 mg tablet (Zestril) 40 mg PO QAM #90 tabs 12/13/24 famotidine 40 mg tablet 40 mg PO HS #90 tabs 01/03/25 Results & Data (ED) Vital Signs Vital Signs - 24 hr 01/11/25 21:39 01/11/25 21:53 01/11/25 22:14 Temperature 36.6 C Temperature Source Temporal Artery Scan Pulse Rate 69 64 Pulse Rate [Left Apical] 66 Pulse Rhythm Regular Pulse Strength Normal Respiratory Rate 18 18 Respiratory Effort / Characteristics Non-Labored Spontaneous Non-Labored Spontaneous Respiratory Depth Normal Normal Respiratory Pattern Regular Regular Blood Pressure 162/76 H Blood Pressure [Right Arm] 158/80 H Blood Pressure Mean 104 Blood Pressure Mean [Right Arm] 106 Blood Pressure Position Sitting Pulse Oximetry 96 97 Oxygen Delivery Method Room Air Room Air Sepsis Recent Fever Within 48 Hours No Sepsis New/Unexplained Change in Mental Status N/A Sepsis Action Taken by Nursing No Action Required Laboratory Data Attestation: I reviewed the patient's lab results. 01/12/25 05:00 01/11/25 21:52 Lab Results 01/11/25 Range/Units 21:52 WBC 8.85 (4.8-10.8) K/ul RBC 4.51 L (4.70-6.10) M/uL Hgb 13.5 L (14.0-18.0) g/dl Hct 39.8 L (42.0-52.0) % MCV 88.2 (80.0-100.0) fL MCH 29.9 (25.0-34.0) pg MCHC 33.9 (32.0-36.0) g/dL RDW Std Deviation 47.1 H (36.4-46.3) fL RDW Coeff of Gino 14.6 H (11.5-14.5) % Plt Count 262 (130-400) K/uL MPV 9.8 (9.4-12.4) fL Immature Gran % (Auto) 0.1 % Neut % (Auto) 41.9 % Lymph % (Auto) 37.9 % [place] % (Auto) 12.1 % Eos % (Auto) 6.4 % Baso % (Auto) 1.6 % Neut # (Auto) 3.71 (1.40-6.50) K/uL Lymph # (Auto) 3.35 (1.20-3.40) K/uL [place] # (Auto) 1.07 H (0.11-0.59) K/uL Eos # (Auto) 0.57 H (0.00-0.50) K/uL Baso # (Auto) 0.14 (0.00-0.20) K/uL Immature Gran # (Auto) 0.01 (0.01-0.20) K/uL PT 10.6 (9.0-12.0) Seconds INR 1.0 (0.9-1.1) APTT 25 (21-31) Seconds PTT Ratio 0.9 Sodium 137 (136-145) mmol/L Potassium 4.1 (3.5-5.1) mmol/L Chloride 107 (98-107) mmol/L Carbon Dioxide 23 (21-32) mmol/L Anion Gap 7 (3-11) BUN 24 H (6-23) mg/dl Creatinine 1.04 (0.6-1.4) mg/dl Est Cr Clr Drug Dosing 60.4 ml/min eGFR 73.50 BUN/Creatinine Ratio 23.1 H (10-20) Glucose 123 H (70-99(Fasting)) mg/dl Calcium 9.6 (8.6-10.3) mg/dl Magnesium 1.8 (1.7-2.4) mg/dl Total Bilirubin 0.5 (0.2-1.0) mg/dl AST 28 (13-39) U/L ALT 22 (7-52) U/L Alkaline Phosphatase 67 (34-104) U/L Troponin I High Sens 19.7 (0-20) pg/ml Total Protein 7.3 (6.0-8.3) gm/dl Albumin 4.3 (3.4-5.0) gm/dl Globulin 3.0 (2.5-4.0) gm/dl Albumin/Globulin Ratio 1.4 (0.9-2) Administered Medications Potassium Chloride/Sodium Chloride (Normal Saline W/20 Meq Kcl) 20 meq in 1,000 mls @ 80 mls/hr IV .[id number] [facility] Stop: 01/12/25 12:14 Last Admin: 01/12/25 00:15 Dose: 80 mls/hr Documented By: YAMILA Nitroglycerin (Nitroglycerin 2% Ointment 30gm Tube) 0.5 inch EXT Q6H [facility] Stop: 02/11/25 00:00 Last Admin: 01/12/25 00:28 Dose: 0.5 inch Documented By: MARIA TERESA Discontinued Medications Aspirin (Aspirin Chew 324 Mg) 324 mg PO NOW STA Stop: 01/11/25 22:58 Last Admin: 01/11/25 23:29 Dose: 324 mg Documented By: YAMILA Magnesium Sulfate/Dextrose (Magnesium Sulfate / D5w) 1 gm in 100 mls @ 50 mls/hr IV ONE ONE Stop: 01/12/25 01:43 Last Infusion: 01/12/25 02:29 Dose: Infused Documented By: MARIA TERESA Admin: 01/12/25 00:29 Dose: 50 mls/hr Documented By: MARIA TERESA Nitroglycerin (Nitroglycerin 0.3 Mg/1 Tab 100 Tab Btl) 0.3 mg SL NOW STA Stop: 01/11/25 22:58 Last Admin: 01/11/25 23:29 Dose: Not Given Documented By: YAMILA Nitroglycerin (Nitroglycerin Sl 0.4 Mg/Tab Tab) 0.4 mg SL NOW STA Stop: 01/11/25 23:08 Last Admin: 01/11/25 23:29 Dose: 0.4 mg Documented By: YAMILA Imaging Data Radiologist's Impression: Chest X-Ray 01/11/25 22:08 Exam(s): XR CXR 1 VIEW EXAM: XR Chest, 1 View CLINICAL HISTORY: Reason for exam: Chest pain, nonspecific. TECHNIQUE: Frontal view of the chest. COMPARISON: 02/20/2023 FINDINGS: Lungs: Unremarkable. No consolidation. Pleural space: There are prominent calcified pleural plaques, left greater than right. Lungs are otherwise clear. No pleural fluid. No pneumothorax. Heart: Unremarkable. No cardiomegaly. Mediastinum: Unremarkable. Normal mediastinal contour. Bones/joints: Unremarkable. No acute fracture. IMPRESSION: There are prominent calcified pleural plaques, left greater than right. Lungs are otherwise clear. Electronically signed by: Dave Bethea MD 01/11/25 23:34 PM Discharge Plan Visit Data Chief Complaint: Chest Pain Stated Complaint: CHEST PAIN ED Provider: Severino De Souza Discharge Problem: Chest pain, Dyspnea on exertion, History of coronary artery disease Patient Disposition: Admitted As Inpatient Condition: Fair Discharge Instructions Interventions: ED Discharge Assessment Last Done: 01/12/25 00:08 Discharge Problem: Chest pain Qualifiers: Chest pain type: unspecified Qualified Code(s): R07.9 - Chest pain, unspecified
[2025-01-11 23:14] LABS: INR 1.0 (0.9-1.1); Partial Thromboplastin Time 25 Seconds (21-31); Prothrombin Time 10.6 Seconds (9.0-12.0)
[2025-01-11] MEDS: NITROGLYCERIN 0.3 MG/1 TAB 100 TAB BTL SL STA (23:29)
[2025-01-11] MEDS: NITROGLYCERIN SL 0.4 MG/TAB TAB SL STA (23:29)
[2025-01-11] MEDS: ASPIRIN CHEW 324 MG PO STA (23:29)
--- NOTE | 2025-01-11 23:35 | XRay Report ---
Exam(s): XR CXR 1 VIEW EXAM: XR Chest, 1 View CLINICAL HISTORY: Reason for exam: Chest pain, nonspecific. TECHNIQUE: Frontal view of the chest. COMPARISON: 02/20/2023 FINDINGS: Lungs: Unremarkable. No consolidation. Pleural space: There are prominent calcified pleural plaques, left greater than right. Lungs are otherwise clear. No pleural fluid. No pneumothorax. Heart: Unremarkable. No cardiomegaly. Mediastinum: Unremarkable. Normal mediastinal contour. Bones/joints: Unremarkable. No acute fracture. IMPRESSION: There are prominent calcified pleural plaques, left greater than right. Lungs are otherwise clear. Electronically signed by: Dave Bethea MD 01/11/25 23:34 PM
--- NOTE | 2025-01-12 00:04 | History & Physical Report ---
Date of Service January 11, 2025 Assessment & Plan (1) Unstable angina: (2) CAD (coronary artery disease): (3) Ischemic cardiomyopathy: (4) Dehydration, mild: Plan The patient is a 79-year-old male with past medical history including coronary disease with multiple tube turner status post intracoronary balloon lithotripsy and IVUS guided PCI of left circumflex in 2020, hypertension, hyperlipidemia, SVT status post ablation in 04/21, GERD, ischemic cardiomyopathy, hyperlipidemia, and BPH with LUTS. The patient has been working out in the heat doing yard work, but he has tried to do this early in the morning. He has been trying to keep his water intake elevated, but his reports that his clothing is wringing wet when he comes in after working outside. He started developing some brief episodes of chest tightness/pressure and shortness of breath earlier in the week, and today reports that symptoms intensified, and did not go away nearly as quickly. He thus presents to the ED for assessment. Unstable angina/CAD with multiple stents/ischemic cardiomyopathy- The patient will be admitted to telemetry for serial cardiac enzymes, serial EKG's, cardiac rhythm monitoring and a 2-D echocardiogram with Dopplers. Most recent echocardiogram on 10/08/2024 with ejection fraction 40-45%, with no change compared to 02/21/2023. Troponin at 19.7 with follow-up pending, and will follow serially EKG with sinus bradycardia first-degree heart block, and mild ST depressions laterally unchanged from previous Continue metoprolol succinate, magnesium oxide, lisinopril, aspirin and Plavix. Add Nitropaste 0.5 inch to anterior chest wall every 6 hours If recurrence of pain will start heparin drip NSS + KCl 20 mill equivalents at 80 mL/h x 1 L Magnesium sulfate 1 g IV x 1 for magnesium of 1.8 N.p.o. after midnight Serial CBC with differential, renal function panel, magnesium and troponin Consult cardiology, follows with Dr. Brown Dehydration- IV fluids as noted above, recheck laboratories in a.m. Patient was advised to avoid significant physical activity when it is hot outside. GERD- Continue omeprazole/pantoprazole, and famotidine Hyperlipidemia- Continue atorvastatin History of Present Illness Chief Complaint: The patient presents to the emergency department with symptoms of chest pressure/pain that began earlier in the week while working in the yard outside in the heat. He reports that those symptoms went away relatively quickly. However, today with his symptoms worsening and more persistent in duration, he presents to the ED for assessment. He reports he has been trying to keep his water intake up while working outside, however, he appears to be somewhat dehydrated. He has not had symptoms like this for a number of years. In the emergency department he reports his pain initially was a 30, and is now down to 2. Primary Care Provider: Angel French MD The patient is a 79-year-old male with past medical history including coronary disease with multiple tube turner status post intracoronary balloon lithotripsy and IVUS guided PCI of left circumflex in 2020, hypertension, hyperlipidemia, SVT status post ablation in 04/21, GERD, ischemic cardiomyopathy, hyperlipidemia, and BPH with LUTS. The patient has been working out in the heat doing yard work, but he has tried to do this early in the morning. He has been trying to keep his water intake elevated, but his reports that his clothing is wringing wet when he comes in after working outside. He started developing some brief episodes of chest tightness/pressure and shortness of breath earlier in the week, and today reports that symptoms intensified, and did not go away nearly as quickly. He thus presents to the ED for assessment. Allergies Allergy/AdvReac Type Severity Reaction Status Date / Time glucosamine Allergy Intermediate suspected Verified 12/14/24 06:19 hives shellfish derived Allergy Intermediate Hives Verified 12/14/24 06:19 morphine AdvReac Mild Vomiting Verified 12/14/24 06:19 Home Medications Medication Instructions Recorded Confirmed Type cholecalciferol (vitamin D3) 50 2,000 unit PO QAM 11/12/18 01/11/25 History mcg (2,000 unit) tablet aspirin 81 mg tablet,delayed 81 mg PO QAM 11/30/18 01/11/25 History release (Rc Low Dose Aspirin) multivitamin 1 tab PO QAM 11/30/18 01/11/25 History glucosamine sulfate 1,000 mg 1,000 mg PO BID 12/17/18 01/11/25 History capsule calcium 600 mg (as 1 tab PO QAM 03/24/19 01/11/25 History carbonate)-vitamin D3 10 mcg (400 unit) tablet (Calcium 600 + D(3)) diphenhydramine HCl 25 mg capsule 50 mg PO QPM PRN Sleep 01/29/22 01/11/25 History (Benadryl) magnesium oxide 400 mg (241.3 mg 400 mg PO HS 09/23/23 01/11/25 History magnesium) tablet blood sugar diagnostic (Accu-Chek 10/14/23 11/18/24 History Sonya Plus test strips) nitroglycerin 0.4 mg sublingual 0.4 mg sublingual UD PRN Chest 01/15/24 01/11/25 Rx tablet (Nitrostat) Pain #25 tabs clopidogrel 75 mg tablet (Plavix) 75 mg PO QAM #90 tabs 05/10/24 01/11/25 Rx fluticasone propionate 50 2 spray intranasal UD PRN nasal 06/08/24 01/11/25 Rx mcg/actuation nasal congestion #48 grams spray,suspension atorvastatin 40 mg tablet (Lipitor) 40 mg PO HS #90 tabs 10/12/24 01/11/25 Rx omeprazole 20 mg capsule,delayed 40 mg (2 x 20 mg) PO QAM #180 caps 10/28/24 01/11/25 Rx release metoprolol succinate 50 mg 50 mg PO QAM #90 tabs 11/16/24 01/11/25 Rx tablet,extended release 24 hr (Toprol XL) lisinopril 40 mg tablet (Zestril) 40 mg PO QAM #90 tabs 12/13/24 01/11/25 Rx famotidine 40 mg tablet 40 mg PO HS #90 tabs 01/03/25 01/11/25 Rx tirzepatide 12.5 mg/0.5 mL 12.5 mg subcut WK 01/11/25 01/11/25 History subcutaneous pen injector (Mounjaro) Past Med/Surg History Problem List (Updated 01/11/25 @ 23:55 by Spencer Posey MD) Dehydration, mild Status post left hip replacement Preoperative cardiovascular examination Polymyalgia rheumatica Benign localized prostatic hyperplasia with lower urinary tract symptoms (LUTS) Current use of proton pump inhibitor Hepatic steatosis Family history of colon cancer in mother Preventative health care Hyperglycemia Right knee pain History of colon polyps Encounter for pre-operative examination Dyspnea on exertion Pancreatic divisum (Acute) Ischemic cardiomyopathy (Acute) Inguinal hernia (Acute) Hyperplastic colon polyp (Acute) Hyperlipidemia Erectile dysfunction (Acute) Bladder neck contracture (Acute) Arthritis (Acute) Actinic keratosis (Acute) Medical History (Updated 01/11/25 @ 23:55 by Spencer Posey MD) Hyperlipidemia Prediabetes Hypertension followed by Dr. Brown CAD (coronary artery disease) circumflex, RCA, LAD and also angioplasty of diagonal and circumflex stent (total of 12 stents per pt-most recent 2020) Unstable angina Hx of colonic polyps History of diverticulosis denies h/o diverticulitis History of fracture of orbit (2014) right, surgery to correct Polymyalgia rheumatica Hx of myocardial infarction x 3, most recent 2004, multiple cardiac caths with 13 stents per pt, tPA x 1, follows with Dr. Mclean [facility] and Dr. Livingston, [facility] History of BPH History of anemia History of supraventricular tachycardia had RFA 2022 Chronic back pain Post-op bleeding x2 - s/p colonoscopy with biopsy. hx of returning to Emergency Room and inpatient treatment with repairs x2 (clampings per pt) Ventral hernia current Pleural plaque with presence of asbestos Osteopenia Acid reflux Surgical History History of postoperative nausea and vomiting History of anesthesia reaction 04/10/23 , ablation for svt - felt uncomfortable position related...blood pressure got low, couldn't have any more anesthesia. [facility]. History of total left hip replacement (11/2023) [place] Hx of colonoscopy with polypectomy Hx of heart surgery (~04/2021) cardiac lithotripsy - Dr. Livingston, [facility] Hx of bilateral cataract extraction History of endoscopy History of blepharoplasty bilateral. History of radiofrequency ablation (RFA) procedure for cardiac arrhythmia (~03/2023) for SVT at [facility] S/P left knee arthroscopy S/P eye surgery repair of right orbital floor fracture H/O angiography (~11/2018) Dr Vieira [facility] S/P vasectomy History of hernia repair as a child S/P coronary artery stent placement total 13 stents. S/P TURP x 2 S/P laparoscopic cholecystectomy S/P cardiac cath multiple - s/p 13 stents, most of them placed in [place]; 2 out of [address] Vieira in 2017 most recent 2020 at [place] (1 stent placed at [place], performed angiography), follows with Dr. Mclean at [facility] and Dr. Livingston at [facility] Family History (Updated 12/06/24 @ 12:52 by Adriana Washington RN) Father , age 78 Liver disease Diabetes Coronary heart disease Heart disease Myocardial infarction Stroke Mother , age 62 Liver cancer Colorectal cancer Daughter Diabetes Arthritis Kidney disease FH: mitral valve repair Sister Diabetes Dyslipidemia Arthritis Depression Fibromyalgia COPD (chronic obstructive pulmonary disease) Grandfather (Maternal) Heart disease Other No family history of adverse response to anesthesia Denies family history of Ovarian cancer Prostate cancer Breast cancer Social History Smoking Status: Former smoker Tobacco Type: Cigarettes Age Started Using Tobacco: 19; Age Quit Using Tobacco: 0; packs per day: 2; Second Hand Exposure: No; Do You Dip or Chew Tobacco: No; Hx Alcohol Use: Yes Alcohol type: wine Alcohol Intake Frequency: 2-4 x/Month Alcohol Intake Frequency Comment: 1 glass/day Preferred Language: Panamanian Communication Ability: Effective Visual Impairment: No Limitations Hearing Ability: Use of Hearing Aid Job Trainer Required: No Beliefs That Will Affect Care: None marital status: marital status details: twice Current Living Situation: Spouse current 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 status: 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; 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; 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; 2 step-kids Feels Safe at Home: Yes Childhood Exposure to Second-Hand Smoke: Yes Diet: regular Dental Care, Regularly: Yes Physical Activity Frequency: Daily Physical Activity Frequency Comment: Walking and House work Seatbelt Use: always Sunscreen Use: No Assistive Devices: Glasses Review of Systems Review of Systems: The patient denies palpitations, cough, lower extremity swelling, sore throat, fevers, chills, sweats, nausea, vomiting, diarrhea , constipation, abdominal pain, pelvic pain, blood in urine or stool, dysuria, urinary frequency or urgency, lightheadedness, dizziness, headache, memory loss, loss of consciousness, rash, abnormal bruising or bleeding, imbalance, focal weakness, numbness or tingling in arms or legs, generalized arthralgias or myalgias, back or neck pain, or night sweats. The review of systems is otherwise negative other than for that already noted above, and at least 10 systems have been reviewed. Physical Exam Physical Exam: The patient is awake, alert and oriented 3, well developed and well nourished, normocephalic and atraumatic, lying in bed and in no acute distress. HEENT--PERRL, EOMI, mucous membranes and oropharynx dry. Neck--supple. No JVD. No bruits. Thyroid normal, trachea midline, no adenopathy. Heart--normal S1 and S2. No murmurs, rubs or gallops. Lungs--clear bilaterally, no respiratory distress, no accessory muscle use. Abdomen--normal bowel sounds and soft. Nontender. Nondistended Extremities--no cyanosis or clubbing. No edema. Dermatologic--normal skin turgor, normal color, no abnormal lymph nodes, no rash. Neurologic--cranial nerves II through XII grossly intact. Rheumatologic--normal range of motion. Psychiatric--normal affect. Results & Data Results & Data Vital Signs (Past 12 Hours) Vital Signs Temp Pulse Pulse Resp BP BP Pulse Ox 01/11/25 22:14 64 01/11/25 21:53 66 18 158/80 H 97 01/11/25 21:39 36.6 C 69 18 162/76 H 96 O2 Del Method 01/11/25 22:14 01/11/25 21:53 Room Air 01/11/25 21:39 Room Air Laboratory Results Laboratory Results WBC 8.85 K/ul (4.8-10.8) 01/11/25 21:52 RBC 4.51 M/uL (4.70-6.10) L 01/11/25 21:52 Hgb 13.5 g/dl (14.0-18.0) L 01/11/25 21:52 Hct 39.8 % (42.0-52.0) L 01/11/25 21:52 MCV 88.2 fL (80.0-100.0) 01/11/25 21:52 MCH 29.9 pg (25.0-34.0) 01/11/25 21:52 MCHC 33.9 g/dL (32.0-36.0) 01/11/25 21:52 RDW Std Deviation 47.1 fL (36.4-46.3) H 01/11/25 21:52 RDW Coeff of Gino 14.6 % (11.5-14.5) H 01/11/25 21:52 Plt Count 262 K/uL (130-400) 01/11/25 21:52 MPV 9.8 fL (9.4-12.4) 01/11/25 21:52 Immature Gran % (Auto) 0.1 % 01/11/25 21:52 Neut % (Auto) 41.9 % 01/11/25 21:52 Lymph % (Auto) 37.9 % 01/11/25 21:52 [place] % (Auto) 12.1 % 01/11/25 21:52 Eos % (Auto) 6.4 % 01/11/25 21:52 Baso % (Auto) 1.6 % 01/11/25:52 Neut # (Auto) 3.71 K/uL (1.40-6.50) 01/11/25 21:52 Lymph # (Auto) 3.35 K/uL (1.20-3.40) 01/11/25 21:52 [place] # (Auto) 1.07 K/uL (0.11-0.59) H 01/11/25 21:52 Eos # (Auto) 0.57 K/uL (0.00-0.50) H 01/11/25 21:52 Baso # (Auto) 0.14 K/uL (0.00-0.20) 01/11/25 21:52 Immature Gran # (Auto) 0.01 K/uL (0.01-0.20) 01/11/25 21:52 PT 10.6 Seconds (9.0-12.0) 01/11/25 21:52 INR 1.0 (0.9-1.1) 01/11/25 21:52 APTT 25 Seconds (21-31) 01/11/25 21:52 PTT Ratio 0.9 01/11/25 21:52 Sodium 137 mmol/L (136-145) 01/11/25 21:52 Potassium 4.1 mmol/L (3.5-5.1) 01/11/25 21:52 Chloride 107 mmol/L (98-107) 01/11/25 21:52 Carbon Dioxide 23 mmol/L (21-32) 01/11/25 21:52 Anion Gap 7 (3-11) 01/11/25 21:52 BUN 24 mg/dl (6-23) H 01/11/25 21:52 Creatinine 1.04 mg/dl (0.6-1.4) 01/11/25 21:52 Est Cr Clr Drug Dosing 60.4 ml/min 01/11/25 21:52 eGFR 73.50 01/11/25 21:52 BUN/Creatinine Ratio 23.1 (10-20) H 01/11/25 21:52 Glucose 123 mg/dl (70-99(Fasting)) H 01/11/25 21:52 Calcium 9.6 mg/dl (8.6-10.3) 01/11/25 21:52 Magnesium 1.8 mg/dl (1.7-2.4) 01/11/25 21:52 Total Bilirubin 0.5 mg/dl (0.2-1.0) 01/11/25 21:52 AST 28 U/L (13-39) 01/11/25 21:52 ALT 22 U/L (7-52) 01/11/25 21:52 Alkaline Phosphatase 67 U/L (34-104) 01/11/25 21:52 Troponin I High Sens 19.7 pg/ml (0-20) 01/11/25 21:52 Total Protein 7.3 gm/dl (6.0-8.3) 01/11/25 21:52 Albumin 4.3 gm/dl (3.4-5.0) 01/11/25 21:52 Globulin 3.0 gm/dl (2.5-4.0) 01/11/25 21:52 Albumin/Globulin Ratio 1.4 (0.9-2) 01/11/25 21:52 Impressions Chest X-Ray 01/11/25 22:08 Exam(s): XR CXR 1 VIEW EXAM: XR Chest, 1 View CLINICAL HISTORY: Reason for exam: Chest pain, nonspecific. TECHNIQUE: Frontal view of the chest. COMPARISON: 02/20/2023 FINDINGS: Lungs: Unremarkable. No consolidation. Pleural space: There are prominent calcified pleural plaques, left greater than right. Lungs are otherwise clear. No pleural fluid. No pneumothorax. Heart: Unremarkable. No cardiomegaly. Mediastinum: Unremarkable. Normal mediastinal contour. Bones/joints: Unremarkable. No acute fracture. IMPRESSION: There are prominent calcified pleural plaques, left greater than right. Lungs are otherwise clear. Electronically signed by: Dave Bethea MD 01/11/25 23:34 PM Code Status & VTE Plan Code Status Full code VTE Prophylaxis Plan VTE Prophylaxis will be ordered: Yes PG Care Time/CCT Total # of Minutes Spent Total Time Spent with Patient: Total time spent is greater than 50% in coordination of care (as documented) at patient's floor/unit and/or counseling patient: Coding Level of Care Code 04065 INT INP/OBS CARE 3/75MIN Diagnoses Unstable angina I20.0 Coronary artery disease involving [place] coronary artery of [place] heart with other form of angina pectoris I25.118 Coronary Disease-Associated Artery/Lesion type: [place] artery [place] vs. transplanted heart: [place] heart Associated angina: with other forms of angina Ischemic cardiomyopathy I25.5 Dehydration, mild E86.0 (2) CAD (coronary artery disease) Coronary Disease-Associated Artery/Lesion type: [place] artery [place] vs. transplanted heart: [place] heart Associated angina: with other forms of angina Qualified Code(s): I25.118 - Atherosclerotic heart disease of [place] coronary artery with other forms of angina pectoris
[2025-01-12] MEDS: NSS + 20MEQ KCL 20 MEQ/1,000 ML BAG IV SCH (00:15)
[2025-01-12] MEDS ORDERED: ACETAMINOPHEN 325 MG TAB PO PRN (00:23)
[2025-01-12] MEDS ORDERED: NITROGLYCERIN SL 0.4 MG/TAB TAB SL PRN (00:23)
[2025-01-12] MEDS ORDERED: ONDANSETRON INJ 2 MG/ML 2 ML VIAL IV PRN (00:23)
[2025-01-12] MEDS ORDERED: FLUTICASONE PROPIONATE NA SPR 16 GM BTL NAE PRN (00:23)
[2025-01-12] MEDS: NITROGLYCERIN 2% OINTMENT 30GM TUBE EXT SCH (00:28)
[2025-01-12] MEDS: MAGNESIUM SULFATE / D5W 1 GM/100 ML BAG IV ONE (00:29)
[2025-01-12 05:39] LABS: Hematocrit (blood only) 37.2 % (42.0-52.0); Hemoglobin 12.2 g/dl (14.0-18.0); Immature Granulocytes # (auto) 0.02 K/uL (0.01-0.20); Immature Granulocytes % (auto) 0.3 %; Mean Corpuscular Hemoglobin 29.3 pg (25.0-34.0); Mean Corpuscular Volume 89.4 fL (80.0-100.0); Platelet Count 217 K/uL (130-400); RDW Standard Deviation 48.0 fL (36.4-46.3); Red Blood Count 4.16 M/uL (4.70-6.10); White Blood Count 5.85 K/ul (4.8-10.8)
[2025-01-12 05:55] LABS: Anion Gap 6.0 (3-11); Blood Urea Nitrogen 22.0 mg/dl (6-23); Calcium 8.9 mg/dl (8.6-10.3); Carbon Dioxide 24.0 mmol/L (21-32); Chloride 109.0 mmol/L (98-107); Creatinine Clr Calc Pharmacy 64.5 ml/min; Glucose 104.0 mg/dl (70-99(Fasting)); Magnesium 1.9 mg/dl (1.7-2.4); Potassium 3.8 mmol/L (3.5-5.1); Sodium 139.0 mmol/L (136-145)
[2025-01-12] MEDS: MULTIVITAMIN TAB PO SCH (08:00)
[2025-01-12] MEDS: CLOPIDOGREL BISULFATE 75 MG TAB PO SCH (08:00)
[2025-01-12] MEDS: CHOLECALCIFEROL 25 MCG (1000 UNITS) TAB PO SCH (08:00)
[2025-01-12] MEDS: ASPIRIN 81 MG ECTAB PO SCH (08:01)
[2025-01-12] MEDS: CALCIUM 600MG + VIT D 400 IU TAB PO SCH (08:01)
[2025-01-12] MEDS: METOPROLOL SUCC 50MG EXT REL TAB PO SCH (08:03)
--- NOTE | 2025-01-12 09:50 | Cardiology Consultation ---
Date of Consultation January 12, 2025 Assessment & Plan (1) Chest pain: (2) History of coronary artery disease: (3) Ischemic cardiomyopathy: (4) Hyperlipidemia: Plan Mr. 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 Patient has been doing a lot of work around his home including yard work and remodeling a bathroom. He went inside to eat lunch covered in sweat and noted the onset of his chest discomfort. It did not last very long but it was noticeable. Then last evening he was ready for bed, walked into his bathroom just before going to bed when this left sided chest pain/burning/pressure recurred and it persisted. He eventually mentioned his symptoms to his and they came into the ER. Symptoms got much better following a dose of sublingual nitroglycerin but did not completely resolve. Patient denies any radiation of his chest pain and he did not have any associated symptoms with it. He specifically denies any associated nausea, vomiting, diaphoresis, or dyspnea. He is completely asymptomatic today. His EKGs showed no acute or dynamic changes. Telemetry shows sinus bradycardia and normal sinus rhythm. High sensitivity troponin I are 19.7 and 16.4 pg/mL. His chest pain is atypical and dissimilar to his prior angina pectoris however he does have an extensive cardiac history. Recommend the followin. Dobutamine Stress Echocardiogram. 2. Continue Aspirin 81 mg daily. 3. Continue Atorvastatin 40 mg daily. 4. Continue Plavix 75 mg daily. 5. Continue Lisinopril 40 mg daily. 6. Continue Metoprolol Succinate ER 50 mg daily. 7. Use SL Nitroglycerin 0.4 mg as needed and as directed. If DSE is negative, patient may be discharged to home today. History of Present Illness Reason for Consultation: -- Chest Pain. -- CAD. Requesting Physician: Cr Chandler MD, PhD Attending Physician: Angel Smith MD History of Present Illness Mr. 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 Patient has been doing a lot of work around his home including yard work and remodeling a bathroom. He went inside to eat lunch covered in sweat and noted the onset of his chest discomfort. It did not last very long but it was noticeable. Then last evening he was ready for bed, walked into his bathroom just before going to bed when this left sided chest pain/burning/pressure recurred and it persisted. He eventually mentioned his symptoms to his and they came into the ER. Symptoms got much better following a dose of sublingual nitroglycerin but did not completely resolve. Patient denies any radiation of his chest pain and he did not have any associated symptoms with it. He specifically denies any associated nausea, vomiting, diaphoresis, or dyspnea. He is completely asymptomatic today. His EKGs showed no acute or dynamic changes. Telemetry shows sinus bradycardia and normal sinus rhythm. High sensitivity troponin I are 19.7 and 16.4 pg/mL. His symptoms are very dissimilar from his prior anginal symptoms. Patient has multiple intracoronary stents, the most recent was deployed in April 2021. Patient is compliant with his medications, he denies any adverse side effects. HISTORICAL BACKGROUND: His 1st myocardial infarction occurred in 1995 and he underwent PCI of the LCx artery at [facility]. He reports having multiple myocardial infarctions, tPA, and multiple stents. He describes his angina as chest pressure with diaphoresis and nausea. He has had the following studies/procedures: 1. Cardiac Catheterization 07/06/2001: Proximal circumflex 80%; OM1 50%; proximal LAD mild CAD with moderate to severe stenosis ostium of septal 1. Mid RCA 60%, within mid RCA stent. EF 25%. 2. Cardiac Catheterization 05/23/2004: Proximal LAD 50%. D1 80%. Proximal ci rcumflex 60%. OM1 60%. Proximal RCA 60%. Distal RCA 30%. EF 55%. 3. Coronary PCI 05/25/2004: Proximal circumflex underwent 2.75 x 24 mm Taxus stent placement with residual less than 5%. 4. Cardiac Catheterization 07/30/2004: Proximal circumflex 40%. Proximal RCA 35% patent proximal circumflex stent. 5. Cardiac Catheterization 12/23/2004: Mid LAD 40%-50%. D1 60%. OM1 70%. Mid circumflex 60% beyond prior stent. Proximal RCA 60%-70%. Distal RCA 60%. PDA 60%. EF 50%. 6. Coronary Angioplasty 12/28/2004: OM1 40%. Mid circumflex 60% distal to prior stent. Distal circumflex angioplasty with cutting balloon. 7. Cardiac Catheterization 09/30/2005: Ostial diagonal 70%. Ostial circumflex 70%. Circumflex mid and distal stents widely patent. Large dominant RCA with mid 70% and distal 40%. EF 50%. Mild inferoposterior basal and apical hypokinesis. 8. RCA PCI 10/01/2005: Mid RCA 2.75 x 20 mm Taxus stent. 9. Coronary PCI 10/03/2005: Ostial circumflex status post cutting balloon and 3 x 12 mm Taxus stent. Diagonal vessel with 2.5 mm cutting balloon angioplasty. Residual 10% stenosis. 10. Echo 07/09/2012: Top-normal left ventricular size with low-normal systolic function. EF 50%. Mild LVH. Akinetic inferolateral wall, with aneurysmal basal inferior wall and akinetic mid inferior wall. Hypokinesis of the septal base. Type 1 diastolic dysfunction. Restricted posterior mitral valve leaflet with trace regurgitation. Mild left atrial dilation. 11. Echo 07/25/2016: Mildly dilated left ventricle with mildly reduced systolic function. EF 45%-50%. Akinesis of the inferolateral wall and basal inferior wall. Type 1 diastolic dysfunction. No significant valvular abnormalities. No significant change from 07/09/2012 study. 12. Nuclear Stress 02/13/2017: Ischemic changes in the inferior, inferolateral, and lateral wall segments. Infarct involving the base to mid inferior, base to mid inferolateral, and base to mid lateral wall segments. EF 38%. Akinesis of the basal inferior, basal inferolateral, and basal lateral wall segments. Hypokinesis of the mid to apical inferior, mid to apical inferolateral, and mid lateral wall segments. 13. Cardiac Catheterization 02/20/2017: Mid LAD 80%, just distal to medium to large caliber D1 and septal industrial insulator. First septal industrial insulator ostial 98%. Proximal circumflex 98% just proximal to the prior proximal stent. Proximal circumflex stent 30% in stent restenoses. Distal RCA luminal irregularities. Ostial circumflex Underwent 3 x 15 mm [place] drug-eluting stent post dilated with 3.25 mm noncompliant balloon. Stent overlapped prior circumflex stent. No significant aortic stenosis. LVEDP 16. 14. LAD PCI 03/06/2017: Mid LAD 2.75 x 22 Franki Resolute SHAY post dilated with 3 mm noncompliant balloon. 15. Echo 01/22/2018: Mildly dilated LV with mildly reduced systolic function. EF 45-50%. Akinesis of the inferolateral wall and basal inferior wall segments. Hypokinesis of the basal inferoseptum. No LVH. Type 1 diastolic dysfunction. Sclerotic aortic valve. 16. PFT's 09/14/2018: Mild obstruction. 17. Cardiac Catheterization and LCx In Stent Angioplasty 12/01/2018 (Dr. Vieira): Mid LAD stent widely patent. Mid LAD 40%-50% at bifurcation of D2. D1 ostial 40-50% with ostium originating through prior LAD stent (unchanged from prior catheterization). Ostial to mid circumflex stents patent with proximal stent appearing mildly narrowed with haziness. Dominant RCA with mid pain distal luminal irregularities. Proximal to mid PDA 30%-40%. FFR and IVUS performed demonstrating heavily calcified vessel and under expanded stent within proximal circumflex. Underwent angioplasty of proximal circumflex. Despite aggressive dilation with noncompliant 3 and 3.5 mm balloons and 3 mm cutting balloon, there was residual 40%-50% narrowing within the proximal circumflex stent. 18. Echo 12/07/2018: Normal LV size with mildly reduced systolic function. Estimated EF 45%-50%. Basal inferior akinesis. Base to mid inferolateral akinesis. Moderate LVH. Mild left atrial dilation. Mild MR. Sclerotic aortic valve. Similar findings compared to 01/22/2018. 19. Nuclear Stress 10/26/2020 [facility]: Abnormal, suggesting lateral and inferolateral infarct with mild ischemia. EF 46%. Hypokinesis of the base to mid lateral and base to mid inferolateral wall segments. 20. Cardiac Catheterization 05/10/2021 [facility] (Dr. Shiraz Ring): Mid LAD 50% in stent restenoses and under expanded stent with IFR > 0.9. Dominant circumflex. Proximal circumflex stent 90% in stent restenosis with PEPE 2 flow. IVUS demonstrated degree of in stent restenoses 100%. IFR 0.87. Mid circumflex 40%. Underwent circumflex intracoronary balloon lithotripsy and PCI with 3 x 15 mm Xience SHAY. 21. Echo 02/21/2023 [facility]: EF 45% to 50%. Inferolateral and inferior hypokinesis. No significant valvular abnormalities. 22. EP study and SVT ablation 04/10/2023 [facility] (Dr. Jones): AVNRT ablation. Family History: -- Father had myocardial infarction in his 50s. -- Younger sister with CAD. -- His daughter had hole in her heart and underwent closure and also has arrhythmia issues. Social History: -- to his 2nd . His 1st . -- Three biological daughters. Grandchildren. -- Quit smoking in 1995 after approximately 30-50 pack years. -- Occasional alcohol. -- No drugs. Allergies Allergy/AdvReac Type Severity Reaction Status Date / Time glucosamine Allergy Intermediate suspected Verified 12/14/24 06:19 hives shellfish derived Allergy Intermediate Hives Verified 12/14/24 06:19 morphine AdvReac Mild Vomiting Verified 12/14/24 06:19 Home Medications Medication Instructions Recorded Confirmed Type cholecalciferol (vitamin D3) 50 2,000 unit PO QAM 11/12/18 01/11/25 History mcg (2,000 unit) tablet aspirin 81 mg tablet,delayed 81 mg PO QAM 11/30/18 01/11/25 History release (Rc Low Dose Aspirin) multivitamin 1 tab PO QAM 11/30/18 01/11/25 History glucosamine sulfate 1,000 mg 1,000 mg PO BID 12/17/18 01/11/25 History capsule calcium 600 mg (as 1 tab PO QAM 03/24/19 01/11/25 History carbonate)-vitamin D3 10 mcg (400 unit) tablet (Calcium 600 + D(3)) diphenhydramine HCl 25 mg capsule 50 mg PO QPM PRN Sleep 01/29/22 01/11/25 History (Benadryl) magnesium oxide 400 mg (241.3 mg 400 mg PO HS 09/23/23 01/11/25 History magnesium) tablet blood sugar diagnostic (Accu-Chek 10/14/23 11/18/24 History Sonya Plus test strips) nitroglycerin 0.4 mg sublingual 0.4 mg sublingual UD PRN Chest 01/15/24 01/11/25 Rx tablet (Nitrostat) Pain #25 tabs clopidogrel 75 mg tablet (Plavix) 75 mg PO QAM #90 tabs 05/10/24 01/11/25 Rx fluticasone propionate 50 2 spray intranasal UD PRN nasal 06/08/24 01/11/25 Rx mcg/actuation nasal congestion #48 grams spray,suspension atorvastatin 40 mg tablet (Lipitor) 40 mg PO HS #90 tabs 10/12/24 01/11/25 Rx omeprazole 20 mg capsule,delayed 40 mg (2 x 20 mg) PO QAM #180 caps 10/28/24 01/11/25 Rx release metoprolol succinate 50 mg 50 mg PO QAM #90 tabs 11/16/24 01/11/25 Rx tablet,extended release 24 hr (Toprol XL) lisinopril 40 mg tablet (Zestril) 40 mg PO QAM #90 tabs 12/13/24 01/11/25 Rx famotidine 40 mg tablet 40 mg PO HS #90 tabs 01/03/25 01/11/25 Rx tirzepatide 12.5 mg/0.5 mL 12.5 mg subcut WK 01/11/25 01/11/25 History subcutaneous pen injector (Mounjaro) Patient History Medical History Hyperlipidemia Prediabetes Hypertension followed by Dr. Brown CAD (coronary artery disease) circumflex, RCA, LAD and also angioplasty of diagonal and circumflex stent (total of 12 stents per pt-most recent 2020) Unstable angina Hx of colonic polyps History of diverticulosis denies h/o diverticulitis History of fracture of orbit (2014) right, surgery to correct Polymyalgia rheumatica Hx of myocardial infarction x 3, most recent 2004, multiple cardiac caths with 13 stents per pt, tPA x 1, follows with Dr. Mclean [facility] and Dr. Livingston, [facility] History of BPH History of anemia History of supraventricular tachycardia had RFA 2022 Chronic back pain Post-op bleeding x2 - s/p colonoscopy with biopsy. hx of returning to Emergency Room and inpatient treatment with repairs x2 (clampings per pt) Ventral hernia current Pleural plaque with presence of asbestos Osteopenia Acid reflux Surgical History History of postoperative nausea and vomiting History of anesthesia reaction 04/10/23 , ablation for svt - felt uncomfortable position related...blood pressure got low, couldn't have any more anesthesia. [facility]. History of total left hip replacement (11/2023) [place] Hx of colonoscopy with polypectomy Hx of heart surgery (~04/2021) cardiac lithotripsy - Dr. Livingston, [facility] Hx of bilateral cataract extraction History of endoscopy History of blepharoplasty bilateral. History of radiofrequency ablation (RFA) procedure for cardiac arrhythmia (~03/2023) for SVT at [facility] S/P left knee arthroscopy S/P eye surgery repair of right orbital floor fracture H/O angiography (~11/2018) Dr Vieira [facility] S/P vasectomy History of hernia repair as a child S/P coronary artery stent placement total 13 stents. S/P TURP x 2 S/P laparoscopic cholecystectomy S/P cardiac cath multiple - s/p 13 stents, most of them placed in [place]; 2 out of [address] Vieira in 2017 most recent 2020 at [place] (1 stent placed at [place], performed angiography), follows with Dr. Mclean at [facility] and Dr. Livingston at [facility] Family History Father , age 78 Liver disease Diabetes Coronary heart disease Heart disease Myocardial infarction Stroke Mother , age 62 Liver cancer Colorectal cancer Daughter Diabetes Arthritis Kidney disease FH: mitral valve repair Sister Diabetes Dyslipidemia Arthritis Depression Fibromyalgia COPD (chronic obstructive pulmonary disease) Grandfather (Maternal) Heart disease Other No family history of adverse response to anesthesia Denies family history of Ovarian cancer Prostate cancer Breast cancer Social History Smoking Status: Former smoker Tobacco Type: Cigarettes Age Started Using Tobacco: 19; Age Quit Using Tobacco: 0; packs per day: 2; Second Hand Exposure: No; Do You Dip or Chew Tobacco: No; Hx Alcohol Use: Yes Alcohol type: wine Alcohol Intake Frequency: 2-4 x/Month Alcohol Intake Frequency Comment: 1 glass/day Hx Substance Use: No Preferred Language: Estonian Communication Ability: Effective Visual Impairment: No Limitations Hearing Ability: Use of Hearing Aid Hat Liner Required: No Beliefs That Will Affect Care: None marital status: marital status details: twice Current Living Situation: Spouse current 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 status: 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 Physical Exam Physical Exam: Blood pressure is 121/70. Pulse 61 and regular. GENERAL: Patient in no acute distress. HEENT: Head is atraumatic, normocephalic. EOM's intact. Facies symmetric. No perioral cyanosis. NECK: No JVD. JVP is not elevated. Carotid upstrokes are + 2 bilaterally. No bruits. CHEST/LUNGS: Clear to auscultation throughout all lung guerrero. No wheezes, rales, or crackles. CVS: S1 and S2 are regular with a grade 1/6 basal systolic murmur. No diastolic murmurs. No gallops or rubs. PMI is nondisplaced. No lifts, heaves, or thrills. No abdominal aortic or renal bruits. ABDOMINAL EXAM: Bowel sounds are present. EXTREMITIES: No clubbing or cyanosis. No edema. Extremities are well perfused. NEUROLOGIC EXAM: Patient is awake, alert, and oriented. Pleasant and cooperative. Answers questions appropriately. Speech is clear. Results & Data Vital Signs (Past 12 Hours) Vital Signs Temp Pulse Pulse Resp BP BP BP 01/12/25 08:02 36.5 C 61 17 121/70 07/16/25 07:11 63 01/12/25 03:59 36.4 C L 62 18 114/67 01/12/25 00:20 36.4 C L 61 18 129/69 01/12/25 00:08 60 18 113/60 01/11/25 22:14 64 01/11/25 21:53 66 18 158/80 H Pulse Ox O2 Del Method 01/12/25 08:02 96 Room Air 01/12/25 07:11 01/12/25 03:59 96 Room Air 01/12/25 00:20 95 Room Air 01/12/25 00:08 97 Room Air 01/11/25 22:14 01/11/25 21:53 97 Room Air Laboratory Results Laboratory Results - last 24 hr 01/11/25 01/12/25 21:52 05:00 WBC 8.85 5.85 RBC 4.51 L 4.16 L Hgb 13.5 L 12.2 L Hct 39.8 L 37.2 L MCV 88.2 89.4 MCH 29.9 29.3 MCHC 33.9 32.8 RDW Std Deviation 47.1 H 48.0 H RDW Coeff of Gino 14.6 H 14.7 H Plt Count 262 217 MPV 9.8 10.0 Immature Gran % (Auto) 0.1 0.3 Neut % (Auto) 41.9 33.2 Lymph % (Auto) 37.9 40.7 [place] % (Auto) 12.1 14.2 Eos % (Auto) 6.4 9.7 Baso % (Auto) 1.6 1.9 Neut # (Auto) 3.71 1.94 Lymph # (Auto) 3.35 2.38 [place] # (Auto) 1.07 H 0.83 H Eos # (Auto) 0.57 H 0.57 H Baso # (Auto) 0.14 0.11 Immature Gran # (Auto) 0.01 0.02 PT 10.6 INR 1.0 APTT 25 PTT Ratio 0.9 Sodium 137 139 Potassium 4.1 3.8 Chloride 107 109 H Carbon Dioxide 23 24 Anion Gap 7 6 BUN 24 H 22 Creatinine 1.04 0.99 Est Cr Clr Drug Dosing 60.4 64.5 eGFR 73.50 77.97 BUN/Creatinine Ratio 23.1 H 22.2 H Glucose 123 H 104 H Calcium 9.6 8.9 Phosphorus 3.8 Magnesium 1.8 1.9 Total Bilirubin 0.5 AST 28 ALT 22 Alkaline Phosphatase 67 Troponin I High Sens 19.7 16.4 Total Protein 7.3 Albumin 4.3 3.7 Globulin 3.0 Albumin/Globulin Ratio 1.4 Diagnostic Findings CXR 01/11/25: Lungs: Unremarkable. No consolidation. Pleural space: There are prominent calcified pleural plaques, left greater than right. Lungs are otherwise clear. No pleural fluid. No pneumothorax. Heart: Unremarkable. No cardiomegaly. Mediastinum: Unremarkable. Normal mediastinal contour. Bones/joints: Unremarkable. No acute fracture. IMPRESSION: There are prominent calcified pleural plaques, left greater than right. Lungs are otherwise clear. Medications Administered Medication List Aspirin (Aspirin 81 Mg Ectab) 81 mg PO [facility] Stop: 02/11/25 08:59 Last Admin: 01/12/25 08:01 Dose: 81 mg Documented By: AM Calcium/Vitamin D (Calcium 600mg + Vit D 400 Iu Tab) 1 tab PO [facility] Stop: 02/11/25 08:59 Last Admin: 01/12/25 08:01 Dose: 1 tab Documented By: AM Clopidogrel Bisulfate (Clopidogrel Bisulfate 75 Mg Tab) 75 mg PO [facility] Stop: 02/11/25 08:59 Last Admin: 01/12/25 08:00 Dose: 75 mg Documented By: AM Potassium Chloride/Sodium Chloride (Normal Saline W/20 Meq Kcl) 20 meq in 1,000 mls @ 80 mls/hr IV .[id number] [facility] Stop: 01/12/25 12:14 Last Infusion: 01/12/25 09:57 Dose: 0 mls/hr Documented By: Admin: 01/12/25 00:15 Dose: 80 mls/hr Documented By: ERM Lisinopril (Lisinopril 40 Mg Tab) 40 mg PO [facility] Stop: 02/11/25 08:59 Last Admin: 01/12/25 08:00 Dose: 40 mg Documented By: AM Metoprolol Succinate (Metoprolol Succ 50mg Ext Rel Tab) 50 mg PO [facility] Stop: 02/11/25 08:59 Last Admin: 01/12/25 08:03 Dose: 50 mg Documented By: AM Multivitamins (Multivitamin Tab) 1 tab PO [facility] Stop: 02/11/25 08:59 Last Admin: 01/12/25 08:00 Dose: 1 tab Documented By: AM Nitroglycerin (Nitroglycerin 2% Ointment 30gm Tube) 0.5 inch EXT Q6H [facility] Stop: 02/11/25 00:00 Last Admin: 01/12/25 06:36 Dose: 0.5 inch Documented By: MARIA TERESA Admin: 01/12/25 00:28 Dose: 0.5 inch Documented By: MARIA TERESA Pantoprazole Sodium (Pantoprazole 40 Mg Tab) 40 mg PO [facility] Stop: 02/11/25 08:59 Last Admin: 01/12/25 08:01 Dose: 40 mg Documented By: AM Vitamin D (Cholecalciferol 25 Mcg (1000 Units) Tab) 50 mcg PO [facility] Stop: 02/11/25 08:59 Last Admin: 01/12/25 08:00 Dose: 50 mcg Documented By: AM Discontinued Medications Aspirin (Aspirin Chew 324 Mg) 324 mg PO NOW STA Stop: 01/11/25 22:58 Last Admin: 01/11/25 23:29 Dose: 324 mg Documented By: YAMILA Magnesium Sulfate/Dextrose (Magnesium Sulfate / D5w) 1 gm in 100 mls @ 50 mls/hr IV ONE ONE Stop: 01/12/25 01:43 Last Infusion: 01/12/25 02:29 Dose: Infused Documented By: MARIA TERESA Admin: 01/12/25 00:29 Dose: 50 mls/hr Documented By: MARIA TERESA Nitroglycerin (Nitroglycerin 0.3 Mg/1 Tab 100 Tab Btl) 0.3 mg SL NOW STA Stop: 01/11/25 22:58 Last Admin: 01/11/25 23:29 Dose: Not Given Documented By: YAMILA Nitroglycerin (Nitroglycerin Sl 0.4 Mg/Tab Tab) 0.4 mg SL NOW STA Stop: 01/11/25 23:08 Last Admin: 01/11/25 23:29 Dose: 0.4 mg Documented By: YAMILA PG Care Time/CCT Total # of Minutes Spent Total Time Spent with Patient: Total time spent is greater than 50% in coordination of care (as documented) at patient's floor/unit and/or counseling patient:44 Coding [place] [address] INT INP/OBS CARE 2/55MIN Patient Type Established History Comprehensive Exam Comprehensive Medical Decision Making Moderate Complexity Diagnoses Chest pain R07.9 Chest pain type: unspecified History of coronary artery disease Z86.79 Ischemic cardiomyopathy I25.5 Mixed hyperlipidemia E78.2 Hyperlipidemia type: mixed hyperlipidemia Time Spent (min) 58 (1) Chest pain Chest pain type: unspecified Qualified Code(s): R07.9 - Chest pain, unspecified (4) Hyperlipidemia Hyperlipidemia type: mixed hyperlipidemia Qualified Code(s): E78.2 - Mixed hyperlipidemia
--- NOTE | 2025-01-12 13:07 | Electrocardiogram Report ---
Test Reason : Blood Pressure : */* mmHG Vent. Rate : 69 BPM Atrial Rate : 69 BPM P-R Int : 236 ms QRS Dur : 120 ms QT Int : 400 ms P-R-T Axes : 32 9 85 degrees QTcB Int : 428 ms Sinus rhythm with 1st degree A-V block Poor R wave progression, consider anterior [place] vs. lead placement vs. LVH Abnormal ECG When compared with ECG of 14-May-2023 09:57, (unconfirmed) Borderline criteria for Inferior infarct are no longer Present Confirmed by Angel Smith ([id number]) on 01/12/2025 1:07:02 PM Referred By: REFERRED SELF Confirmed By: Angel Smith
--- NOTE | 2025-01-12 13:11 | Electrocardiogram Report ---
Test Reason : Blood Pressure : */* mmHG Vent. Rate : 65 BPM Atrial Rate : 65 BPM P-R Int : 280 ms QRS Dur : 128 ms QT Int : 448 ms P-R-T Axes : 39 -4 -26 degrees QTcB Int : 465 ms Sinus rhythm with 1st degree A-V block with Premature atrial complexes Non-specific intra-ventricular conduction block Possible Inferior infarct , age undetermined Abnormal ECG When compared with ECG of 11-Jan-2025 21:44, (unconfirmed) Premature atrial complexes are now Present Borderline criteria for Inferior infarct are now Present Nonspecific T wave abnormality now evident in Inferior leads Confirmed by Angel Smith ([id number]) on 01/12/2025 1:11:07 PM Referred By: REFERRED SELF Confirmed By: Angel Smith
[2025-01-12] MEDS: niCARdipine 2,000 MCG/20 ML SYR ONE (14:33)
[2025-01-12] MEDS: NITROGLYCERIN/D5W 100MCG/ML 20ML SYR ONE (14:33)
[2025-01-12] MEDS: IODIXANOL (VISIPAQUE) 320 MG/ML 100ML IV ONE (14:33)
[2025-01-12] MEDS: diphenhydrAMINE 50 MG/ML VIAL ONE (14:34)
[2025-01-12] MEDS: HEPARIN (PORCINE) 1000 UNIT/ML 10 ML (CATH LAB USE ONLY) ONE ×2 (14:39→14:40)
[2025-01-12] MEDS: MIDAZOLAM HCL 1 MG/ML 2ML VIAL ONE (14:39)
[2025-01-12] MEDS: OPTIRAY 350 ONE (14:41)
--- NOTE | 2025-01-12 14:48 | Pre Anesthesia Assessment ---
Date of Service January 12, 2025 Pre Sedation Assessment Vital Signs Temp Pulse Pulse Resp BP BP BP 01/12/25 11:45 98.4 F 75 18 111/72 01/12/25 08:02 97.7 F 61 17 121/70 01/12/25 07:11 63 01/12/25 03:59 97.5 F L 62 18 114/67 01/12/25 00:20 97.5 F L 61 18 129/69 01/12/25 00:08 60 18 113/60 01/11/25 22:14 64 01/11/25 21:53 66 18 158/80 H 01/11/25 21:39 97.9 F 69 18 162/76 H Pulse Ox O2 Del Method 01/12/25 11:45 99 Room Air 01/12/25 08:02 96 Room Air 01/12/25 07:11 01/12/25 03:59 96 Room Air 01/12/25 00:20 95 Room Air 01/12/25 00:08 97 Room Air 01/11/25 22:14 01/11/25 21:53 97 Room Air 01/11/25 21:39 96 Room Air Cardiovascular + regular rate Respiratory + respiratory effort normal Pre-Sedation Airway Assessment Smoking Status: Former smoker Hx Sleep Apnea: No Hx Difficult Intubation: No Short, Thick Neck: No Thyromental Distance: > or= 3.5 Finger Breadths Oral Cavity: + WNL Mallampati Class: III ASA: ASA3 NPO Status Date of Last Intake of Fluids: 01/12/25 Time of Last Intake of Fluids: 06:00 Date of Last Intake of Solid Food: 01/11/25 Time of Last Intake of Solid Foods: 21:00 Procedure Planning Contraindications for Sedation: none Current Medications Reviewed: Yes Notes The planned sedation has been discussed with the patient. Informed Consent was obtained. I have identified the patient, determined the appropriateness of sedation and have assessed the patient immediately prior to the procedure. All medicine(s) and interventions are by my order.
--- NOTE | 2025-01-12 14:48 | Post Anesthesia Assessment ---
Date of Service January 12, 2025 Post Sedation Assessment Vital Signs Temp Pulse Pulse Resp BP BP BP 01/12/25 11:45 98.4 F 75 18 111/72 01/12/25 08:02 97.7 F 61 17 121/70 01/12/25 07:11 63 01/12/25 03:59 97.5 F L 62 18 114/67 01/12/25 00:20 97.5 F L 61 18 129/69 01/12/25 00:08 60 18 113/60 01/11/25 22:14 64 01/11/25 21:53 66 18 158/80 H 01/11/25 21:39 97.9 F 69 18 162/76 H Pulse Ox O2 Del Method 01/12/25 11:45 99 Room Air 01/12/25 08:02 96 Room Air 01/12/25 07:11 01/12/25 03:59 96 Room Air 01/12/25 00:20 95 Room Air 01/12/25 00:08 97 Room Air 01/11/25 22:14 01/11/25 21:53 97 Room Air 01/11/25 21:39 96 Room Air Recovery Score Activity: Moves 4 extremities Respiration: Deep Breath/Cough Circulation: +/-20% PreAnes Value Consciousness: Fully Awake Oxygen Saturation: O2 needed for >90% Discharge Sedation Level of Care: Fast Track Phase II Post Sedation Plan tiss
--- NOTE | 2025-01-12 14:50 | Post Operative Brief Note ---
Cardiology Brief Post Op Date of Surgery January 12, 2025 Pre & Post Diagnosis Coronary artery disease Procedure cardiac catheterization Lead Mechanical Engineer Rj Vieira MD Chief Compressor Station Engineer Ritesh Estimated Blood Loss 20 Findings See Below 95+% mid LAD Widely patent circumflex stents Mild RCA disease Successful PCI of mid LAD with single SHAY (2.5 x 18 mm [place]; post-dilated with 3.0 NC). Anesthesia Type RN Sedation Disposition Disposition: PCU
[2025-01-12] MEDS: CLOPIDOGREL BISULFATE 300 MG TAB ONE (14:51)
--- NOTE | 2025-01-12 15:01 | XCELERA ---
[id number]
[2025-01-12] MEDS ORDERED: MoRPHine SULFATE 2 MG/ML CARP IV PRN (15:28)
[2025-01-12] MEDS: DOBUTamine HCL 12.5 MG/ML 20 ML VIAL IV ONE (15:53)
[2025-01-12] MEDS: METOPROLOL TARTRATE 1 MG/ML VIAL IV ONE ×3 (15:53→15:54)
[2025-01-12] MEDS: ATROPINE SULFATE 0.1 MG/ML 10ML SYR IV ONE ×2 (15:53→15:54)
--- NOTE | 2025-01-12 20:11 | Hospitalist Progress Note ---
Date of Service January 12, 2025 Assessment & Plan (1) Unstable angina: Plan: Dobutamine stress ECHO (01/12/2025, 9:52am): 1. Abnormal dobutamine stress ECHO @ 89% of the maximum predicted heart rate. 2. Dobutamine induced angina pectoris. 3. No EKG changes. 4. Baseline ECHO notes normal LVEF 50-55% and infero-posterior wall motion abnormality. (as per CARDS Dr. Angel Smith). EKG (01/12/2025, 3:10pm): NSR @ 62, IN 240 with no dropped QRS complexes, QTC 436, no acute ST depressions/elevations (by my review). Cardiac catheterization (01/12/2025, 2:48pm): 1. 95%+ stenosis mid-LAD. 2. Widely patent circumflex stents. 3. Mild RCA disease. 4. Successful PCI of mid-LAD with single SHAY (2.5 x 18 mm [place]; post-dilated with 3.0 NC). (as per Interventional CARDS Dr. Rj Vieira). Asymptomatic on telemetry, NOLVIA (morphine, O2, NTG, ASA), plavix 75mg PO daily, atorvastatin 40mg PO qhs, metoprolol succinate 50mg PO qam, and lisinopril 40mg PO qam. (2) CAD (coronary artery disease): Plan: Continue secondary prophylaxis against CAD utilizing ASA 81mg PO daily, plavix 75mg PO daily, atorvastatin 40mg PO qhs, metoprolol succinate 50mg PO qam, and lisinopril 40mg PO qam. (3) Ischemic cardiomyopathy: Plan: Continue secondary prophylaxis against ischemic cardiomyopathy utilizing ASA 81mg PO daily, plavix 75mg PO daily, atorvastatin 40mg PO qhs, metoprolol succinate 50mg PO qam, and lisinopril 40mg PO qam. (4) Dehydration, mild: Plan: cf., BUN 24, creatinine 1.04, GFR 73.5 mL/min (01/11/2025, 9:52pm). cf., BUN 22, creatinine 0.99, GFR 78.0 mL/min (01/12/2025, 5:00am). Asymptomatic. Continue to encourage patient to partake of a heart healthy diet to ensure continued resolution of mild acute dehydration (as defined by BUN:creatinine ratio > 20:1) with no need for IV fluid rehydration therapy on 01/12/2025. Plan The patient is a 79-year-old male with past medical history including coronary disease with multiple dyer assistant status post intracoronary balloon lithotripsy and IVUS guided PCI of left circumflex in 2020, hypertension, hyperlipidemia, SVT status post ablation in 04/21, GERD, ischemic cardiomyopathy, hyperlipidemia, and BPH with LUTS. The patient has been working out in the heat doing yard work, but he has tried to do this early in the morning. He has been trying to keep his water intake elevated, but his reports that his clothing is wringing wet when he comes in after working outside. He started developing some brief episodes of chest tightness/pressure and shortness of breath earlier in the week, and today reports that symptoms intensified, and did not go away n early as quickly. He thus presents to the ED for assessment. Unstable angina/CAD with multiple stents/ischemic cardiomyopathy- The patient will be admitted to telemetry for serial cardiac enzymes, serial EKG's, cardiac rhythm monitoring and a 2-D echocardiogram with Dopplers. Most recent echocardiogram on 10/08/2024 with ejection fraction 40-45%, with no change compared to 02/21/2023. Troponin at 19.7 with follow-up pending, and will follow serially EKG with sinus bradycardia first-degree heart block, and mild ST depressions laterally unchanged from previous Continue metoprolol succinate, magnesium oxide, lisinopril, aspirin and Plavix. Add Nitropaste 0.5 inch to anterior chest wall every 6 hours If recurrence of pain will start heparin drip NSS + KCl 20 mill equivalents at 80 mL/h x 1 L Magnesium sulfate 1 g IV x 1 for magnesium of 1.8 N.p.o. after midnight Serial CBC with differential, renal function panel, magnesium and troponin Consult cardiology, follows with Dr. Brown Dehydration- IV fluids as noted above, recheck laboratories in a.m. Patient was advised to avoid significant physical activity when it is hot outside. GERD- Continue omeprazole/pantoprazole, and famotidine Hyperlipidemia- Continue atorvastatin Admission and Anticipated Discharge Date Admission Date: January 11, 2025 Subjective "I feel fine. No pain anywhere. No shortness of breath. The heart doctor said I can go home tomorrow morning after breakfast." Review of Systems Constitutional: Negative for antecedent/coincident fevers, chills, diaphoresis, cough, wheeze, sore throat, hemoptysis, chest pains, palpitations, pleurisy, nausea, vomiting, diarrhea, abdominal pain, pelvic pain, hematemesis, hematochezia, melena, hematuria, dysuria, frequency, urgency, headaches, dizziness, lightheadedness, visual changes, hearing changes, weakness, falls, syncope, trauma, travel history, sick contacts, or food/drug ingestions novel or new. All other review of systems are reported as negative by the patient on 01/12/2025. Physical Exam Constitutional: General: Comfortable, coherent, and cooperative. Not confused, obtunded, or lethargic. Patient speaks with regular poncho, and in complete, fluent, and articulate 7-9 word sentences without pause, interruption, cough, or wheeze with O2 sat 95% on room air (01/12/2025, 7:44pm). HEENT: Normocephalic, atraumatic. No nystagmus, gaze paresis, anisocoria, miosis, mydriasis, hyphema, scleral injection, conjunctivitis, or pterygium. No otorrhea or rhinorrhea. No pharyngeal erythema, edema, or discharge. Neck: Supple, no stridor, bruit, goiter, or hepato-jugular reflux. Jugular venous pressure is estimated to be 3 cm above the sternal angle of Curt, which in turn, is 5 cm above the level of the right atrium; with jugular venous pressure estimated to be 8 cm, then, there is no jugular venous distention on 01/12/2025. Lymphatics: No cervical (anterior/posterior), supraclavicular, infraclavicular, axillary, epitrochlear, or inguinal adenopathy. Chest: Symmetric rise and fall with respirations. Non-tender to palpation. Lungs: Clear to auscultation and percussion. Heart: Regular rate and rhythm. S1 and S2 noted. No S3 or S4 sum mation gallop. No tripartite friction rub. Grade II/ early systolic murmur @ LLSB without radiation to the carotids, axilla, or back, and which remains invariant in regards to the respiratory cycle. Abdomen: Soft, non-tender, non-distended. No rebound, guarding, Weiss's sign, or organomegaly. Bowel sounds auscultated in all 4 quadrants. Extremities: No clubbing, cyanosis, or edema. Skin: No decubitus ulcer or enanthem or exanthem. Neuro: Awake and oriented in regards to person, place, time, and situation. DTR+. 5/5 motor strength in all 4 extremities, both proximally and distally. No myoclonus or tics or tremors. Genito-urinary: No urethral discharge. No castaneda catheter. Results & Data Results & Data Vital Signs (Past 12 Hours) Vital Signs Temp Pulse Resp BP Pulse Ox O2 Del Method 01/12/25 19:44 36.9 C 59 L 16 107/70 95 Room Air 01/12/25 18:28 60 17 114/73 01/12/25 18:13 57 L 119/67 01/12/25 17:28 64 110/68 01/12/25 16:28 36.8 C 62 17 108/69 97 Room Air 01/12/25 16:13 84 109/71 01/12/25 15:58 73 99/61 L 01/12/25 15:43 36.4 C L 58 L 17 110/72 97 Room Air 01/12/25 15:05 63 18 108/66 98 Room Air 01/12/25 14:50 68 18 107/62 96 Room Air 01/12/25 11:45 36.9 C 75 18 111/72 99 Room Air 01/12/25 08:02 36.5 C 61 17 121/70 96 Room Air Laboratory Results WBC 8.85, N42 L38 M12 E 6 B2, Hb 13.5, MCV 88.2, MCHC 33.9, platelet 262 (01/11/2025, 9:52am). WBC 5.85, N33 L41 M14 E10 B2, Hb 12.2, MCV 89.4, MCHC 32.8, platelet 217 (01/12/2025, 5:00am). Na 137, K 4.1, BUN 24, creatinine 1.04, GFR 73.5, glucose 123, Ca 9.6 (01/11/2025, 9:52pm). Na 139, K 3.8, BUN 22, creatinine 0.99, GFR 78.0, glucose 104, Ca 8.9 (01/12/2025, 5:00am). PO4 3.8, Mg 1.9 (01/12/2025, 5:00am). Troponin-I #1 19.7 pg/mL (01/11/2025, 9:52pm). Troponin-I #2 16.4 pg/mL (01/12/2025, 5:00am). Diagnostic Findings Portable CXR (01/11/2025, 10:08pm): No infiltrate, effusion, cardiomegaly, pulmonary vascular congestion, or pneumothorax. Calcified pleural plaques, left > right. (by my review). PG Care Time/CCT Total # of Minutes Spent Total Time Spent with Patient: Total time spent is greater than 50% in coordination of care (as documented) at patient's floor/unit and/or counseling patient: Coding Level of Care Code 17669 SUB INP/OBS CARE 2/35MIN Diagnoses Unstable angina I20.0 Coronary artery disease involving douglas coronary artery of douglas heart with other form of angina pectoris I25.118 Coronary Disease-Associated Artery/Lesion type: douglas artery [place] vs. transplanted heart: douglas heart Associated angina: with other forms of angina Ischemic cardiomyopathy I25.5 Dehydration, mild E86.0 (2) CAD (coronary artery disease) Coronary Disease-Associated Artery/Lesion type: douglas artery [place] vs. transplanted heart: douglas heart Associated angina: with other forms of angina Qualified Code(s): I25.118 - Atherosclerotic heart disease of douglas coronary artery with other forms of angina pectoris
[2025-01-12] MEDS: ATORVASTATIN 40 MG TAB PO SCH (21:01)
[2025-01-12] MEDS: FAMOTIDINE 40 MG TABLET PO SCH (21:01)
[2025-01-12] MEDS: MAGNESIUM OXIDE 400 MG TAB PO SCH (21:01)
--- NOTE | 2025-01-12 23:38 | Cardiac Catheterization ---
[facility] Data: Credit Risk Specialist Cardiac Status Clinical evaluation leading to the procedure CAD Presenation: Positive Stress Test and Unstable angina Anginal Classification: CCS IV Diagnostic Physicians Name: Rj Vieira MD Closure Device Recommendations: PCI without planned CABG Cardiac Cath Procedure Full Procedure Date January 12, 2025 Pre-Procedure Diagnosis Pre-Procedure Diagnosis: Angina and Positive Stress Test AUC Score AUC Score: 7 Post-Procedure Diagnosis Post-Procedure Diagnosis: Severe CAD, Successful PCI and Normal Intracardiac Pressures Procedure(s) Performed Procedure(s) Performed: Coronary Angiography, Left Heart Cath and Drug Eluting Stent Leather Tooler Rj Vieira MD Artificial Inseminator(s) Ritesh Estimated Blood Loss Estimated Blood Loss: None Medication(s) Medication(s): Clopidogrel, Fentanyl, Heparin, Lidocaine 1%, Nicardipine, Nitroglycerin and Versed Summary of Findings Indication: Abnormal stress test, accelerating angina, history of multivessel disease with multiple prior stents Access: 6 Fr right radial artery Catheters: [place], EBU 3.5 guide Findings: LM -Short,, no significant disease LAD -moderate caliber, mid segment stent widely patent,95+% mid segment stenosis at bifurcation of second diagonal, distal vessel without significant disease as wraps around apex. First diagonal with 40-50% ostial stenosis as it exits prior stent (unchanged from prior cath). Medium D2 without significant disease. Circumflex -large caliber vessel, patent stents extending from ostium to mid segment, 30% ISR distal aspect of stent. Jailed small OM1 70% ostial. OM2 30% proximal. OM3 without significant disease. RCA -dominant, moderate caliber vessel, mid segment 20-30% disease, 30-40% distal disease. Mild 30 to 40% proximal to mid PDA disease LVEDP -13 -- PCI -- Antithrombotic therapy: Heparin, clopidogrel Procedure: Left main cannulated with EBU 3.5 guide Preprocedure PEPE II-III flow Wrapper [place] 50 wire navigated into distal LAD, [place] blue wire navigated into D2 Mid LAD dilated with 2.5 balloon Mid LAD stented with 2.5 x 18 [address] [place] [employer] drug-eluting stent overlapping distal aspect of prior stent and extending across takeoff of D2 Stent postdilated with 3.0 NC balloon IC vasodilators administered for spasm Post procedure PEPE 3 flow, no apparent cardiac complications. Jailed D2 without significant residual stenosis. Arterial Closure: TR band Summary: 1. Multivessel coronary disease 95+% mid LAD stenosis. Mid LAD stent proximal to stenosis widely patent Ostial to mid circumflex stents widely patent 30-40% distal RCA, proximal RPDA 2. Normal intracardiac filling pressure 3. Successful PCI of mid LAD with single drug-eluting stent (2.5 x 18 mm [place]; postdilated with 3.0 NC) overlapping distal aspect of prior stent. Recommendations: To PCU for continued monitoring Reloaded with clopidogrel 300 mg in dental laboratory assistant Continue dual-antiplatelet therapy for at least 6 months likely indefinitely Continue statin, and ASCVD risk factor modification Hemodynamics Rest Ao:: 132/69/96 Final Ao: 137/69/99 LV: 152/13 Recommendations Recommendations: PCI without planned CABG Radiation Exposure (mGy) 2087 Contrast (mls) 110 Anesthesia Moderate [id number] Procedural Complication(s) None Disposition PCU I attest to the content of the Intraoperative Record and any orders documented therein. Any exceptions are noted below. [facility] Card Cath Procedure Codes Cardiac Catheterization Procedure 1: Cardiovascular Cath Procedures: 86008 Coronaries and LHC (+/-LV) Moderate Sedation Procedure 1: Sedation/Anesthesia: 07886 Mod Sedation by the same physician;Init15 Min Child Age 5 & Up Procedure 2: Sedation/Anesthesia: 79138 Mod Sedation by the same physician; Ea [id number] Minutes Stenting Procedure 1: Cardiovascular Stent Procedures: 68864 Perc transcatheter placement of intracoronary stent(s), with ang PG Care Time/CCT Total # of Minutes Spent Total Time Spent with Patient: Total time spent is greater than 50% in coordination of care (as documented) at patient's floor/unit and/or counseling patient:
[2025-01-13 06:15] LABS: Hematocrit (blood only) 38.8 % (42.0-52.0); Hemoglobin 13.0 g/dl (14.0-18.0); Immature Granulocytes # (auto) 0.01 K/uL (0.01-0.20); Immature Granulocytes % (auto) 0.2 %; Mean Corpuscular Hemoglobin 29.8 pg (25.0-34.0); Mean Corpuscular Volume 89.0 fL (80.0-100.0); Platelet Count 227 K/uL (130-400); RDW Standard Deviation 48.6 fL (36.4-46.3); Red Blood Count 4.36 M/uL (4.70-6.10); White Blood Count 6.24 K/ul (4.8-10.8)
[2025-01-13 06:47] LABS: Anion Gap 4.0 (3-11); Blood Urea Nitrogen 17.0 mg/dl (6-23); Calcium 9.4 mg/dl (8.6-10.3); Carbon Dioxide 28.0 mmol/L (21-32); Chloride 106.0 mmol/L (98-107); Creatinine Clr Calc Pharmacy 57.2 ml/min; Glucose 96.0 mg/dl (70-99(Fasting)); Magnesium 1.8 mg/dl (1.7-2.4); Potassium 4.6 mmol/L (3.5-5.1); Sodium 138.0 mmol/L (136-145)
[2025-01-13 08:36] VITALS: BP 125/71; PULSE 60; RESP 17; TEMP 97.9; O2SAT 97
--- NOTE | 2025-01-13 09:15 | Discharge Summary ---
Discharge Summary Date of Service January 13, 2025 Principal Dx & Hospital Course #1 = Principal Diagnosis (1) Unstable angina: Dobutamine stress ECHO (01/12/2025, 9:52am): 1. Abnormal dobutamine stress ECHO @ 89% of the maximum predicted heart rate. 2. Dobutamine induced angina pectoris. 3. No EKG changes. 4. Baseline ECHO notes normal LVEF 50-55% and infero-posterior wall motion abnormality. (as per CARDS Dr. Angel Smith). EKG (01/12/2025, 3:10pm): NSR @ 62, SC 240 with no dropped QRS complexes, QTC 436, no acute ST depressions/elevations (by my review). Cardiac catheterization (01/12/2025, 2:48pm): 1. 95%+ stenosis mid-LAD. 2. Widely patent circumflex stents. 3. Mild RCA disease. 4. Successful PCI of mid-LAD with single SHAY (2.5 x 18 mm [place]; post-dilated with 3.0 NC). (as per Interventional CARDS Dr. Rj Vieira). Asymptomatic on telemetry, NOLVIA (morphine, O2, NTG, ASA), plavix 75mg PO daily, atorvastatin 40mg PO qhs, metoprolol succinate 50mg PO qam, and lisinopril 40mg PO qam. (2) CAD (coronary artery disease): Patient received secondary prophylaxis against CAD utilizing ASA 81mg PO daily, plavix 75mg PO daily, atorvastatin 40mg PO qhs, metoprolol succinate 50mg PO qam, and lisinopril 40mg PO qam while in [facility] from admission date 01/11/2025 through discharge date 01/13/2025. Patient will continue this same home-scheduled regimen on hospital discharge home on . (3) Ischemic cardiomyopathy: Continue secondary prophylaxis against ischemic cardiomyopathy utilizing ASA 81mg PO daily, plavix 75mg PO daily, atorvastatin 40mg PO qhs, metoprolol succinate 50mg PO qam, and lisinopril 40mg PO qam while in [facility] from admission date 01/11/2025 through discharge date 01/13/2025. Patient will continue this same home-scheduled regimen on hospital discharge home on 01/13/2025. (4) Dehydration, mild: cf., BUN 24, creatinine 1.04, GFR 73.5 mL/min (01/11/2025, 9:52pm).(admission). cf., BUN 22, creatinine 0.99, GFR 78.0 mL/min (01/12/2025, 5:00am). cf., BUN 17, creatinine 1.10, GFR 68.7 mL/min (01/13/2025, 5:25am).(discharge). Acute dehydration RESOLVED with patient encouraged to partake of a heart healthy diet to ensure continued resolution of mild acute dehydration (as defined by BUN:creatinine ratio > 20:1) with no need for IV fluid rehydration therapy while in [facility] from admission date 01/11/2025 through discharge date 01/13/2025. 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 The patient has been working out in the heat doing yard work, but he has tried to do this early in the morning. He has been trying to keep his water intake elevated, but his reports that his clothing is wringing wet when he comes in after working outside. He started developing some brief episodes of chest tightness/pressure and shortness of breath earlier in the week, and today reports that symptoms intensified, and did not go away nearly as quickly. He thus presents to the ED for assessment. Unstable angina/CAD with multiple stents/ischemic cardiomyopathy- The patient will be admitted to telemetry for serial cardiac enzymes, serial EKG's, cardiac rhythm monitoring and a 2-D echocardiogram with Dopplers. Most recent echocardiogram on 10/08/2024 with ejection fraction 40-45%, with no change compared to 02/21/2023. Troponin at 19.7 with follow-up pending, and will follow serially EKG with sinus bradycardia first-degree heart block, and mild ST depressions laterally unchanged from previous Continue metoprolol succinate, magnesium oxide, lisinopril, aspirin and Plavix. Add Nitropaste 0.5 inch to anterior chest wall every 6 hours If recurrence of pain will start heparin drip NSS + KCl 20 mill equivalents at 80 mL/h x 1 L Magnesium sulfate 1 g IV x 1 for magnesium of 1.8 N.p.o. after midnight Serial CBC with differential, renal function panel, magnesium and troponin Consult cardiology, follows with Dr. Brown Dehydration- IV fluids as noted above, recheck laboratories in a.m. Patient was advised to avoid significant physical activity when it is hot outside. 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 The patient has been working out in the heat doing yard work, but he has tried to do this early in the morning. He has been trying to keep his water intake elevated, but his reports that his clothing is wringing wet when he comes in after working outside. He started developing some brief episodes of chest tightness/pressure and shortness of breath earlier in the week, and today reports that symptoms intensified, and did not go away nearly as quickly. He thus presents to the ED for assessment. Discharge Exam Constitutional General: Comfortable, coherent, and cooperative. Not confused, obtunded, or lethargic. Patient speaks with regular poncho, and in complete, fluent, and articulate 7-9 word sentences without pause, interruption, cough, or wheeze with O2 sat 97% on room air (01/13/2025, 7:00am). HEENT: Normocephalic, atraumatic. No nystagmus, gaze paresis, anisocoria, miosis, mydriasis, hyphema, scleral injection, conjunctivitis, or pterygium. No otorrhea or rhinorrhea. No pharyngeal erythema, edema, or discharge. Neck: Supple, no stridor, bruit, goiter, or hepato-jugular reflux. Jugular venous pressure is estimated to be 3 cm above the sternal angle of Curt, which in turn, is 5 cm above the level of the right atrium; with jugular venous pressure estimated to be 8 cm, then, there is no jugular venous distention on 01/13/2025. Lymphatics: No cervical (anterior/posterior), supraclavicular, infraclavicular, axillary, epitrochlear, or inguinal adenopathy. Chest: Symmetric rise and fall with respirations. Non-tender to palpation. Lungs: Clear to auscultation and percussion. Heart: Regular rate and rhythm. S1 and S2 noted. No S3 or S4 summation gallop. No tripartite friction rub. Grade II/ early systolic murmur @ LLSB without radiation to the carotids, axilla, or back, and which remains invariant in regards to the respiratory cycle. Abdomen: Soft, non-tender, non-distended. No rebound, guarding, Weiss's sign, or organomegaly. Bowel sounds auscultated in all 4 quadrants. Extremities: No clubbing, cyanosis, or edema. Skin: No decubitus ulcer or enanthem or exanthem. Neuro: Awake and oriented in regards to person, place, time, and situation. DTR+. 5/5 motor strength in all 4 extremities, both proximally and distally. No myoclonus or tics or tremors. Genito-urinary: No urethral discharge. No castaneda catheter. Discharge Plan Discharge Items Patient Disposition: Home - Self-Care Reason For Visit: CHEST PAIN Discharge Diagnosis: 1. Chest pain due to coronary artery disease, NOT acute NSTEMI. s/p cardiac catheterization (01/12/2025, 2:48pm): 1. 95%+ stenosis mid-LAD. 2. Widely patent circumflex stents. 3. Mild RCA disease. 4. Successful PCI of mid-LAD with single SHAY (2.5 x 18 mm [place]; post-dilated with 3.0 NC). (as per Interventional CARDS Dr. Rj Vieira). Condition on Discharge: Fair Activity: Resume your previous activity Lifting: Gradually increase as tolerated Bathing: No limitations Sexual Activity: When tolerated Exercise/Sports: Gradually increase as tolerated Driving/Machine Use: No limitations Weightbearing: Full weightbearing Non-emergency contact: Primary Care Provider Call non-emergency contact if: you have any medication questions Follow-up/Referrals: Pro,Angel Fletcher MD [Primary Care Provider] - Diet: Heart Healthy Addtl Attending Provider Instructions: See your PCP Dr. Angel French within 5-7 days of hospital discharge for routine, follow up visit. Pending Studies at Discharge: No Stand-Alone Forms: My [facility], Smoking Cessation Medications and DC Order Prescriptions: Continued nitroglycerin [Nitrostat] 0.4 mg tablet, sublingual 0.4 mg sublingual UD PRN (Reason: Chest Pain) Qty: 25 5RF clopidogrel [Plavix] 75 mg tablet 75 mg PO QAM Qty: 90 3RF Hold Instructions: Resume on 01/01/24. fluticasone propionate 50 mcg/actuation spray,suspension 2 spray intranasal UD PRN (Reason: nasal congestion) Qty: 48 3RF Rx Instructions: uses prn nasal congestion atorvastatin [Lipitor] 40 mg tablet 40 mg PO HS Qty: 90 3RF omeprazole 20 mg capsule,delayed release(DR/EC) 40 mg PO QAM Qty: 180 0RF Rx Instructions: takes QAM metoprolol succinate [Toprol XL] 50 mg tablet extended release 24 hr 50 mg PO QAM Qty: 90 3RF lisinopril [Zestril] 40 mg tablet 40 mg PO QAM Qty: 90 3RF famotidine 40 mg tablet 40 mg PO HS Qty: 90 3RF diphenhydramine HCl [Benadryl] 25 mg capsule 50 mg PO QPM PRN (Reason: Sleep) cholecalciferol (vitamin D3) 2,000 unit tablet 2,000 unit PO QAM glucosamine sulfate 1,000 mg capsule 1,000 mg PO BID Patient Comments: vegan brand magnesium oxide 400 mg (241.3 mg magnesium) tablet 400 mg PO HS (DME) Accu-Chek Sonya Plus test strp Strip See Rx Instructions .ROUTE .MEDSUPPLY Rx Instructions: test once daily multivitamin Tablet 1 tab PO QAM aspirin [Rc Low Dose Aspirin] 81 mg Tablet,Delayed Release (Dr/Ec) 81 mg PO QAM calcium carbonate-vitamin D3 [Calcium 600 + D(3)] 600 mg(1,500mg) -400 unit tablet 1 tab PO QAM Mounjaro 12.5 mg/0.5 mL pen injector 12.5 mg SUBCUT WK Rx Instructions: sundays Discharge Orders: Discharge Order (Routine); Ordered 01/13/25 Ordered By: Cr Chandler Admission Data Admit Date/Time: 01/11/25 23:47 Attending Provider: Cr Chandler Admit Provider: Spencer Posey Primary Care Provider: Angel French Other Providers: Spencer Posey; Mic Brown Hospital Stay Data Consultations 01/11/25 23:00 ED Decision to Admit Stat 01/12/25 00:23 Consult Cardiology Routine Procedures Performed Operation Date: 01/12/25 12:00 Actual Procedures p Cineradiography w/Routine Exam - Rj Vieira MD p Cath, Left with Cors and Vent - Rj Vieira MD s Drug Eluting Stent SGl Vessel - Rj Vieira MD Diagnostic Imagining Performed 01/12/25 11:40 CL Cath Imgs for PACS use only Stat Pending Results Patient Have Any Pending Studies at Discharge: No Discharge Instructions Given to Patient (Per Discharging Provider) See your PCP Dr. Angel French within 5-7 days of hospital discharge for routine, follow up visit. Total Time Total Time Spent Total Time Spent (In Minutes): 35 minutes. Of this time period, 19 minutes were spent in coordinating patient's discharge. Coding Level of Care Code 85176 INP/OBS DISCH >30 MIN Diagnoses Unstable angina I20.0 Coronary artery disease involving [place] coronary artery of [place] heart with other form of angina pectoris I25.118 Coronary Disease-Associated Artery/Lesion type: [place] artery [place] vs. transplanted heart: [place] heart Associated angina: with other forms of angina Ischemic cardiomyopathy I25.5 Dehydration, mild E86.0
--- NOTE | 2025-01-13 14:27 | Electrocardiogram Report ---
Test Reason : Blood Pressure : */* mmHG Vent. Rate : 62 BPM Atrial Rate : 62 BPM P-R Int : 240 ms QRS Dur : 122 ms QT Int : 430 ms P-R-T Axes : 8 -7 -24 degrees QTcB Int : 436 ms Sinus rhythm with 1st degree A-V block Minimal voltage criteria for LVH, may be normal variant Cannot rule out Inferior infarct (cited on or before 14-May-2023) Poor R wave progression, consider anterior SC vs. lead placement vs. LVH Abnormal ECG When compared with ECG of 12-Jan-2025 06:03, Premature atrial complexes are no longer Present ST no longer depressed in Anterior leads Nonspecific T wave abnormality no longer evident in Anterolateral leads Confirmed by Angel Smith ([id number]) on 01/13/2025 2:26:44 PM Referred By: REFERRED SELF Confirmed By: Angel Smith
--- NOTE | 2025-01-13 14:50 | Electrocardiogram Report ---
Test Reason : Blood Pressure : */* mmHG Vent. Rate : 56 BPM Atrial Rate : 56 BPM P-R Int : 270 ms QRS Dur : 98 ms QT Int : 450 ms P-R-T Axes : 65 -8 -47 degrees QTcB Int : 434 ms Sinus bradycardia with 1st degree A-V block Inferior infarct (cited on or before 14-May-2023) Abnormal ECG When compared with ECG of 12-Jan-2025 15:10, (unconfirmed) QRS duration has decreased ST now depressed in Anterior leads Nonspecific T wave abnormality now evident in Anterolateral leads Confirmed by Angel Smith ([id number]) on 01/13/2025 2:49:54 PM Referred By: REFERRED SELF Confirmed By: Angel Smith
== END 2025-01-13 11:19 | disposition home or self-care (01) | DRG 322 ==
LOC: ED 21:37 → 4W 23:47 → SUATTDRO 23:47 → 4W 01-12 00:08